=== PATIENT | male | born 1955 | race Caucasian/White ===

== ENCOUNTER 2017-06-18 17:19 | Inpatient (IN) | payer MEDICARE ==
[2017-06-18 17:57] LABS: #Basophils 0.1 thou/uL (0.0-0.2); #Eosinphils 0.2 thou/uL (0.0-0.7); #Lymphocytes 1.5 thou/uL (1.20-3.40); #Monocytes 0.5 thou/uL (0.11-0.59); #Neutrophils 3.9 thou/uL (1.40-6.50); %Basophils 0.8 % (0.0-1.0); %Eosinophils 3.3 % (0.0-10.0); %Lymphocytes 24.2 % (21.0-51.0); %Monocytes 8.1 % (0.0-10.0); Hematocrit 35.5 % (42.0-52.0); Mean Platelet Volume 7.9 fL (7.4-10.4); White Blood Cell (WBC) Count 6.2 thou/uL (4.8-10.8)
[2017-06-18 18:23] LABS: Troponin I 0.022 ng/mL (< 0.028)
[2017-06-18 18:44] LABS: ALT (SGPT) 9 U/L (8-55); AST (SGOT) 21 U/L (5-34); Alkaline Phosphatase 95 U/L (40-150); Anion Gap 15 mmol/L (10-20); BUN (Urea Nitrogen) 22 mg/dL (8.4-25.7); Bilirubin, Total 0.9 mg/dL (0.2-1.2); CK (CPK) 68 U/L (30-200); Calc. Creatinine Clearance 0 mL/min (70-130); Calcium 8.9 mg/dL (7.8-10.44); Carbon Dioxide 28 mmol/L (22-29); Chloride 102 mmol/L (98-107); Estimated GFR-MDRD Greater than 90; Lipase 63 U/L (8-78); Protein, Total 7.1 g/dL (6.0-8.3)
--- NOTE | 2017-06-18 18:58 | RAD ---
CHEST 1 VIEW: Date: 06/18/17 HISTORY: Chest pain. COMPARISON: Chest 1 view dated 12/07/16. FINDINGS: Mild hilar prominence bilaterally. Heart size is mildly enlarged. Mild interstitial prominence. No pn eumothorax or large effusion. Dual lead AICD/pacer is present. IMPRESSION: Cardiomegaly with mild pulmonary venous congestion and early edema. POS: [facility]
[2017-06-18] MEDS ORDERED: Furosemide 40 MG/4 ML VIAL ONE (21:59)
[2017-06-18] MEDS ORDERED: Acetaminophen 325 MG TAB PO PRN (23:38)
[2017-06-18] MEDS ORDERED: Ondansetron ODT 4 MG TAB SL PRN (23:38)
[2017-06-18] MEDS ORDERED: Ondansetron HCl/PF 4 MG/2 ML Vial IVP PRN (23:38)
[2017-06-19 00:26] LABS: Troponin I 0.022 ng/mL (< 0.028)
[2017-06-19 03:13] LABS: Troponin I 0.023 ng/mL (< 0.028)
[2017-06-19] MEDS ORDERED: Furosemide 40 MG/4 ML VIAL SLOW IVP SCH (04:00)
--- NOTE | 2017-06-19 08:50 | HP ---
REASON FOR ADMISSION: Shortness of breath. HISTORY OF PRESENT ILLNESS: This is a 61-year-old gentleman with a history of multiple medical probl ems to include coronary artery disease followed by Dr. Krishnan in the past with his last catheterizati on in 2011 at which time he was found to have 60% lesion in a large diagonal branch, circumflex first marginal had 50-60% lesion, right coronary had 90% lesion, 70% mid and 90% distal lesion proximally, the right coronary artery was not bypassable. There was clearly a very large aneurysmal dilatation following the lesion. There was a depressed ejection fraction 40% at that time. There was a success ful stent placement in the right proximal coronary artery and the patient did very well at that time. He presented back in the hospital in 2013 with chest pain. At that time, he was seen by Dr. Krishnan. At that time he was found to have a depressed EF of 25%. Also at that time underwent AICD placement . His prognosis was felt to be poor at that time and his coronary artery disease was treated medical ly. The patient has been noncompliant at that time. He is known to also have COPD and possible sleep direct support professional ea, but the patient refuses any sleep apnea test. The patient presents with a 2 week history of increasing shortness of breath. The patient states he has been waking up over the last several times in the last 2 weeks and will just be gasping for air. He also has been having bad dreams. He tells me "as if God is trying to tell him something". The p atient did try his 's CPAP machine recently, but states he could not tolerate it. Dr. Teresa has been wanting him to get tested for sleep apnea, but he has been refusing in the past. He has not bee n seen by a technician trainee since 2013. The patient did have an episode of chest pressure with no assoc iated nausea, vomiting, or diaphoresis and this only lasted a few seconds. The patient did present t o the hospital with the above symptoms and for this reason, he was admitted to the hospital for [facility] evaluation and treatment. PAST MEDICAL HISTORY: 1. As above. 2. Noncompliance. 3. Diabetes. 4. Hypertension. 5. Dyslipidemia. 6. Chronic obstructive pulmonary disease. 7. Gastroesophageal reflux disease. 8. Depression. 9. Anxiety. 10. Peripheral neuropathy. PAST SURGICAL HISTORY: 1. Stent placement in 2011. 2. Surgery on his right foot. 3. Inguinal hernia repair in the past. ALLERGIES: None. MEDICATIONS: 1. Albuterol q.i.d. 2. Allopurinol 300 mg a day. 3. Aspirin 81 mg. 4. Symbicort 160/4.5 b.i.d. 5. Coreg 12.5 mg b.i.d. 6. Plavix 75 mg a day. 7. Prozac 40 mg. 8. Lasix 40 mg, 9. Neurontin 800 mg t.i.d. 10 Lopid 600 mg b.i.d. 11. Mucinex 1200 mg b.i.d. 12. Metformin 1000 mg b.i.d. SOCIAL HISTORY: He is a former smoker, quit 10 years ago. He does drink alcohol. He is . FAMILY HISTORY: Noncontributory. REVIEW OF SYSTEMS: GENERAL: No weight gain or loss. Admits to weakness, fatigue, no fever or chills. HEENT: No diplopia, amaurosis fugax, tinnitus, sore throat or hoarseness. CARDIOVASCULAR: See history of present illness. PULMONARY: See history of present illness. GI: No GI bleed, does have GERD, no constipation or diarrhea. GENITOURINARY: No dysuria, nocturia, oliguria or polyuria. ENDOCRINE: No polyphagia, polydipsia or heat or cold intolerance. MUSCULOSKELETAL: Admits to arthralgias. No myopathy. He does have gout. NEUROLOGIC: No history of TIA or seizure. All other systems are negative. PHYSICAL EXAMINATION: GENERAL: Pleasant gentleman who appears to be in no acute distress. NEUROLOGICAL: He is awake, alert, and oriented to person, place and time. VITAL SIGNS: Blood pressure is 130/70, pulse 70, respirations 18, he is afebrile. NECK: Supple with no increased JVP or carotid bruit. Carotid had good upstroke with no thyromegaly. COR: Regular rate and rhythm. He had a defibrillator in the left anterior chest. Chest is symmetri glory with scattered wheezing. A few crackles in the bases. ABDOMEN: Soft, obese, nontender with normoactive bowel sounds. No bruit or organomegaly. EXTREMITIES: No edema or cyanosis. He had palpable pedal pulses. SKIN: There is no evidence of ulceration lesion, or rash. NEURO: He is awake, alert, and oriented to person, place, and time. LABORATORY DATA: His cardiac enzymes are normal. BNP is slightly elevated at 227.2, H&H 11.9 and 35 .5, white blood cells 6.2. EKG shows sinus rhythm, nonspecific T-wave changes. ASSESSMENT: 1. This is a pleasant 61-year-old gentleman with a history of multiple medical problems to include c oronary artery disease with stent placement in the past and cardiomyopathy with automatic implantable cardioverter/defibrillator placement. He has not seen a technician trainee in 3 years and presents now wi th nonspecific chest pain and breathing difficulties suggestive of congestive heart failure and also chronic obstructive pulmonary disease. 2. He is also known to have a history of hypertension, hyperlipidemia, and diabetes. PLAN: 1. We will ask Dr. Krishnan to see the patient in consultation where an echocardiogram will be obtaine d. 2. We will check blood sugars a.c. and at bedtime and use sliding scale insulin per protocol. 3. We will check a hemoglobin A1c. 4. We will diurese with IV diuretics. 5. We will check a fasting lipid profile. 6. We will resume his home medications. 7. We will check overnight pulse ox to get an idea for sleep apnea. 8. We will obtain accurate I's and O's. 9. We will follow up with lab also in the morning. The patient verbalized understanding and all questions answered to his satisfaction.
[2017-06-19 08:54] LABS: Hemoglobin A1c 6.9 % (4.0-6.0)
[2017-06-19] MEDS ORDERED: Dextrose 5% in Water 1,000 ML IV PRN (08:59)
[2017-06-19] MEDS ORDERED: Dextrose 50% Abboject 50 ML SYRINGE IVP PRN (08:59)
[2017-06-19] MEDS ORDERED: Insulin Regular 300 UNITS/3 ML VIAL SC PRN ×2 (08:59)
[2017-06-19] MEDS ORDERED: FLU VACC QS2017-18 36 mo. & older 0.5 ML SYRINGE IM ONE (09:00)
[2017-06-19] MEDS ORDERED: Albuterol Sulfate 2.5 mg/3 ml Neb NEB PRN (09:05)
[2017-06-19] MEDS: Furosemide 40 MG/4 ML VIAL SLOW IVP SCH (09:18)
[2017-06-19] MEDS ORDERED: Gabapentin 400 MG CAP PO SCH ×2 (09:30→09:45)
[2017-06-19] MEDS: Potassium Chloride 20 MEQ TAB PO SCH (09:38)
[2017-06-19] MEDS ORDERED: metFORMIN 500 MG TAB PO SCH (09:45)
[2017-06-19] MEDS ORDERED: guaiFENesin ER 600 MG TAB PO SCH (09:45)
[2017-06-19] MEDS ORDERED: FLUoxetine HCl 20 MG CAP PO SCH (09:45)
[2017-06-19] MEDS ORDERED: Gemfibrozil 600 MG TAB PO SCH ×2 (09:45→16:30)
[2017-06-19] MEDS ORDERED: Aspirin 81 mg Enteric Coated Tablet PO SCH (09:45)
[2017-06-19] MEDS ORDERED: Carvedilol 6.25 MG TAB PO SCH ×2 (09:45→21:00)
[2017-06-19] MEDS ORDERED: Allopurinol 300 MG TAB PO SCH (09:45)
[2017-06-19] MEDS ORDERED: Clopidogrel Bisulfate 75 MG TAB PO SCH (09:45)
[2017-06-19] MEDS: Carvedilol 6.25 MG TAB PO SCH ×2 (11:14→20:25)
--- NOTE | 2017-06-19 11:39 | CON ---
DATE OF CONSULTATION: 06/19/2017 HISTORY OF PRESENT ILLNESS: The patient is a pleasant 61-year-old gentleman with a long history of coronary artery disease who presents with increasing dyspnea and chest discomfort. The patient has a long history of coronary artery disease. In 2011, he underwent PTCA and stent placement into an obtuse marginal branch and right coronary artery. The patient represented in 01/2014. He was found to have severe coronary artery disease with a low ejection fraction. The patient had a 40% LAD lesion, a 60% diagonal lesion and a 60% ramus lesion in the right coronary artery. He had multiple lesions to 70%-80%. The patient has subsequently been treated medically. He has also had placement of automatic implantable cardiac defibrillator. The patient has unfortunately not been compliant with his followup. He states that he has noticed for the past several months developing progressive dyspnea on exertion. He reports also having substernal chest discomfort that has relieved by rest. The patient 2 weeks ago started having increasing shortness of breath. He reports whenever he lied down that he becomes markedly short of breath and has to sit up. The patient states he has been compliant recently with his medications PAST MEDICAL HISTORY: 1. Coronary artery disease. 2. Diabetes mellitus. 3. Hypertension. 4. Chronic obstructive pulmonary disease. 5. Depression. PAST SURGICAL HISTORY: Foot surgery, hernia surgery and appendectomy. SOCIAL HISTORY: He is a former smoker. ALLERGIES: ZYRTEC. FAMILY HISTORY: There is a positive family history of coronary artery disease. REVIEW OF SYSTEMS: Ten point system noticeable for weakness, otherwise unremarkable. PHYSICAL EXAMINATION: GENERAL: This is an obese gentleman in mild distress with a blood pressure of 129/74. NECK: Full. LUNGS: Diffuse wheezes throughout both lung morales. HEART: Regular rate and rhythm, normal S1, S2 with distant heart sounds. ABDOMEN: Distended. EXTREMITIES: Showed no edema. SKIN: Warm and dry. NEUROLOGIC: Nonfocal. VASCULAR: Radial pulses are 2+. LABORATORY DATA: Sodium is 141, potassium 4.2, chloride 102, bicarbonate 28, BUN 22, creatinine is 0.81, glucose is 90, troponin 0.22. BNP is 227. White blood cell count 6.2, hemoglobin 11.9, hematocrit 35.5, platelets 172. EKG reveals him to have normal sinus rhythm, nonspecific T-wave abnormality. Chest x-ray showed cardiomegaly with mild pulmonary vascular redistribution. IMPRESSION: 1. Dyspnea secondary to probably chronic obstructive pulmonary disease exacerbation. 2. Chest pain suggestive of exertional angina. 3. History of percutaneous transluminal coronary angioplasty and stent placement. 4. Diffuse 3-vessel coronary artery disease. 5. Severe ischemic cardiomyopathy. 6. History of automatic implantable cardioverter defibrillator placement. 7. Chronic obstructive pulmonary disease. This unfortunate gentleman with a severe ischemic cardiomyopathy who presents with increasing dyspnea. He appears to have mild congestive heart failure. He also has a severe COPD, we would recommend that the patient decrease the dose of his beta harry. We will start the patient on AMRIT inhibitor therapy as well as statin therapy. We will check the patient's echocardiogram. We will proceed with stress testing during this hospitalization. PLAN: 1. Decrease Coreg to 6.25 mg p.o. b.i.d. 2. Start lisinopril 5 mg p.o. b.i.d. 3. Start high dose statin therapy, Lipitor 40 mg daily. 4. Discontinue gemfibrozil. 5. Check echocardiogram. 6. Schedule Lexiscan stress testing during this hospitalization. 7. Obtain pulmonary consultation. GARRYD
[2017-06-19] MEDS: metFORMIN 500 MG TAB PO SCH (16:42)
[2017-06-19] MEDS: Gabapentin 400 MG CAP PO SCH ×2 (16:42→20:24)
[2017-06-19] MEDS ORDERED: Cepastat Lozenges 1 LOZ PO PRN (18:39)
[2017-06-19] MEDS: Mometasone/Formoterol 120 PUFF INHALER INH SCH (19:53)
[2017-06-19] MEDS: Atorvastatin Calcium 40 MG TAB PO SCH (20:24)
[2017-06-19] MEDS: guaiFENesin ER 600 MG TAB PO SCH (20:24)
[2017-06-19] MEDS: Lisinopril 5 MG TAB PO SCH (20:25)
[2017-06-20 04:38] LABS: ALT (SGPT) 7 U/L (8-55); AST (SGOT) 9 U/L (5-34); Alkaline Phosphatase 87 U/L (40-150); Anion Gap 12 mmol/L (10-20); BUN (Urea Nitrogen) 25 mg/dL (8.4-25.7); Bilirubin, Total 0.7 mg/dL (0.2-1.2); Calc. Creatinine Clearance 132 mL/min (70-130); Calcium 8.9 mg/dL (7.8-10.44); Carbon Dioxide 30 mmol/L (22-29); Chloride 102 mmol/L (98-107); Cholesterol 190 mg/dl (< 200 Desired); Estimated GFR-MDRD 90; Globulin 2.8 g/dL (2.4-3.5); LDL Cholesterol, Calculated 123 mg/dL; Protein, Total 6.6 g/dL (6.0-8.3)
[2017-06-20] MEDS: Mometasone/Formoterol 120 PUFF INHALER INH SCH ×2 (06:38→20:01)
[2017-06-20] MEDS: metFORMIN 500 MG TAB PO SCH ×2 (10:13→16:01)
[2017-06-20] MEDS: Gabapentin 400 MG CAP PO SCH ×3 (10:14→21:02)
[2017-06-20] MEDS: FLUoxetine HCl 20 MG CAP PO SCH (10:15)
[2017-06-20] MEDS: Aspirin 81 mg Enteric Coated Tablet PO SCH (10:15)
[2017-06-20] MEDS: Clopidogrel Bisulfate 75 MG TAB PO SCH (10:15)
[2017-06-20] MEDS: guaiFENesin ER 600 MG TAB PO SCH ×2 (10:15→21:01)
[2017-06-20] MEDS: Potassium Chloride 20 MEQ TAB PO SCH (10:15)
[2017-06-20] MEDS: Lisinopril 5 MG TAB PO SCH ×2 (10:15→21:03)
[2017-06-20] MEDS: Carvedilol 6.25 MG TAB PO SCH ×2 (10:15→21:01)
[2017-06-20] MEDS: Allopurinol 300 MG TAB PO SCH (10:15)
--- NOTE | 2017-06-20 14:19 | NM ---
MYOCARDIAL PERFUSION SCAN WITH SPECT IMAGING: HISTORY: Chest pain. TECHNIQUE/FINDINGS: Examination is performed using 30 mCi 99m-technetium sestamibi on the stress and 9 on the resting yulisa ges. This shows an apical inferior wall defect without definite signs for ischemia. WALL MOTION: There is a generalized hypokinesis noted. LEFT VENTRICULAR EJECTION FRACTION: The calculated left ventricular ejection fraction is 35%. IMPRESSION: 1. Global hypokinesis with a diminished left ventricular ejection fraction of 35%. 2. Fixed defect involving the apical and inferoapical wall suggesting an area of scar. POS: [facility]
[2017-06-20] MEDS ORDERED: Regadenoson 0.4 MG/5 ML SYRINGE ONE (15:53)
[2017-06-20] MEDS: Furosemide 40 MG/4 ML VIAL SLOW IVP SCH (16:01)
[2017-06-20] MEDS ORDERED: Spironolactone 25 MG TAB PO SCH (17:45)
[2017-06-20] MEDS ORDERED: Furosemide 40 MG/4 ML VIAL SLOW IVP SCH (17:45)
[2017-06-20] MEDS: Atorvastatin Calcium 40 MG TAB PO SCH (21:03)
--- NOTE | 2017-06-20 22:03 | CON ---
DATE OF SERVICE 06/20/2017 FOLLOW UP NOTE/PROGRESS NOTE Mr. Montiel is feeling better today. He is able to lay almost flat now. He had a good diuresis. He is feeling better. No chest pain. He says he has been diuresing very well. The I and O was only mildly negative, but it sounds like a lot of the urine output has not been collected. PHYSICAL EXAMINATION: VITAL SIGNS: His blood pressure is 115/60, pulse 75, regular. LUNGS: Clear. CARDIAC: Normal S1, normal S2. ABDOMEN: Soft, nontender. EXTREMITIES: No edema. Peripheral pulses are diminished. Stress test revealed a fixed inferior defect compatible with old infarct, but no ischemia, ejection fraction 35%. ASSESSMENT: 1. Diffusely diseased non bypassable right coronary artery. 2. Congestive heart failure with ejection fraction 35%. 3. No ischemia on stress testing. PLAN: 1. Continue therapy for congestive heart failure. 2. Reevaluate tomorrow. The patient is still unable to lay flat comfortably. PEDRITO
[2017-06-20] MEDS: diphenhydrAMINE 25 MG CAP PO SCH (23:04)
[2017-06-21 04:55] LABS: Anion Gap 9 mmol/L (10-20); BUN (Urea Nitrogen) 28 mg/dL (8.4-25.7); Calc. Creatinine Clearance 129 mL/min (70-130); Carbon Dioxide 31 mmol/L (22-29); Chloride 103 mmol/L (98-107); Estimated GFR-MDRD 87
[2017-06-21] MEDS: Mometasone/Formoterol 120 PUFF INHALER INH SCH ×2 (06:24→19:08)
--- NOTE | 2017-06-21 08:46 | PRG ---
DATE OF SERVICE: 06/21/2017 The patient did not have a good night. He is still short of breath when he lays down. His appetite is good. He is also still short of breath with minimal exertion. He denies any type of chest pain. PHYSICAL EXAMINATION: GENERAL: Upon evaluation, he is awake, alert, and oriented to person, place and time. He has no fam onur at bedside. VITAL SIGNS: Blood pressure is good at 125/70, pulse 77, respirations 18, he is afebrile. NECK: Supple with no increased JVP or carotid bruit. Carotid had good upstroke with no thyromegaly. COR: Regular rate and rhythm. CHEST: Scattered wheezing. ABDOMEN: Soft, nontender with normoactive bowel sounds. There is no bruit or organomegaly. EXTREMITIES: No edema or cyanosis. He had palpable pedal pulses. SKIN: There is no evidence of ulcers lesion, or rash. NEUROLOGIC: He is awake, alert, and oriented to person, place, and time. LABORATORY DATA: His stress test showed a global hypokinesis with diminished EF of 35% and also fixe d defect involving the apical and inferoapical wall in the area of the scar. I do not have the pulmo nary function test in the chart. ASSESSMENT: 1. Chronic obstructive pulmonary disease. 2. Cardiomyopathy. 3. History of coronary artery disease. 4. Probable obstructive sleep apnea. 5. Noncompliance. 6. Hypertension. 7. Hyperlipidemia. 8. Diabetes. PLAN: We will continue the same current medication regime as we are continuing to diurese the patien t. I also explained to the patient regarding limiting his fluids as well. The patient did verbalize understanding and all questions answered to his satisfaction. We will also follow up with lab [facility].
[2017-06-21] MEDS: metFORMIN 500 MG TAB PO SCH ×2 (09:34→16:55)
[2017-06-21] MEDS: Spironolactone 25 MG TAB PO SCH (09:35)
[2017-06-21] MEDS: Allopurinol 300 MG TAB PO SCH (09:35)
[2017-06-21] MEDS: Furosemide 40 MG/4 ML VIAL SLOW IVP SCH (09:36)
[2017-06-21] MEDS: Aspirin 81 mg Enteric Coated Tablet PO SCH (09:36)
[2017-06-21] MEDS: Gabapentin 400 MG CAP PO SCH ×4 (09:36→22:05)
[2017-06-21] MEDS: FLUoxetine HCl 20 MG CAP PO SCH (09:36)
[2017-06-21] MEDS: Clopidogrel Bisulfate 75 MG TAB PO SCH (09:36)
[2017-06-21] MEDS: Carvedilol 6.25 MG TAB PO SCH ×2 (09:36→22:05)
[2017-06-21] MEDS: guaiFENesin ER 600 MG TAB PO SCH ×2 (09:37→22:05)
[2017-06-21] MEDS: Potassium Chloride 20 MEQ TAB PO SCH (09:37)
[2017-06-21] MEDS: Lisinopril 5 MG TAB PO SCH (09:37)
[2017-06-21] MEDS ORDERED: Communication Order-Pharmacy FS SCH (16:00)
[2017-06-21] MEDS ORDERED: Furosemide 40 MG/4 ML VIAL SLOW IVP SCH (16:00)
[2017-06-21] MEDS ORDERED: Potassium Chloride 20 MEQ TAB PO SCH (16:00)
--- NOTE | 2017-06-21 16:21 | PRG ---
DATE OF SERVICE: 06/21/2017 HISTORY: Mr. Montiel had a good diuresis last night. He states he still does not feel great. He is n ot having chest pain or pressure. He states that recently he has been having increasing amounts of f atigue however. PHYSICAL EXAMINATION: VITAL SIGNS: His blood pressure 117/66, pulse 74 regular. LUNGS: Clear. CARDIAC: Normal S1, S2. ABDOMEN: Soft, nontender. EXTREMITIES: Decreased pulses in the right. I do not feel a good femoral pulse in right. He has g ot a good femoral pulse on the left. ASSESSMENT: 1. Coronary artery disease. 2. Hypercholesterolemia. 3. Congestive heart failure, slowly improving. PLAN: 1. Recommend he undergo repeat cardiac catheterization in view of increasing fatigue recently, his h eart failure is improved, in the right coronary artery there is nothing that further can be done to revascularize, but the left system could potentially be treated with stent since that is worsened. T he patient's cholesterol has been elevated. 2. He has a chronic cough. We will stop AMRIT inhibitors and change to angiotensin receptor blockers. 3. Proceed to cardiac catheterization tomorrow. Risks including stroke, heart attack, iodine allerg y, loss of blood supply to the leg or kidney, stent thrombosis, stent restenosis all discussed. The patient understands and wishes to proceed.
[2017-06-21] MEDS ORDERED: predniSONE 20 MG TAB PO SCH (20:00)
[2017-06-21] MEDS: diphenhydrAMINE 25 MG CAP PO SCH (22:04)
[2017-06-21] MEDS: Atorvastatin Calcium 40 MG TAB PO SCH (22:05)
[2017-06-22 04:52] LABS: ALT (SGPT) 8 U/L (8-55); AST (SGOT) 9 U/L (5-34); Alkaline Phosphatase 93 U/L (40-150); Anion Gap 11 mmol/L (10-20); BUN (Urea Nitrogen) 33 mg/dL (8.4-25.7); Bilirubin, Total 0.5 mg/dL (0.2-1.2); Calc. Creatinine Clearance 104 mL/min (70-130); Calcium 9.3 mg/dL (7.8-10.44); Carbon Dioxide 29 mmol/L (22-29); Chloride 101 mmol/L (98-107); Estimated GFR-MDRD 68; Globulin 3.2 g/dL (2.4-3.5); Protein, Total 7.3 g/dL (6.0-8.3)
[2017-06-22] MEDS: Carvedilol 6.25 MG TAB PO SCH ×2 (05:11→20:32)
[2017-06-22] MEDS: Allopurinol 300 MG TAB PO SCH (05:11)
[2017-06-22] MEDS: Gabapentin 400 MG CAP PO SCH ×3 (05:12→20:32)
[2017-06-22] MEDS: guaiFENesin ER 600 MG TAB PO SCH ×2 (05:12→20:33)
[2017-06-22] MEDS: FLUoxetine HCl 20 MG CAP PO SCH (05:13)
[2017-06-22] MEDS: Aspirin 81 mg Enteric Coated Tablet PO SCH (05:13)
[2017-06-22] MEDS: Clopidogrel Bisulfate 75 MG TAB PO SCH (05:13)
[2017-06-22] MEDS ORDERED: Diazepam 10 MG/2 ML SYRINGE IVP SCH (06:00)
[2017-06-22] MEDS ORDERED: predniSONE 20 MG TAB PO SCH (06:00)
[2017-06-22] MEDS ORDERED: Sodium Chloride 0.9% 1,000 ML IV SCH (06:00)
[2017-06-22] MEDS ORDERED: Heparin 1000 UNIT/NS 500ML(OR) 1,000 ML ONE (06:41)
[2017-06-22] MEDS: Insulin Regular 300 UNITS/3 ML VIAL SC PRN ×4 (06:51→23:55)
[2017-06-22] MEDS: Mometasone/Formoterol 120 PUFF INHALER INH SCH ×2 (07:10→19:27)
[2017-06-22] MEDS ORDERED: Midazolam HCl 2 mg/2 ml Vial ONE (07:23)
[2017-06-22] MEDS ORDERED: Fentanyl 100 MCG/2 ML VIAL ONE (07:23)
[2017-06-22] MEDS ORDERED: Verapamil 5 MG/2 ML VIAL ONE (08:29)
[2017-06-22] MEDS ORDERED: Nitroglycerin 100MG/250ML BOT 250 ML ONE (08:29)
[2017-06-22] MEDS ORDERED: Heparin 10,000 UNITS/1 ML VIAL ONE (08:29)
[2017-06-22] MEDS ORDERED: Nitroglycerin 0.4 MG TAB (25 Tab Bottle) SL PRN (08:52)
[2017-06-22] MEDS ORDERED: traMADol HCl 50 MG TAB PO PRN (08:52)
[2017-06-22] MEDS ORDERED: Acetaminophen/Codeine 30-300mg Tablet PO PRN (08:52)
[2017-06-22] MEDS ORDERED: Sodium Chloride 0.9% 200 ML IV SCH (09:00)
[2017-06-22] MEDS: Spironolactone 25 MG TAB PO SCH (10:29)
[2017-06-22] MEDS: Potassium Chloride 20 MEQ TAB PO SCH (10:29)
[2017-06-22] MEDS: Furosemide 40 MG/4 ML VIAL SLOW IVP SCH (10:36)
[2017-06-22] MEDS ORDERED: Iopamidol 370 76% 100 ML VIAL ONE (15:34)
[2017-06-22] MEDS: Atorvastatin Calcium 40 MG TAB PO SCH (20:32)
[2017-06-22] MEDS: diphenhydrAMINE 25 MG CAP PO SCH (20:33)
--- NOTE | 2017-06-22 21:14 | CON ---
DATE OF CONSULTATION: 06/22/2017 HISTORY OF PRESENT ILLNESS: Mr. Montiel is a 61-year-old gentleman with a history of coronary artery d isease, depressed left ventricular function, diabetes mellitus, hypertension, dyslipidemia, COPD. He presented with worsening congestive heart failure symptoms. At the time of admission, his echocardi ogram showed an ejection fraction of 20%-25%. He was diuresed. He has had a chronic cough at home o n AMRIT inhibitors and his AMRIT inhibitor was discontinued and changed to an ARB. With diuresis, he was feeling better from a pulmonary standpoint and went for cardiac catheterization today. Catheterizat ion revealed severe 3-vessel disease. He has been on chronic Plavix therapy. This has been held as of today. Coronary artery bypass grafting has been recommended. PAST MEDICAL HISTORY: 1. Coronary artery disease. 2. Congestive heart failure. 3. Diabetes mellitus. 4. Hypertension. 5. Dyslipidemia. 6. COPD. 7. GERD. 8. Depression. 9. Anxiety. 10. Noncompliance with medical therapy. 11. Peripheral neuropathy. PAST SURGICAL HISTORY: 1. Stent placement in 2011. 2. Right foot surgery x4 for fracture and chronic pain. 3. Right inguinal hernia repair. 4. Exploratory laparoscopy. ALLERGIES: None. MEDICATIONS AT HOME: Noted. SOCIAL HISTORY: He quit smoking 10 years ago. He does not use alcohol. He is and disabled due to his right foot. REVIEW OF SYSTEMS: A ten-point review of systems is performed and is negative except as above. PHYSICAL EXAMINATION: GENERAL: This is a well-developed, well-nourished man, resting comfortably in bed without complaint. VITAL SIGNS: Height is 5 feet 10 inches, weight is 228 pounds, BSA 2.26. Heart rate is 75 and regul ar, blood pressure is 144/68. HEENT: Sclerae anicteric. Pupils are equal and round bilaterally. NECK: Supple, without carotid bruit. CHEST: Clear bilaterally. HEART: Rhythm is regular, without murmur. ABDOMEN: Obese, soft, and nontender. No masses. EXTREMITIES: No edema. VASCULAR: He has palpable carotid, radial, and femoral pulses bilaterally. VENOUS: There are no venous varicosities or venous stasis changes. PSYCHIATRIC: The patient is awake, alert, and oriented to person, place, and time. LABORATORY DATA: Creatinine is 1.1, potassium is 4.6. Hemoglobin is 11.9, platelet count is 172,000 . ASSESSMENT AND PLAN: This is a 61-year-old gentleman with depressed left ventricular function, conge stive heart failure, and three-vessel coronary artery disease. He has been poorly controlled as an o utpatient. Since admission, he has been diuresed and feels better. I would recommend that we contin ue as an inpatient to treat his congestive failure symptoms and stop his Plavix. Coronary artery byp ass grafting has been recommended. Risks, benefits, and options have been outlined. I would like to leave him off his Plavix for 4-5 days and then plan for surgery. In the meantime, continue to treat his congestive failure and diurese him as he is able. He is in agreement with this treatment plan. I have tentatively planned him for surgery on Sunday.
[2017-06-23] MEDS ORDERED: Budesonide 0.5 MG/2 ML NEB NEB SCH (08:45)
[2017-06-23] MEDS: Mometasone/Formoterol 120 PUFF INHALER INH SCH ×2 (08:50→19:39)
--- NOTE | 2017-06-23 09:27 | CCL ---
PROCEDURE: CARDIAC CATHETERIZATION PROCEDURE: Mr. Montiel was brought to cardiac catheterization lab in fasting state. The right femoral artery was deep. He was prepped and draped in usual fashion. Under ultrasound guidance, placed a micropuncture wire, but the introducer would not go easily. It coiled in the leg. I decided to abandon this appr oac and went to the left side. On the left side again under ultrasound guidance, the wire was place d up into the aorta, but again the catheter would not go easily and tended to coil even with the stif khalif sheath and elected abandon this approach to proceed radial. The patient did not have any complic ations. Unsuccessful access from the right groin. Access was obtained from the radial artery. POS: [facility]
[2017-06-23] MEDS: FLUoxetine HCl 20 MG CAP PO SCH (10:02)
[2017-06-23] MEDS: Furosemide 40 MG/4 ML VIAL SLOW IVP SCH (10:02)
[2017-06-23] MEDS: Allopurinol 300 MG TAB PO SCH (10:03)
[2017-06-23] MEDS: Gabapentin 400 MG CAP PO SCH ×3 (10:03→21:12)
[2017-06-23] MEDS: Potassium Chloride 20 MEQ TAB PO SCH (10:04)
[2017-06-23] MEDS: predniSONE 20 MG TAB PO SCH (10:04)
[2017-06-23] MEDS: Aspirin 81 mg Enteric Coated Tablet PO SCH (10:04)
[2017-06-23] MEDS: Carvedilol 6.25 MG TAB PO SCH ×2 (10:05→21:12)
[2017-06-23] MEDS: Spironolactone 25 MG TAB PO SCH (11:50)
[2017-06-23] MEDS: guaiFENesin ER 600 MG TAB PO SCH ×2 (11:51→21:15)
[2017-06-23] MEDS: Insulin Regular 300 UNITS/3 ML VIAL SC PRN ×2 (18:09→21:18)
[2017-06-23] MEDS: Budesonide 0.5 MG/2 ML NEB NEB SCH (19:38)
[2017-06-23] MEDS: Atorvastatin Calcium 40 MG TAB PO SCH (21:12)
[2017-06-23] MEDS: diphenhydrAMINE 25 MG CAP PO SCH (21:12)
[2017-06-24] MEDS: Budesonide 0.5 MG/2 ML NEB NEB SCH ×2 (07:13→18:55)
[2017-06-24] MEDS: Mometasone/Formoterol 120 PUFF INHALER INH SCH ×2 (07:25→18:56)
[2017-06-24] MEDS ORDERED: Insulin Detemir 100 UNITS/ML 30 UNITS in Pre-Filled Syringe 1 EACH SC SCH (09:00)
[2017-06-24] MEDS: Furosemide 40 MG/4 ML VIAL SLOW IVP SCH (09:52)
[2017-06-24] MEDS: FLUoxetine HCl 20 MG CAP PO SCH (09:52)
[2017-06-24] MEDS: Allopurinol 300 MG TAB PO SCH (09:53)
[2017-06-24] MEDS: guaiFENesin ER 600 MG TAB PO SCH ×2 (09:53→20:58)
[2017-06-24] MEDS: predniSONE 20 MG TAB PO SCH (09:53)
[2017-06-24] MEDS: Gabapentin 400 MG CAP PO SCH ×3 (09:53→20:58)
[2017-06-24] MEDS: Spironolactone 25 MG TAB PO SCH (09:54)
[2017-06-24] MEDS: Carvedilol 6.25 MG TAB PO SCH ×2 (09:54→20:57)
[2017-06-24] MEDS: Aspirin 81 mg Enteric Coated Tablet PO SCH (09:54)
[2017-06-24] MEDS: Potassium Chloride 20 MEQ TAB PO SCH (09:54)
[2017-06-24] MEDS: Insulin Regular 300 UNITS/3 ML VIAL SC PRN ×3 (09:59→21:01)
--- NOTE | 2017-06-24 15:58 | CON ---
DATE OF CONSULTATION: 06/24/2017 SUBJECTIVE: Robert Montiel is a 61-year-old male who I have seen for COPD. He is fairly functional, a lthough he says he has become less active as he has gotten older. He is felt to have surgical coronary disease and tentatively scheduled for surgery Sunday. PAST MEDICAL HISTORY: Remarkable for, 1. Cardiomyopathy. 2. Diabetes. 3. Lipid disorder. 4. Obstructive lung disease. 5. Depression. 6. Peripheral neuropathy. 7. History of coronary stenting. 8. History of right foot surgery for fracture. 9. History of herniorrhaphy. 10. History of a laparoscopy in the past. SOCIAL HISTORY: He quit smoking 10 years ago. He is a nondrinker. ALLERGIES: He has no drug allergies. REVIEW OF SYSTEMS: Otherwise negative. He says today he feels great. PHYSICAL EXAMINATION: VITAL SIGNS: He is afebrile, heart rate 69, respiratory rate 18, oximetry 91, blood pressure 108/59. HEENT: Pupils are equal. Sclerae is anicteric. NECK: Supple. LUNGS: Clear. HEART: Regular rhythm. S1 and S2 are normal. I do not hear murmur. ABDOMEN: Soft and nontender. EXTREMITIES: Without asymmetry. LABORATORY DATA: Labs have been reviewed. Chest x-ray has been reviewed. There are no mass lesions on his chest radiograph. Pulmonary edema was seen on his admitting film. IMPRESSION: Coronary artery disease. Tentatively for coronary bypass grafting. I will be happy to follow with the other physicians caring for him.
[2017-06-24] MEDS: Atorvastatin Calcium 40 MG TAB PO SCH (20:57)
[2017-06-24] MEDS: diphenhydrAMINE 25 MG CAP PO SCH (20:58)
[2017-06-25 05:29] LABS: #Eosinphils 0.2 thou/uL (0.0-0.7); #Lymphocytes 1.7 thou/uL (1.20-3.40); #Monocytes 0.5 thou/uL (0.11-0.59); %Basophils 0.6 % (0.0-1.0); %Eosinophils 2.6 % (0.0-10.0); %Lymphocytes 22.9 % (21.0-51.0); %Monocytes 7.2 % (0.0-10.0); Hematocrit 33.5 % (42.0-52.0); Mean Platelet Volume 7.7 fL (7.4-10.4); Red Blood Cell (RBC) Count 3.57 mill/uL (4.70-6.10); White Blood Cell (WBC) Count 7.4 thou/uL (4.8-10.8)
[2017-06-25 05:44] LABS: Anion Gap 12 mmol/L (10-20); BUN (Urea Nitrogen) 27 mg/dL (8.4-25.7); Calc. Creatinine Clearance 109 mL/min (70-130); Calcium 9.5 mg/dL (7.8-10.44); Carbon Dioxide 30 mmol/L (22-29); Chloride 100 mmol/L (98-107); Estimated GFR-MDRD 74
[2017-06-25] MEDS: Budesonide 0.5 MG/2 ML NEB NEB SCH ×2 (07:48→19:01)
[2017-06-25] MEDS: Mometasone/Formoterol 120 PUFF INHALER INH SCH ×2 (07:49→19:01)
[2017-06-25] MEDS: Furosemide 40 MG/4 ML VIAL SLOW IVP SCH (08:07)
[2017-06-25] MEDS: Insulin Regular 300 UNITS/3 ML VIAL SC PRN ×3 (08:07→17:32)
[2017-06-25] MEDS: predniSONE 20 MG TAB PO SCH (08:08)
[2017-06-25] MEDS: Aspirin 81 mg Enteric Coated Tablet PO SCH (08:08)
[2017-06-25] MEDS: Carvedilol 6.25 MG TAB PO SCH ×2 (08:08→21:02)
[2017-06-25] MEDS: Gabapentin 400 MG CAP PO SCH ×3 (08:08→21:03)
[2017-06-25] MEDS: Spironolactone 25 MG TAB PO SCH (08:08)
[2017-06-25] MEDS: Potassium Chloride 20 MEQ TAB PO SCH (08:08)
[2017-06-25] MEDS: FLUoxetine HCl 20 MG CAP PO SCH (08:09)
[2017-06-25] MEDS: guaiFENesin ER 600 MG TAB PO SCH ×2 (08:10→21:03)
[2017-06-25] MEDS: Allopurinol 300 MG TAB PO SCH (08:10)
[2017-06-25] MEDS ORDERED: Milk Of Magnesia 30 ML UDCUP PO PRN (08:35)
[2017-06-25] MEDS ORDERED: Milk Of Magnesia 30 ML UDCUP PO SCH (08:45)
--- NOTE | 2017-06-25 08:50 | RAD ---
PORTABLE CHEST: DATE: 06/25/17. PROVIDED CLINICAL HISTORY: Congestive heart failure. FINDINGS: Comparison 06/18/17. The cardiac silhouette remains enlarged. Left subclavian cardiac pacing device is again seen with the tips in similar positions. There is no focal consolidation, pleural fluid, o r pneumothorax apparent. IMPRESSION: No evidence for an acute cardiopulmonary process. POS: [facility]
[2017-06-25] MEDS ORDERED: Insulin Detemir 100 UNITS/ML 40 UNITS in Pre-Filled Syringe SC SCH (09:00)
--- NOTE | 2017-06-25 09:35 | PRG ---
DATE OF SERVICE: 06/25/2017 Mr. Montiel feels well, no complaints of chest pain or pressure. PHYSICAL EXAMINATION: VITAL SIGNS: Blood pressure 114/77, pulse 74 regular. LUNGS: Clear. CARDIAC: Normal S1 and S2. ASSESSMENT: 1. Three vessel coronary disease. 2. Congestive heart failure, systolic, compensated. PLAN: Proceed with bypass surgery tomorrow per Dr. Wilson's notes.
[2017-06-25] MEDS: Insulin Detemir 100 UNITS/ML 60 UNITS in Pre-Filled Syringe 1 EACH SC SCH (10:00)
[2017-06-25] MEDS ORDERED: Communication Order-Pharmacy FS SCH (13:04)
[2017-06-25] MEDS: Atorvastatin Calcium 40 MG TAB PO SCH (21:02)
[2017-06-25] MEDS: diphenhydrAMINE 25 MG CAP PO SCH (21:03)
[2017-06-26] MEDS ORDERED: CEFAZOLIN/Water 2 GM/20 ML SYRINGE SLOW IVP SCH (04:30)
[2017-06-26] MEDS: Carvedilol 6.25 MG TAB PO SCH (05:45)
[2017-06-26] MEDS ORDERED: Fentanyl 250 MCG/5 ML VIAL ONE (06:52)
[2017-06-26] MEDS ORDERED: Midazolam HCl 5 mg/5 ml Vial ONE (06:53)
[2017-06-26] MEDS ORDERED: Vecuronium 10 MG VIAL ONE ×3 (06:53→16:36)
[2017-06-26] MEDS ORDERED: Midazolam HCl 2 mg/2 ml Vial IVP SCH (07:15)
[2017-06-26] MEDS: Budesonide 0.5 MG/2 ML NEB NEB SCH (07:29)
[2017-06-26] MEDS ORDERED: Heparin 10,000 UNITS/1 ML VIAL 30,000 UNITS in Sodium Chloride 0.9% 1,000 ML IVPB SCH (07:30)
[2017-06-26] MEDS: Mometasone/Formoterol 120 PUFF INHALER INH SCH (07:30)
[2017-06-26] MEDS ORDERED: CEFAZOLIN/Water 2 GM/20 ML SYRINGE ONE (07:33)
[2017-06-26] MEDS ORDERED: Milrinone 10 MG/10 ML VIAL ONE (07:42)
[2017-06-26] MEDS ORDERED: Insulin Regular 300 UNITS/3 ML VIAL ONE (07:42)
[2017-06-26] MEDS ORDERED: Norepinephrine 8 MG/0.9% NS 250 ML ONE (07:42)
[2017-06-26] MEDS ORDERED: Midazolam HCl 2 mg/2 ml Vial ONE (07:53)
[2017-06-26] MEDS ORDERED: Heparin 30,000 units/30 ml VIAL ONE ×2 (09:00→16:36)
[2017-06-26] MEDS ORDERED: Sodium Bicarb 50 MEQ/50 ML VIAL ONE ×2 (09:00→16:36)
[2017-06-26] MEDS ORDERED: Lidocaine 2% PF 100 mg/5 ml Syringe ONE (09:00)
[2017-06-26] MEDS ORDERED: Protamine Sulfate 250 MG/25 ML VIAL ONE ×2 (09:00→16:36)
[2017-06-26] MEDS ORDERED: DOPamine/D5W 400 mg/250 ml PREMIX ONE (09:00)
[2017-06-26] MEDS ORDERED: Cardioplegic Soln 1,000 ML BAG ONE ×2 (09:00→16:36)
[2017-06-26] MEDS ORDERED: Heparin 5,000 UNITS/ML VIAL ONE (09:00)
[2017-06-26] MEDS ORDERED: Mannitol 12.5 GM/50 ML ONE (09:00)
[2017-06-26] MEDS ORDERED: Potassium Chloride 60 MEQ/30 ML VIAL ONE (09:00)
[2017-06-26] MEDS ORDERED: MAGNESIUM SULFATE 4.06 MEQ/ML ONE (09:00)
[2017-06-26] MEDS ORDERED: Aminocaproic Acid 5 GM/20 ML VIAL ONE ×2 (09:00→16:36)
[2017-06-26] MEDS ORDERED: Albumin 5% 500 ML ONE (11:02)
[2017-06-26] MEDS ORDERED: Acetaminophen 325 MG TAB PO PRN (13:26)
[2017-06-26] MEDS ORDERED: HYDROcodone/Acetaminophen 5/325 mg Tablet PO PRN (13:26)
[2017-06-26] MEDS ORDERED: Hetastarch 6% 500 ML 500 ML IVPB PRN (13:26)
[2017-06-26] MEDS ORDERED: Norepinephrine 8 MG/0.9% NS 250 ML IVPB PRN (13:26)
[2017-06-26] MEDS ORDERED: Bisacodyl 10 MG SUPP PR PRN (13:26)
[2017-06-26] MEDS ORDERED: Fentanyl 100 MCG/2 ML VIAL SLOW IVP PRN (13:26)
[2017-06-26] MEDS ORDERED: Mag-Al 1200 mg/1200 mg/30 ML UDCUP PO PRN (13:26)
[2017-06-26] MEDS ORDERED: Bisacodyl 5 MG TAB PO PRN (13:26)
[2017-06-26] MEDS ORDERED: Magnesium 2 GM/NS 0.9% 100 ML 2 GM in Premix Bag 1 BAG IVPB SCH (13:26)
[2017-06-26] MEDS ORDERED: Post-Op Insulin Drip Protocol IVPB ONE (13:26)
[2017-06-26] MEDS ORDERED: Ondansetron HCl/PF 4 MG/2 ML Vial IVP PRN (13:26)
[2017-06-26] MEDS ORDERED: DOPamine 400 MG/D5W 250 ML 250 ML IVPB PRN (13:26)
[2017-06-26] MEDS ORDERED: hydrALAZINE 20 MG/ML VIAL SLOW IVP PRN (13:26)
[2017-06-26] MEDS ORDERED: Potassium Chloride 20 MEQ/100 ML PREMIX BAG IVPB PRN (13:26)
[2017-06-26] MEDS ORDERED: Promethazine HCl 25 MG/ML VIAL IM PRN (13:26)
[2017-06-26] MEDS ORDERED: Nitroglycerin 50 MG/250 ML BOT 250 ML IVPB PRN (13:26)
--- NOTE | 2017-06-26 13:27 | OP ---
DATE OF PROCEDURE: 06/26/2017 PREOPERATIVE DIAGNOSES: Coronary disease/congestive heart failure/depressed left ventricular ejectio n fraction/hypertension/hyperlipidemia/diabetes mellitus/noncompliance to medical therapy. POSTOPERATIVE DIAGNOSES: Coronary disease/congestive heart failure/depressed left ventricular ejecti on fracture/hypertension/hyperlipidemia/diabetes mellitus/noncompliance to medical therapy. PROCEDURE: 1. Coronary artery bypass grafting x4 - 1) Left internal mammary artery to 1.0 mm left anterior ca cending - good conduit with small posteriorly plaqued target. 2) Reversed saphenous vein to 1.5 mm diagonal - good conduit and target. 3) Reverse saphenous vein to 2.5 mm OM - good conduit with diff usely diseased target. 4) Reverse saphenous vein to 1.25 mm posterolateral branch test - good condu it and small target. SURGEONS: Dr. Morales Wilson and Dr. Moustapha Sheffield ANESTHESIA: General endotracheal, Dr. Richar Andrea. PUMP TIME: 70 minutes. CROSS-CLAMP TIME: 41 minutes. LOW CORE TEMP: 32-degree Celsius. GI PHYSICIAN: Raphael Rubi. DRAINS: 24-Jordanian chest tubes x2. DRIPS: Dopamine at 3 mcg/kg per minute and Levophed 5 mcg. TRANSFUSIONS: None. PROCEDURE IN DETAIL: After consent was obtained, the patient was brought to the operating room and p laced in the supine position on the operating room table. Appropriate anesthetic monitor was placed and general endotracheal anesthesia induced. Chest, abdomen, and legs were prepped and draped in usu al sterile fashion. Greater saphenous vein was harvested from the left lower extremity from the groi n to the mid calf utilizing endoscopic technique. Wounds were closed in layers. Median sternotomy w as performed. Left internal mammary artery was harvested as a pedicle graft. The patient was system ically heparinized. Distal pedicle was divided and infused with papaverine. Thymic fat and pericard ium were divided with electrocautery. Pericardial stay sutures were placed. Aortic and atrial cannu lation was performed. After adequate heparinization, retrograde prime was performed. The patient wa s placed on cardiopulmonary bypass. Distal targets were marked. Aortic cross-clamp was applied and antegrade sanguinous cardioplegic arrest obtained. One liter of antegrade cold cardioplegia was give n. Topical cold solution was used. Reverse saphenous vein was anastomosed to the intramyocardial OM in end-to-side fashion with running 7-0 Prolene suture. Anastomosis was tested and was hemostatic. Reversed saphenous vein was anastomosed to the diagonal in end-to-side fashion with running 7-0 Prol kathy suture. Anastomosis was tested and was hemostatic. Reversed saphenous vein was anastomosed to t he posterolateral branch just distal to the bifurcation. Anastomosis was tested and was hemostatic. Mammary artery was brought through a window in the pericardium and anastomosed to the LAD in end-to- side fashion with running 7-0 Prolene suture. There was a severe posterior plaquing within this jose a ry. On release of the mammary clamp, there was good hooding in the anastomosis and good distal flow. Pedicle was secured with interrupted 6-0 Prolene suture. Cross-clamp was removed and partial occlu ding clamp placed. Saphenous veins to the OM and the posterolateral branch were anastomosed to the a ortic punch sites with running 6-0 Prolene suture. Saphenous vein to the diagonal was anastomosed to the sidewall of the OM graft. Partial occluding clamp was removed and grafts deaired. Anastomoses were inspected for hemostasis, which was good. The patient was warmed and weaned from cardiopulmonar y bypass. After resumption of sinus rhythm, good hemodynamics, and temperature greater than 36.5, by pass was discontinued. Transfusions were given. Twenty-four Jordanian chest tubes were placed in the m ediastinum. Decannulation was performed and pursestring sutures secured. After adequate hemostasis had been obtained, the sternum was treated with vancomycin paste and closed with #7 wire. Sternum wa s treated with platelet-rich plasma and wires twisted. Wounds were irrigated, treated with platelet- poor plasma, and closed in multiple layers. The patient tolerated the procedure well, and was transf erred to the Intensive Care Unit in stable, but critical condition. Needle, sponge, and instrument c ounts were all reported as correct at the end of the procedure.
[2017-06-26] MEDS ORDERED: Dextrose 50% Abboject 50 ML SYRINGE SLOW IVP PRN (13:30)
[2017-06-26] MEDS ORDERED: Dextrose 5% in Water 1,000 ML IV PRN (13:30)
[2017-06-26 13:36] LABS: #Basophils 0.1 thou/uL (0.0-0.2); #Eosinphils 0.2 thou/uL (0.0-0.7); #Lymphocytes 1.9 thou/uL (1.20-3.40); #Monocytes 0.6 thou/uL (0.11-0.59); #Neutrophils 8.2 thou/uL (1.40-6.50); %Basophils 0.5 % (0.0-1.0); %Eosinophils 1.9 % (0.0-10.0); %Lymphocytes 17.1 % (21.0-51.0); Hematocrit 29.8 % (42.0-52.0); Mean Platelet Volume 6.9 fL (7.4-10.4); Red Blood Cell (RBC) Count 3.15 mill/uL (4.70-6.10); White Blood Cell (WBC) Count 10.8 thou/uL (4.8-10.8)
[2017-06-26 13:41] LABS: Oxyhemoglobin 95.2 % (94.0-97.0)
[2017-06-26 13:44] LABS: PTT 31.6 SEC (22.9-36.1); Prothrombin Time 17.2 SEC (12.0-14.7)
[2017-06-26 13:52] LABS: Mechanical Tidal Volume 600 ml; Vent YES
[2017-06-26 13:53] LABS: Pressure Support 10 cmH2O
[2017-06-26 13:57] LABS: Mode SIMV
[2017-06-26 14:13] LABS: Anion Gap 11 mmol/L (10-20); BUN (Urea Nitrogen) 26 mg/dL (8.4-25.7); Calc. Creatinine Clearance 141 mL/min (70-130); Calcium 7.9 mg/dL (7.8-10.44); Carbon Dioxide 26 mmol/L (22-29); Chloride 107 mmol/L (98-107); Estimated GFR-MDRD Greater than 90
[2017-06-26] MEDS ORDERED: Sodium Chloride 0.9% 1,000 ML IV SCH (14:30)
[2017-06-26] MEDS ORDERED: Magnesium 2 GM/NS 0.9% 50 ML 2 GM in Premix Bag 1 BAG IVPB SCH (14:30)
[2017-06-26] MEDS: CEFAZOLIN/Water 2 GM/20 ML SYRINGE SLOW IVP SCH ×2 (14:35→23:36)
[2017-06-26] MEDS: Fentanyl 100 MCG/2 ML VIAL SLOW IVP PRN ×2 (14:42→20:26)
--- NOTE | 2017-06-26 14:47 | RAD ---
FRONTAL RADIOGRAPH CHEST: Date: 06-26-17 Comparison: 06-25-17 History: Evaluate chest following CABG. FINDINGS: There is an endotracheal tube terminating at the level of the clavicular heads. There is a dual-lead AICD present. There is a right sided vascular catheter, distal tip overlying the right atrium. Surgical drainage ca theter overlie the right hemithorax and the mediastinum. Supine imaging limits assessment for pneumot horax and pleural fluid. There is increased density in the medial left base suggesting volume loss. IMPRESSION: Post-operative changes as above. POS: [facility]
[2017-06-26] MEDS: Metoclopramide HCl 10 MG/2 ML VIAL IVP SCH ×2 (16:22→23:36)
[2017-06-26] MEDS: Ketorolac Tromethamine 30 MG/ML VIAL IVP SCH ×2 (16:25→23:36)
[2017-06-26] MEDS ORDERED: Papaverine 60 MG/2 ML VIAL ONE (16:36)
[2017-06-26] MEDS ORDERED: Lidocaine 1% PF 5 ML VIAL ONE (16:36)
[2017-06-26] MEDS ORDERED: Calcium Chloride 1 GM/10 ML Abboject SYRINGE ONE (16:36)
[2017-06-26] MEDS ORDERED: Propofol 200 MG/20 ML VIAL ONE (16:36)
[2017-06-26] MEDS ORDERED: Thrombin 5000 UNITS/5 ML VIAL ONE (16:36)
[2017-06-26 19:31] LABS: Hematocrit 28.2 % (42.0-52.0)
[2017-06-26] MEDS: Aspirin 81 mg Enteric Coated Tablet PO SCH (19:42)
[2017-06-26] MEDS: predniSONE 20 MG TAB PO SCH (19:42)
[2017-06-26] MEDS: Spironolactone 25 MG TAB PO SCH (19:42)
[2017-06-26] MEDS: FLUoxetine HCl 20 MG CAP PO SCH (19:42)
[2017-06-26] MEDS: Furosemide 40 MG/4 ML VIAL SLOW IVP SCH (19:42)
[2017-06-26] MEDS: Allopurinol 300 MG TAB PO SCH (19:42)
[2017-06-26] MEDS: Gabapentin 400 MG CAP PO SCH (19:43)
[2017-06-26] MEDS: Insulin Detemir 100 UNITS/ML 60 UNITS in Pre-Filled Syringe 1 EACH SC SCH (19:43)
[2017-06-26] MEDS: Potassium Chloride 20 MEQ TAB PO SCH (19:43)
[2017-06-26] MEDS: guaiFENesin ER 600 MG TAB PO SCH (19:43)
--- NOTE | 2017-06-26 20:18 | PRG ---
DATE OF SERVICE: 06/26/2017 SUBJECTIVE: Mr. Montiel did well with his heart surgery today. He is weaned from a protocol quickly, is in no distress, but his family evaluated him. OBJECTIVE: VITAL SIGNS: His blood pressure 129/62, heart rate is in the 70s, respiratory rate is in the teens. Oximetry is 99. LUNGS: Clear. HEART: Regular rhythm. ABDOMEN: Soft and nontender. IMPRESSION: 1. Status post coronary bypass grafting. 2. Chronic obstructive pulmonary disease, at this point in time, he is clinically stable, will be kong ppy to follow with the other physicians.
[2017-06-26] MEDS: Famotidine/PF 20 mg/2ml Vial SLOW IVP SCH (20:27)
[2017-06-26] MEDS ORDERED: Clopidogrel Bisulfate 75 MG TAB ONE (23:12)
[2017-06-27] MEDS: Fentanyl 100 MCG/2 ML VIAL SLOW IVP PRN ×2 (01:23→21:54)
[2017-06-27 04:59] LABS: Anion Gap 12 mmol/L (10-20); BUN (Urea Nitrogen) 28 mg/dL (8.4-25.7); Calc. Creatinine Clearance 132 mL/min (70-130); Calcium 7.7 mg/dL (7.8-10.44); Carbon Dioxide 23 mmol/L (22-29); Chloride 109 mmol/L (98-107); Estimated GFR-MDRD Greater than 90
[2017-06-27 05:00] LABS: #Eosinphils 0.1 thou/uL (0.0-0.7); #Lymphocytes 1.1 thou/uL (1.20-3.40); #Monocytes 0.7 thou/uL (0.11-0.59); #Neutrophils 5.3 thou/uL (1.40-6.50); %Basophils 0.4 % (0.0-1.0); %Eosinophils 1.6 % (0.0-10.0); %Lymphocytes 15.5 % (21.0-51.0); %Monocytes 9.1 % (0.0-10.0); Hematocrit 25.1 % (42.0-52.0); Mean Platelet Volume 7.5 fL (7.4-10.4); Red Blood Cell (RBC) Count 2.66 mill/uL (4.70-6.10); White Blood Cell (WBC) Count 7.2 thou/uL (4.8-10.8)
[2017-06-27] MEDS: HYDROcodone/Acetaminophen 5/325 mg Tablet PO PRN ×4 (05:20→21:55)
[2017-06-27] MEDS: Metoclopramide HCl 10 MG/2 ML VIAL IVP SCH ×3 (05:20→18:12)
[2017-06-27] MEDS: Ketorolac Tromethamine 30 MG/ML VIAL IVP SCH ×3 (05:20→17:43)
[2017-06-27] MEDS: Guaifenesin DM 100-10/5 ML UDCUP PO PRN ×3 (06:39→21:54)
[2017-06-27] MEDS: Budesonide 0.5 MG/2 ML NEB INH SCH ×2 (06:58→18:33)
[2017-06-27] MEDS: CEFAZOLIN/Water 2 GM/20 ML SYRINGE SLOW IVP SCH (07:25)
[2017-06-27 07:41] LABS: Oxyhemoglobin 97.5 % (94.0-97.0); Sodium 140 mmol/L (135-148)
[2017-06-27 07:41] LABS: Oxyhemoglobin 97.7 % (94.0-97.0); Sodium 142 mmol/L (135-148)
[2017-06-27 07:41] LABS: Base Excess 0.6 mEq/L (0 (+/- 2.5)); O2 Content (venous) 10.1 VOL% (12.5-17.5); pH (venous) 7.32 (7.35-7.45)
[2017-06-27 07:42] LABS: Oxyhemoglobin 97.4 % (94.0-97.0); Sodium 141 mmol/L (135-148)
[2017-06-27 07:42] LABS: Oxyhemoglobin 97.4 % (94.0-97.0); Sodium 140 mmol/L (135-148)
[2017-06-27 07:42] LABS: Oxyhemoglobin 97.8 % (94.0-97.0); Sodium 141 mmol/L (135-148)
--- NOTE | 2017-06-27 07:50 | EKG ---
Test Reason : POST CABG Blood Pressure : / mmHG Vent. Rate : 077 BPM Atrial Rate : 077 BPM P-R Int : 156 ms QRS Dur : 104 ms QT Int : 434 ms P-R-T Axes : 040 028 079 degrees QTc Int : 491 ms Normal sinus rhythm Nonspecific T wave abnormality Intraventricular conduction delay Prolonged QT Abnormal ECG When compared with ECG of 18-JUN-2017 17:31, (Unconfirmed) No significant change was found Confirmed by DAVE SHI ([id number]) on 06/27/2017 7:50:27 AM Referred By: Qian HAMLIN Confirmed By:DAVE SHI
--- NOTE | 2017-06-27 07:55 | RAD ---
UPRIGHT PORTABLE CHEST 1 VIEW: HISTORY: A 61-year-old male postop open heart. Followup. COMPARISON: 06/26/17. FINDINGS: The endotracheal tube has been removed. Right central line and left ICD changes are noted. There is mild cardiomegaly with some bilateral vascular congestion and some minimal pleural and parenchymal c hanges in the left base, probably postoperative. Chest tubes are in place. No pneumothorax. IMPRESSION: Recent postop midline sternotomy with minimal cardiomegaly and some mild vascular congestion and smal l left pleural effusion without pneumothorax or acute process. Continued short-term followup. POS: [facility]
[2017-06-27] MEDS: FLUoxetine HCl 20 MG CAP PO SCH (08:33)
[2017-06-27] MEDS: Famotidine/PF 20 mg/2ml Vial SLOW IVP SCH ×2 (08:33→20:06)
[2017-06-27] MEDS: Allopurinol 300 MG TAB PO SCH (08:34)
[2017-06-27] MEDS: predniSONE 20 MG TAB PO SCH (08:34)
[2017-06-27] MEDS: Aspirin 325 MG TAB PO SCH (08:34)
[2017-06-27] MEDS: Gabapentin 400 MG CAP PO SCH ×3 (08:34→20:05)
[2017-06-27] MEDS ORDERED: Magnesium 2 GM/NS 0.9% 50 ML 2 GM in Premix Bag 1 BAG IVPB SCH (09:00)
[2017-06-27 09:09] LABS: Mode OR ABG; Vent YES
[2017-06-27 09:10] LABS: Mode OR ABG; Vent YES
[2017-06-27 09:10] LABS: Mode OR ABG; Vent YES
[2017-06-27 09:11] LABS: Mode OR ABG; Vent YES
[2017-06-27 09:11] LABS: Mode OR ABG; Vent YES
[2017-06-27] MEDS: Insulin Regular 300 UNITS/3 ML VIAL SC PRN ×3 (11:40→20:07)
--- NOTE | 2017-06-27 19:25 | PRG ---
DATE OF SERVICE: 06/27/2017 SUBJECTIVE: Mr. Montiel is a 61-year-old male who has bypass surgery. He is doing well post-extubatio n. PHYSICAL EXAMINATION: VITAL SIGNS: Blood pressure 102/55, heart rates 79, respiratory rates 16, oximetry is 99. He has no complaints. LUNGS: Clear. HEART: Regular rhythm. ABDOMEN: Soft. LABORATORY DATA: White count 7.2, hemoglobin 8.5, platelets 144. Sodium 139, potassium 5.2, chlorid e 109, bicarb 23, BUN 20, creatinine 0.8. Blood gas yesterday prior to extubation 7.35, 47, [address]. [address] radiograph shows small left pleural effusion as expected. Intake and output is negative, 740. Chest tube drainage, 890 mL. IMPRESSION: 1. Status post coronary bypass grafting. 2. Underlying obstructive lung disease, clinically stable. PLAN: Continue care for the post bypass protocol. He is doing well so far.
[2017-06-27] MEDS: Atorvastatin Calcium 40 MG TAB PO SCH (20:05)
[2017-06-28] MEDS: Ketorolac Tromethamine 30 MG/ML VIAL IVP SCH ×5 (00:44→22:52)
[2017-06-28] MEDS: Metoclopramide HCl 10 MG/2 ML VIAL IVP SCH (00:44)
[2017-06-28] MEDS: HYDROcodone/Acetaminophen 5/325 mg Tablet PO PRN (05:32)
[2017-06-28] MEDS: Insulin Regular 300 UNITS/3 ML VIAL SC PRN ×4 (05:33→21:22)
[2017-06-28 05:58] LABS: #Eosinphils 0.3 thou/uL (0.0-0.7); #Lymphocytes 1.2 thou/uL (1.20-3.40); #Monocytes 0.7 thou/uL (0.11-0.59); #Neutrophils 5.2 thou/uL (1.40-6.50); %Basophils 0.2 % (0.0-1.0); %Eosinophils 4.2 % (0.0-10.0); %Lymphocytes 16.3 % (21.0-51.0); %Monocytes 9.7 % (0.0-10.0); Hematocrit 22.1 % (42.0-52.0); Mean Platelet Volume 7.5 fL (7.4-10.4); White Blood Cell (WBC) Count 7.5 thou/uL (4.8-10.8)
[2017-06-28] MEDS: Budesonide 0.5 MG/2 ML NEB INH SCH ×3 (06:02→18:52)
[2017-06-28 06:19] LABS: Anion Gap 10 mmol/L (10-20); BUN (Urea Nitrogen) 46 mg/dL (8.4-25.7); Calc. Creatinine Clearance 69 mL/min (70-130); Calcium 7.8 mg/dL (7.8-10.44); Carbon Dioxide 27 mmol/L (22-29); Chloride 104 mmol/L (98-107); Estimated GFR-MDRD 41
[2017-06-28] MEDS ORDERED: Bisacodyl 10 MG SUPP PR PRN (07:03)
[2017-06-28] MEDS ORDERED: Fentanyl 100 MCG/2 ML VIAL SLOW IVP PRN ×2 (07:03)
[2017-06-28] MEDS ORDERED: Acetaminophen 325 MG TAB PO PRN (07:03)
[2017-06-28] MEDS ORDERED: Nitroglycerin 0.4 MG TAB 1 EACH SL PRN (07:03)
[2017-06-28] MEDS ORDERED: Mag-Al 1200 mg/1200 mg/30 ML UDCUP PO PRN (07:03)
[2017-06-28] MEDS ORDERED: Ondansetron HCl/PF 4 MG/2 ML Vial IVP PRN (07:03)
[2017-06-28] MEDS ORDERED: Bisacodyl 5 MG TAB PO PRN (07:03)
[2017-06-28] MEDS ORDERED: Mineral Oil ENEMA PR PRN ×2 (07:03→07:13)
[2017-06-28] MEDS ORDERED: Artificial Tears 18 DROP/0.9 ML EA EYE PRN (07:03)
[2017-06-28] MEDS ORDERED: HYDROcodone/Acetaminophen 5/325 mg Tablet PO PRN (07:03)
[2017-06-28] MEDS ORDERED: diphenhydrAMINE 25 MG CAP PO PRN (07:03)
[2017-06-28] MEDS ORDERED: Ketorolac Tromethamine 30 MG/ML VIAL IVP SCH (07:03)
[2017-06-28] MEDS: Carvedilol 3.125 MG TAB PO SCH ×2 (08:32→21:20)
[2017-06-28] MEDS: Famotidine 20 MG TAB PO SCH ×2 (08:32→21:20)
[2017-06-28] MEDS: Aspirin 325 mg Enteric Coated Tablet PO SCH (08:32)
[2017-06-28] MEDS: predniSONE 20 MG TAB PO SCH (08:32)
[2017-06-28] MEDS: Allopurinol 300 MG TAB PO SCH (08:32)
[2017-06-28] MEDS: Gabapentin 400 MG CAP PO SCH ×3 (08:32→21:20)
[2017-06-28] MEDS: FLUoxetine HCl 20 MG CAP PO SCH (08:32)
[2017-06-28] MEDS: Aspirin 325 MG TAB PO SCH (08:33)
--- NOTE | 2017-06-28 09:40 | RAD ---
AP VIEW CHEST: HISTORY: Status post open-heart surgery. FINDINGS: AP view chest is obtained on 06/28/17. Comparison is made to a previous exam from 06/27/17. AP view chest demonstrates sternotomy wires seen. A right subclavian central line is seen. A dual-l ead intracardiac pacing device is seen. Cardiomegaly is noted. Mild pulmonary vascular congestion i s seen. No evidence of effusions, pneumonia, or pneumothorax is seen. IMPRESSION: Cardiomegaly and pulmonary vascular congestion. Other intracardiac hardware and lines are in good po sition. POS: [facility]
--- NOTE | 2017-06-28 13:12 | PRG ---
DATE OF SERVICE: 06/28/2017 SUBJECTIVE: The patient had a good night. He just got finished with walking. His is at bedsid e. PHYSICAL EXAMINATION: VITAL SIGNS: His blood pressure is 104/50, pulse 80, respirations 20, afebrile. NECK: Supple with no increased JVP or carotid bruit. Carotid had good upstroke with no thyromegaly. COR: Regular rate and rhythm. CHEST: Symmetrical. Clear to auscultation and percussion. ABDOMEN: Soft, nontender with normoactive bowel sounds. No bruit or organomegaly. EXTREMITIES: No edema or cyanosis. Palpable pedal pulses. SKIN: There is no evidence of ulcers lesion, or rash. NEUROLOGIC: He is awake, alert, and oriented to person, place, and time. LABORATORY DATA: His H&H was 7.2 and 22.1. His platelet count is 138. ASSESSMENT: 1. Status post bypass. 2. Postoperative anemia. 3. Hypertension. 4. Chronic obstructive pulmonary disease. 5. Diabetes. PLAN: I would like to give the patient 1 unit of blood and follow up with CBC in the morning. The p atient verbalized understanding and all questions answered to satisfaction.
[2017-06-28] MEDS ORDERED: Insulin Regular 300 UNITS/3 ML VIAL SC PRN (13:21)
--- NOTE | 2017-06-28 18:00 | PRG ---
DATE OF SERVICE: 06/28/2017 SUBJECTIVE: Mr. Montiel is doing well. He denies shortness of breath. He says he is fine when he is sitting, but if he is moving around, he is little more short of breath than his baseline, which is ex pected after heart surgery with underlying COPD. PHYSICAL EXAMINATION: VITAL SIGNS: Blood pressure 131/56, heart rate 82, respiratory rate 16, oximetry is 98% on 2 liters. LUNGS: Clear. IMPRESSION: Stable chronic obstructive pulmonary disease after coronary artery bypass grafting. PLAN: Continue current medications with physical therapy.
[2017-06-28] MEDS: Atorvastatin Calcium 40 MG TAB PO SCH (21:19)
[2017-06-28] MEDS: Guaifenesin DM 100-10/5 ML UDCUP PO PRN (21:27)
[2017-06-28] MEDS: Zolpidem Tartrate 5 MG TAB PO PRN (22:52)
[2017-06-28] MEDS ORDERED: guaiFENesin ER 600 MG TAB PO SCH (23:30)
[2017-06-29] MEDS: Ketorolac Tromethamine 30 MG/ML VIAL IVP SCH ×2 (05:42→10:42)
[2017-06-29] MEDS: Budesonide 0.5 MG/2 ML NEB INH SCH ×2 (06:52→19:13)
[2017-06-29 06:59] LABS: #Eosinphils 0.3 thou/uL (0.0-0.7); #Lymphocytes 1.6 thou/uL (1.20-3.40); #Monocytes 0.7 thou/uL (0.11-0.59); #Neutrophils 5.1 thou/uL (1.40-6.50); %Basophils 0.3 % (0.0-1.0); %Eosinophils 4.1 % (0.0-10.0); %Lymphocytes 20.8 % (21.0-51.0); %Monocytes 9.1 % (0.0-10.0); Hematocrit 23.4 % (42.0-52.0); Mean Platelet Volume 7.6 fL (7.4-10.4); Red Blood Cell (RBC) Count 2.46 mill/uL (4.70-6.10); White Blood Cell (WBC) Count 7.7 thou/uL (4.8-10.8)
[2017-06-29 07:18] LABS: Anion Gap 10 mmol/L (10-20); BUN (Urea Nitrogen) 51 mg/dL (8.4-25.7); Calc. Creatinine Clearance 93 mL/min (70-130); Calcium 7.8 mg/dL (7.8-10.44); Carbon Dioxide 26 mmol/L (22-29); Chloride 106 mmol/L (98-107); Estimated GFR-MDRD 57
--- NOTE | 2017-06-29 08:26 | PRG ---
DATE OF SERVICE: 06/29/2017 The patient had a good night. He felt weak last night and weak this morning. He did feel better aft er he ambulated x2. He is now sitting up eating breakfast. PHYSICAL EXAMINATION: VITAL SIGNS: Blood pressure is 130/84, pulse 70, respirations 18, he is afebrile. NECK: Supple with no increased JVP or carotid bruit. Carotid had good upstroke with no thyromegaly. COR: Regular rate and rhythm. CHEST: Symmetrical. Clear to auscultation and percussion upper lobes. ABDOMEN: Soft, nontender with normoactive bowel sounds. No bruit or organomegaly. EXTREMITIES: No edema or cyanosis. He had palpable pedal pulses. SKIN: There is no evidence of ulcers lesion, or rash. NEUROLOGIC: He is awake, alert, and oriented to person, place, and time. LABORATORY: H&H is slightly better 7.7 and 23.4. His platelet count is 128. His BUN is 51. His cr eatinine is 1.28. Blood sugar is 112. ASSESSMENT: 1. Status post bypass with postoperative anemia. 2. Diabetes. 3. Hypertension. 4. Chronic obstructive pulmonary disease. PLAN: We will adjust the patient's diabetic medicine secondary to hyperglycemia. I have encouraged IS and continue to ambulate. I do not feel like the patient is ready to go home and will follow up w [facility] lab in the morning.
[2017-06-29] MEDS: Gabapentin 400 MG CAP PO SCH ×3 (08:28→21:47)
[2017-06-29] MEDS: Furosemide 40 MG TAB PO SCH (08:28)
[2017-06-29] MEDS: Carvedilol 3.125 MG TAB PO SCH (08:28)
[2017-06-29] MEDS: Allopurinol 300 MG TAB PO SCH (08:28)
[2017-06-29] MEDS: Aspirin 325 mg Enteric Coated Tablet PO SCH (08:28)
[2017-06-29] MEDS: Famotidine 20 MG TAB PO SCH ×2 (08:28→21:49)
[2017-06-29] MEDS: predniSONE 20 MG TAB PO SCH (08:29)
[2017-06-29] MEDS: FLUoxetine HCl 20 MG CAP PO SCH (08:29)
[2017-06-29] MEDS: guaiFENesin ER 600 MG TAB PO SCH ×2 (08:29→21:48)
[2017-06-29] MEDS ORDERED: metFORMIN 500 MG TAB PO SCH ×2 (09:45→17:00)
[2017-06-29] MEDS: Insulin Regular 300 UNITS/3 ML VIAL SC PRN ×3 (10:50→22:06)
[2017-06-29] MEDS ORDERED: Furosemide 100 MG/10 ML VIAL SLOW IVP SCH (13:45)
[2017-06-29] MEDS: HYDROcodone/Acetaminophen 5/325 mg Tablet PO PRN ×2 (15:28→21:50)
[2017-06-29] MEDS: Guaifenesin DM 100-10/5 ML UDCUP PO PRN ×2 (15:28→21:50)
--- NOTE | 2017-06-29 16:55 | PRG ---
DATE OF SERVICE: 06/29/2017 SERVICE: Pulmonary Medicine. INTERVAL HISTORY: The patient is doing fantastic from a respiratory standpoint. He remains on room air. He is walking the hallways almost continuously. He has complaints of a little bit of nausea an d constipation. As such, he is getting some Milk of Magnesia. Outside of that, he does not seem to have any complaints other than some cough. He got nebulized medication, which seemed to improve that . He is returning to his usual state of health and has no specific complaints at this time. PHYSICAL EXAMINATION: VITAL SIGNS: Afebrile, pulse 60, blood pressure 152/83, respirations 16, saturation 98% on room air. GENERAL: The patient is awake and alert, in no apparent distress. LUNGS: Excellent air entry. Dependent crackles are present. There are no rhonchi. Slightly prolon ged expiratory phase is present. HEART: Normal rate, regular. ABDOMEN: Soft, nontender, nondistended. Bowel sounds are positive. MUSCULOSKELETAL: No cyanosis or clubbing. There is 1+ to 2+ pitting in the bilateral lower extremit ies. NEUROLOGIC: Grossly nonfocal. LABORATORY DATA: WBC 7.7, hemoglobin 7.7, platelets 128,000. Platelets are gently down trending. I NR 1.4. Creatinine 1.28, which is improving. BUN 51. Basic metabolic profile is otherwise unremark able. ASSESSMENT: 1. Acute hypoxic respiratory failure, resolved. 2. Coronary artery disease, status post coronary artery bypass graft, postoperative day #3. 3. Chronic obstructive pulmonary disease with acute exacerbation, resolving. 4. Type 2 diabetes mellitus. PLAN: We will continue routine postoperative care. We will continue to diurese him as tolerated. Josiah raza will receive his nebulized medications. His mobility has been encouraged. Pulmonary will continue to follow up for the time being.
[2017-06-29] MEDS: Milk Of Magnesia 30 ML UDCUP PO PRN (17:41)
[2017-06-29] MEDS: metFORMIN 500 MG TAB PO SCH (17:42)
[2017-06-29] MEDS: Atorvastatin Calcium 40 MG TAB PO SCH (21:48)
[2017-06-29] MEDS: Zolpidem Tartrate 5 MG TAB PO PRN (21:49)
[2017-06-30 06:04] LABS: #Eosinphils 0.3 thou/uL (0.0-0.7); #Lymphocytes 1.6 thou/uL (1.20-3.40); #Monocytes 0.7 thou/uL (0.11-0.59); #Neutrophils 5.7 thou/uL (1.40-6.50); %Basophils 0.3 % (0.0-1.0); %Eosinophils 3.5 % (0.0-10.0); %Lymphocytes 19.1 % (21.0-51.0); %Monocytes 8.3 % (0.0-10.0); Hematocrit 23.7 % (42.0-52.0); Mean Platelet Volume 7.4 fL (7.4-10.4); White Blood Cell (WBC) Count 8.3 thou/uL (4.8-10.8)
[2017-06-30] MEDS: Budesonide 0.5 MG/2 ML NEB INH SCH ×2 (06:20→19:39)
[2017-06-30 07:00] LABS: ALT (SGPT) Less than 7 U/L (8-55); AST (SGOT) 11 U/L (5-34); Alkaline Phosphatase 68 U/L (40-150); Anion Gap 11 mmol/L (10-20); BUN (Urea Nitrogen) 52 mg/dL (8.4-25.7); Bilirubin, Total 0.4 mg/dL (0.2-1.2); Calc. Creatinine Clearance 105 mL/min (70-130); Carbon Dioxide 28 mmol/L (22-29); Chloride 104 mmol/L (98-107); Estimated GFR-MDRD 66; Globulin 2.7 g/dL (2.4-3.5)
--- NOTE | 2017-06-30 08:02 | DIS ---
DATE OF DISCHARGE: 06/30/2017 DIAGNOSES: 1. Coronary artery disease. 2. Congestive heart failure. 3. Diabetes mellitus. 4. Hypertension. 5. Dyslipidemia. 6. Chronic obstructive pulmonary disease. 7. Gastroesophageal reflux disease. 8. Depression. 9. Anxiety. 10. History of noncompliance. 11. Oral tobacco abuse. PROCEDURES: 1. Cardiac catheterization. 2. Coronary artery bypass grafting x4 - left internal mammary artery to LAD, reversed saphenous vein to diagonal, OM, and posterolateral and this was performed on 06/26/2017. HISTORY OF HOSPITAL STAY: Mr. Montiel is a pleasant gentleman, who was admitted in [facility], who was diuresed and had his heart failure treated. Once he was able to lie flat, he was take n to cardiac catheterization and found to have severe 3-vessel disease. He was taken for coronary ar elsa bypass grafting as above on 06/26/2017. Postoperatively, he has done well. He has had no rhyth m disturbances. He is currently ambulatory, tolerating a regular diet, having good bowel and bladder function. He is being referred to the outpatient congestive heart failure clinic. DISCHARGE MEDICATIONS: Include, 1. Aspirin 81 mg daily. 2. Plavix 75 mg daily. 3. Allopurinol 300 mg daily. 4. Home nebulizer treatments. 5. Coreg 12.5 mg b.i.d. 6. Prozac 40 mg daily. 7. Lasix 40 mg daily. 8. Neurontin 800 mg t.i.d. 9. Lopid 600 mg b.i.d. 10. Cozaar 25 mg daily. 11. Metformin 1000 mg b.i.d. 12. [place] 5/325 1-2 q.6 h. p.r.n. pain. FOLLOWUP: Follow up is with me in 2 weeks, Dr. Suazo in a month in the heart failure clinic, and Dr. Daniel Teresa.
[2017-06-30] MEDS: metFORMIN 500 MG TAB PO SCH ×2 (08:51→16:08)
[2017-06-30] MEDS: Losartan 25 MG TAB PO SCH (08:51)
[2017-06-30] MEDS: guaiFENesin ER 600 MG TAB PO SCH ×2 (08:51→21:21)
[2017-06-30] MEDS: FLUoxetine HCl 20 MG CAP PO SCH (08:51)
[2017-06-30] MEDS: predniSONE 20 MG TAB PO SCH (08:51)
[2017-06-30] MEDS: Allopurinol 300 MG TAB PO SCH (08:51)
[2017-06-30] MEDS: Gabapentin 400 MG CAP PO SCH ×3 (08:51→21:19)
[2017-06-30] MEDS: Famotidine 20 MG TAB PO SCH ×2 (08:51→21:37)
[2017-06-30] MEDS: Carvedilol 6.25 MG TAB PO SCH ×2 (08:52→21:19)
[2017-06-30] MEDS: Furosemide 40 MG TAB PO SCH (08:52)
[2017-06-30] MEDS: Aspirin 325 mg Enteric Coated Tablet PO SCH (08:52)
[2017-06-30] MEDS ORDERED: Furosemide 40 MG TAB PO SCH (09:15)
[2017-06-30] MEDS: Iron Polysaccharides Complex 150 MG CAP PO SCH (09:23)
[2017-06-30] MEDS: HYDROcodone/Acetaminophen 5/325 mg Tablet PO PRN ×3 (10:59→21:34)
[2017-06-30] MEDS: Insulin Regular 300 UNITS/3 ML VIAL SC PRN ×3 (11:00→21:26)
--- NOTE | 2017-06-30 11:33 | PRG ---
DATE OF SERVICE: 06/30/2017 SUBJECTIVE: The patient complains of feeling like "he is confused." He states he grasped for object s that are not there, he also put his head down and saw a "bird on his hand." He just does not feel well today, matter of fact he says he feels worse today than he did yesterday. PHYSICAL EXAMINATION: GENERAL: Upon evaluation, he is awake. He is alert this morning. VITAL SIGNS: His blood pressure is 120/60, pulse 70, respirations 20, temperature 98.1. NECK: Supple with no increased JVP or carotid bruit. Carotid had good upstroke with no thyromegaly. COR: Regular rate and rhythm. CHEST: A few bibasilar crackles. ABDOMEN: Soft, nontender with normoactive bowel sounds. No bruit or organomegaly. EXTREMITIES: Trace edema. He has weak bilateral pedal pulses. NEUROLOGIC: He is awake and alert this morning, but again received note of my progress note. LABORATORY DATA: CMP showed glucose of 165. His H&H is still low at 7.9 and 23.7, but this is stacy r from 7.2 and after receiving blood. ASSESSMENT: 1. Status post bypass. 2. Postoperative anemia. 3. Confusion could be related to Ambien, as he tells me he has been on Hydrocodone for many years an d never had a problem. 4. Depression. 5. Fluid overload. 6. Diabetes. 7. Sleep apnea. 8. Multiple medical problems. PLAN: 1. We will discontinue the Ambien. 2. We will start trazodone 50 mg at bedtime. 3. We will give extra dose of Lasix 40 mg today. 4. We will begin Niferex Forte for his anemia 150 mg daily. 5. We will follow up his lab tomorrow morning. The patient verbalized understanding and all questio ns answered to satisfaction. This is MIKHAIL Estrada dictating for Dr. Daniel Teresa.
--- NOTE | 2017-06-30 14:59 | PDOC.CTH ---
Cardiology Progress Note - Subjective He is doing better every day. He has been walking around with PT. - Objective Vital Signs Temp Pulse Resp BP BP BP BP 06/30/17 13:06 98.1 F 69 20 112/56 L 06/30/17 12:12 72 16 06/30/17 08:52 155/80 H 06/30/17 08:00 96.4 F L 72 16 155/80 H 06/30/17 06:21 72 16 06/30/17 06:20 72 16 06/30/17 04:22 98.1 F 69 20 121/61 06/30/17 04:21 Pulse Ox 06/30/17 13:06 98 06/30/17 12:12 96 06/30/17 08:52 06/30/17 08:00 97 06/30/17 06:21 100 06/30/17 06:20 100 06/30/17 04:22 98 06/30/17 04:21 98 Admit Weight 232 lb 2.348 oz Weight 238 lb 9.6 oz 06/29/17 06/30/17 07/01/17 06:59 06:59 06:59 Intake Total 350 1100 Output Total 100 1100 Balance 250 0 - Physical Examination General/Neuro: alert & oriented x3, NAD Neck: no JVD present Lungs: CTA, unlabored respirations Heart: RRR Abdomen: NT/ND Extremities: other: (no edema.) - Telemetry Telemetry Rhythm: NSR - Labs Result Diagrams: 06/30/17 05:44 06/30/17 05:44 Troponin/CKMB CK-MB (CK-2) 1.8 ng/mL (0-6.6) 06/18/17 17:45 Troponin I 0.023 ng/mL (< 0.028) 06/19/17 02:40 - Assessment/Plan 1. Multivesel CAD 2. S/P CABG PLAN: - Continue ASA/statin/BB/ARB - Increase PT as tolerated. - May discharge any time from cardiac perspective.
[2017-06-30] MEDS: Milk Of Magnesia 30 ML UDCUP PO PRN (17:43)
[2017-06-30] MEDS: Atorvastatin Calcium 40 MG TAB PO SCH (21:20)
[2017-06-30] MEDS: traZODone HCl 50 MG TAB PO SCH (21:21)
[2017-06-30] MEDS: Guaifenesin DM 100-10/5 ML UDCUP PO PRN (21:34)
[2017-06-30] MEDS ORDERED: Amoxicillin/Potassium Clav 875 MG TAB PO SCH (23:15)
[2017-06-30] MEDS ORDERED: Furosemide 40 MG/4 ML VIAL SLOW IVP SCH (23:15)
--- NOTE | 2017-06-30 23:43 | PRG ---
DATE OF SERVICE: 06/30/2017 SERVICE: Pulmonary Medicine. INTERVAL HISTORY: The patient is doing really well from a cardiovascular standpoint. That being alex d, his shortness of breath little worse today and he has some increasing wheezing. He is also having increasing swelling in the bilateral lower extremities. Otherwise, he is in his usual state of heal th and has no specific complaints. He had no fevers. He has got a cough, but it is nonproductive. PHYSICAL EXAMINATION: VITAL SIGNS: Afebrile, pulse 68, blood pressure 129/64, respirations 16, saturation 96% on 3 liters nasal cannula. GENERAL: Patient is awake, alert, in no apparent distress. LUNGS: Decreased air entry with prolonged expiratory phase and wheezing. Dependent crackles are pre sent. HEART: Normal rate, regular. ABDOMEN: Soft, nontender, nondistended. Bowel sounds positive. MUSCULOSKELETAL: No cyanosis or clubbing. There is 2+ pitting in the bilateral lower extremities. NEUROLOGIC: Grossly nonfocal. LABORATORY DATA: WBC 8.3, hemoglobin 7.9, platelets 149,000 and stable. Blood sugar ranges from 173 to 135. Creatinine 1.14, BUN 52. Basic metabolic profile and liver function studies are otherwise unremarkable. ASSESSMENT: 1. Acute hypoxic respiratory failure. 2. Chronic obstructive pulmonary disease with acute exacerbation. 3. Type 2 diabetes mellitus. 4. Coronary artery disease, status post coronary artery bypass graft, postoperative day #4. PLAN: The patient remains a little bit volume overloaded. I will provide him with another dose of L asix. We will continue nebulized medications and steroids. We will add a brief course of p.o. antib iotics to help with his exacerbation. Pulmonary will continue to follow while the patient remains in house.
[2017-07-01] MEDS: HYDROcodone/Acetaminophen 5/325 mg Tablet PO PRN ×4 (03:47→20:41)
[2017-07-01 06:10] LABS: #Eosinphils 0.4 thou/uL (0.0-0.7); #Lymphocytes 1.8 thou/uL (1.20-3.40); #Monocytes 0.6 thou/uL (0.11-0.59); #Neutrophils 4.8 thou/uL (1.40-6.50); %Basophils 0.5 % (0.0-1.0); %Lymphocytes 23.7 % (21.0-51.0); %Monocytes 7.9 % (0.0-10.0); Hematocrit 23.8 % (42.0-52.0); Mean Platelet Volume 7.3 fL (7.4-10.4); Red Blood Cell (RBC) Count 2.51 mill/uL (4.70-6.10); White Blood Cell (WBC) Count 7.7 thou/uL (4.8-10.8)
[2017-07-01 06:27] LABS: ALT (SGPT) 8 U/L (8-55); AST (SGOT) 11 U/L (5-34); Alkaline Phosphatase 67 U/L (40-150); Anion Gap 11 mmol/L (10-20); BUN (Urea Nitrogen) 49 mg/dL (8.4-25.7); Bilirubin, Total 0.5 mg/dL (0.2-1.2); Calc. Creatinine Clearance 107 mL/min (70-130); Calcium 8.6 mg/dL (7.8-10.44); Carbon Dioxide 31 mmol/L (22-29); Chloride 102 mmol/L (98-107); Estimated GFR-MDRD 67; Globulin 2.7 g/dL (2.4-3.5); Protein, Total 5.9 g/dL (6.0-8.3)
[2017-07-01] MEDS: Budesonide 0.5 MG/2 ML NEB INH SCH ×2 (06:54→19:25)
--- NOTE | 2017-07-01 08:50 | PRG ---
DATE OF SERVICE: 07/01/2017 SUBJECTIVE: The patient did not feel as confused since he did not get Ambien. He feels short of eveline ath and feels like he is wheezing. PHYSICAL EXAMINATION: GENERAL: He is awake, alert, and oriented. VITAL SIGNS: Blood pressure is 130/70, pulse 60, respiration rate 18, afebrile. NECK: Supple with no increased JVP or carotid bruit. Carotid had good upstroke with no thyromegaly. COR: Regular rhythm. CHEST: Scattered wheezing. ABDOMEN: Soft, nontender with normoactive bowel sounds. No bruit or organomegaly. EXTREMITIES: No edema or cyanosis. Palpable pedal pulses. SKIN: There is no evidence of ulcer lesion, or rash. NEUROLOGIC: He is awake, alert, and oriented to person, place, and time. LABORATORY DATA: His glucose is 190, it is ranging from 335-190. His H&H is 7.8 and 23.8 with caty l white blood cells. ASSESSMENT: 1. Status post bypass with postoperative anemia. 2. Hypertension. 3. Hyperlipidemia. 4. Diabetes. 5. Chronic obstructive pulmonary disease. PLAN: 1. We will restart his Symbicort 160/4.5 two puffs b.i.d. 2. We will change his Metformin to 1000 mg b.i.d. 3. We will check a chest x-ray and CMP and CBC in the morning. Hopefully, the patient will be able to go home within a day or so. This is LATASHA Estrada-Qian dictating for Daniel Teresa M.D.
[2017-07-01] MEDS: Amoxicillin/Potassium Clav 875 MG TAB PO SCH ×2 (09:06→20:38)
[2017-07-01] MEDS: Iron Polysaccharides Complex 150 MG CAP PO SCH (09:06)
[2017-07-01] MEDS: Gabapentin 400 MG CAP PO SCH ×3 (09:06→20:37)
[2017-07-01] MEDS: Losartan 25 MG TAB PO SCH (09:08)
[2017-07-01] MEDS: FLUoxetine HCl 20 MG CAP PO SCH (09:09)
[2017-07-01] MEDS: Famotidine 20 MG TAB PO SCH ×2 (09:12→20:39)
[2017-07-01] MEDS: Aspirin 325 mg Enteric Coated Tablet PO SCH (09:12)
[2017-07-01] MEDS: Carvedilol 6.25 MG TAB PO SCH ×2 (09:12→20:40)
[2017-07-01] MEDS: guaiFENesin ER 600 MG TAB PO SCH ×2 (09:13→20:39)
[2017-07-01] MEDS: Furosemide 40 MG TAB PO SCH (09:13)
[2017-07-01] MEDS: Allopurinol 300 MG TAB PO SCH (09:13)
[2017-07-01] MEDS: metFORMIN 500 MG TAB PO SCH ×2 (09:14→17:31)
[2017-07-01] MEDS: Insulin Regular 300 UNITS/3 ML VIAL SC PRN ×3 (09:15→20:47)
[2017-07-01] MEDS ORDERED: predniSONE 20 MG TAB PO SCH (11:00)
--- NOTE | 2017-07-01 15:09 | PDOC.CTH ---
Cardiology Progress Note - Subjective He is doing well. Today he feels a little more SOB than his baseline. - Objective Vital Signs Temp Pulse Pulse Pulse Resp BP BP 07/01/17 12:20 87 18 07/01/17 11:11 76 66 137/90 07/01/17 09:12 123/61 07/01/17 08:45 71 67 153/83 H 07/01/17 07:50 98.4 F 66 20 07/01/17 06:54 74 18 07/01/17 06:51 74 18 07/01/17 04:30 97.4 F L 62 18 BP BP BP Pulse Ox Pulse Ox Pulse Ox 07/01/17 12:20 97 07/01/17 11:11 142/74 H 98 98 07/01/17 09:12 07/01/17 08:45 127/59 L 95 95 07/01/17 07:50 123/61 98 07/01/17 06:54 98 07/01/17 06:51 98 07/01/17 04:30 134/67 100 Admit Weight 232 lb 2.348 oz Weight 237 lb 12.8 oz 06/30/17 07/01/17 07/02/17 06:59 06:59 06:59 Intake Total 1100 1454 Output Total 1100 3550 Balance 0 -2096 - Physical Examination General/Neuro: alert & oriented x3, NAD Neck: no JVD present Lungs: unlabored respirations, other: (Coarse breath sounds biliat.) Heart: RRR Abdomen: NT/ND Extremities: other: (no edema) - Telemetry Telemetry Rhythm: NSR - Labs Result Diagrams: 07/01/17 05:47 07/01/17 05:47 Troponin/CKMB CK-MB (CK-2) 1.8 ng/mL (0-6.6) 06/18/17 17:45 Troponin I 0.023 ng/mL (< 0.028) 06/19/17 02:40 - Assessment/Plan 1. Multivesel CAD 2. S/P CABG 3. COPD PLAN: - Continue ASA/statin/BB/ARB - Increase PT as tolerated. - Restarted on steroids per primary team for COPD.
[2017-07-01] MEDS: traZODone HCl 50 MG TAB PO SCH (20:38)
[2017-07-01] MEDS: Atorvastatin Calcium 40 MG TAB PO SCH (20:38)
--- NOTE | 2017-07-01 23:12 | PRG ---
DATE OF SERVICE: 07/01/2017 SERVICE: Pulmonary Medicine. INTERVAL HISTORY: The patient is doing well from a cardiovascular and respiratory standpoint. He is breathing comfortably. He is much improved compared to yesterday. That being said, he still feels a rattle in his chest and back of his throat. He was up walking today, a little bit. He continues t o get a little winded when he gets around, but this is also improving slightly. PHYSICAL EXAMINATION: VITAL SIGNS: Afebrile, pulse 88, blood pressure 163/79, respirations 18, saturation 95% on room air. GENERAL: Patient is awake, alert, in no apparent distress, 95% on 2 liters nasal cannula. HEENT: Normocephalic, atraumatic. Sclerae are white, conjunctivae pink. Oral and nasal mucosa is m oist without lesions. LUNGS: Decent air entry. Much improved compared to yesterday. There is slightly prolonged expirato ry phase. Dependent crackles are present. I do not hear the wheezing today. HEART: Normal rate, regular. ABDOMEN: Soft, nontender, nondistended. Bowel sounds positive. MUSCULOSKELETAL: No cyanosis or clubbing. There is 1+ pitting in the bilateral lower extremities, w hich is slightly improved. GENITOURINARY: No Valencia catheter in place. NEUROLOGIC: Grossly nonfocal. LABORATORY DATA: WBC 7.7, hemoglobin 7.8, platelets 179,000. Bicarbonate 31 and roughly stable, pot assium 4.7. Creatinine 1.12 and roughly stable. Basic metabolic profile is otherwise unremarkable. Liver function studies are normal. Blood sugars ranged 166-298. ASSESSMENT: 1. Acute on chronic hypoxic respiratory failure, resolved to baseline. 2. Chronic obstructive pulmonary disease with acute exacerbation. 3. Type 2 diabetes mellitus. 4. Coronary artery disease, status post coronary artery bypass graft, postoperative day #5. PLAN: The patient's volume status is improved a little bit. I will give him one additional dose of Lasix, but save it for tomorrow morning. He can continue 5 days of steroids and antibiotics. That michel diaz said, tomorrow morning if continues to make improvement, from a pulmonary perspective, he will b e stable for transition out of the hospital. Dr. Mena will resume care in the morning if the patien t is still here.
[2017-07-02 05:25] LABS: #Eosinphils 0.4 thou/uL (0.0-0.7); #Lymphocytes 1.8 thou/uL (1.20-3.40); #Monocytes 0.5 thou/uL (0.11-0.59); #Neutrophils 5.7 thou/uL (1.40-6.50); %Basophils 0.3 % (0.0-1.0); %Eosinophils 4.4 % (0.0-10.0); %Lymphocytes 21.6 % (21.0-51.0); %Monocytes 6.2 % (0.0-10.0); Hematocrit 27.8 % (42.0-52.0); Mean Platelet Volume 7.2 fL (7.4-10.4); Red Blood Cell (RBC) Count 2.95 mill/uL (4.70-6.10); White Blood Cell (WBC) Count 8.4 thou/uL (4.8-10.8)
[2017-07-02] MEDS: HYDROcodone/Acetaminophen 5/325 mg Tablet PO PRN (05:27)
[2017-07-02 05:31] VITALS: BMI 33.8
[2017-07-02 05:47] LABS: ALT (SGPT) 9 U/L (8-55); AST (SGOT) 11 U/L (5-34); Alkaline Phosphatase 80 U/L (40-150); Anion Gap 12 mmol/L (10-20); BUN (Urea Nitrogen) 42 mg/dL (8.4-25.7); Bilirubin, Total 0.6 mg/dL (0.2-1.2); Calc. Creatinine Clearance 97 mL/min (70-130); Calcium 9.8 mg/dL (7.8-10.44); Carbon Dioxide 33 mmol/L (22-29); Chloride 100 mmol/L (98-107); Estimated GFR-MDRD 61; Globulin 3.1 g/dL (2.4-3.5); Protein, Total 6.8 g/dL (6.0-8.3)
[2017-07-02 07:50] VITALS: TEMP 97.5
[2017-07-02] MEDS: Insulin Regular 300 UNITS/3 ML VIAL SC PRN (07:52)
[2017-07-02] MEDS ORDERED: predniSONE 20 MG TAB PO SCH (08:00)
[2017-07-02] MEDS: Budesonide 0.5 MG/2 ML NEB INH SCH (08:05)
[2017-07-02] MEDS: Amoxicillin/Potassium Clav 875 MG TAB PO SCH (08:51)
[2017-07-02] MEDS: Allopurinol 300 MG TAB PO SCH (08:51)
[2017-07-02] MEDS: Furosemide 40 MG TAB PO SCH (08:51)
[2017-07-02] MEDS: Carvedilol 6.25 MG TAB PO SCH (08:51)
[2017-07-02] MEDS: Famotidine 20 MG TAB PO SCH (08:51)
[2017-07-02] MEDS: metFORMIN 500 MG TAB PO SCH (08:51)
[2017-07-02] MEDS: Aspirin 325 mg Enteric Coated Tablet PO SCH (08:51)
[2017-07-02] MEDS: FLUoxetine HCl 20 MG CAP PO SCH (08:51)
[2017-07-02] MEDS: Gabapentin 400 MG CAP PO SCH (08:52)
[2017-07-02] MEDS: guaiFENesin ER 600 MG TAB PO SCH (08:52)
[2017-07-02] MEDS: Losartan 25 MG TAB PO SCH (08:52)
[2017-07-02] MEDS: Iron Polysaccharides Complex 150 MG CAP PO SCH (08:53)
--- NOTE | 2017-07-02 10:15 | RAD ---
TWO VIEW CHEST: HISTORY: CHF. COPD. COMPARISON: Comparison is made to a 1-view chest 06/28/17. FINDINGS: Lungs are well aerated. There is focal atelectasis and/or infiltrative change in the medial right janna ng base seen on the frontal projection. Posterior gutters are blunted and I cannot exclude small eff usions. Lung morales otherwise clear. No evidence of vascular congestion or edema. Heart size upper normal a nd stable. Postop sternotomy change is again noted. AICD leads are again noted. Central line appea rs in adequate position. IMPRESSION: 1. Focal density in the medial right lung base possibly representing atelectasis. 2. A small effusion is not excluded. POS: [facility]
[2017-07-02 11:08] VITALS: BP 120/65
--- NOTE | 2017-07-09 07:18 | PFT ---
PATIENT HISTORY: HEIGHT: 70 IN WEIGHT:225 LBS SMOKER: QUIT HOW LON PACK YEARS PACKS PER DAY: PRODUCTIVE COUGH: LUNG DISEASE: PHYSICIAN INTERPRETATION FINAL REPORT: FEV1 is 1.39, this is severely reduced, FVC is 2.37, Mid flows were 780 mL, TLC is normal or there is air trapping noted. Diffusion is reduced , but corrects for lung volumes was no evidence of extrathoracic airway obstruction on flow volume loop. IMPRESSION: Overall this is a severe obstructive defect with air trapping. Life Assurance Representative: KENIA Pump Technician: KENIA MAJOR
--- NOTE | 2017-07-24 11:46 | EKG ---
Test Reason : Blood Pressure : / mmHG Vent. Rate : 077 BPM Atrial Rate : 077 BPM P-R Int : 150 ms QRS Dur : 094 ms QT Int : 394 ms P-R-T Axes : 070 034 073 degrees QTc Int : 445 ms Normal sinus rhythm Nonspecific T wave abnormality Abnormal ECG Confirmed by MADISON JUAREZ, STANFORD ([id number]), online editor SUSSY BHARDWAJ ([id number]) on 07/24/2017 11:45:34 AM Referred By: Confirmed By:STANFORD WALLACE MD
== END 2017-07-02 12:03 | disposition home or self-care (01) | DRG 233 ==
LOC: ERS 17:19 → 2SW 20:11 → OBSVTOIN 06-22 18:34 → 2NO 06-22 19:51 → CCU 06-26 07:44 → 2NO 06-28 06:42
PROVIDERS: ADMIT Specialist; ATTEND Specialist
PROC: 4A023N7 Measurement of Cardiac Sampling and Pressure, Left Heart, Percutaneous Approach (ICD-10-PCS; 2017-06-22)
PROC: B2111ZZ Fluoroscopy of Multiple Coronary Arteries using Low Osmolar Contrast (ICD-10-PCS; 2017-06-22)
PROC: B2151ZZ Fluoroscopy of Left Heart using Low Osmolar Contrast (ICD-10-PCS; 2017-06-22)
PROC: B3101ZZ Fluoroscopy of Thoracic Aorta using Low Osmolar Contrast (ICD-10-PCS; 2017-06-22)
PROC: 02100Z9 Bypass Coronary Artery, One Artery from Left Internal Mammary, Open Approach (ICD-10-PCS; principal; 2017-06-26)
PROC: 021209W Bypass Coronary Artery, Three Arteries from Aorta with Autologous Venous Tissue, Open Approach (ICD-10-PCS; 2017-06-26)
PROC: 06BQ4ZZ Excision of Left Saphenous Vein, Percutaneous Endoscopic Approach (ICD-10-PCS; 2017-06-26)
PROC: 5A1221Z Performance of Cardiac Output, Continuous (ICD-10-PCS; 2017-06-26)
PROC: B24BZZ4 Ultrasonography of Heart with Aorta, Transesophageal (ICD-10-PCS; 2017-06-26)
PROC: 30233N1 Transfusion of Nonautologous Red Blood Cells into Peripheral Vein, Percutaneous Approach (ICD-10-PCS; 2017-06-28)
DX: I25.10 Atherosclerotic heart disease of native coronary artery without angina pectoris (principal); J96.21 Acute and chronic respiratory failure with hypoxia; I11.0 Hypertensive heart disease with heart failure; I50.22 Chronic systolic (congestive) heart failure; J44.1 Chronic obstructive pulmonary disease with (acute) exacerbation; E11.42 Type 2 diabetes mellitus with diabetic polyneuropathy; E78.5 Hyperlipidemia, unspecified; Z91.19 Patient's noncompliance with other medical treatment and regimen; K21.9 Gastro-esophageal reflux disease without esophagitis; Z79.84 Long term (current) use of oral hypoglycemic drugs; Z87.891 Personal history of nicotine dependence; F32.9 Major depressive disorder, single episode, unspecified; R41.0 Disorientation, unspecified; T42.6X5A Adverse effect of other antiepileptic and sedative-hypnotic drugs, initial encounter; Y92.230 Patient room in hospital as the place of occurrence of the external cause; E11.65 Type 2 diabetes mellitus with hyperglycemia; E78.00 Pure hypercholesterolemia, unspecified; G47.33 Obstructive sleep apnea (adult) (pediatric); F41.9 Anxiety disorder, unspecified; F17.290 Nicotine dependence, other tobacco product, uncomplicated; Z95.5 Presence of coronary angioplasty implant and graft; Z95.810 Presence of automatic (implantable) cardiac defibrillator; Z82.49 Family history of ischemic heart disease and other diseases of the circulatory system; I25.5 Ischemic cardiomyopathy; D64.9 Anemia, unspecified
CPT/HCPCS: 36415; 36416; 36430; 71010; 71020; 76942; 78452; 80048; 80053; 80061; 82550; 82553; 82805; 83036; 83690; 83880; 84484; 85025; 85610; 85730; 86850; 86900; 86901; 90471; 90682; 90732; 93005; 93010; 93017; 93306; 93458; 93567; 93798; 94002; 94060; 94640; 94664; 94727; 94729; 96374; 99152; 99153; A4216; A9500; C1769; G0008; G0009; J1265; J1642; J1644; J1815; J1885; J1940; J2001; J2150; J2250; J2260; J2405; J2440; J2704; J2720; J2765; J2785; J3010; J3370; J3475; J3480; J7050; J7506; J7620; J7626; P9016; P9045; Q2036; S0017; S0028

== ENCOUNTER 2017-07-05 16:43 | Inpatient (IN) | payer MEDICARE ==
[2017-07-05 17:49] VITALS: BMI 31.8
[2017-07-05 19:42] LABS: #Eosinphils 0.4 thou/uL (0.0-0.7); #Lymphocytes 1.8 thou/uL (1.20-3.40); #Monocytes 0.6 thou/uL (0.11-0.59); %Basophils 0.4 % (0.0-1.0); %Eosinophils 4.2 % (0.0-10.0); %Lymphocytes 18.2 % (21.0-51.0); %Neutrophils 71.2 % (42.0-75.0); Hemoglobin 9.6 g/dL (14.0-18.0); Mean Corpuscular HGB CONC 32.7 g/dL (32.0-36.0); Mean Corpuscular Hemoglobin 31.2 pg (27.0-31.0); Mean Corpuscular Volume 95.4 fl (80.0-94.0); Mean Platelet Volume 6.9 fL (7.4-10.4); Platelet Count 197 thou/uL (130-400); RBC Distribution Width 13.8 % (11.5-14.5); Red Blood Cell (RBC) Count 3.07 mill/uL (4.70-6.10); White Blood Cell (WBC) Count 9.8 thou/uL (4.8-10.8)
[2017-07-05 20:33] LABS: ALT (SGPT) 9 U/L (8-55); AST (SGOT) 11 U/L (5-34); Albumin 3.6 g/dL (3.5-5.0); Alkaline Phosphatase 80 U/L (40-150); Anion Gap 12 mmol/L (10-20); BUN (Urea Nitrogen) 27 mg/dL (8.4-25.7); Bilirubin, Total 0.8 mg/dL (0.2-1.2); Calc. Creatinine Clearance 97 mL/min (70-130); Calcium 9.4 mg/dL (7.8-10.44); Carbon Dioxide 35 mmol/L (22-29); Chloride 98 mmol/L (98-107); Estimated GFR-MDRD 65; Globulin 3.2 g/dL (2.4-3.5); Glucose 211 mg/dL (70-105); Potassium 4.4 mmol/L (3.5-5.1); Protein, Total 6.8 g/dL (6.0-8.3); Sodium 141 mmol/L (136-145)
--- NOTE | 2017-07-05 22:02 | ULT ---
CAROTID ULTRASOUND 07/05/17 COMPARISON: None. HISTORY: Dizziness and visual disturbance. TECHNIQUE: Multiplanar pritchard scale and color doppler images are obtained in a carotid ultrasound. Spectral analys is of the doppler waveforms were performed. FINDINGS: A small amount of plaque is seen in the proximal aspect of both internal carotid arteries. The dopple r waveforms are normal bilaterally. Peak systolic velocity in the right ICA is 91 cm/s. The peak systolic velocity in the right CCA is 94 cm/s. The right ICA/CCA ratio is 1.0. Peak systolic velocity in the left ICA is 103 cm/s. The peak systolic velocity in the left CCA is 93 cm/s. The left ICA/CCA ratio is 1.1. Both vertebral arteries demonstrate antegrade flow without focal stenosis. IMPRESSION: No evidence of hemodynamically significant stenosis. POS: [facility]
--- NOTE | 2017-07-05 22:20 | RAD ---
TWO VIEWS CHEST 07/05/17 HISTORY: 61-year-old male with history of shortness of breath. PA and lateral views of the chest is obtained on 07/05/17. Comparison made to a previous exam from 07/02/17. Two views chest demonstrate sternotomy wires seen. An intracardiac defibrillator is seen. Mild cardio megaly is seen. No evidence of effusions, pneumonia or pneumothorax seen. Previously noted area of pa tchy density in the medial aspect of the right lung base appears to have resolved. IMPRESSION: Unremarkable two views chest. POS: [facility]
[2017-07-05] MEDS: Sodium Chloride 0.9% 1,000 ML IV SCH (22:34)
--- NOTE | 2017-07-06 01:05 | HP ---
This is LATASHA Estrada-Qian, dictating for Dr. Daniel Teresa. REASON FOR ADMISSION: Shortness of breath, weakness and visual disturbance. HISTORY OF PRESENT ILLNESS: This is a pleasant 61-year-old gentleman with a history of multiple medi glory problems to include coronary artery disease with recent bypass surgery, just dismissed from the h ospital a few days ago. He presents now with a 2-day history of increasing shortness of breath witho ut any PND or orthopnea. He also denies any chest, arm or back pain. He states he is very, very wea k and feels like he is going to pass out. Also, he has been having visual disturbances, i.e., seeing double objects and seeing objects that are not really there. For this reason, the patient is being admitted to the hospital for further evaluation and treatment. PAST MEDICAL HISTORY: 1. Diabetes. 2. Hyperlipidemia. 3. COPD. 4. Depression. 5. Peripheral neuropathy. PAST SURGICAL HISTORY: 1. History of coronary stenting in the past. 2. History right foot surgery for fracture. 3. History of herniorrhaphy. 4. History of laparoscopy in the past. ALLERGIES: None. MEDICATIONS: Currently, inaccurate at this time. FAMILY HISTORY: Noncontributory. SOCIAL HISTORY: He quit smoking 10 years ago. He is a nondrinker. He is . REVIEW OF SYSTEMS: General: Admits to weakness and fatigue. No fever or chills. HEENT: No diplop ia, amaurosis fugax, tinnitus, sore throat or hoarseness. Cardiovascular: No chest, arm or back bill n. Pulmonary: See history of present illness. Gastrointestinal: No GI bleed, constipation or diar bairon. Genitourinary: No dysuria, nocturia, oliguria or polyuria. Endocrine: No polyphagia, polydi psia or heat or cold intolerance. Musculoskeletal: Admits to arthralgias. No lupus or myopathy. N eurologic: No history of TIA or seizure. All systems are negative. PHYSICAL EXAMINATION: GENERAL: A pleasant gentleman who appears to be tachypneic upon evaluation. His blood pressure is 9 0/50, pulse 70 and respirations 20. He is afebrile. NECK: Supple with no increased JVP or carotid bruit. Carotid had good upstroke with no thyromegaly. COR: Regular rate and rhythm. CHEST: Symmetrical, decreased breath sounds bilaterally. ABDOMEN: Soft and nontender. Normoactive bowel sounds. No bruit or organomegaly. EXTREMITIES: No edema or cyanosis. Palpable pedal pulses. SKIN: There is no evidence of ulcerations, lesion, or rash. NEUROLOGIC: He is awake, alert and oriented to person, place and time. ASSESSMENT: 1. Shortness of breath, rule out fluid overload. 2. Chronic obstructive pulmonary disease. 3. History of coronary artery disease with a bypass recently. 4. Diabetes. 5. History of postoperative anemia. 6. Noncompliance. 7. Hypotension. 8. Visual disturbance. PLAN: 1. The patient will be admitted to the hospital where he will follow up with lab and EKG and chest x -ray. 2. We will begin a normal saline at 75 mL an hour secondary to hypotension. 3. We will place on oxygen. 4. We will check blood sugars a.c. and at bedtime and use sliding scale insulin per protocol. Check a carotid ultrasound. We will ask Dr. Suazo to see the patient in consultation. The patient jay balized understanding and all questions answered to satisfaction.
[2017-07-06] MEDS: HYDROcodone/Acetaminophen 7.5/325 mg Tablet PO PRN ×3 (06:38→19:57)
[2017-07-06] MEDS ORDERED: Ondansetron ODT 4 MG TAB PO PRN (08:23)
[2017-07-06] MEDS ORDERED: Insulin Regular 300 UNITS/3 ML VIAL SC PRN (08:23)
[2017-07-06] MEDS ORDERED: Dextrose 50% Abboject 50 ML SYRINGE IVP PRN (08:23)
[2017-07-06] MEDS ORDERED: Dextrose 5% in Water 1,000 ML IV PRN (08:23)
[2017-07-06] MEDS ORDERED: Ondansetron ODT 8 MG TAB PO PRN (08:30)
[2017-07-06] MEDS: metFORMIN 500 MG TAB PO SCH ×2 (09:45→16:52)
[2017-07-06] MEDS: Sodium Chloride 0.9% 1,000 ML IV SCH (09:46)
[2017-07-06] MEDS: Allopurinol 300 MG TAB PO SCH (09:46)
[2017-07-06] MEDS: Carvedilol 6.25 MG TAB PO SCH ×2 (09:46→19:56)
[2017-07-06] MEDS: Losartan Potassium 25 MG TAB PO SCH (09:48)
[2017-07-06] MEDS: Clopidogrel Bisulfate 75 MG TAB PO SCH (09:48)
[2017-07-06] MEDS: Gabapentin 400 MG CAP PO SCH ×3 (09:48→19:56)
[2017-07-06] MEDS: Milk Of Magnesia 30 ML UDCUP PO SCH (09:49)
[2017-07-06] MEDS: Gemfibrozil 600 MG TAB PO SCH (16:52)
[2017-07-07] MEDS: HYDROcodone/Acetaminophen 7.5/325 mg Tablet PO PRN ×2 (01:58→09:05)
[2017-07-07] MEDS: Sodium Chloride 0.9% 1,000 ML IV SCH ×2 (02:00→15:30)
[2017-07-07 06:39] LABS: Anion Gap 11 mmol/L (10-20); BUN (Urea Nitrogen) 23 mg/dL (8.4-25.7); Calc. Creatinine Clearance 119 mL/min (70-130); Calcium 8.9 mg/dL (7.8-10.44); Carbon Dioxide 31 mmol/L (22-29); Cardiac Risk 6.1 (Less than 4.5); Chloride 101 mmol/L (98-107); Cholesterol 110 mg/dl (< 200 Desired); Estimated GFR-MDRD 82; Glucose 142 mg/dL (70-105); HDL Cholesterol 18 mg/dL (>60 Neg Risk); LDL Cholesterol, Calculated 64 mg/dL; Potassium 4.3 mmol/L (3.5-5.1); Sodium 139 mmol/L (136-145); Triglycerides 140 mg/dL (Less than 150)
[2017-07-07] MEDS: Gemfibrozil 600 MG TAB PO SCH ×2 (08:59→15:43)
[2017-07-07] MEDS: metFORMIN 500 MG TAB PO SCH ×2 (09:00→15:43)
[2017-07-07] MEDS: Allopurinol 300 MG TAB PO SCH (09:05)
[2017-07-07] MEDS: Losartan Potassium 25 MG TAB PO SCH (09:05)
[2017-07-07] MEDS: Carvedilol 6.25 MG TAB PO SCH ×2 (09:05→21:39)
[2017-07-07] MEDS: Gabapentin 400 MG CAP PO SCH ×3 (09:05→21:39)
[2017-07-07] MEDS: Clopidogrel Bisulfate 75 MG TAB PO SCH (09:05)
[2017-07-07] MEDS: Milk Of Magnesia 30 ML UDCUP PO SCH (10:28)
[2017-07-07] MEDS ORDERED: traMADol HCl 50 MG TAB PO PRN (11:28)
[2017-07-07] MEDS: traMADol HCl 50 MG TAB PO SCH ×3 (13:03→21:39)
[2017-07-08 05:19] LABS: #Eosinphils 0.3 thou/uL (0.0-0.7); #Lymphocytes 1.2 thou/uL (1.20-3.40); #Monocytes 0.5 thou/uL (0.11-0.59); #Neutrophils 3.7 thou/uL (1.40-6.50); %Basophils 0.7 % (0.0-1.0); %Eosinophils 5.5 % (0.0-10.0); %Lymphocytes 21.2 % (21.0-51.0); %Monocytes 8.1 % (0.0-10.0); %Neutrophils 64.6 % (42.0-75.0); Hemoglobin 8.4 g/dL (14.0-18.0); Mean Corpuscular HGB CONC 31.1 g/dL (32.0-36.0); Mean Corpuscular Hemoglobin 29.4 pg (27.0-31.0); Mean Corpuscular Volume 94.5 fl (80.0-94.0); Mean Platelet Volume 7.1 fL (7.4-10.4); Platelet Count 161 thou/uL (130-400); RBC Distribution Width 13.6 % (11.5-14.5); Red Blood Cell (RBC) Count 2.85 mill/uL (4.70-6.10); White Blood Cell (WBC) Count 5.7 thou/uL (4.8-10.8)
[2017-07-08 05:35] LABS: ALT (SGPT) 7 U/L (8-55); AST (SGOT) 10 U/L (5-34); Albumin 3.3 g/dL (3.5-5.0); Alkaline Phosphatase 82 U/L (40-150); Anion Gap 9 mmol/L (10-20); BUN (Urea Nitrogen) 22 mg/dL (8.4-25.7); Bilirubin, Total 0.6 mg/dL (0.2-1.2); Calc. Creatinine Clearance 129 mL/min (70-130); Calcium 9.1 mg/dL (7.8-10.44); Carbon Dioxide 32 mmol/L (22-29); Chloride 102 mmol/L (98-107); Estimated GFR-MDRD 88; Globulin 2.7 g/dL (2.4-3.5); Glucose 122 mg/dL (70-105); Potassium 4.6 mmol/L (3.5-5.1); Sodium 138 mmol/L (136-145)
[2017-07-08] MEDS: metFORMIN 500 MG TAB PO SCH (08:22)
[2017-07-08] MEDS: Carvedilol 6.25 MG TAB PO SCH (08:22)
[2017-07-08] MEDS: Gemfibrozil 600 MG TAB PO SCH (08:22)
[2017-07-08] MEDS: Allopurinol 300 MG TAB PO SCH (08:22)
[2017-07-08] MEDS: Losartan Potassium 25 MG TAB PO SCH (08:23)
[2017-07-08] MEDS: Clopidogrel Bisulfate 75 MG TAB PO SCH (08:23)
[2017-07-08] MEDS: Milk Of Magnesia 30 ML UDCUP PO SCH (08:23)
[2017-07-08] MEDS: Gabapentin 400 MG CAP PO SCH ×2 (08:23→14:56)
[2017-07-08] MEDS: traMADol HCl 50 MG TAB PO SCH ×2 (08:23→13:37)
[2017-07-08 14:52] VITALS: TEMP 97.5
[2017-07-11 09:23] VITALS: BP 103/59
--- NOTE | 2017-07-21 13:27 | EKG ---
Test Reason : STAT Blood Pressure : / mmHG Vent. Rate : 070 BPM Atrial Rate : 070 BPM P-R Int : 142 ms QRS Dur : 098 ms QT Int : 402 ms P-R-T Axes : 057 041 074 degrees QTc Int : 434 ms Normal sinus rhythm Nonspecific T wave abnormality Abnormal ECG When compared with ECG of 26-JUN-2017 13:16, QT has shortened Confirmed by TERESSA GANT MD ([id number]) on 07/21/2017 1:27:11 PM Referred By: VANDANA Confirmed By:TERESSA GANT MD
== END 2017-07-08 15:02 | disposition home or self-care (01) | DRG 125 ==
LOC: 2NO 16:43
PROVIDERS: ADMIT Specialist; ATTEND Specialist
DX: R44.1 Visual hallucinations (principal); E11.42 Type 2 diabetes mellitus with diabetic polyneuropathy; E11.649 Type 2 diabetes mellitus with hypoglycemia without coma; I95.9 Hypotension, unspecified; F05 Delirium due to known physiological condition; J44.1 Chronic obstructive pulmonary disease with (acute) exacerbation; F68.10 Factitious disorder imposed on self, unspecified; I25.10 Atherosclerotic heart disease of native coronary artery without angina pectoris; Z95.1 Presence of aortocoronary bypass graft; E78.5 Hyperlipidemia, unspecified; J44.9 Chronic obstructive pulmonary disease, unspecified; F32.9 Major depressive disorder, single episode, unspecified; Z87.891 Personal history of nicotine dependence; H53.009 Unspecified amblyopia, unspecified eye; Z91.14 Patient's other noncompliance with medication regimen; T40.2X5A Adverse effect of other opioids, initial encounter; G89.18 Other acute postprocedural pain; F45.0 Somatization disorder; R06.02 Shortness of breath
CPT/HCPCS: 36415; 36416; 71020; 80048; 80053; 80061; 83880; 85025; 93005; 93010; 93880; 94640; A4216; G8978-GP-CK; G8979-GP-CJ; J7620

== ENCOUNTER → 2017-07-12 | Outpatient (CLI) | payer MEDICARE | LOC: BICRAD 16:04 | PROVIDERS: ATTEND Specialist | DX: I50.9 Heart failure, unspecified (principal); J98.11 Atelectasis | CPT/HCPCS: 71020 ==

== ENCOUNTER 2017-08-18 06:03 | Emergency (ER) | payer MEDICARE ==
[2017-08-18] MEDS ORDERED: Morphine 2 MG/ML SYRINGE ONE ×2 (06:48→08:43)
[2017-08-18] MEDS ORDERED: Ondansetron HCl/PF 4 MG/2 ML Vial ONE (06:48)
[2017-08-18 06:55] LABS: #Eosinphils 0.3 thou/uL (0.0-0.7); #Monocytes 0.7 thou/uL (0.11-0.59); #Neutrophils 6.2 thou/uL (1.40-6.50); %Basophils 0.5 % (0.0-1.0); %Eosinophils 3.4 % (0.0-10.0); %Lymphocytes 11.7 % (21.0-51.0); %Monocytes 8.9 % (0.0-10.0); %Neutrophils 75.6 % (42.0-75.0); Hemoglobin 11.5 g/dL (14.0-18.0); Mean Corpuscular HGB CONC 33.2 g/dL (32.0-36.0); Mean Corpuscular Hemoglobin 30.1 pg (27.0-31.0); Mean Corpuscular Volume 90.8 fl (80.0-94.0); Mean Platelet Volume 8.7 fL (7.4-10.4); Platelet Count 145 thou/uL (130-400); RBC Distribution Width 14.4 % (11.5-14.5); Red Blood Cell (RBC) Count 3.82 mill/uL (4.70-6.10); White Blood Cell (WBC) Count 8.2 thou/uL (4.8-10.8)
[2017-08-18 07:03] LABS: INR-International Normal Ratio 1.1; Prothrombin Time 13.9 SEC (12.0-14.7)
[2017-08-18 07:04] LABS: D-Dimer Test 0.94 *mcg/mL (0.27-0.43)
[2017-08-18 07:16] LABS: ALT (SGPT) 11 U/L (8-55); AST (SGOT) 17 U/L (5-34); Albumin 4.1 g/dL (3.5-5.0); Alkaline Phosphatase 107 U/L (40-150); Anion Gap 15 mmol/L (10-20); BUN (Urea Nitrogen) 29 mg/dL (8.4-25.7); Bilirubin, Total 0.7 mg/dL (0.2-1.2); Calc. Creatinine Clearance 0 mL/min (70-130); Calcium 9.4 mg/dL (7.8-10.44); Carbon Dioxide 27 mmol/L (22-29); Chloride 101 mmol/L (98-107); Estimated GFR-MDRD 42; Globulin 3.3 g/dL (2.4-3.5); Glucose 157 mg/dL (70-105); Lipase 46 U/L (8-78); Magnesium 1.5 mg/dL (1.6-2.6); Potassium 4.9 mmol/L (3.5-5.1); Protein, Total 7.4 g/dL (6.0-8.3); Sodium 138 mmol/L (136-145)
[2017-08-18 07:19] LABS: CKMB 1.2 ng/mL (0-6.6); Troponin I 0.014 ng/mL (< 0.028)
[2017-08-18] MEDS ORDERED: diphenhydrAMINE 50 MG/ML VIAL ONE (07:58)
--- NOTE | 2017-08-18 08:39 | RAD ---
CHEST 2 VIEWS: Date: 08/18/17 HISTORY: Chest pain. COMPARISON: Chest 2 views dated 07/05/17. FINDINGS: Lungs are clear. No pneumothorax or effusion. Cardiac silhouette and mediastinal contours are within normal limits. No acute osseous abnormality. IMPRESSION: No acute intrathoracic abnormality. POS: [facility]
[2017-08-18] MEDS ORDERED: Magnesium Sulfate 2 GM/100 ML BAG ONE (08:43)
--- NOTE | 2017-08-18 08:47 | CT ---
CT ANGIO CHEST WITH CONTRAST: Date: 08/18/17 HISTORY: Chest pain. COMPARISON: None. FINDINGS: No proximal segmental pulmonary arterial filling defect. Contour of the aorta and of the pulmonary tr unk are normal. No aneurysmal dilatation. There are phlegmonous changes, as well as gas deep to the sternum at the midline median sternotomy. T here is also a focal soft tissue defect with gas at the level of the mid sternum. Mediastinal gas and collection at the level of the manubrium near the first costosternal joint. Small reactive lymph nod es in mediastinum. Mild emphysematous changes. Upper abdomen is unremarkable. Old left anterior 5th rib fracture. IMPRESSION: 1. Superficial fat skin infection at the midline incision containing gas and debris at the level of the third costosternal joint. 2. Deep anterior mediastinal infection containing gas and phlegmonous changes at the level of the fi rst costomanubrial joint. 3. Osseous remodeling of the recent median sternotomy. Erosions are seen, although can be sequelae o f remodeling change. Evaluation for osteomyelitis at this point is limited. 4. No proximal segmental pulmonary arterial filling defect. POS: [facility]
--- NOTE | 2017-08-18 08:52 | CT ---
CT ABDOMEN AND PELVIS WITH CONTRAST: Date: 08/18/17 HISTORY: Abdominal pain. COMPARISON: CT abdomen and pelvis from 2012. FINDINGS: There is a right-sided indirect inguinal hernia containing appendix with some inflammatory fluid. The re is some narrowing of the inguinal canal with fluid and vascular congestive changes. Mild fecaliza tion of the distal ileum. Liver and spleen are unremarkable. Pancreas unremarkable. Gallbladder unremarkable. No hydronephrosis. Aortoiliac contour. Liver is enlarged. Mild degenerative changes of lumbar spine. IMPRESSION: Right-sided indirect inguinal hernia containing appendix with some inflammatory change and vascular c ongestion. Surgical consultation is advised. POS: [facility]
[2017-08-18] MEDS ORDERED: Piperacillin/Tazobactam 4.5 GM in Sodium Chloride 0.9% 100 ML IVPB SCH (09:00)
[2017-08-18] MEDS ORDERED: HYDROcodone/Acetaminophen 5/325 mg Tablet ONE (09:44)
[2017-08-18 10:12] LABS: Bilirubin Negative (Negative); Blood, Urine Negative (Negative); Clarity CLEAR (Clear); Glucose, Urine (Dipstick) Negative (Negative); Leukocyte Negative (Negative); Nitrite Negative (Negative); Protein, Urine (Dipstick) Negative (Neg-Trace); Specific Gravity, Urine 1.045 (1.002-1.036); pH, Urine 6.5 (5.0-9.0)
[2017-08-18] MEDS ORDERED: ISOVUE-370 76%-LOCM 1 ML ONE (14:28)
--- NOTE | 2017-08-20 10:07 | CON ---
DATE OF CONSULTATION: 08/18/2017 REQUESTING PHYSICIAN: Dr. Carrol Fallon. CHIEF COMPLAINT: Upper abdominal pain. HISTORY OF PRESENT ILLNESS: The patient is a 61-year-old diabetic man who was admitted to the hospit al about 2 months ago with congestive failure symptoms. Echocardiography demonstrated an ejection fr action of around 20%-25%, and cardiac catheterization demonstrated severe 3-vessel coronary artery di sease. On 06/26/2017, he underwent a 4-vessel coronary artery bypass procedure using a left internal mammary artery to the LAD and reverse saphenous vein grafts to a diagonal and obtuse marginal and to a posterolateral branch of the right coronary. His postoperative course at that time was unremarkab le and he was discharged on . He apparently began developing some swelling associated with an are a of his sternotomy incision progressing to thinning and blistering of the skin and him expressing ma terial from it himself. He was seen in the office at roughly 2 weeks postoperatively and at that nirmala e, nothing of note was identified and then over the next few weeks, this problem developed. He was s een in the office by Dr. Wilson yesterday. The wound was probed and packed and he was to come in [facility] for reassessment with plan being that he leave the packing in place over the weekend. The patient began developing some upper abdominal pain, but upon questioning more specifically about the locatio n, it is in the epigastrium and along the costal margins and is primarily with movement when coughing . He denies any sensation of clicking or popping or grinding of his sternum. He has not been runnin g any fever. He has not had any inordinate cough. He denies any heavy lifting or straining with upp er body strength maneuvers. PAST MEDICAL HISTORY: Significant for his coronary artery disease, congestive failure, diabetes, hyp ertension, GE reflux disease, COPD, and a peripheral neuropathy. MEDICATIONS: At the time of his discharge following his bypass surgery, he was on a baby aspirin a d ay, Plavix 75 mg a day, allopurinol 300 mg a day, Coreg 12.5 mg b.i.d., Cozaar 25 mg a day, metformin 1000 mg b.i.d., Lasix 40 mg a day, Neurontin 800 mg t.i.d., Lopid 600 mg b.i.d., Prozac 40 mg a day. ALLERGIES: He denies any medical allergies, although there is some suspicion that he had a cough rel ated to [employer]. SOCIAL HISTORY: The patient used to smoke, but quit about 10 years ago. REVIEW OF SYSTEMS: Negative for any fever or chills. Negative for any productive cough. Negative f or any clicking, popping, grinding of his sternum. PHYSICAL EXAMINATION: GENERAL: He is barrel chested man, in no distress. He has a dressing in place on his upper mid ster num with a saturated new gauze in it. NECK: He has no JVD. CHEST: Clear to auscultation. There is a little bit of red discoloration of the jude-incisional ski n on his anterior chest. Most of the incision is intact, but there is about a 3/4 of the cm open wou nd over the upper body of the sternum. The gauze in it was saturated. The fluid that is draining is fairly bright yellow, but not grossly purulent. When breathing, I think I can feel some subtle move ment of the sternum at one place, I do not feel any popping of it with provocative maneuvers such as coughing however. When probing it with acute hip, it feels like it goes down to the bone. When I us ed a wooden end of the Q-tip, I can go down to about 2-3 cm further than with the cotton applicator t ip. CARDIOVASCULAR: He has a regular rate and rhythm. ABDOMEN: Soft and nontender. EXTREMITIES: His leg incisions are well healed VITAL SIGNS: His temperature here has ranged from 98.2-98.8, heart rates have been in the 70s and 80 s, blood pressure in the 100-125/60-70 range. Room air saturations have been in 92%-97% range. LABORATORY DATA: His white count is 8.2, hemoglobin 11.5, hematocrit 34.7, platelets 145,000. The c omputerized differential shows about 76% neutrophils and 12% lymphocytes. Chemistries show normal el ectrolytes. His BUN is 29, down from 42. On the 02 of July, his creatinine is 1.69, up from 1 .22. Glucose is 157, albumin 4.1. LFTs were normal. INR is 1.1. D-dimer 0.94. IMAGING: Chest x-ray shows dual chamber pacemaker in place, sternal wires, fairly prominent pulmonar y markings but sharp diaphragms and costophrenic angles with no obviously broken wires or change in a lignment of wires. His CT scan shows no pleural effusions. There are some postoperative changes deven t include what probably represents a fluid collection about the level of the xiphoid. There is a sli ght gap between the two halves of the sternum. The fluid collection inferiorly with a few tiny blips of air seen in the retrosternal fat, I do not seem to communicate with anything there or any other o rgan system or with the area of the sternum associated with the soft tissue defect. IMPRESSION AND RECOMMENDATIONS: Local wound problem associated with recent sternotomy. It probably represents an early dehiscence or perhaps an early sternal wound infection. The patient has already been started on oral antibiotics. There is no gross instability of most of the sternum. I think neptali se followup is mandatory, but I do not think that there is any particular advantage to admitting the patient to the hospital at this point. I am concerned, however, that this will wind up declaring its elf as a wound healing problems that will require surgical exploration, irrigation and debridement. I have cultured the wound and instructed the on how to do more frequent wound packings and reinf orced to them the importance of keeping their appointment the day after tomorrow. I have given them one of my business cards and instructed them to call should this problem get worsen instead of stayin g stable are getting better.
--- NOTE | 2017-08-25 12:20 | EKG ---
Test Reason : Blood Pressure : / mmHG Vent. Rate : 080 BPM Atrial Rate : 080 BPM P-R Int : 154 ms QRS Dur : 088 ms QT Int : 354 ms P-R-T Axes : 048 020 228 degrees QTc Int : 408 ms Normal sinus rhythm T wave abnormality, consider inferior ischemia Abnormal ECG T wave inversion, V5, V6, I, II, aVL Confirmed by ANNIKA ALTAMIRANO M.D. ([id number]), science editor SUSSY BHARDWAJ ([id number]) on 08/25/2017 12:20:00 PM Referred By: Confirmed By:ANNIKA ALTAMIRANO M.D.
== END 2017-08-18 11:11 | disposition home or self-care (01) ==
LOC: ERS 06:03
DX: T81.4XXA Infection following a procedure, initial encounter (principal); R10.10 Upper abdominal pain, unspecified; E11.9 Type 2 diabetes mellitus without complications; E78.5 Hyperlipidemia, unspecified; I10 Essential (primary) hypertension; J44.9 Chronic obstructive pulmonary disease, unspecified; I48.91 Unspecified atrial fibrillation; F32.9 Major depressive disorder, single episode, unspecified; Z87.891 Personal history of nicotine dependence; Z79.4 Long term (current) use of insulin; Z79.899 Other long term (current) drug therapy
CPT/HCPCS: 71046; 71275; 74177; 80053; 81003; 82553; 83605; 83690; 83735; 84484; 85025; 85379; 85610; 87040; 87070; 87205; 93005; 96361; 96365; 96367; 96375; 96376; J1200; J2270; J2405; J2543; J3370; J3475; J7050

== ENCOUNTER 2017-08-24 13:20 | Inpatient (IN) | payer MEDICARE ==
[2017-08-24] MEDS ORDERED: Glycopyrrolate 0.2 MG/ML 5 ML SYRINGE ONE (13:58)
[2017-08-24] MEDS ORDERED: Lidocaine 1% PF 5 ML VIAL ONE (13:58)
[2017-08-24] MEDS ORDERED: Ondansetron HCl/PF 4 MG/2 ML Vial ONE (13:58)
[2017-08-24] MEDS ORDERED: PROPOFOL 200 MG/20 ML VIAL ONE (13:58)
[2017-08-24] MEDS ORDERED: PHENYLEPHRINE-NS 100 MCG/ML 10 ML SYRINGE ONE (13:58)
[2017-08-24] MEDS ORDERED: ePHEDrine/0.9% NaCl/PF SYRINGE 50 mg/10 ml ONE (13:58)
[2017-08-24] MEDS ORDERED: Vancomycin HCl 1.5 GM in Sodium Chloride 0.9% 250 ML 300 ML IVPB SCH (15:00)
[2017-08-24] MEDS ORDERED: Piperacillin/Tazobactam 3.375 GM in Sodium Chloride 0.9% 100 ML IVPB SCH ×2 (15:00→18:45)
--- NOTE | 2017-08-24 15:17 | CON ---
DATE OF CONSULTATION: 08/24/2017 HISTORY OF PRESENT ILLNESS: Mr. Montiel is a 61-year-old gentleman, who underwent coronary artery bypa ss grafting x4 on 06/26/2017. Since that time, he has had multiple revisits to the hospital and also to the emergency department. He has chronic COPD and he has coughed his sternum apart. He was appa rently milking his incision at home and expressing purulent material. He was seen by both Dr. Teresa and Dr. Krishnan and asked to come and see me, which he did not have the wherewithal to follow up on. Once he came to see me, the skin was opened for approximately 0.5 cm over his sternum. There was no purulence when I saw him. He had been on antibiotics for about a week at that point in time. The wo und was cultured through the emergency department and found to grow no bacteria. The patient has glory led twice and then seen twice more in the office with a sternal pain. The small opening when probed with a peroxide-coated Q-tip probes underneath all the way to the sternum he can feel wires. I am re luctant, although feel obligated to open his sternal incision. This will require removal of the wire s that are exposed and wound VAC placement. My hope is that we can wound VAC him to closure. We lacy l get him admitted through the day stay area and plan for operative debridement as soon as operating time is available today. PAST MEDICAL HISTORY: 1. Coronary artery disease, status post coronary artery bypass grafting x4. 2. Cardiomyopathy. 3. Diabetes mellitus. 4. Hyperlipidemia. 5. Chronic obstructive pulmonary disease. 6. Depression. 7. Peripheral neuropathy. PAST SURGICAL HISTORY: 1. Coronary artery bypass grafting x4. 2. Right foot surgery for a fracture. 3. Herniorrhaphy. 4. Laparoscopy. SOCIAL HISTORY: He quit smoking 10 years ago. He does not use alcohol. ALLERGIES: None. CURRENT MEDICATIONS: 1. Aspirin 81 mg daily. 2. Plavix 75 mg daily. 3. Allopurinol 300 mg daily. 4. Coreg 12.5 mg b.i.d. 5. Cozaar 25 mg daily. 6. Metformin 1000 mg b.i.d. 7. Lasix 40 mg daily. 8. Neurontin 500 mg t.i.d. 9. Lopid 600 mg b.i.d. 10. Prozac 40 mg daily. REVIEW OF SYSTEMS: Ten point review of systems is performed and is negative except as above. PHYSICAL EXAMINATION: GENERAL: This is an obese gentleman, who has some pain overlying his anterior sternal wall. VITAL SIGNS: His heart rate is 80 and regular, blood pressure is 130/72. LUNGS: Clear bilaterally. HEART: Rhythm is regular. ABDOMEN: Soft and nontender. EXTREMITIES: No edema. The sternal incision has a small opening, it is probed and Q-tip probes appr oximately 2 cm both proximally and distal, and wires are palpable with the Q-tip. IMAGING: Chest x-ray and chest CT scan from his last ER visit have been reviewed. There is no pleur al or pericardial effusion. The wires have and the sternum is fractured in multiple locati ons. ASSESSMENT AND PLAN: For sternal debridement today, cultures are negative, but we will place him on vancomycin and Zosyn and wound VAC his sternal incision postoperatively. We will see how the wound V AC goes over the next couple of days, but he may end up with a wound VAC to closure.
[2017-08-24 15:31] LABS: #Eosinphils 0.2 thou/uL (0.0-0.7); #Lymphocytes 1.6 thou/uL (1.20-3.40); #Monocytes 0.7 thou/uL (0.11-0.59); %Basophils 0.6 % (0.0-1.0); %Eosinophils 2.7 % (0.0-10.0); %Lymphocytes 18.3 % (21.0-51.0); %Monocytes 8.2 % (0.0-10.0); %Neutrophils 70.3 % (42.0-75.0); Hemoglobin 11.4 g/dL (14.0-18.0); Mean Corpuscular Volume 90.8 fl (80.0-94.0); Mean Platelet Volume 7.7 fL (7.4-10.4); Platelet Count 175 thou/uL (130-400); RBC Distribution Width 14.4 % (11.5-14.5); Red Blood Cell (RBC) Count 3.79 mill/uL (4.70-6.10); White Blood Cell (WBC) Count 8.6 thou/uL (4.8-10.8)
[2017-08-24] MEDS ORDERED: Midazolam HCl 2 mg/2 ml Vial ONE (15:32)
[2017-08-24] MEDS ORDERED: Fentanyl 100 MCG/2 ML VIAL ONE ×3 (15:32→17:42)
[2017-08-24 15:53] LABS: Anion Gap 15 mmol/L (10-20); BUN (Urea Nitrogen) 23 mg/dL (8.4-25.7); Calc. Creatinine Clearance 0 mL/min (70-130); Calcium 9.5 mg/dL (7.8-10.44); Carbon Dioxide 27 mmol/L (22-29); Chloride 99 mmol/L (98-107); Estimated GFR-MDRD 43; Glucose 121 mg/dL (70-105); Potassium 5.1 mmol/L (3.5-5.1); Sodium 136 mmol/L (136-145)
[2017-08-24] MEDS ORDERED: HYDROmorphone 2 MG/ML VIAL SLOW IVP PRN (16:37)
[2017-08-24] MEDS ORDERED: Morphine Sulfate 2 MG/ML SYRINGE SLOW IVP PRN (16:37)
[2017-08-24] MEDS ORDERED: Promethazine HCl 25 MG/ML VIAL SLOW IVP PRN (16:37)
--- NOTE | 2017-08-24 17:21 | OP ---
DATE OF PROCEDURE: 08/24/2017 PREOPERATIVE DIAGNOSIS: Sternal wound infection. POSTOPERATIVE DIAGNOSIS: Sternal wound infection. PROCEDURE PERFORMED: Sternal wound debridement and VAC placement. SURGEON: Dr. Morales Wilson. ANESTHESIA: General endotracheal. ESTIMATED BLOOD LOSS: Less than 50 mL. DESCRIPTION OF THE PROCEDURE: After consent was obtained, the patient was brought to operating room and placed in the supine position on the operating room table. Appropriate anesthetic monitor was pl aced and general endotracheal anesthesia was induced. Chest was prepped and draped in the usual ster ile fashion. The skin overlying the open area of the sternum was resected and sent for culture. Inc ision was opened and three sternal wires were removed. The wound was debrided down to the sternum. The soft tissues were curetted back to bleeding tissue. There was no purulent drainage or exudate. The Wound Care Team came and placed a wound VAC and the patient was awakened, extubated, and transfer red to the recovery room in stable condition. Needle, sponge, and instrument counts were all reporte d as correct at the end of the procedure.
[2017-08-24] MEDS ORDERED: Dextrose 5% in Water 1,000 ML IV PRN (18:22)
[2017-08-24] MEDS ORDERED: HYDROcodone/Acetaminophen 5/325 mg Tablet PO PRN (18:22)
[2017-08-24] MEDS ORDERED: Albuterol Sulfate 2.5 mg/3 ml Neb NEB PRN (18:22)
[2017-08-24] MEDS ORDERED: Bisacodyl 5 MG TAB PO PRN (18:22)
[2017-08-24] MEDS ORDERED: Acetaminophen 325 MG TAB PO PRN (18:22)
[2017-08-24] MEDS ORDERED: Milk Of Magnesia 30 ML UDCUP PO PRN (18:22)
[2017-08-24] MEDS ORDERED: Dextrose 50% Abboject 50 ML SYRINGE SLOW IVP PRN (18:22)
[2017-08-24] MEDS ORDERED: Ondansetron ODT 4 MG TAB PO PRN (18:22)
[2017-08-24] MEDS ORDERED: Gemfibrozil 600 MG TAB PO SCH (18:30)
[2017-08-24] MEDS ORDERED: Mometasone/Formoterol 120 PUFF INHALER INH SCH (19:00)
[2017-08-24] MEDS: HYDROcodone/Acetaminophen 5/325 mg Tablet PO PRN (19:22)
[2017-08-24] MEDS: Carvedilol 6.25 MG TAB PO SCH (20:34)
[2017-08-24] MEDS: Atorvastatin Calcium 40 MG TAB PO SCH (20:34)
[2017-08-24] MEDS: traZODone HCl 50 MG TAB PO SCH (20:35)
[2017-08-24] MEDS: Gabapentin 400 MG CAP PO SCH (20:36)
[2017-08-24] MEDS: Docusate 100 MG CAP PO SCH (20:37)
[2017-08-24] MEDS: Piperacillin/Tazobactam 3.375 GM in Sodium Chloride 0.9% 100 ML IVPB SCH (23:27)
[2017-08-25 02:20] VITALS: BMI 30.7
[2017-08-25] MEDS: HYDROcodone/Acetaminophen 5/325 mg Tablet PO PRN ×3 (02:23→21:17)
[2017-08-25] MEDS: Vancomycin HCl 1.5 GM in Sodium Chloride 0.9% 250 ML 300 ML IVPB SCH ×2 (03:57→14:01)
[2017-08-25] MEDS: Famotidine 20 MG TAB PO SCH ×3 (05:50→21:16)
[2017-08-25] MEDS: Piperacillin/Tazobactam 3.375 GM in Sodium Chloride 0.9% 100 ML IVPB SCH ×4 (05:53→23:58)
[2017-08-25] MEDS: Gemfibrozil 600 MG TAB PO SCH ×2 (08:19→18:06)
[2017-08-25] MEDS: metFORMIN 500 MG TAB PO SCH ×2 (08:19→18:06)
[2017-08-25] MEDS: Carvedilol 6.25 MG TAB PO SCH ×2 (08:19→21:15)
[2017-08-25] MEDS: Allopurinol 300 MG TAB PO SCH (08:19)
[2017-08-25] MEDS: Aspirin 81 mg Enteric Coated Tablet PO SCH (08:19)
[2017-08-25] MEDS: FLUoxetine HCl 20 MG CAP PO SCH (08:20)
[2017-08-25] MEDS: Docusate 100 MG CAP PO SCH ×2 (08:20→21:17)
[2017-08-25] MEDS: Gabapentin 400 MG CAP PO SCH ×3 (08:21→21:29)
[2017-08-25] MEDS: guaiFENesin ER 600 MG TAB PO SCH ×2 (08:21→21:17)
[2017-08-25] MEDS: Mometasone/Formoterol 120 PUFF INHALER INH SCH ×2 (08:47→19:08)
--- NOTE | 2017-08-25 11:04 | RAD ---
CHEST 2 VIEWS: HISTORY: Chest surgery. Followup. COMPARISON: 08/18/17. FINDINGS: Cardiac silhouette is magnified and upper limits of normal in size. Pulmonary vasculature is upper l imits of normal. Mediastinum is midline with postoperative changes and a dual-lead left subclavian c ardiac electronic device. No lobar consolidation or evidence of pneumothorax. IMPRESSION: Stable postoperative appearance of the chest. POS: [facility]
[2017-08-25] MEDS: HumaLOG 300 UNITS/3 ML VIAL SC PRN ×2 (11:54→18:06)
[2017-08-25] MEDS ORDERED: Clopidogrel Bisulfate 75 MG TAB ONE (17:40)
[2017-08-25] MEDS: Atorvastatin Calcium 40 MG TAB PO SCH (21:15)
[2017-08-25] MEDS: traZODone HCl 50 MG TAB PO SCH (21:29)
[2017-08-26] MEDS: Vancomycin HCl 1.5 GM in Sodium Chloride 0.9% 250 ML 300 ML IVPB SCH (03:28)
[2017-08-26] MEDS: Piperacillin/Tazobactam 3.375 GM in Sodium Chloride 0.9% 100 ML IVPB SCH ×4 (05:38→23:54)
[2017-08-26] MEDS: Gemfibrozil 600 MG TAB PO SCH ×2 (08:25→18:00)
[2017-08-26] MEDS: Aspirin 81 mg Enteric Coated Tablet PO SCH (08:26)
[2017-08-26] MEDS: Allopurinol 300 MG TAB PO SCH (08:26)
[2017-08-26] MEDS: Carvedilol 6.25 MG TAB PO SCH ×2 (08:26→20:55)
[2017-08-26] MEDS: metFORMIN 500 MG TAB PO SCH ×2 (08:26→18:00)
[2017-08-26] MEDS: Furosemide 40 MG TAB PO SCH ×2 (08:27→15:21)
[2017-08-26] MEDS: Docusate 100 MG CAP PO SCH ×2 (08:27→20:55)
[2017-08-26] MEDS: Gabapentin 400 MG CAP PO SCH ×3 (08:27→20:55)
[2017-08-26] MEDS: Famotidine 20 MG TAB PO SCH ×2 (08:27→20:55)
[2017-08-26] MEDS: FLUoxetine HCl 20 MG CAP PO SCH (08:27)
[2017-08-26] MEDS: HYDROcodone/Acetaminophen 5/325 mg Tablet PO PRN ×2 (08:28→20:50)
[2017-08-26] MEDS: guaiFENesin ER 600 MG TAB PO SCH ×2 (08:29→20:57)
[2017-08-26] MEDS: Mometasone/Formoterol 120 PUFF INHALER INH SCH ×2 (09:04→19:24)
[2017-08-26] MEDS ORDERED: Sodium Chloride 0.9% 10 ML ONE (13:19)
[2017-08-26] MEDS: traZODone HCl 50 MG TAB PO SCH (20:56)
[2017-08-26] MEDS: Atorvastatin Calcium 40 MG TAB PO SCH (20:56)
[2017-08-27] MEDS: Piperacillin/Tazobactam 3.375 GM in Sodium Chloride 0.9% 100 ML IVPB SCH ×3 (05:28→17:07)
[2017-08-27] MEDS: Mometasone/Formoterol 120 PUFF INHALER INH SCH ×2 (08:08→20:02)
[2017-08-27] MEDS: HYDROcodone/Acetaminophen 5/325 mg Tablet PO PRN ×3 (08:38→21:38)
[2017-08-27] MEDS: Gemfibrozil 600 MG TAB PO SCH ×2 (08:40→17:06)
[2017-08-27] MEDS: metFORMIN 500 MG TAB PO SCH ×2 (08:40→17:07)
[2017-08-27] MEDS: Carvedilol 6.25 MG TAB PO SCH ×2 (08:41→21:40)
[2017-08-27] MEDS: Docusate 100 MG CAP PO SCH ×2 (08:41→21:41)
[2017-08-27] MEDS: Aspirin 81 mg Enteric Coated Tablet PO SCH (08:41)
[2017-08-27] MEDS: Allopurinol 300 MG TAB PO SCH (08:41)
[2017-08-27] MEDS: Furosemide 40 MG TAB PO SCH ×2 (08:42→14:50)
[2017-08-27] MEDS: Famotidine 20 MG TAB PO SCH ×2 (08:42→21:41)
[2017-08-27] MEDS: FLUoxetine HCl 20 MG CAP PO SCH (08:42)
[2017-08-27] MEDS: guaiFENesin ER 600 MG TAB PO SCH ×2 (08:43→21:41)
[2017-08-27] MEDS: Gabapentin 400 MG CAP PO SCH ×3 (08:43→21:42)
[2017-08-27] MEDS: HumaLOG 300 UNITS/3 ML VIAL SC PRN ×2 (18:46→21:42)
[2017-08-27] MEDS: traZODone HCl 50 MG TAB PO SCH (21:38)
[2017-08-27] MEDS: Atorvastatin Calcium 40 MG TAB PO SCH (21:41)
[2017-08-28] MEDS: Piperacillin/Tazobactam 3.375 GM in Sodium Chloride 0.9% 100 ML IVPB SCH ×2 (00:53→05:40)
[2017-08-28] MEDS: HYDROcodone/Acetaminophen 5/325 mg Tablet PO PRN (05:40)
[2017-08-28] MEDS: Mometasone/Formoterol 120 PUFF INHALER INH SCH (07:19)
[2017-08-28] MEDS: Gabapentin 400 MG CAP PO SCH (07:55)
[2017-08-28] MEDS: Furosemide 40 MG TAB PO SCH (07:56)
[2017-08-28] MEDS: Famotidine 20 MG TAB PO SCH (07:56)
[2017-08-28] MEDS: Aspirin 81 mg Enteric Coated Tablet PO SCH (07:56)
[2017-08-28] MEDS: guaiFENesin ER 600 MG TAB PO SCH (07:56)
[2017-08-28] MEDS: FLUoxetine HCl 20 MG CAP PO SCH (07:56)
[2017-08-28] MEDS: metFORMIN 500 MG TAB PO SCH (07:56)
[2017-08-28] MEDS: Allopurinol 300 MG TAB PO SCH (07:57)
[2017-08-28] MEDS: Docusate 100 MG CAP PO SCH (07:57)
[2017-08-28] MEDS: Carvedilol 6.25 MG TAB PO SCH (07:57)
[2017-08-28] MEDS: Gemfibrozil 600 MG TAB PO SCH (07:57)
[2017-08-28 12:44] VITALS: BP 106/69; TEMP 96.6
--- NOTE | 2017-08-29 00:38 | DIS ---
DATE OF DISCHARGE: 08/28/2017 DIAGNOSIS: Sternal wound infection. PROCEDURES: I and D of sternal wound with VAC placement. DESCRIPTION OF HOSPITAL STAY: Mr. Montiel was brought in from the office with a sternal wound infectio n. He had debridement and VAC placement. Cultures have not grown any bacteria, currently, but he is being sent home on Levaquin. VAC has been placed and home wound care to be followed up as an outpat ient.
== END 2017-08-28 13:22 | disposition home or self-care (01) | DRG 857 ==
LOC: SURG A 14:48 → 2NO 17:54 → SURG A 08-27 18:07
PROVIDERS: ADMIT Thoracic Surgery (Cardiothoracic Vascular Surgery); ATTEND Thoracic Surgery (Cardiothoracic Vascular Surgery)
PROC: 0PB00ZZ Excision of Sternum, Open Approach (ICD-10-PCS; principal; 2017-08-24)
DX: T81.4XXA Infection following a procedure, initial encounter (principal); I42.9 Cardiomyopathy, unspecified; B99.9 Unspecified infectious disease; E11.9 Type 2 diabetes mellitus without complications; E78.5 Hyperlipidemia, unspecified; F32.9 Major depressive disorder, single episode, unspecified; Z95.1 Presence of aortocoronary bypass graft; I25.10 Atherosclerotic heart disease of native coronary artery without angina pectoris; Y83.2 Surgical operation with anastomosis, bypass or graft as the cause of abnormal reaction of the patient, or of later complication, without mention of misadventure at the time of the procedure; J44.9 Chronic obstructive pulmonary disease, unspecified; Z87.891 Personal history of nicotine dependence; Z79.84 Long term (current) use of oral hypoglycemic drugs; Z79.82 Long term (current) use of aspirin
CPT/HCPCS: 36416; 71046; 80048; 85025; 87070; 87205; 94640; A4216; J2001; J2250; J2405; J2543; J2704; J3010; J3370; J7050; J7611; J7620

== ENCOUNTER 2017-08-30 15:30 | Outpatient (CLI) | payer MEDICARE ==
[2017-08-31] MEDS ORDERED: Lidocaine 4% Topical Sol 50 ML BOT ONE (18:15)
[2017-08-31] MEDS ORDERED: Sodium Chloride 0.9% 15 ML NEB ONE (18:15)
== END 2017-08-30 15:31 | disposition home or self-care (01) ==
LOC: WCC 15:30
PROVIDERS: ATTEND Family Medicine
DX: T81.89XD Other complications of procedures, not elsewhere classified, subsequent encounter (principal)
CPT/HCPCS: 36416; 97605

== ENCOUNTER 2017-09-03 10:19 | Outpatient (CLI) | payer MEDICARE ==
--- NOTE | 2017-09-04 11:29 | HP ---
DATE OF SERVICE: 09/03/2017 HISTORY OF PRESENT ILLNESS: Mr. Robert Montiel is a very pleasant 62-year-old gentleman who presents to the Wound Center for evaluation of a wound of the sternum subsequent to sternal wound debridement for a sternal wound infection on 08/24/[address] Morales Wilson. Negative pressure therapy was initiated intraoperatively, and upon discharge from [facility], the patient was referred to the Wound Center for assistance with dressing changes of the wound VAC. The patient was discharged to home on Levaquin. Previously, the patient had undergone on 06/26/2017 coronary artery bypass grafting x4 also by Dr. Morales Wilson. PAST MEDICAL HISTORY: 1. Diabetes mellitus. 2. Hypertension. 3. Chronic obstructive pulmonary disease. 4. Gastroesophageal reflux disease. 5. Coronary artery disease. 6. Congestive heart failure. 7. Chronic bronchitis. 8. History of pancreatitis. PAST SURGICAL HISTORY: 1. Right foot surgery x4. 2. Right inguinal hernia repair. 3. Defibrillator placement. 4. Exploratory laparoscopy. 5. Coronary artery bypass grafting x4. 6. Sternal wound debridement and VAC placement for sternal wound infection on 08/24/[address] Morales Wilson. MEDICATIONS: 1. Levaquin. 2. Iron. 3. Coreg. 4. Prozac. 5. Bactrim DS. 6. Lipitor. 7. Gabapentin. 8. Lasix. 9. Centrum Silver. 10. Allopurinol. 11. Metformin. 12. Tramadol. 13. Hydrocodone. 14. Aspirin. 15. Mucinex 16. Losartan. ALLERGIES: No known diagnosed allergies. SOCIAL HISTORY: Social history is significant for tobacco use of 3 packs of cigarettes per day for 20 years. The patient states that he stopped smoking in 2002. The patient admits to the consumption of one and a half six packs per day for 20 years. FAMILY HISTORY: Family history is negative for diabetes mellitus or coronary artery disease. PHYSICAL EXAMINATION: VITAL SIGNS: Temperature 97.9, pulse 85, respirations 18, blood pressure 128/ 63. Accu-Chek 125. GENERAL: A 62-year-old gentleman lying on table in examination room, in no acute distress. HEENT: Normocephalic, atraumatic. NECK: No nuchal rigidity. CHEST: A sternal wound is present, which measures approximately 6.4 x 3.4 cm. The sternum is visible within the wound margins. No purulent drainage is associated with the wound. No erythema of the skin surrounding the wound is present. No maceration of the skin of the periwound is noted. CARDIAC: Regular rate and rhythm. ABDOMEN: Soft. EXTREMITIES: No clubbing or cyanosis. NEUROLOGIC: Grossly nonfocal. ASSESSMENT AND PLAN: 1. Sternal wound subsequent to debridement on 08/24/2017 for a sternal wound infection. The patient underwent the preceding procedure by Dr. Morales Wilson. Negative pressure therapy was initiated intraoperatively and will be continued with dressing changes of the wound VAC here in the Wound Center. The patient will be seen by Dr. Wilson in 1 week. I will see Mr. Montiel in 2 weeks. The patient has been reminded to continue Levaquin as previously prescribed. 2. Diabetes mellitus. The patient's Accu-Chek in clinic today is 125. The patient has been told that for optimal wound healing, his blood glucoses should remain below 150. 3. Hypertension. 4. Chronic obstructive pulmonary disease. 5. Gastroesophageal reflux disease. 6. Coronary artery disease. 7. Congestive heart failure. 8. Chronic bronchitis. 9. History of pancreatitis. [facility]
== END 2017-09-03 10:20 | disposition home or self-care (01) ==
LOC: WCC 10:19
PROVIDERS: ATTEND Family Medicine
DX: T81.89XD Other complications of procedures, not elsewhere classified, subsequent encounter (principal); E11.69 Type 2 diabetes mellitus with other specified complication; I11.0 Hypertensive heart disease with heart failure; J44.9 Chronic obstructive pulmonary disease, unspecified; K21.9 Gastro-esophageal reflux disease without esophagitis; I25.10 Atherosclerotic heart disease of native coronary artery without angina pectoris; I50.9 Heart failure, unspecified
CPT/HCPCS: 97606; 99204; G0463

== ENCOUNTER 2017-09-06 15:28 | Outpatient (CLI) | payer MEDICARE ==
[~2017-09-06 15:28] MED LIST: Lidocaine 2% Jelly 5 ML TUBE ONE; Sodium Chloride 0.9% 15 ML NEB ONE
== END 2017-09-06 15:29 | disposition home or self-care (01) ==
LOC: WCC 15:28
PROVIDERS: ATTEND Family Medicine
DX: T81.89XD Other complications of procedures, not elsewhere classified, subsequent encounter (principal)
CPT/HCPCS: 97605; A4218

== ENCOUNTER 2017-09-10 15:17 | Outpatient (CLI) | payer MEDICARE ==
[~2017-09-10 15:17] MED LIST changes: -Lidocaine 2% Jelly 5 ML TUBE ONE
== END 2017-09-10 15:18 | disposition home or self-care (01) ==
LOC: WCC 15:17
PROVIDERS: ATTEND Family Medicine
DX: T81.89XD Other complications of procedures, not elsewhere classified, subsequent encounter (principal)
CPT/HCPCS: 36416; 97605; A4218

== ENCOUNTER 2017-09-13 15:23 | Outpatient (CLI) | payer MEDICARE | END 2017-09-13 15:24 | disposition home or self-care (01) | LOC: WCC 15:23 | PROVIDERS: ATTEND Family Medicine | DX: T81.89XD Other complications of procedures, not elsewhere classified, subsequent encounter (principal) | CPT/HCPCS: 97605; A4218 ==

== ENCOUNTER 2017-09-17 10:20 | Outpatient (CLI) | payer MEDICARE ==
[2017-09-17] MEDS ORDERED: Sodium Chloride 0.9% 15 ML NEB ONE (14:24)
--- NOTE | 2017-09-17 16:22 | PRG ---
DATE OF SERVICE: 09/17/2017 HISTORY: Mr. Robert Montiel is a very pleasant 62-year-old gentleman who presents to the Wound Center for evaluation of a wound of the sternum subsequent to sternal wound debridement for sternal wound infection on [address] Morales Wilson. Negative pressure therapy was initiated intraoperatively, and upon discharge from [facility], the patient was referred to the Wound Center for assistance with dressing changes of the wound VAC. The patient was discharged to home on Levaquin. Previously, the patient had undergone on 06/26/2017 coronary artery bypass grafting x4 also by Dr. Morales Wilson. PHYSICAL EXAMINATION: VITAL SIGNS: Temperature 98.1, pulse 80, respirations 18, blood pressure 119/ 71. Accu-Chek 160. CHEST: A sternal wound is present, which measures approximately 6.3 x 4.0 cm. No purulent drainage is associated with the wound. No erythema of the skin surrounding the wound is present. No maceration of the skin of the periwound is noted. A tunnel at the 12 o'clock position is present and is approximately 2 cm in length. ASSESSMENT AND PLAN: 1. Sternal wound subsequent to debridement on 08/24/2017 for a sternal wound infection. The patient underwent the preceding procedure by Dr. Morales Wilson. Negative pressure therapy was initiated intraoperatively and will be continued with dressing changes of the wound VAC here in the Wound Center. I will see Mr. Montiel in 1-2 weeks. 2. Diabetes mellitus. The patient's Accu-Chek in clinic today is 160. The patient has been reminded that for optimal wound healing, his blood glucoses should remain below 150. 3. Hypertension. 4. Chronic obstructive pulmonary disease. 5. Gastroesophageal reflux disease. 6. Coronary artery disease. 7. Congestive heart failure. 8. Chronic bronchitis. 9. History of pancreatitis. [facility]
== END 2017-09-17 10:21 | disposition home or self-care (01) ==
LOC: WCC 10:20
PROVIDERS: ATTEND Family Medicine
DX: T81.89XD Other complications of procedures, not elsewhere classified, subsequent encounter (principal); E11.9 Type 2 diabetes mellitus without complications; I11.0 Hypertensive heart disease with heart failure; I50.9 Heart failure, unspecified; J44.9 Chronic obstructive pulmonary disease, unspecified; J42 Unspecified chronic bronchitis; K21.9 Gastro-esophageal reflux disease without esophagitis; I25.10 Atherosclerotic heart disease of native coronary artery without angina pectoris; Z87.19 Personal history of other diseases of the digestive system
CPT/HCPCS: 97602; A4218

== ENCOUNTER 2017-09-20 15:47 | Outpatient (CLI) | payer MEDICARE | END 2017-09-20 15:48 | disposition home or self-care (01) | LOC: WCC 15:47 | PROVIDERS: ATTEND Family Medicine | DX: T81.89XD Other complications of procedures, not elsewhere classified, subsequent encounter (principal) | CPT/HCPCS: 97605 ==

== ENCOUNTER 2017-09-24 15:00 | Outpatient (CLI) | payer MEDICARE | END 2017-09-24 15:01 | disposition home or self-care (01) | LOC: WCC 15:00 | PROVIDERS: ATTEND Family Medicine | DX: T81.89XD Other complications of procedures, not elsewhere classified, subsequent encounter (principal) | CPT/HCPCS: 36416; 97605; A4218 ==

== ENCOUNTER 2017-09-26 14:32 | Outpatient (CLI) | payer MEDICARE | END 2017-09-26 14:33 | disposition home or self-care (01) | LOC: WCC 14:32 | PROVIDERS: ATTEND Family Medicine | DX: T81.89XD Other complications of procedures, not elsewhere classified, subsequent encounter (principal) | CPT/HCPCS: 97605; A4218 ==

== ENCOUNTER 2017-09-28 11:08 | Outpatient (CLI) | payer MEDICARE | END 2017-09-28 11:09 | disposition home or self-care (01) | LOC: WCC 11:08 | PROVIDERS: ATTEND Family Medicine | DX: T81.89XD Other complications of procedures, not elsewhere classified, subsequent encounter (principal) | CPT/HCPCS: 97605; A4218 ==

== ENCOUNTER 2017-10-01 10:15 | Outpatient (CLI) | payer MEDICARE | END 2017-10-01 10:16 | disposition home or self-care (01) | LOC: WCC 10:15 | PROVIDERS: ATTEND Family Medicine | DX: T81.89XD Other complications of procedures, not elsewhere classified, subsequent encounter (principal) | CPT/HCPCS: 97605; A4218 ==

== ENCOUNTER 2017-10-04 09:37 | Outpatient (CLI) | payer MEDICARE ==
[2017-10-04] MEDS ORDERED: Sodium Chloride 0.9% 15 ML NEB ONE (16:19)
== END 2017-10-04 09:38 | disposition home or self-care (01) ==
LOC: WCC 09:37
PROVIDERS: ATTEND Family Medicine
DX: T81.89XD Other complications of procedures, not elsewhere classified, subsequent encounter (principal)
CPT/HCPCS: 97605; A4218

== ENCOUNTER 2017-10-04 10:39 | Emergency (ER) | payer MEDICARE ==
[2017-10-04 11:57] LABS: #Eosinphils 0.1 thou/uL (0.0-0.7); #Lymphocytes 1.1 thou/uL (1.20-3.40); #Monocytes 0.5 thou/uL (0.11-0.59); #Neutrophils 5.5 thou/uL (1.40-6.50); %Basophils 0.1 % (0.0-1.0); %Eosinophils 2.1 % (0.0-10.0); %Lymphocytes 14.6 % (21.0-51.0); %Monocytes 7.4 % (0.0-10.0); %Neutrophils 75.8 % (42.0-75.0); Hemoglobin 10.8 g/dL (14.0-18.0); Mean Corpuscular HGB CONC 31.6 g/dL (32.0-36.0); Mean Corpuscular Hemoglobin 27.9 pg (27.0-31.0); Mean Corpuscular Volume 88.1 fl (80.0-94.0); Mean Platelet Volume 8.2 fL (7.4-10.4); Platelet Count 207 thou/uL (130-400); RBC Distribution Width 14.8 % (11.5-14.5); Red Blood Cell (RBC) Count 3.88 mill/uL (4.70-6.10); White Blood Cell (WBC) Count 7.3 thou/uL (4.8-10.8)
--- NOTE | 2017-10-04 12:03 | RAD ---
RIGHT SHOULDER 3 VIEWS: Date: 10/04/17 HISTORY: 62-year-old male with history of right shoulder pain. Status post coronary artery bypass graft with a n infected wound. FINDINGS: There are some degenerative changes of the AC joint and glenohumeral joint. Small ossific foci are no jonathan adjacent to the greater tuberosity of the humerus, probably representing minimal calcific periten dinosis. No acute fracture or dislocation. IMPRESSION: Degenerative changes without acute fracture or dislocation. POS: SALLY
[2017-10-04 12:21] LABS: ALT (SGPT) 7 U/L (8-55); AST (SGOT) 11 U/L (5-34); Albumin 3.7 g/dL (3.4-4.8); Alkaline Phosphatase 137 U/L (40-150); Anion Gap 14 mmol/L (10-20); BUN (Urea Nitrogen) 20 mg/dL (8.4-25.7); Bilirubin, Total 0.6 mg/dL (0.2-1.2); Calc. Creatinine Clearance 0 mL/min (70-130); Calcium 9.6 mg/dL (7.8-10.44); Carbon Dioxide 27 mmol/L (23-31); Chloride 100 mmol/L (98-107); Estimated GFR-MDRD 71; Globulin 4.1 g/dL (2.4-3.5); Glucose 171 mg/dL (80-115); Potassium 4.4 mmol/L (3.5-5.1); Protein, Total 7.8 g/dL (5.8-8.1); Sodium 137 mmol/L (136-145)
[2017-10-04 12:23] LABS: CKMB 0.5 ng/mL (0-6.6); Troponin I Less than 0.010 ng/mL (< 0.028)
[2017-10-04] MEDS ORDERED: Morphine 4 MG/ML VIAL ONE ×2 (12:47→15:32)
[2017-10-04] MEDS ORDERED: ISOVUE-370 76%-LOCM 1 ML ONE (13:36)
--- NOTE | 2017-10-04 14:54 | CT ---
CONTRAST ENHANCED CTA CHEST: DATE: 10/04/17. COMPARISON: Comparison is made to previous exam from 08/18/17. FINDINGS: Contrast-enhanced CTA of the chest was performed. Two-D and 3D reconstructed images performed on an independent 3D work station. Images demonstrate sternotomy changes with some diastasis of the sternum when compared to the previou s exam compatible with the patient's previous history of wound infection. Coronary artery calcification is seen. Some mild bilateral axillary lymphadenopathy is seen. Some mildly enlarged mediastinal lymph nodes s een. The thoracic aorta demonstrates some calcifications but no definite evidence of aneurysms or dissecti ons. Three-D evaluation of the pulmonary arteries demonstrates no evidence of filling defects in the pulmo nary arteries to suggest pulmonary emboli. IMPRESSION: 1. No evidence of pulmonary emboli. 2. Surgical changes. 3. No evidence of lung parenchymal lesions or evidence of pleural or pericardial effusions. POS: OFF
--- NOTE | 2017-10-27 21:19 | EKG ---
Test Reason : SHOULDER PAIN Blood Pressure : / mmHG Vent. Rate : 079 BPM Atrial Rate : 079 BPM P-R Int : 154 ms QRS Dur : 088 ms QT Int : 372 ms P-R-T Axes : 033 012 138 degrees QTc Int : 426 ms Normal sinus rhythm Nonspecific T wave abnormality Abnormal ECG Confirmed by MAURO CHARLES MD ([id number]), editorial specialist HANNAH MARX ([id number]) on 10/27/2017 9:18:50 PM Referred By: Confirmed By:MAURO CHARLES MD
== END 2017-10-04 15:40 | disposition home or self-care (01) ==
LOC: ERS 10:39
DX: M25.511 Pain in right shoulder (principal); E11.40 Type 2 diabetes mellitus with diabetic neuropathy, unspecified; E78.5 Hyperlipidemia, unspecified; I10 Essential (primary) hypertension; J44.9 Chronic obstructive pulmonary disease, unspecified; I48.91 Unspecified atrial fibrillation; F32.9 Major depressive disorder, single episode, unspecified; Z87.891 Personal history of nicotine dependence; Z79.899 Other long term (current) drug therapy; Z79.4 Long term (current) use of insulin
CPT/HCPCS: 36415; 71275; 80053; 82553; 84484; 85025; 93005; 96374; 96376; A4218; J2270

== ENCOUNTER 2017-10-08 09:56 | Outpatient (CLI) | payer MEDICARE ==
--- NOTE | 2017-10-08 11:13 | PRG ---
DATE OF SERVICE: 10/08/2017 HISTORY: Mr. Robert Montiel Jr. is a very pleasant 62-year-old gentleman who presents to the [facility] for evaluation of a wound of the sternum subsequent to sternal wound debridement for sterna l wound infection on 08/24/[address] Morales Wilson. Negative pressure therapy was initiated intrao peratively and upon discharge from [facility], the patient was referred to the Wound Center for assistance with dressing changes of the wound VAC. The patient was discharged to [facility] on Levaquin. Previously, the patient had undergone on 06/26/2017 coronary artery bypass grafting x4, also by Dr. Morales Wilson. PHYSICAL EXAMINATION: VITAL SIGNS: Temperature 97.5, pulse 79, respirations 19, blood pressure 166/76. Accu-Chek 148. CHEST: A sternal wound is present which measures approximately 6.5 x 3.5 cm. The dimensions of the wound at the time of the patient's visit on 09/17/2017 were approximately 6.3 x 4.0 cm. The wound is granulating. No purulent drainage is associated with the wound. No erythema of the skin surroundin g the wound is present. No maceration of the skin of the periwound is noted. ASSESSMENT AND PLAN: 1. Sternal wound subsequent to debridement on 08/24/2017 for a sternal wound infection. The patient underwent the preceding procedure by Dr. Morales Wilson. Negative pressure therapy was initiated int raoperatively and will be continued with dressing changes of the wound VAC here in the Wound Center. I will see Mr. Montiel again in 2 weeks. 2. Diabetes mellitus. The patient's Accu-Chek in clinic today is 148. The patient has been reminde d that for optimal wound healing, his blood glucoses should remain below 150. 3. Hypertension. 4. Chronic obstructive pulmonary disease. 5. Gastroesophageal reflux disease. 6. Coronary artery disease. 7. Congestive heart failure. 8. Chronic bronchitis. 9. History of pancreatitis.
== END 2017-10-08 09:57 | disposition home or self-care (01) ==
LOC: WCC 09:56
PROVIDERS: ATTEND Family Medicine
DX: T81.89XD Other complications of procedures, not elsewhere classified, subsequent encounter (principal); E11.9 Type 2 diabetes mellitus without complications; I11.0 Hypertensive heart disease with heart failure; I25.10 Atherosclerotic heart disease of native coronary artery without angina pectoris; J44.9 Chronic obstructive pulmonary disease, unspecified; K21.9 Gastro-esophageal reflux disease without esophagitis; Z87.19 Personal history of other diseases of the digestive system

== ENCOUNTER 2017-10-11 15:15 | Outpatient (CLI) | payer MEDICARE ==
[2017-10-12] MEDS ORDERED: Sodium Chloride 0.9% 15 ML NEB ONE (12:35)
== END 2017-10-11 15:16 | disposition home or self-care (01) ==
LOC: WCC 15:15
PROVIDERS: ATTEND Family Medicine
DX: T81.89XD Other complications of procedures, not elsewhere classified, subsequent encounter (principal)
CPT/HCPCS: 97605

== ENCOUNTER 2017-10-15 15:39 | Outpatient (CLI) | payer MEDICARE | END 2017-10-15 15:40 | disposition home or self-care (01) | LOC: WCC 15:39 | PROVIDERS: ATTEND Family Medicine | DX: T81.89XD Other complications of procedures, not elsewhere classified, subsequent encounter (principal) | CPT/HCPCS: 97605; A4218 ==

== ENCOUNTER 2017-10-18 10:21 | Outpatient (CLI) | payer MEDICARE | END 2017-10-18 10:22 | disposition home or self-care (01) | LOC: WCC 10:21 | PROVIDERS: ATTEND Family Medicine | DX: T81.89XD Other complications of procedures, not elsewhere classified, subsequent encounter (principal) | CPT/HCPCS: 97605; A4218 ==

== ENCOUNTER 2017-10-24 08:37 | Outpatient (CLI) | payer MEDICARE ==
--- NOTE | 2017-10-22 09:24 | PRG ---
DATE OF SERVICE: 10/22/2017 HISTORY: Mr. Robert Montiel Jr. is a very pleasant 62-year-old gentleman who presents to the Wound Center for evaluation of a wound of the sternum subsequent to sternal wound debridement for sternal wound infection on [address] Morales Wilson. Negative pressure therapy was initiated intraoperatively, and upon discharge from [facility], the patient was referred to the Wound Center for assistance with dressing changes of the wound VAC. The patient was discharged to home on Levaquin. Previously the patient had undergone coronary artery bypass grafting x4 on 06/26, also by Dr. Morales Wilson. PHYSICAL EXAMINATION: VITAL SIGNS: Temperature 97.7, pulse 69, respirations 18, blood pressure 141/ 74. Accu-Chek 128. CHEST: A sternal wound is present which measures approximately 5.8 x 2.7 cm. The dimensions of the wound at the time of the patient's visit on 10/08/2017 were approximately 6.5 x 3.5 cm. The wound is granulating. No purulent drainage is associated with the wound. No maceration of the skin of the periwound is noted. ASSESSMENT AND PLAN: 1. Sternal wound subsequent to debridement on 08/24/2017 for a sternal wound infection. The patient underwent the preceding procedure by Dr. Morales Wilson. Negative pressure therapy was initiated intraoperatively and will be continued with dressing changes of the wound VAC here in the Wound Center. I will see Mr. Montiel again in two weeks. 2. Diabetes mellitus. The patient's Accu-Chek in clinic today is 128. The patient has been reminded that for optimal wound healing, his blood glucoses should remain below 150. 3. Hypertension. 4. Chronic obstructive pulmonary disease. 5. Gastroesophageal reflux disease. 6. Coronary artery disease. 7. Congestive heart failure. 8. Chronic bronchitis. 9. History of pancreatitis. [facility]
== END 2017-10-24 08:38 | disposition home or self-care (01) ==
LOC: WCC 08:37
PROVIDERS: ATTEND Family Medicine
DX: T81.89XD Other complications of procedures, not elsewhere classified, subsequent encounter (principal); E11.69 Type 2 diabetes mellitus with other specified complication; I11.0 Hypertensive heart disease with heart failure; K21.9 Gastro-esophageal reflux disease without esophagitis; I25.10 Atherosclerotic heart disease of native coronary artery without angina pectoris; I50.9 Heart failure, unspecified; J42 Unspecified chronic bronchitis
CPT/HCPCS: 97602; A4218

== ENCOUNTER 2017-10-25 14:41 | Inpatient (IN) | payer MEDICARE ==
--- NOTE | 2017-10-25 15:16 | CON ---
HISTORY OF PRESENT ILLNESS: Mr. Montiel is a 62-year-old gentleman who underwent coronary artery bypas s grafting x4 on 06/26/2017. At that time, he had a chronic cough, managed to cough his sternum apar t, spent time at home milking his incision to rid it off any fluid and eventually came in when he glory led with a sternal wound infection. He underwent sternal wound debridement on 08/24/2017. Since deven t time, he has been managed as an outpatient with wound VAC. He has been doing fairly well up until today when he came to the Wound Care Center with an erythematous sternal wound. Edges had some necro sis. The wound had some drainage also. He is being admitted for further debridement and treatment a s appropriate from there as we have not been able to manage him as an outpatient. At the time of adm ission, he will have blood cultures taken. We will culture his wound in the morning. He will be sta rted on Zosyn and vancomycin at the time of admission. Routine laboratory values will be obtained. PAST MEDICAL HISTORY: 1. COPD. 2. Coronary artery disease. 3. Hyperlipidemia. 4. Diabetes mellitus. 5. Obesity. 6. Depression. 7. Peripheral neuropathy. 8. Previous history of chronic cough. PAST SURGICAL HISTORY: 1. Coronary artery bypass grafting x4 in 06/2017. 2. Sternal debridement in 08/2017. 3. Right foot surgery. 4. Herniorrhaphy. 5. Laparoscopy. SOCIAL HISTORY: Quit smoking 10 years ago. He does not use any alcohol. ALLERGIES: None. CURRENT MEDICATIONS: Noted in his MAR. REVIEW OF SYSTEMS: Ten point review of systems performed and is negative except as above. PHYSICAL EXAMINATION: GENERAL: This is a moderately obese gentleman with really very little insight into the problems that he has currently. VITAL SIGNS: His temperature is 98.8, pulse is 70 and regular, blood pressure is 130/70. HEENT: Sclerae nonicteric. Pupils equal, round bilaterally. NECK: Supple, without bruit. CHEST: Clear bilaterally. Sternal wound is open. Has necrotic edges obviously infected with exudat e and erythema throughout. ABDOMEN: Soft and nontender. EXTREMITIES: Mild edema. ASSESSMENT AND PLAN: Sternal wound infection for admission, re-debridement and we will have to make some assessment as to how to best manage him. This has not gone well as an outpatient. Wound care f olks tell me that they saw him up in the Intensive Care Unit with his earlier last week with the wound VAC off and no dressing on his incision. I will let Dr. Teresa know his admission. If the bon e is involved and we have to debride a significant amount of bone, he will need to be kept sedated on the ventilator postoperatively until we can obtain adequate control of the infection and hopefully c losure at some point.
[2017-10-25 18:16] LABS: #Eosinphils 0.1 thou/uL (0.0-0.7); #Lymphocytes 1.3 thou/uL (1.20-3.40); #Monocytes 0.6 thou/uL (0.11-0.59); #Neutrophils 4.4 thou/uL (1.40-6.50); %Basophils 0.3 % (0.0-1.0); %Lymphocytes 20.5 % (21.0-51.0); %Monocytes 8.6 % (0.0-10.0); %Neutrophils 68.6 % (42.0-75.0); Hemoglobin 10.8 g/dL (14.0-18.0); Mean Corpuscular HGB CONC 31.8 g/dL (32.0-36.0); Mean Corpuscular Volume 84.8 fl (80.0-94.0); Mean Platelet Volume 8.7 fL (7.4-10.4); Platelet Count 175 thou/uL (130-400); RBC Distribution Width 16.3 % (11.5-14.5); Red Blood Cell (RBC) Count 4.01 mill/uL (4.70-6.10); White Blood Cell (WBC) Count 6.5 thou/uL (4.8-10.8)
[2017-10-25] MEDS ORDERED: Dextrose 50% Abboject 50 ML SYRINGE IVP PRN (18:24)
[2017-10-25] MEDS ORDERED: Dextrose 5% in Water 1,000 ML IV PRN (18:24)
[2017-10-25] MEDS ORDERED: Albuterol Sulfate 2.5 mg/3 ml Neb NEB PRN (18:25)
[2017-10-25] MEDS ORDERED: Acetaminophen 325 MG TAB PO PRN (18:25)
[2017-10-25] MEDS ORDERED: Bisacodyl 5 MG TAB PO PRN (18:30)
[2017-10-25] MEDS ORDERED: Milk Of Magnesia 30 ML UDCUP PO PRN (18:36)
[2017-10-25 18:38] LABS: Anion Gap 14 mmol/L (10-20); BUN (Urea Nitrogen) 32 mg/dL (8.4-25.7); Calc. Creatinine Clearance 116 mL/min (70-130); Calcium 9.3 mg/dL (7.8-10.44); Carbon Dioxide 28 mmol/L (23-31); Chloride 100 mmol/L (98-107); Estimated GFR-MDRD 86; Glucose 146 mg/dL (80-115); Potassium 4.3 mmol/L (3.5-5.1); Sodium 138 mmol/L (136-145)
[2017-10-25] MEDS: Mometasone/Formoterol 120 PUFF INHALER INH SCH (19:15)
[2017-10-25] MEDS: Atorvastatin Calcium 40 MG TAB PO SCH (21:40)
[2017-10-25] MEDS: Carvedilol 25 MG TAB PO SCH (21:41)
[2017-10-25] MEDS: diphenhydrAMINE 25 MG CAP PO PRN (21:41)
[2017-10-25] MEDS: Gabapentin 400 MG CAP PO SCH (21:41)
[2017-10-25] MEDS: guaiFENesin/DM ER PO SCH (21:41)
[2017-10-25] MEDS: HYDROcodone/Acetaminophen 5/325 mg Tablet PO PRN (21:45)
[2017-10-26] MEDS: Mometasone/Formoterol 120 PUFF INHALER INH SCH ×2 (08:10→19:11)
[2017-10-26] MEDS ORDERED: Neomycin-Polymyxin 1 ML AMP ONE (08:49)
[2017-10-26] MEDS ORDERED: Aspirin 81 mg Enteric Coated Tablet PO SCH (09:00)
[2017-10-26] MEDS ORDERED: Fentanyl 100 MCG/2 ML VIAL ONE ×3 (09:32→11:07)
[2017-10-26] MEDS ORDERED: Piperacillin/Tazobactam 3.375 GM VIAL ONE (10:08)
[2017-10-26] MEDS ORDERED: Vancomycin HCl 1.5 GM in Sodium Chloride 0.9% 250 ML 300 ML IVPB SCH (10:15)
[2017-10-26] MEDS: Albuterol Sulfate 2.5 mg/3 ml Neb NEB SCH ×4 (10:53→21:56)
[2017-10-26] MEDS ORDERED: Promethazine HCl 25 MG/ML VIAL IM/IV PRN (11:35)
[2017-10-26] MEDS ORDERED: Non-Formulary Medication 1 EACH PO PRN (11:35)
[2017-10-26] MEDS ORDERED: Ondansetron HCl/PF 4 MG/2 ML Vial IVP PRN (11:35)
--- NOTE | 2017-10-26 11:56 | OP ---
DATE OF PROCEDURE: 10/26/2017 PREOPERATIVE DIAGNOSIS: Sternal wound infection. POSTOPERATIVE DIAGNOSIS: Sternal wound infection. PROCEDURE: Sternal wound debridement. ESTIMATED BLOOD LOSS: 200 mL. SURGEON: Morales Wilson M.D. ANESTHESIA: General endotracheal. PROCEDURE IN DETAIL: After consent was obtained, the patient was brought to the operating room and p laced supine on the operating room table. Appropriate anesthetic monitor was placed and general endo tracheal anesthesia induced. Sternum was prepped and draped in usual sterile fashion. The previous VAC had been removed. The wound edges were freshened. Granulation tissue was debrided both with cau elsa and sharply with a knife and curet. The bone was in multiple pieces. There was some separation superiorly. The bone edges were healthy and bled nicely. Hemostasis was ensured with electrocauter y. The wound was then irrigated copiously with solution utilizing the pulse VAC. Wound Care Team then replaced his wound VAC. The patient was awakened, extubated, and transferred to recovery room in stable condition.
[2017-10-26] MEDS: FLUoxetine HCl 20 MG CAP PO SCH (11:59)
[2017-10-26] MEDS: Furosemide 40 MG TAB PO SCH (12:00)
[2017-10-26] MEDS: Ferrous Sulfate 325 MG TAB PO SCH (12:00)
[2017-10-26] MEDS: Gabapentin 400 MG CAP PO SCH ×3 (12:00→20:45)
[2017-10-26] MEDS: Multivitamin W/ Minerals 1 TAB PO SCH (12:00)
[2017-10-26] MEDS: guaiFENesin/DM ER PO SCH ×2 (12:00→20:45)
[2017-10-26] MEDS: Carvedilol 25 MG TAB PO SCH ×2 (12:00→20:49)
[2017-10-26] MEDS: Allopurinol 300 MG TAB PO SCH (12:01)
[2017-10-26] MEDS: Piperacillin/Tazobactam 3.375 GM in Sodium Chloride 0.9% 100 ML IVPB SCH ×3 (13:00→23:37)
--- NOTE | 2017-10-26 13:05 | CON ---
DATE OF CONSULTATION: 10/26/2017 REASON FOR CONSULTATION: Medical management. HISTORY OF PRESENT ILLNESS: This is a pleasant 62-year-old gentleman who has a history of recent co ronary artery disease with bypass surgery that led to a postop infection. He did have to have long-t erm IV antibiotics and also a wound VAC. The patient was seen in our clinic yesterday by Dr. Teresa w here Dr. Teresa noticed that he had two areas of concern on his incision that were draining. Dr. Juan Alberto suárez pushed on his chest and a lot of pus did come out. Dr. Teresa did do a culture, sent him to Wound C are and I believe had a conversation with Dr. Wilson about the concern for sternal infection. Later t he patient was admitted by Dr. Wilson where he would need to undergo a sternal wound debridement. The patient is quite irritable this morning. He denies any chest, arm or back pain. Denies any PND, orthopnea or palpitations. PAST MEDICAL HISTORY: 1. History of coronary artery disease with recent bypass. 2. Diabetes. 3. Hypertension. 4. Chronic obstructive pulmonary disease. 5. Noncompliance. 6. Gastroesophageal reflux disease. 7. Congestive heart failure. 8. Chronic pancreatitis. 9. Chronic bronchitis. PAST SURGICAL HISTORY: 1. Right foot surgery x4. 2. Right inguinal hernia repair. 3. Defibrillator placement in the past. 4. Exploratory laparoscopy. 5. Sternal wound debridement and a VAC placement for sternal wound infection on 08/24/[address] Dick charles. ALLERGIES: None. MEDICATIONS: Unknown. SOCIAL HISTORY: Tobacco use of 3 packs a day for 20 years. He apparently stopped in 2002. He does drink a six pack for the last 20 years of beer. FAMILY HISTORY: Negative for diabetes or coronary artery disease. REVIEW OF SYSTEMS: GENERAL: Admits to weakness and fatigue, no fever or chills. HEENT: No amaurosis fugax, tinnitus or sore throat, no hoarseness. CARDIOVASCULAR: No chest, arm, back pain. PULMONARY: No cough or hemoptysis. GI: No GI bleed, constipation or diarrhea. : No dysuria, nocturia, oliguria, pyuria. ENDOCRINE: No polyphagia, polydipsia or heat or cold intolerance. MUSCULOSKELETAL: Admits to arthralgias. No lupus or myopathy. NEUROLOGIC: No history of TIAs or seizure. All systems are negative. PHYSICAL EXAMINATION: VITAL SIGNS: This is a pleasant gentleman who appears to be in no acute distress. VITAL SIGNS: His blood pressure is 130/60, pulse 70, respirations 18, afebrile. NECK: Supple, no increased JVP or carotid bruit. Carotids had good upstroke, no thyromegaly. COR: Regular rate and rhythm. He had a midline chest incision with pus coming out. He had a dressi ng on it. ABDOMEN: Soft, nontender, normoactive bowel sounds. No bruit or organomegaly. EXTREMITIES: No edema or cyanosis. He had palpable pedal pulses. SKIN: There is no evidence of ulcer, lesion or rash. NEURO: He is awake, alert, and oriented to person, place, and time. LABORATORY DATA: White blood cell is normal. His H&H is 10.8 and 34.0, platelet count is 175. His BUN and creatinine are normal. His glucose is 150. IMPRESSION: 1. Sternal wound infection. 2. History of coronary artery disease status post bypass. 3. Diabetes. 4. Noncompliance. 5. Hypertension. 6. Chronic bronchitis. PLAN: Agree with your fine care. We will go ahead and find out his home medications and once he und ergoes sternal debridement will start those medications accordingly. I had a long talk with the tha ent regarding outpatient care. I stated Dr. Teresa would prefer him [facility] for [facility] so he can be closely monitored.
[2017-10-26] MEDS: HYDROcodone/Acetaminophen 5/325 mg Tablet PO PRN ×2 (14:47→20:46)
[2017-10-26] MEDS ORDERED: PROPOFOL 200 MG/20 ML VIAL ONE (15:34)
[2017-10-26] MEDS ORDERED: Glycopyrrolate 0.2 MG/ML 5 ML SYRINGE ONE (15:34)
[2017-10-26] MEDS ORDERED: PHENYLEPHRINE-NS 100 MCG/ML 10 ML SYRINGE ONE (15:34)
[2017-10-26] MEDS ORDERED: Ondansetron HCl/PF 4 MG/2 ML Vial ONE (15:34)
[2017-10-26] MEDS ORDERED: Lidocaine 1% PF 5 ML VIAL ONE (15:34)
[2017-10-26] MEDS: Insulin Regular 300 UNITS/3 ML VIAL SC PRN (16:57)
[2017-10-26] MEDS: traMADol HCl 50 MG TAB PO PRN (17:50)
[2017-10-26] MEDS: metFORMIN 500 MG TAB PO SCH (17:50)
[2017-10-26] MEDS: Atorvastatin Calcium 40 MG TAB PO SCH (20:43)
[2017-10-26] MEDS: diphenhydrAMINE 25 MG CAP PO PRN (20:48)
[2017-10-26] MEDS: Vancomycin HCl 1.5 GM in Sodium Chloride 0.9% 250 ML 300 ML IVPB SCH (20:51)
[2017-10-27] MEDS: Albuterol Sulfate 2.5 mg/3 ml Neb NEB SCH ×6 (01:53→22:14)
[2017-10-27] MEDS: traMADol HCl 50 MG TAB PO PRN ×2 (05:06→13:02)
[2017-10-27] MEDS: Piperacillin/Tazobactam 3.375 GM in Sodium Chloride 0.9% 100 ML IVPB SCH ×4 (05:07→23:54)
[2017-10-27] MEDS: Mometasone/Formoterol 120 PUFF INHALER INH SCH ×2 (07:44→18:34)
--- NOTE | 2017-10-27 08:36 | PRG ---
DATE OF SERVICE: 10/27/2017 SUBJECTIVE: The patient had a good night. He underwent sternal debridement. He is sitting up in th e bed. His pain is under control. He denies any complaints. PHYSICAL EXAMINATION: GENERAL: Upon evaluation, he is awake, alert, and oriented to person, place, and time. VITAL SIGNS: His blood pressure is 140/60, pulse 63, respirations 22. He is afebrile. NECK: Supple with no increased JVP or carotid bruit. Carotid had good upstroke with no thyromegaly. COR: Regular rate and rhythm. CHEST: Symmetrical. Clear to auscultation and percussion. He has got a midline chest incision with a wound VAC. ABDOMEN: Soft, nontender with normoactive bowel sounds. No bruit or organomegaly. EXTREMITIES: No edema or cyanosis. Palpable pedal pulses. SKIN: There is no evidence of ulceration, lesion, or rash. NEUROLOGIC: He is awake, alert, and oriented to person, place and time. ASSESSMENT: 1. Coronary artery disease status post bypass recently with postop sternal infection x2 with recent debridement yesterday with now postop wound VAC. 2. Noncompliance. 3. Hypertension. 4. Diabetes. 5. Chronic obstructive pulmonary disease. PLAN: We will continue the patient here for now. We will leave it that to Dr. Wilson for long-term p jahaira. Otherwise, we will continue the current medication regime and current treatment. The patient v erbalized understanding. All questions answered to his satisfaction. This is LATASHA Estrada-Qian dictating for Dr. Daniel Teresa.
[2017-10-27] MEDS: Ferrous Sulfate 325 MG TAB PO SCH (08:40)
[2017-10-27] MEDS: Allopurinol 300 MG TAB PO SCH (08:40)
[2017-10-27] MEDS: Carvedilol 25 MG TAB PO SCH ×2 (08:40→20:29)
[2017-10-27] MEDS: metFORMIN 500 MG TAB PO SCH ×2 (08:40→16:00)
[2017-10-27] MEDS: FLUoxetine HCl 20 MG CAP PO SCH (08:41)
[2017-10-27] MEDS: Gabapentin 400 MG CAP PO SCH ×3 (08:41→20:29)
[2017-10-27] MEDS: guaiFENesin/DM ER PO SCH ×2 (08:41→20:29)
[2017-10-27] MEDS: Furosemide 40 MG TAB PO SCH (08:41)
[2017-10-27] MEDS: Multivitamin W/ Minerals 1 TAB PO SCH (08:41)
[2017-10-27] MEDS: HYDROcodone/Acetaminophen 5/325 mg Tablet PO PRN ×3 (08:47→20:30)
[2017-10-27] MEDS: Vancomycin HCl 1.5 GM in Sodium Chloride 0.9% 250 ML 300 ML IVPB SCH ×2 (08:51→20:31)
[2017-10-27] MEDS: Insulin Regular 300 UNITS/3 ML VIAL SC PRN (11:59)
[2017-10-27 20:18] LABS: Vancomycin, Trough 20.1 ug/mL
[2017-10-27] MEDS: Atorvastatin Calcium 40 MG TAB PO SCH (20:29)
[2017-10-28] MEDS: HYDROcodone/Acetaminophen 5/325 mg Tablet PO PRN ×4 (00:58→18:28)
[2017-10-28] MEDS: Albuterol Sulfate 2.5 mg/3 ml Neb NEB SCH ×6 (02:27→22:59)
[2017-10-28] MEDS: Piperacillin/Tazobactam 3.375 GM in Sodium Chloride 0.9% 100 ML IVPB SCH (05:12)
[2017-10-28 05:33] LABS: #Eosinphils 0.1 thou/uL (0.0-0.7); #Lymphocytes 1.2 thou/uL (1.20-3.40); #Monocytes 0.5 thou/uL (0.11-0.59); #Neutrophils 2.7 thou/uL (1.40-6.50); %Basophils 0.8 % (0.0-1.0); %Eosinophils 2.8 % (0.0-10.0); %Lymphocytes 27.2 % (21.0-51.0); %Monocytes 10.7 % (0.0-10.0); %Neutrophils 58.7 % (42.0-75.0); Hemoglobin 8.2 g/dL (14.0-18.0); Mean Corpuscular HGB CONC 32.4 g/dL (32.0-36.0); Mean Corpuscular Hemoglobin 27.5 pg (27.0-31.0); Mean Corpuscular Volume 84.9 fl (80.0-94.0); Mean Platelet Volume 8.5 fL (7.4-10.4); Platelet Count 129 thou/uL (130-400); RBC Distribution Width 16.2 % (11.5-14.5); Red Blood Cell (RBC) Count 2.99 mill/uL (4.70-6.10); White Blood Cell (WBC) Count 4.6 thou/uL (4.8-10.8)
[2017-10-28 05:42] LABS: Anion Gap 11 mmol/L (10-20); BUN (Urea Nitrogen) 17 mg/dL (8.4-25.7); Calc. Creatinine Clearance 117 mL/min (70-130); Calcium 8.4 mg/dL (7.8-10.44); Carbon Dioxide 31 mmol/L (23-31); Chloride 99 mmol/L (98-107); Estimated GFR-MDRD 87; Glucose 217 mg/dL (80-115); Potassium 3.9 mmol/L (3.5-5.1); Sodium 137 mmol/L (136-145)
[2017-10-28 05:43] LABS: Vancomycin, Random 25.6 ug/mL (See Comment)
[2017-10-28] MEDS: Mometasone/Formoterol 120 PUFF INHALER INH SCH ×2 (07:30→19:07)
[2017-10-28] MEDS: metFORMIN 500 MG TAB PO SCH ×2 (08:45→17:08)
[2017-10-28] MEDS: Carvedilol 25 MG TAB PO SCH ×2 (08:45→20:11)
[2017-10-28] MEDS: Gabapentin 400 MG CAP PO SCH ×3 (08:45→20:11)
[2017-10-28] MEDS: Allopurinol 300 MG TAB PO SCH (08:47)
[2017-10-28] MEDS: Multivitamin W/ Minerals 1 TAB PO SCH (08:47)
[2017-10-28] MEDS: Ferrous Sulfate 325 MG TAB PO SCH (08:47)
[2017-10-28] MEDS: Furosemide 40 MG TAB PO SCH (08:47)
[2017-10-28] MEDS: guaiFENesin/DM ER PO SCH ×2 (08:47→20:11)
[2017-10-28] MEDS: FLUoxetine HCl 20 MG CAP PO SCH (08:47)
--- NOTE | 2017-10-28 13:08 | PRG ---
DATE OF SERVICE: 10/28/2017 This is LATASHA Estrada-Qian dictating for Daniel Teresa M.D. The patient had a good night. His cultures came back to methicillin-resistant Staphylococcus aureus. His antibiotics were adjusted by Dr. Wilson. The patient's pain is under control. He is breathing okay. PHYSICAL EXAMINATION: GENERAL: Upon evaluation, he is awake, alert, and oriented to person, place, and time. VITAL SIGNS: Blood pressure 130/70, pulse 60, respiration 16, he is afebrile. NECK: Supple with no increased JVP or carotid bruit. Carotids had good upstroke, no thyromegaly. COR: Regular rate and rhythm. He has got a midsternal incision with a wound VAC on it. CHEST: Symmetrical. Clear to auscultation and percussion. ABDOMEN: Soft, nontender with normoactive bowel sounds. No bruit or organomegaly. EXTREMITIES: No edema or cyanosis. Palpable pedal pulses. SKIN: There is no evidence of ulcer, lesion, or rash. NEUROLOGIC: He is awake, alert, and oriented to person, place, and time. LABORATORY DATA: White blood cells 4.68, H and H is 8.2 and 25.4. Blood sugar 240. ASSESSMENT: 1. History of coronary artery disease with bypass, status post wound infection x2 with recent debrid ement. 2. Chronic obstructive pulmonary disease. 3. Noncompliance. 4. Diabetes. 5. Hypertension. 6. Postoperative anemia. PLAN: 1. We will follow up with a CBC in the morning. 2. We will continue antibiotics for now. 3. We will reach out to Dr. Wilson to figure out what the supervisor intermediates plan is with this patient.
[2017-10-28] MEDS: diphenhydrAMINE 25 MG CAP PO PRN (20:11)
[2017-10-28] MEDS: Atorvastatin Calcium 40 MG TAB PO SCH (20:11)
[2017-10-29] MEDS: HYDROcodone/Acetaminophen 5/325 mg Tablet PO PRN ×5 (02:50→23:55)
[2017-10-29] MEDS: Albuterol Sulfate 2.5 mg/3 ml Neb NEB SCH ×6 (04:19→22:30)
[2017-10-29 05:16] LABS: #Eosinphils 0.1 thou/uL (0.0-0.7); #Lymphocytes 1.4 thou/uL (1.20-3.40); #Monocytes 0.3 thou/uL (0.11-0.59); #Neutrophils 2.7 thou/uL (1.40-6.50); %Basophils 0.4 % (0.0-1.0); %Eosinophils 3.2 % (0.0-10.0); %Lymphocytes 29.5 % (21.0-51.0); %Monocytes 7.4 % (0.0-10.0); %Neutrophils 59.6 % (42.0-75.0); Hemoglobin 8.7 g/dL (14.0-18.0); Mean Corpuscular HGB CONC 32.3 g/dL (32.0-36.0); Mean Corpuscular Hemoglobin 27.4 pg (27.0-31.0); Mean Corpuscular Volume 84.7 fl (80.0-94.0); Mean Platelet Volume 8.1 fL (7.4-10.4); Platelet Count 127 thou/uL (130-400); RBC Distribution Width 15.7 % (11.5-14.5); Red Blood Cell (RBC) Count 3.17 mill/uL (4.70-6.10); White Blood Cell (WBC) Count 4.6 thou/uL (4.8-10.8)
[2017-10-29] MEDS: Mometasone/Formoterol 120 PUFF INHALER INH SCH ×2 (06:48→19:00)
[2017-10-29] MEDS: Gabapentin 400 MG CAP PO SCH ×3 (09:32→20:10)
[2017-10-29] MEDS: FLUoxetine HCl 20 MG CAP PO SCH (09:33)
[2017-10-29] MEDS: guaiFENesin/DM ER PO SCH ×2 (09:34→20:11)
[2017-10-29] MEDS: Allopurinol 300 MG TAB PO SCH (09:34)
[2017-10-29] MEDS: Ferrous Sulfate 325 MG TAB PO SCH (09:34)
[2017-10-29] MEDS: Multivitamin W/ Minerals 1 TAB PO SCH (09:34)
[2017-10-29] MEDS: metFORMIN 500 MG TAB PO SCH ×2 (09:34→17:47)
[2017-10-29] MEDS: Furosemide 40 MG TAB PO SCH (09:34)
[2017-10-29] MEDS: Carvedilol 25 MG TAB PO SCH ×2 (09:35→20:10)
[2017-10-29] MEDS: Insulin Regular 300 UNITS/3 ML VIAL SC PRN (11:29)
[2017-10-29] MEDS: Atorvastatin Calcium 40 MG TAB PO SCH (20:09)
[2017-10-29] MEDS: diphenhydrAMINE 25 MG CAP PO PRN (20:11)
[2017-10-30] MEDS: Albuterol Sulfate 2.5 mg/3 ml Neb NEB SCH ×6 (01:40→22:10)
[2017-10-30] MEDS: HYDROcodone/Acetaminophen 5/325 mg Tablet PO PRN ×5 (04:51→21:43)
[2017-10-30] MEDS: Mometasone/Formoterol 120 PUFF INHALER INH SCH ×2 (05:57→22:04)
--- NOTE | 2017-10-30 08:34 | PRG ---
DATE OF SERVICE: 10/30/2017 SUBJECTIVE: The patient had a good night. He denies any complaints. He realizes that he cannot go home. He is okay with that. PHYSICAL EXAMINATION: GENERAL: He is awake, alert, and oriented to person, place, and time. VITAL SIGNS: His blood pressure is 140/70, pulse 70, respirations 18. He is afebrile. NECK: Supple with no increased JVP or carotid bruit. Carotid had good upstroke with no thyromegaly. COR: Regular rate and rhythm. CHEST: He has a midline incision that has a wound VAC. ABDOMEN: Soft, nontender with normoactive bowel sounds. No bruit or organomegaly. EXTREMITIES: No edema or cyanosis. Palpable pedal pulses. SKIN: There is no evidence of ulcer, lesion or rash. NEUROLOGIC: He is awake, alert, and oriented to person, place, and time. LABORATORY DATA: His blood sugar was 124. ASSESSMENT: 1. Coronary artery disease, status post bypass with postop wound infection x2. 2. Chronic obstructive pulmonary disease. 3. Diabetes. 4. Hypertension. 5. Noncompliance. PLAN: We will consult telephonic nurse case manager to see if the patient can go to half-way facility if okay w araceli Wilson. The patient verbalized understanding. All questions answered to his satisfaction.
[2017-10-30] MEDS: Carvedilol 25 MG TAB PO SCH ×2 (08:57→21:40)
[2017-10-30] MEDS: Multivitamin W/ Minerals 1 TAB PO SCH (08:57)
[2017-10-30] MEDS: Furosemide 40 MG TAB PO SCH (08:57)
[2017-10-30] MEDS: guaiFENesin/DM ER PO SCH ×2 (08:57→21:41)
[2017-10-30] MEDS: FLUoxetine HCl 20 MG CAP PO SCH (08:58)
[2017-10-30] MEDS: metFORMIN 500 MG TAB PO SCH ×2 (08:58→18:05)
[2017-10-30] MEDS: Allopurinol 300 MG TAB PO SCH (08:58)
[2017-10-30] MEDS: Gabapentin 400 MG CAP PO SCH ×3 (08:59→21:41)
[2017-10-30] MEDS: Ferrous Sulfate 325 MG TAB PO SCH (08:59)
--- NOTE | 2017-10-30 20:07 | RAD ---
TWO VIEWS CHEST: 10/30/17 COMPARISON: 08/25/17 HISTORY: Recent bypass. Evaluate for infection. Debridement tomorrow. FINDINGS: There are sternotomy wires in a left sided transvenous defibrillator, unchanged in position. Normal c ardiac silhouette. Pulmonary vessels and hilum are normal. Costophrenic angles are clear. No masses o r consolidation. No pneumothorax or osseous abnormalities. IMPRESSION: No acute cardiopulmonary process. POS: PPP
[2017-10-30] MEDS: Atorvastatin Calcium 40 MG TAB PO SCH (21:40)
[2017-10-30] MEDS: diphenhydrAMINE 25 MG CAP PO PRN (21:48)
[2017-10-31] MEDS: Albuterol Sulfate 2.5 mg/3 ml Neb NEB SCH ×6 (02:16→23:42)
[2017-10-31] MEDS: HYDROcodone/Acetaminophen 5/325 mg Tablet PO PRN ×5 (02:45→21:11)
[2017-10-31] MEDS: Mometasone/Formoterol 120 PUFF INHALER INH SCH ×2 (07:11→19:54)
[2017-10-31] MEDS: Allopurinol 300 MG TAB PO SCH (08:41)
[2017-10-31] MEDS: guaiFENesin/DM ER PO SCH ×2 (08:41→21:12)
[2017-10-31] MEDS: Multivitamin W/ Minerals 1 TAB PO SCH (08:41)
[2017-10-31] MEDS: metFORMIN 500 MG TAB PO SCH ×2 (08:41→16:57)
[2017-10-31] MEDS: Furosemide 40 MG TAB PO SCH (08:41)
[2017-10-31] MEDS: Ferrous Sulfate 325 MG TAB PO SCH (08:42)
[2017-10-31] MEDS: Carvedilol 25 MG TAB PO SCH ×2 (08:42→21:12)
[2017-10-31] MEDS: FLUoxetine HCl 20 MG CAP PO SCH (08:42)
[2017-10-31] MEDS: Gabapentin 400 MG CAP PO SCH ×3 (08:42→21:12)
[2017-10-31] MEDS: Atorvastatin Calcium 40 MG TAB PO SCH (21:11)
[2017-10-31] MEDS: diphenhydrAMINE 25 MG CAP PO PRN (21:12)
[2017-11-01] MEDS: Albuterol Sulfate 2.5 mg/3 ml Neb NEB SCH ×6 (02:30→22:33)
[2017-11-01] MEDS: HYDROcodone/Acetaminophen 5/325 mg Tablet PO PRN ×3 (05:17→20:56)
[2017-11-01] MEDS: Mometasone/Formoterol 120 PUFF INHALER INH SCH ×2 (06:06→18:55)
--- NOTE | 2017-11-01 08:25 | PRG ---
DATE OF SERVICE: 11/01/2017 SUBJECTIVE: The patient had a good night. He was able to walk around with his wound VAC. He is eat ing okay. He feels better after he had a bowel movement. PHYSICAL EXAMINATION: GENERAL: He is awake, alert, and oriented to person, place, and time. VITAL SIGNS: Blood pressure is 118/50, pulse 78, respirations 18, he is afebrile. NECK: Supple. No JVP or carotid bruit. Carotids had good upstroke. No thyromegaly. COR: Regular rate and rhythm. CHEST: Incision with a wound VAC. ABDOMEN: Soft, nontender, normal bowel sounds. No bruit or organomegaly. EXTREMITIES: No edema or cyanosis. He had palpable pedal pulses. SKIN: There is no evidence of ulcer, lesion or rash. NEUROLOGIC: He is awake, alert, and oriented to person, place, and time. There is no lab in the chart. ASSESSMENT: 1. Coronary artery disease with history of bypass with postoperative wound infection x2. Now with w ound VAC. 2. Noncompliance. 3. Chronic obstructive pulmonary disease. 4. Hypertension. 5. Diabetes. PLAN: The patient will have CBC and CMP in the morning. He is also working with therapy. My unders tanding is the patient will be here until he is cleared until his wound is better.
[2017-11-01] MEDS: Furosemide 40 MG TAB PO SCH (08:38)
[2017-11-01] MEDS: guaiFENesin/DM ER PO SCH ×2 (08:38→20:56)
[2017-11-01] MEDS: metFORMIN 500 MG TAB PO SCH ×2 (08:38→17:10)
[2017-11-01] MEDS: Carvedilol 25 MG TAB PO SCH ×2 (08:38→20:55)
[2017-11-01] MEDS: Gabapentin 400 MG CAP PO SCH ×3 (08:38→20:55)
[2017-11-01] MEDS: Multivitamin W/ Minerals 1 TAB PO SCH (08:39)
[2017-11-01] MEDS: FLUoxetine HCl 20 MG CAP PO SCH (08:39)
[2017-11-01] MEDS: Allopurinol 300 MG TAB PO SCH (08:39)
[2017-11-01] MEDS: Ferrous Sulfate 325 MG TAB PO SCH (08:39)
[2017-11-01] MEDS: Mag-Al 1200 mg/1200 mg/30 ML UDCUP PO PRN ×2 (17:10→22:37)
[2017-11-01] MEDS: Atorvastatin Calcium 40 MG TAB PO SCH (20:55)
[2017-11-01] MEDS: diphenhydrAMINE 25 MG CAP PO PRN (20:57)
[2017-11-02] MEDS: Albuterol Sulfate 2.5 mg/3 ml Neb NEB SCH ×4 (01:41→18:43)
[2017-11-02 05:31] LABS: #Eosinphils 0.1 thou/uL (0.0-0.7); #Lymphocytes 1.4 thou/uL (1.20-3.40); #Monocytes 0.4 thou/uL (0.11-0.59); %Basophils 0.4 % (0.0-1.0); %Eosinophils 2.5 % (0.0-10.0); %Lymphocytes 28.1 % (21.0-51.0); %Neutrophils 60.9 % (42.0-75.0); Hemoglobin 8.7 g/dL (14.0-18.0); Mean Corpuscular HGB CONC 33.1 g/dL (32.0-36.0); Mean Corpuscular Hemoglobin 27.7 pg (27.0-31.0); Mean Corpuscular Volume 83.7 fl (80.0-94.0); Platelet Count 176 thou/uL (130-400); RBC Distribution Width 16.2 % (11.5-14.5); Red Blood Cell (RBC) Count 3.13 mill/uL (4.70-6.10); White Blood Cell (WBC) Count 4.8 thou/uL (4.8-10.8)
[2017-11-02] MEDS: Mometasone/Formoterol 120 PUFF INHALER INH SCH ×2 (05:53→18:44)
[2017-11-02 06:04] LABS: ALT (SGPT) 9 U/L (8-55); AST (SGOT) 15 U/L (5-34); Alkaline Phosphatase 100 U/L (40-150); Anion Gap 12 mmol/L (10-20); BUN (Urea Nitrogen) 23 mg/dL (8.4-25.7); Bilirubin, Total 0.3 mg/dL (0.2-1.2); Calc. Creatinine Clearance 98 mL/min (70-130); Calcium 8.8 mg/dL (7.8-10.44); Carbon Dioxide 31 mmol/L (23-31); Chloride 99 mmol/L (98-107); Estimated GFR-MDRD 67; Globulin 3.7 g/dL (2.4-3.5); Glucose 97 mg/dL (80-115); Potassium 4.1 mmol/L (3.5-5.1); Protein, Total 6.7 g/dL (5.8-8.1); Sodium 138 mmol/L (136-145)
[2017-11-02] MEDS: HYDROcodone/Acetaminophen 5/325 mg Tablet PO PRN ×4 (06:21→20:55)
[2017-11-02] MEDS: FLUoxetine HCl 20 MG CAP PO SCH (08:09)
[2017-11-02] MEDS: Multivitamin W/ Minerals 1 TAB PO SCH (08:09)
[2017-11-02] MEDS: guaiFENesin/DM ER PO SCH ×2 (08:09→20:53)
[2017-11-02] MEDS: Gabapentin 400 MG CAP PO SCH ×3 (08:09→20:53)
[2017-11-02] MEDS: Carvedilol 25 MG TAB PO SCH ×2 (08:09→20:53)
[2017-11-02] MEDS: Furosemide 40 MG TAB PO SCH (08:09)
[2017-11-02] MEDS: Ferrous Sulfate 325 MG TAB PO SCH (08:09)
[2017-11-02] MEDS: metFORMIN 500 MG TAB PO SCH ×2 (08:10→16:41)
[2017-11-02] MEDS: Allopurinol 300 MG TAB PO SCH (08:10)
[2017-11-02] MEDS: Atorvastatin Calcium 40 MG TAB PO SCH (20:53)
[2017-11-02] MEDS: diphenhydrAMINE 25 MG CAP PO PRN (21:04)
[2017-11-03] MEDS: HYDROcodone/Acetaminophen 5/325 mg Tablet PO PRN ×4 (03:21→20:38)
[2017-11-03] MEDS: Ferrous Sulfate 325 MG TAB PO SCH (08:03)
[2017-11-03] MEDS: metFORMIN 500 MG TAB PO SCH ×2 (08:03→16:44)
[2017-11-03] MEDS: Furosemide 40 MG TAB PO SCH (08:03)
[2017-11-03] MEDS: Allopurinol 300 MG TAB PO SCH (08:03)
[2017-11-03] MEDS: Carvedilol 25 MG TAB PO SCH ×2 (08:03→20:36)
[2017-11-03] MEDS: guaiFENesin/DM ER PO SCH (08:03)
[2017-11-03] MEDS: FLUoxetine HCl 20 MG CAP PO SCH (08:04)
[2017-11-03] MEDS: Gabapentin 400 MG CAP PO SCH ×3 (08:04→20:37)
[2017-11-03] MEDS: Multivitamin W/ Minerals 1 TAB PO SCH (08:05)
[2017-11-03] MEDS: Albuterol Sulfate 2.5 mg/3 ml Neb NEB SCH ×2 (08:09→19:10)
[2017-11-03] MEDS: Mometasone/Formoterol 120 PUFF INHALER INH SCH ×2 (08:19→19:11)
[2017-11-03] MEDS: Albuterol Sulfate 2.5 mg/3 ml Neb NEB PRN (12:32)
[2017-11-03] MEDS: Budesonide 0.5 MG/2 ML NEB NEB SCH (19:11)
[2017-11-03] MEDS: Atorvastatin Calcium 40 MG TAB PO SCH (20:37)
[2017-11-03] MEDS: guaiFENesin ER 600 MG TAB PO SCH (20:38)
[2017-11-03] MEDS: diphenhydrAMINE 25 MG CAP PO PRN (20:39)
[2017-11-03] MEDS: Mag-Al 1200 mg/1200 mg/30 ML UDCUP PO PRN (20:41)
[2017-11-04] MEDS: HYDROcodone/Acetaminophen 5/325 mg Tablet PO PRN ×4 (04:50→21:55)
[2017-11-04] MEDS: Budesonide 0.5 MG/2 ML NEB NEB SCH ×2 (07:13→19:41)
[2017-11-04] MEDS: Albuterol Sulfate 2.5 mg/3 ml Neb NEB SCH ×2 (07:13→19:41)
[2017-11-04] MEDS: Mometasone/Formoterol 120 PUFF INHALER INH SCH ×2 (07:40→19:41)
[2017-11-04] MEDS: FLUoxetine HCl 20 MG CAP PO SCH (08:37)
[2017-11-04] MEDS: Ferrous Sulfate 325 MG TAB PO SCH (08:37)
[2017-11-04] MEDS: Multivitamin W/ Minerals 1 TAB PO SCH (08:37)
[2017-11-04] MEDS: Furosemide 40 MG TAB PO SCH (08:37)
[2017-11-04] MEDS: Allopurinol 300 MG TAB PO SCH (08:37)
[2017-11-04] MEDS: Gabapentin 400 MG CAP PO SCH ×3 (08:38→20:00)
[2017-11-04] MEDS: Carvedilol 25 MG TAB PO SCH ×2 (08:38→20:01)
[2017-11-04] MEDS: metFORMIN 500 MG TAB PO SCH ×2 (08:38→16:22)
[2017-11-04] MEDS: guaiFENesin ER 600 MG TAB PO SCH ×2 (08:38→20:01)
[2017-11-04] MEDS: Mag-Al 1200 mg/1200 mg/30 ML UDCUP PO PRN (11:36)
[2017-11-04] MEDS: Albuterol Sulfate 2.5 mg/3 ml Neb NEB PRN (11:42)
[2017-11-04] MEDS: Atorvastatin Calcium 40 MG TAB PO SCH (20:00)
[2017-11-04] MEDS: diphenhydrAMINE 25 MG CAP PO PRN (20:00)
[2017-11-04] MEDS: Insulin Regular 300 UNITS/3 ML VIAL SC PRN (21:24)
[2017-11-04] MEDS ORDERED: traMADol HCl 50 MG TAB PO PRN (21:47)
[2017-11-05] MEDS: HYDROcodone/Acetaminophen 5/325 mg Tablet PO PRN ×4 (04:42→21:24)
[2017-11-05] MEDS: Albuterol Sulfate 2.5 mg/3 ml Neb NEB SCH ×2 (07:22→19:02)
[2017-11-05] MEDS: Mometasone/Formoterol 120 PUFF INHALER INH SCH ×2 (07:23→19:04)
[2017-11-05] MEDS: Budesonide 0.5 MG/2 ML NEB NEB SCH ×2 (07:26→19:04)
[2017-11-05] MEDS: metFORMIN 500 MG TAB PO SCH ×2 (09:53→17:20)
[2017-11-05] MEDS: Furosemide 40 MG TAB PO SCH (09:53)
[2017-11-05] MEDS: Allopurinol 300 MG TAB PO SCH (09:53)
[2017-11-05] MEDS: FLUoxetine HCl 20 MG CAP PO SCH (09:53)
[2017-11-05] MEDS: Ferrous Sulfate 325 MG TAB PO SCH (09:54)
[2017-11-05] MEDS: guaiFENesin ER 600 MG TAB PO SCH ×2 (09:54→19:45)
[2017-11-05] MEDS: Multivitamin W/ Minerals 1 TAB PO SCH (09:54)
[2017-11-05] MEDS: Carvedilol 25 MG TAB PO SCH ×2 (09:54→19:45)
[2017-11-05] MEDS: Gabapentin 400 MG CAP PO SCH ×3 (09:55→19:45)
[2017-11-05] MEDS: Atorvastatin Calcium 40 MG TAB PO SCH (19:44)
[2017-11-06] MEDS: HYDROcodone/Acetaminophen 5/325 mg Tablet PO PRN ×4 (02:29→18:22)
[2017-11-06] MEDS: Albuterol Sulfate 2.5 mg/3 ml Neb NEB PRN (04:59)
[2017-11-06] MEDS: Albuterol Sulfate 2.5 mg/3 ml Neb NEB SCH ×2 (06:58→19:35)
[2017-11-06] MEDS: Budesonide 0.5 MG/2 ML NEB NEB SCH ×2 (06:58→19:35)
[2017-11-06] MEDS: Mometasone/Formoterol 120 PUFF INHALER INH SCH ×2 (07:01→19:50)
--- NOTE | 2017-11-06 08:40 | PRG ---
DATE OF SERVICE: 11/06/2017 SUBJECTIVE: The patient had a good night. He started having a pain that he described in his chest t hat was constant. He took a pain pill and the pain pill did not work. PHYSICAL EXAMINATION: GENERAL: On evaluation, he is awake, alert, and oriented to person, place and time. VITAL SIGNS: Stable. NECK: Supple. No JVD or carotid bruit. Carotid had good upstroke with no thyromegaly. COR: Regular rate and rhythm. CHEST: Symmetrical with a wound that is packed. He has got a wound VAC. Chest is symmetrical. C lear to auscultation and percussion. ABDOMEN: Soft, nontender, normal bowel sounds. No bruit or organomegaly. EXTREMITIES: No edema or cyanosis. He had palpable pedal pulses. SKIN: There is no evidence of ulceration, lesion or rash. NEUROLOGIC: He is awake, alert, and oriented to person, place, and time. LABORATORY: No labs have been checked since the . ASSESSMENT: 1. Coronary artery disease with recent bypass with 2 postop wound infections. 2. Chronic obstructive pulmonary disease. 3. Noncompliance. 4. Diabetes. 5. Multiple medical problems. PLAN: We will go ahead and follow up with a CBC and CMP. According to notes from cardiovascular micaela geon they hopefully will plan to close later this week. The patient verbalized understanding. All q uestions answered to his satisfaction.
[2017-11-06] MEDS: guaiFENesin ER 600 MG TAB PO SCH ×2 (09:04→20:53)
[2017-11-06] MEDS: Multivitamin W/ Minerals 1 TAB PO SCH (09:04)
[2017-11-06] MEDS: Gabapentin 400 MG CAP PO SCH ×3 (09:04→20:52)
[2017-11-06] MEDS: Furosemide 40 MG TAB PO SCH (09:04)
[2017-11-06] MEDS: FLUoxetine HCl 20 MG CAP PO SCH (09:04)
[2017-11-06] MEDS: metFORMIN 500 MG TAB PO SCH ×2 (09:05→16:57)
[2017-11-06] MEDS: Carvedilol 25 MG TAB PO SCH ×2 (09:05→20:52)
[2017-11-06] MEDS: Allopurinol 300 MG TAB PO SCH (09:05)
[2017-11-06] MEDS: Ferrous Sulfate 325 MG TAB PO SCH (09:05)
[2017-11-06] MEDS: Atorvastatin Calcium 40 MG TAB PO SCH (20:52)
[2017-11-06] MEDS: diphenhydrAMINE 25 MG CAP PO PRN (20:53)
[2017-11-06] MEDS: Mag-Al 1200 mg/1200 mg/30 ML UDCUP PO PRN (20:57)
[2017-11-07] MEDS: HYDROcodone/Acetaminophen 5/325 mg Tablet PO PRN ×5 (00:36→22:40)
[2017-11-07] MEDS: Mag-Al 1200 mg/1200 mg/30 ML UDCUP PO PRN ×3 (01:21→22:40)
[2017-11-07 05:17] LABS: #Eosinphils 0.1 thou/uL (0.0-0.7); #Lymphocytes 1.2 thou/uL (1.20-3.40); #Monocytes 0.7 thou/uL (0.11-0.59); #Neutrophils 6.5 thou/uL (1.40-6.50); %Basophils 0.2 % (0.0-1.0); %Eosinophils 1.7 % (0.0-10.0); %Lymphocytes 13.4 % (21.0-51.0); %Neutrophils 76.7 % (42.0-75.0); Hemoglobin 8.2 g/dL (14.0-18.0); Mean Corpuscular HGB CONC 32.6 g/dL (32.0-36.0); Mean Corpuscular Hemoglobin 27.4 pg (27.0-31.0); Mean Corpuscular Volume 84.3 fl (80.0-94.0); Mean Platelet Volume 7.3 fL (7.4-10.4); Platelet Count 189 thou/uL (130-400); RBC Distribution Width 16.5 % (11.5-14.5); White Blood Cell (WBC) Count 8.5 thou/uL (4.8-10.8)
[2017-11-07 05:29] LABS: ALT (SGPT) 8 U/L (8-55); AST (SGOT) 11 U/L (5-34); Albumin 3.1 g/dL (3.4-4.8); Alkaline Phosphatase 95 U/L (40-150); Anion Gap 12 mmol/L (10-20); BUN (Urea Nitrogen) 39 mg/dL (8.4-25.7); Bilirubin, Total 0.5 mg/dL (0.2-1.2); Calc. Creatinine Clearance 73 mL/min (70-130); Calcium 9.5 mg/dL (7.8-10.44); Carbon Dioxide 31 mmol/L (23-31); Chloride 100 mmol/L (98-107); Estimated GFR-MDRD 48; Globulin 3.8 g/dL (2.4-3.5); Glucose 96 mg/dL (80-115); Potassium 4.2 mmol/L (3.5-5.1); Protein, Total 6.9 g/dL (5.8-8.1); Sodium 139 mmol/L (136-145)
[2017-11-07] MEDS: Albuterol Sulfate 2.5 mg/3 ml Neb NEB SCH ×2 (06:22→18:54)
[2017-11-07] MEDS: Budesonide 0.5 MG/2 ML NEB NEB SCH ×2 (06:22→18:54)
[2017-11-07] MEDS: Mometasone/Formoterol 120 PUFF INHALER INH SCH ×2 (06:34→18:54)
[2017-11-07] MEDS: FLUoxetine HCl 20 MG CAP PO SCH (10:55)
[2017-11-07] MEDS: guaiFENesin ER 600 MG TAB PO SCH ×2 (10:55→20:31)
[2017-11-07] MEDS: Allopurinol 300 MG TAB PO SCH (10:55)
[2017-11-07] MEDS: Gabapentin 400 MG CAP PO SCH ×3 (10:56→20:30)
[2017-11-07] MEDS: Furosemide 40 MG TAB PO SCH (10:57)
[2017-11-07] MEDS: metFORMIN 500 MG TAB PO SCH ×2 (10:57→18:28)
[2017-11-07] MEDS: Carvedilol 25 MG TAB PO SCH ×2 (10:58→20:31)
[2017-11-07] MEDS: Doxycycline 100 MG CAP PO SCH ×2 (10:58→20:30)
[2017-11-07] MEDS: Ferrous Sulfate 325 MG TAB PO SCH (10:58)
[2017-11-07] MEDS: Multivitamin W/ Minerals 1 TAB PO SCH (10:58)
[2017-11-07] MEDS: Atorvastatin Calcium 40 MG TAB PO SCH (20:31)
[2017-11-07] MEDS: diphenhydrAMINE 25 MG CAP PO PRN (20:34)
[2017-11-08] MEDS: HYDROcodone/Acetaminophen 5/325 mg Tablet PO PRN ×2 (03:54→20:56)
[2017-11-08] MEDS: Mometasone/Formoterol 120 PUFF INHALER INH SCH ×2 (07:03→18:40)
[2017-11-08] MEDS: Albuterol Sulfate 2.5 mg/3 ml Neb NEB SCH ×2 (07:07→18:38)
[2017-11-08] MEDS: Budesonide 0.5 MG/2 ML NEB NEB SCH ×2 (07:07→18:39)
--- NOTE | 2017-11-08 08:40 | PRG ---
DATE OF SERVICE: 11/08/2017 The patient is ready for his surgery today. His is at bedside. He has no complaints. He slept well. PHYSICAL EXAMINATION: VITAL SIGNS: Blood pressure 122/58, pulse 70, respiration rate 18, he is afebrile. NECK: Supple. No JVD or carotid bruit. Carotid had good upstroke, no thyromegaly. COR: Regular rate and rhythm. CHEST: Symmetrical with midline incision open wound, wound VAC. NEUROLOGIC: He is awake, alert, and oriented to person, place, and time. LABORATORY DATA: His H&H is 8.2 and 25.3, platelet count is 189. His glucose 118. ASSESSMENT: 1. Coronary artery disease with recent bypass with postop sternal infection x2. 2. Chronic obstructive pulmonary disease. 3. Diabetes. 4. Hypertension. 5. Anxiety. PLAN: The patient will undergo surgery today. All questions answered to the patient's satisfaction.
[2017-11-08] MEDS: Allopurinol 300 MG TAB PO SCH (11:07)
[2017-11-08] MEDS: Ferrous Sulfate 325 MG TAB PO SCH (11:07)
[2017-11-08] MEDS: Carvedilol 25 MG TAB PO SCH ×2 (11:07→20:58)
[2017-11-08] MEDS: FLUoxetine HCl 20 MG CAP PO SCH (11:07)
[2017-11-08] MEDS: Doxycycline 100 MG CAP PO SCH ×2 (11:07→20:59)
[2017-11-08] MEDS: metFORMIN 500 MG TAB PO SCH ×2 (11:07→18:00)
[2017-11-08] MEDS: guaiFENesin ER 600 MG TAB PO SCH ×2 (11:08→21:00)
[2017-11-08] MEDS: Gabapentin 400 MG CAP PO SCH ×3 (11:08→20:59)
[2017-11-08] MEDS: Multivitamin W/ Minerals 1 TAB PO SCH (11:08)
[2017-11-08] MEDS: Furosemide 40 MG TAB PO SCH (11:08)
[2017-11-08] MEDS ORDERED: Fentanyl 250 MCG/5 ML VIAL ONE (12:06)
[2017-11-08] MEDS ORDERED: Midazolam HCl 2 mg/2 ml Vial ONE (12:06)
[2017-11-08] MEDS ORDERED: Neomycin-Polymyxin 1 ML AMP ONE ×2 (12:20→12:59)
[2017-11-08] MEDS ORDERED: EPINEPHrine 1 MG/ML AMP ONE (12:20)
[2017-11-08] MEDS ORDERED: Bacitracin Zinc Ointment 30 gm TUBE ONE (15:15)
[2017-11-08] MEDS ORDERED: Promethazine HCl 25 MG/ML VIAL IM PRN (15:31)
[2017-11-08] MEDS ORDERED: Promethazine HCl 25 MG/ML VIAL SLOW IVP PRN (15:31)
[2017-11-08] MEDS ORDERED: Ondansetron HCl/PF 4 MG/2 ML Vial IVP PRN (15:31)
[2017-11-08] MEDS ORDERED: Fentanyl 100 MCG/2 ML VIAL ONE ×2 (15:37→16:08)
[2017-11-08] MEDS ORDERED: ePHEDrine/0.9% NaCl/PF SYRINGE 50 mg/10 ml ONE (16:25)
[2017-11-08] MEDS ORDERED: Lidocaine 1% PF 5 ML VIAL ONE (16:25)
[2017-11-08] MEDS ORDERED: PHENYLEPHRINE-NS 100 MCG/ML 10 ML SYRINGE ONE (16:25)
[2017-11-08] MEDS ORDERED: PROPOFOL 200 MG/20 ML VIAL ONE (16:25)
[2017-11-08] MEDS ORDERED: Glycopyrrolate 0.2 MG/ML 5 ML SYRINGE ONE (16:25)
[2017-11-08] MEDS ORDERED: Morphine 4 MG/ML VIAL SLOW IVP PRN (17:42)
[2017-11-08] MEDS: Morphine 4 MG/ML VIAL SLOW IVP PRN ×2 (17:54→21:51)
[2017-11-08] MEDS: Atorvastatin Calcium 40 MG TAB PO SCH (20:58)
[2017-11-08] MEDS: diphenhydrAMINE 25 MG CAP PO PRN (21:50)
--- NOTE | 2017-11-08 22:04 | OP ---
DATE OF OPERATION: 10/25/2017 PREOPERATIVE DIAGNOSIS: Sternal wound infection. POSTOPERATIVE DIAGNOSIS: Sternal wound infection. PROCEDURE: Excisional debridement of sternal wound. SURGEON: Morales Wilson MD ANESTHESIA: General endotracheal. ESTIMATED BLOOD LOSS: Less than 100. PROCEDURE IN DETAIL: After consent was obtained, the patient was brought to the operating room and p laced in the supine position on the operating room table. Appropriate anesthetic monitor was placed and general endotracheal anesthesia induced. Chest was prepped and draped in usual sterile fashion. Devitalized skin, soft tissue, and periosteum were all excisionally debrided. Hemostasis was ensure d with electrocautery. Cultures were taken and sent for routine exam. Wound was then copiously irrigated with Pulsavac utilizing solution. After Pulsavac, the wound wa s again inspected. Hemostasis was ensured. Wound care was brought in and a wound VAC replaced. The patient tolerated the procedure well, and was transferred back to his room in stable condition.
[2017-11-09] MEDS: Morphine 4 MG/ML VIAL SLOW IVP PRN (00:09)
[2017-11-09] MEDS: Mag-Al 1200 mg/1200 mg/30 ML UDCUP PO PRN (00:27)
[2017-11-09] MEDS: HYDROcodone/Acetaminophen 5/325 mg Tablet PO PRN ×5 (01:22→20:40)
[2017-11-09] MEDS: Albuterol Sulfate 2.5 mg/3 ml Neb NEB SCH ×2 (06:46→18:25)
[2017-11-09] MEDS: Budesonide 0.5 MG/2 ML NEB NEB SCH ×2 (06:50→18:26)
[2017-11-09] MEDS: Mometasone/Formoterol 120 PUFF INHALER INH SCH ×2 (07:24→18:27)
[2017-11-09] MEDS: Doxycycline 100 MG CAP PO SCH ×2 (09:03→20:37)
[2017-11-09] MEDS: FLUoxetine HCl 20 MG CAP PO SCH (09:03)
[2017-11-09] MEDS: guaiFENesin ER 600 MG TAB PO SCH ×2 (09:03→20:38)
[2017-11-09] MEDS: Multivitamin W/ Minerals 1 TAB PO SCH (09:03)
[2017-11-09] MEDS: Furosemide 40 MG TAB PO SCH (09:03)
[2017-11-09] MEDS: Allopurinol 300 MG TAB PO SCH (09:03)
[2017-11-09] MEDS: metFORMIN 500 MG TAB PO SCH ×2 (09:03→17:40)
[2017-11-09] MEDS: Gabapentin 400 MG CAP PO SCH ×3 (09:03→20:38)
[2017-11-09] MEDS: Ferrous Sulfate 325 MG TAB PO SCH (09:04)
[2017-11-09] MEDS: Albuterol Sulfate 2.5 mg/3 ml Neb NEB PRN ×2 (11:20→15:15)
[2017-11-09] MEDS: Carvedilol 25 MG TAB PO SCH ×2 (11:34→20:39)
[2017-11-09] MEDS: Insulin Regular 300 UNITS/3 ML VIAL SC PRN (11:37)
[2017-11-09] MEDS: Atorvastatin Calcium 40 MG TAB PO SCH (20:39)
[2017-11-10] MEDS: HYDROcodone/Acetaminophen 5/325 mg Tablet PO PRN ×4 (00:21→22:21)
[2017-11-10] MEDS: Insulin Regular 300 UNITS/3 ML VIAL SC PRN ×2 (06:11→10:27)
[2017-11-10] MEDS: FLUoxetine HCl 20 MG CAP PO SCH (07:46)
[2017-11-10] MEDS: Multivitamin W/ Minerals 1 TAB PO SCH (07:47)
[2017-11-10] MEDS: Ferrous Sulfate 325 MG TAB PO SCH (07:47)
[2017-11-10] MEDS: Gabapentin 400 MG CAP PO SCH ×3 (07:47→22:22)
[2017-11-10] MEDS: guaiFENesin ER 600 MG TAB PO SCH ×2 (07:47→22:23)
[2017-11-10] MEDS: Doxycycline 100 MG CAP PO SCH ×2 (07:47→22:22)
[2017-11-10] MEDS: metFORMIN 500 MG TAB PO SCH ×2 (07:47→16:16)
[2017-11-10] MEDS: Furosemide 40 MG TAB PO SCH (07:48)
[2017-11-10] MEDS: Carvedilol 25 MG TAB PO SCH (07:48)
[2017-11-10] MEDS: Albuterol Sulfate 2.5 mg/3 ml Neb NEB SCH ×3 (07:56→18:33)
[2017-11-10] MEDS: Budesonide 0.5 MG/2 ML NEB NEB SCH ×2 (07:57→18:52)
[2017-11-10] MEDS: Allopurinol 300 MG TAB PO SCH (07:58)
[2017-11-10] MEDS: Mometasone/Formoterol 120 PUFF INHALER INH SCH ×2 (08:12→18:31)
--- NOTE | 2017-11-10 09:04 | PRG ---
DATE OF SERVICE: 11/10/2017 SUBJECTIVE: The patient is sitting up in the chair. He had a good night. He had some pain medicine . He just ate breakfast. He ate a good breakfast. OBJECTIVE: GENERAL: He is awake, alert, and oriented to person, place and time. VITAL SIGNS: Blood pressure 106/46, pulse 70, respiration rate 18, temperature 99.6. NECK: Supple with no JVP or carotid bruit. Carotid had good upstroke. No thyromegaly. COR: Regular rate and rhythm. CHEST: Midline chest incision with dressing clean, dry, and intact. ABDOMEN: Soft, nontender, normal bowel sounds. No bruit or organomegaly. EXTREMITIES: He has SCDs on. He had palpable pedal pulses. SKIN: There is no evidence of ulcers lesion, or rash. NEUROLOGIC: He is awake, alert, and oriented to person, place, and time. There is no lab in the chart. ASSESSMENT: 1. Coronary artery disease, status post bypass. 2. Sternal wound infections, now with a recent debridement of sternal wound. 3. Diabetes. 4. Chronic obstructive pulmonary disease. 5. Noncompliance. 6. Hypertension. 7. Anemia. PLAN: This patient is okay to go to the telemetry if okay with all. We will follow up with a CBC, C MP in the morning. We will also do bladder drain for 24 hours and discontinue Valencia. We will ask a Physical Therapy to see the patient in consultation as well.
[2017-11-10] MEDS ORDERED: Tamsulosin HCl 0.4 MG CAP PO SCH (10:00)
[2017-11-10] MEDS: Albuterol Sulfate 2.5 mg/3 ml Neb NEB PRN (11:26)
[2017-11-10] MEDS: Tamsulosin HCl 0.4 MG CAP PO SCH (22:22)
[2017-11-10] MEDS: Atorvastatin Calcium 40 MG TAB PO SCH (22:23)
[2017-11-10] MEDS: diphenhydrAMINE 25 MG CAP PO PRN (22:25)
[2017-11-11] MEDS: Carvedilol 25 MG TAB PO SCH ×3 (00:51→22:07)
[2017-11-11] MEDS: Albuterol Sulfate 2.5 mg/3 ml Neb NEB SCH ×3 (03:45→19:16)
[2017-11-11 05:15] LABS: #Eosinphils 0.2 thou/uL (0.0-0.7); #Lymphocytes 1.3 thou/uL (1.20-3.40); #Monocytes 0.8 thou/uL (0.11-0.59); #Neutrophils 5.6 thou/uL (1.40-6.50); %Basophils 0.2 % (0.0-1.0); %Eosinophils 2.1 % (0.0-10.0); %Lymphocytes 16.7 % (21.0-51.0); %Monocytes 10.6 % (0.0-10.0); %Neutrophils 70.5 % (42.0-75.0); Hemoglobin 7.6 g/dL (14.0-18.0); Mean Corpuscular Hemoglobin 26.9 pg (27.0-31.0); Mean Platelet Volume 7.4 fL (7.4-10.4); Platelet Count 171 thou/uL (130-400); RBC Distribution Width 16.4 % (11.5-14.5); Red Blood Cell (RBC) Count 2.83 mill/uL (4.70-6.10); White Blood Cell (WBC) Count 7.9 thou/uL (4.8-10.8)
[2017-11-11 05:17] LABS: Anion Gap 12 mmol/L (10-20); BUN (Urea Nitrogen) 46 mg/dL (8.4-25.7); Calc. Creatinine Clearance 100 mL/min (70-130); Calcium 8.4 mg/dL (7.8-10.44); Carbon Dioxide 29 mmol/L (23-31); Chloride 101 mmol/L (98-107); Estimated GFR-MDRD 70; Glucose 102 mg/dL (80-115); Potassium 4.1 mmol/L (3.5-5.1); Sodium 138 mmol/L (136-145)
[2017-11-11] MEDS: Budesonide 0.5 MG/2 ML NEB NEB SCH ×2 (06:31→18:56)
[2017-11-11] MEDS: Mometasone/Formoterol 120 PUFF INHALER INH SCH ×2 (06:45→18:58)
[2017-11-11] MEDS: metFORMIN 500 MG TAB PO SCH ×2 (09:00→16:51)
[2017-11-11] MEDS: FLUoxetine HCl 20 MG CAP PO SCH (09:00)
[2017-11-11] MEDS: Furosemide 40 MG TAB PO SCH (09:01)
[2017-11-11] MEDS: Multivitamin W/ Minerals 1 TAB PO SCH (09:01)
[2017-11-11] MEDS: Gabapentin 400 MG CAP PO SCH ×3 (09:01→22:08)
[2017-11-11] MEDS: guaiFENesin ER 600 MG TAB PO SCH ×2 (09:01→22:08)
[2017-11-11] MEDS: Ferrous Sulfate 325 MG TAB PO SCH (09:01)
[2017-11-11] MEDS: Allopurinol 300 MG TAB PO SCH (09:01)
[2017-11-11] MEDS: HYDROcodone/Acetaminophen 5/325 mg Tablet PO PRN ×3 (09:02→18:58)
[2017-11-11] MEDS: Doxycycline 100 MG CAP PO SCH ×2 (09:09→22:08)
--- NOTE | 2017-11-11 14:20 | PRG ---
DATE OF SERVICE: 11/11/2017 SUBJECTIVE: The patient is awake. He is tired. His is at bedside. We have been doing bladder training for the last 24 hours and he felt like the Valencia can come out. PHYSICAL EXAMINATION: GENERAL: He is awake, alert, and oriented. VITAL SIGNS: Blood pressure 118/60, pulse 80, respirations 18, afebrile. NECK: Supple with no increased JVP or carotid bruit. Carotid did show thyromegaly. COR: Regular rate and rhythm. CHEST: He has a midline chest incision with dressing clean, dry, and intact. ABDOMEN: Soft, nontender with normoactive bowel sounds. There is no bruit or organomegaly. EXTREMITIES: No edema or cyanosis. Palpable pedal pulses. SKIN: There is no evidence of ulceration, lesion, or rash. NEUROLOGIC: He is awake, alert, and oriented to person, place, and time. LABORATORY DATA: His white blood cells dropped from 8.2, 7.6, and 23.8. His platelet count is 171. His BUN and creatinine are normal. ASSESSMENT: 1. History of coronary artery with bypass with postop 2 sternal wound infections. 2. Status post wound debridement. 3. Chronic obstructive pulmonary disease. 4. Hypertension. 5. Diabetes. 6. Noncompliance. 5. Postop anemia. PLAN: 1. We will go ahead and discontinue Valencia. 2. We will go ahead and give 1 unit packed red blood cells and follow up with lab in the morning. T he patient verbalized understanding. All questions answered to satisfaction. This is Ling PAGAN-C dictating for Daniel Teresa M.D.
[2017-11-11] MEDS: diphenhydrAMINE 25 MG CAP PO PRN (22:06)
[2017-11-11] MEDS: Atorvastatin Calcium 40 MG TAB PO SCH (22:07)
[2017-11-11] MEDS: Tamsulosin HCl 0.4 MG CAP PO SCH (22:08)
[2017-11-12] MEDS: HYDROcodone/Acetaminophen 5/325 mg Tablet PO PRN ×3 (05:08→21:42)
[2017-11-12] MEDS: Albuterol Sulfate 2.5 mg/3 ml Neb NEB SCH ×2 (07:19→18:18)
[2017-11-12] MEDS: Mometasone/Formoterol 120 PUFF INHALER INH SCH ×2 (07:22→18:21)
[2017-11-12] MEDS: Budesonide 0.5 MG/2 ML NEB NEB SCH ×2 (07:23→18:20)
[2017-11-12] MEDS ORDERED: Vancomycin HCl 1.5 GM in Sodium Chloride 0.9% 250 ML 300 ML IVPB SCH (08:00)
[2017-11-12] MEDS: Multivitamin W/ Minerals 1 TAB PO SCH (09:30)
[2017-11-12] MEDS: FLUoxetine HCl 20 MG CAP PO SCH (09:30)
[2017-11-12] MEDS: Gabapentin 400 MG CAP PO SCH ×3 (09:31→21:54)
[2017-11-12] MEDS: Carvedilol 25 MG TAB PO SCH ×2 (09:31→21:43)
[2017-11-12] MEDS: Ferrous Sulfate 325 MG TAB PO SCH (09:31)
[2017-11-12] MEDS: Allopurinol 300 MG TAB PO SCH (09:31)
[2017-11-12] MEDS: metFORMIN 500 MG TAB PO SCH ×2 (09:31→16:35)
[2017-11-12] MEDS: guaiFENesin ER 600 MG TAB PO SCH ×2 (09:32→21:54)
[2017-11-12] MEDS: Furosemide 40 MG TAB PO SCH (09:32)
[2017-11-12] MEDS: Vancomycin HCl 1 GM in Premix Bag 1 BAG IVPB SCH ×2 (09:33→09:39)
[2017-11-12] MEDS: cefTRIAXone\\ROCEPHIN 1 GM, Syringe 0.4 ML in Sterile Water 9.6 ML SLOW IVP SCH (10:11)
--- NOTE | 2017-11-12 10:19 | PQF ---
CLINICAL DOCUMENTATION IMPROVEMENT CLARIFICATION FORM: ICD-10 Updated PLEASE DO AN ADDENDUM TO THE PROGRESS NOTE WITH ANY DOCUMENTATION UPDATES OR ADDITIONS AND CARRY THROUGH TO DC SUMMARY. THANK YOU. DATE: 11/12 ATTN: DR. NOEMI ROSS Please exercise your independent, professional judgment in responding to the clarification form. Clinical indicators are provided on the bottom of this form for your review Please check appropriate box(s): [ ] Acute blood loss anemia [ x ] Post-op anemia related to acute blood loss [ ] Other diagnosis [ ] Unable to determine For continuity of documentation, please document condition throughout progress notes and discharge summary. Thank You. CLINICAL INDICATORS - SIGNS / SYMPTOMS / LABS MERCHANDISE PLANNER-C PROGRESS NOTE 10/28: ASSESSMENT: 6) POSTOPERATIVE ANEMIA MERCHANDISE PLANNER-C PN 11/10: ASSESSMENT: 7) ANEMIA MERCHANDISE PLANNER-C PN 11/11: ASSESSMENT: 5) POSTOP ANEMIA; PLAN: 2) WE WILL GO AHEAD & GIVE 1U PRBC H/H: 10.8/34.0 (10/25), 8.2/25.4 (10/28), 8.7/26.8 (10/29), 8.2/25.3 (11/07), 7.6/ 28.7 (11/11) RISK FACTORS: 10/26 - EXCISIONAL DEBRIDEMENT OF STERNAL WOUND W/EBL 200 ML; 11/08 - STERNAL DEBRIDEMENT W/R PECTORALES FLAP RECONSTRUCTION, EBL 200 ML TREATMENTS: TRANSFUSION 1U PRBC (11/11) SERIAL CBC THANK YOU! Christina (This form is maintained as a part of the permanent medical record) 2014 [employer]. All Rights Reserved Christina Guadalupe RN, BSN [email or web address] Office: [phone] [facility] HOSPITALLeoncio
[2017-11-12 14:16] LABS: #Eosinphils 0.1 thou/uL (0.0-0.7); #Lymphocytes 1.1 thou/uL (1.20-3.40); #Monocytes 0.6 thou/uL (0.11-0.59); #Neutrophils 5.7 thou/uL (1.40-6.50); %Basophils 0.4 % (0.0-1.0); %Eosinophils 1.3 % (0.0-10.0); %Lymphocytes 14.9 % (21.0-51.0); %Monocytes 7.3 % (0.0-10.0); Hemoglobin 8.9 g/dL (14.0-18.0); Mean Corpuscular HGB CONC 33.2 g/dL (32.0-36.0); Mean Corpuscular Hemoglobin 27.7 pg (27.0-31.0); Mean Corpuscular Volume 83.5 fl (80.0-94.0); Mean Platelet Volume 7.4 fL (7.4-10.4); Platelet Count 177 thou/uL (130-400); RBC Distribution Width 15.9 % (11.5-14.5); Red Blood Cell (RBC) Count 3.23 mill/uL (4.70-6.10); White Blood Cell (WBC) Count 7.5 thou/uL (4.8-10.8)
[2017-11-12 14:38] LABS: ALT (SGPT) 15 U/L (8-55); AST (SGOT) 32 U/L (5-34); Albumin 2.8 g/dL (3.4-4.8); Alkaline Phosphatase 107 U/L (40-150); Anion Gap 12 mmol/L (10-20); BUN (Urea Nitrogen) 33 mg/dL (8.4-25.7); Bilirubin, Total 0.3 mg/dL (0.2-1.2); Calc. Creatinine Clearance 131 mL/min (70-130); Calcium 8.7 mg/dL (7.8-10.44); Carbon Dioxide 28 mmol/L (23-31); Chloride 103 mmol/L (98-107); Estimated GFR-MDRD Greater than 90; Globulin 3.7 g/dL (2.4-3.5); Glucose 108 mg/dL (80-115); Potassium 4.2 mmol/L (3.5-5.1); Protein, Total 6.5 g/dL (5.8-8.1); Sodium 139 mmol/L (136-145)
[2017-11-12] MEDS ORDERED: Vancomycin HCl 1 GM in Premix Bag 1 BAG IVPB SCH (20:45)
[2017-11-12] MEDS: Atorvastatin Calcium 40 MG TAB PO SCH (21:43)
[2017-11-12] MEDS: Tamsulosin HCl 0.4 MG CAP PO SCH (21:44)
[2017-11-13] MEDS: Albuterol Sulfate 2.5 mg/3 ml Neb NEB PRN ×2 (00:04→15:44)
[2017-11-13 05:20] LABS: #Eosinphils 0.2 thou/uL (0.0-0.7); #Lymphocytes 1.6 thou/uL (1.20-3.40); #Monocytes 0.6 thou/uL (0.11-0.59); #Neutrophils 4.6 thou/uL (1.40-6.50); %Basophils 0.2 % (0.0-1.0); %Eosinophils 2.4 % (0.0-10.0); %Lymphocytes 22.5 % (21.0-51.0); %Monocytes 8.2 % (0.0-10.0); %Neutrophils 66.7 % (42.0-75.0); Hemoglobin 8.9 g/dL (14.0-18.0); Mean Corpuscular HGB CONC 31.9 g/dL (32.0-36.0); Mean Corpuscular Hemoglobin 27.1 pg (27.0-31.0); Mean Corpuscular Volume 85.2 fl (80.0-94.0); Mean Platelet Volume 7.6 fL (7.4-10.4); Platelet Count 175 thou/uL (130-400); Red Blood Cell (RBC) Count 3.27 mill/uL (4.70-6.10)
[2017-11-13] MEDS: HYDROcodone/Acetaminophen 5/325 mg Tablet PO PRN ×3 (05:53→21:01)
[2017-11-13] MEDS: Mometasone/Formoterol 120 PUFF INHALER INH SCH ×2 (07:11→19:19)
[2017-11-13] MEDS: Albuterol Sulfate 2.5 mg/3 ml Neb NEB SCH ×2 (07:17→19:19)
[2017-11-13] MEDS: Budesonide 0.5 MG/2 ML NEB NEB SCH ×2 (07:18→19:20)
[2017-11-13 08:40] VITALS: BMI 29.5
--- NOTE | 2017-11-13 08:51 | PRG ---
DATE OF SERVICE: 11/13/2017 SUBJECTIVE: The patient had a good night. He was upset because of his breathing treatment schedule. His daughter is at bedside and has numerous concerns to address with the surgeon. The patient had a good night rest. PHYSICAL EXAMINATION: GENERAL: Upon evaluation, he is awake, alert, and oriented to person, place and time. VITAL SIGNS: Blood pressure is 130/60, pulse 80, respirations 18, he is afebrile. NECK: Supple. No increased JVP or carotid bruit. Carotids had good upstroke, no thyromegaly. COR: Regular rhythm. He had a mid chest line incision with dressing. The outside incision is sligh tly red, it is warm to touch. It is tender. ABDOMEN: Soft, nontender. Normal bowel sounds. No bruit or organomegaly. EXTREMITIES: No edema or cyanosis. He had palpable pedal pulses. SKIN: There is no evidence of ulcer, lesion or rash. NEUROLOGIC: He is awake, alert, and oriented to person, place, and time. LABORATORY DATA: H&H 8.9 and 27.9. His platelet count is 160. His BUN and creatinine are normal fr om yesterday. ASSESSMENT: 1. Coronary artery disease status post bypass with postoperative infection, now with a sternal debri mitchell. 2. Cellulitis. 3. Diabetes. 4. Chronic obstructive pulmonary disease. 5. Noncompliance. 6. Postoperative anemia. PLAN: The patient will be continued on antibiotics for now. We will await blood cultures. The tha ent verbalized understanding. All questions answered to his satisfaction.
[2017-11-13] MEDS: cefTRIAXone\\ROCEPHIN 1 GM, Syringe 0.4 ML in Sterile Water 9.6 ML SLOW IVP SCH (09:41)
[2017-11-13] MEDS: FLUoxetine HCl 20 MG CAP PO SCH (09:49)
[2017-11-13] MEDS: Gabapentin 400 MG CAP PO SCH ×3 (09:49→21:00)
[2017-11-13] MEDS: guaiFENesin ER 600 MG TAB PO SCH ×2 (09:49→21:00)
[2017-11-13] MEDS: Allopurinol 300 MG TAB PO SCH (09:50)
[2017-11-13] MEDS: Furosemide 40 MG TAB PO SCH (09:51)
[2017-11-13] MEDS: Carvedilol 25 MG TAB PO SCH ×2 (09:51→21:00)
[2017-11-13] MEDS: Multivitamin W/ Minerals 1 TAB PO SCH (09:52)
[2017-11-13] MEDS: Ferrous Sulfate 325 MG TAB PO SCH (09:52)
[2017-11-13] MEDS: metFORMIN 500 MG TAB PO SCH ×2 (09:52→17:47)
[2017-11-13] MEDS: Vancomycin HCl 1 GM in Premix Bag 1 BAG IVPB SCH ×2 (10:09→21:02)
[2017-11-13] MEDS: Insulin Regular 300 UNITS/3 ML VIAL SC PRN ×2 (12:24→17:49)
--- NOTE | 2017-11-13 13:41 | OP ---
DATE OF PROCEDURE: 11/13/2017 PREOPERATIVE DIAGNOSES: History of sternal wound infection post-CABG. POSTOPERATIVE DIAGNOSES: History of sternal wound infection post-CABG. PROCEDURE: Debridement of sternum with pulsatile irrigation, right pectoralis flap reconstruction on the thoracoacromial pedicle. SURGEON: Conrado Negro M.D. ANESTHESIA: General. COMPLICATIONS: None. DRAINS: ARMANDO drains x2. ESTIMATED BLOOD LOSS: 200 mL. INTRAOPERATIVE FINDINGS: Granulation, no abscess formation. Healthy sternal bone edge following linda ridement. SUMMARY OF OPERATION: The patient in the preoperative area, the operative site was verified, the ope rative plan is reviewed with the patient. The patient has open sternal wound with a VAC in place. T he plan is for surgical debridement and flap reconstruction. He has a history of previous AICD on th e left and the plan is to use the right pectoralis muscle and reconstruction in addition to the debri mitchell. The risks of the surgery including ____ to wound, scarring, contour deformity, need for seco ndary surgeries, hematoma, bleeding may be significant or life threatening. The patient had the oppo rtunity to have all of his questions about the procedure answered. He was then taken to the operatin g room. A formal timeout with verification, sterile prep, drape, and removal of the VAC. The sharp dissection was used to turn the skin edges. Curet was used on the bony edges. Pulsatile irrigation was performed. Bone edges appeared to be healthy and showed good bleeding. The right pectoralis mus john was then elevated with electrocautery including a secondary incision to release the insertion of the pectoralis. The pectoralis was elevated on the thoracoacromial pedicle and inset without tension into the bony defect. Intraoperative Doppler confirmed a good Doppler signal on the flap. The flap was secured with 2-0 and 3-0 Vicryl suture. The ARMANDO drains x2 were employed with the medial drain be ing down to the muscle. The skin was closed in multiple layers including buried Vicryl on the subcut aneous layer and vertical mattress Prolene sutures on the skin with ronda. The patient tolerated t he procedure without complications.
[2017-11-13 19:22] LABS: Vancomycin, Trough 17.8 ug/mL
[2017-11-13] MEDS: Tamsulosin HCl 0.4 MG CAP PO SCH (21:00)
[2017-11-13] MEDS: Atorvastatin Calcium 40 MG TAB PO SCH (21:00)
[2017-11-13] MEDS: diphenhydrAMINE 25 MG CAP PO PRN (21:00)
[2017-11-14] MEDS: HYDROcodone/Acetaminophen 5/325 mg Tablet PO PRN ×3 (01:42→16:01)
[2017-11-14 06:00] LABS: #Basophils 0.1 thou/uL (0.0-0.2); #Eosinphils 0.2 thou/uL (0.0-0.7); #Lymphocytes 1.5 thou/uL (1.20-3.40); #Monocytes 0.5 thou/uL (0.11-0.59); %Basophils 0.7 % (0.0-1.0); %Eosinophils 2.8 % (0.0-10.0); %Lymphocytes 20.4 % (21.0-51.0); %Monocytes 7.1 % (0.0-10.0); Hemoglobin 8.9 g/dL (14.0-18.0); Mean Corpuscular HGB CONC 32.3 g/dL (32.0-36.0); Mean Corpuscular Volume 83.5 fl (80.0-94.0); Mean Platelet Volume 7.6 fL (7.4-10.4); Platelet Count 179 thou/uL (130-400); Red Blood Cell (RBC) Count 3.29 mill/uL (4.70-6.10); White Blood Cell (WBC) Count 7.3 thou/uL (4.8-10.8)
[2017-11-14] MEDS: Albuterol Sulfate 2.5 mg/3 ml Neb NEB SCH (08:04)
[2017-11-14] MEDS: Budesonide 0.5 MG/2 ML NEB NEB SCH (08:06)
[2017-11-14] MEDS: Mometasone/Formoterol 120 PUFF INHALER INH SCH (08:07)
[2017-11-14] MEDS: Vancomycin HCl 1 GM in Premix Bag 1 BAG IVPB SCH (09:18)
[2017-11-14] MEDS: metFORMIN 500 MG TAB PO SCH ×2 (09:19→17:24)
[2017-11-14] MEDS: Multivitamin W/ Minerals 1 TAB PO SCH (09:19)
[2017-11-14] MEDS: Carvedilol 25 MG TAB PO SCH (09:20)
[2017-11-14] MEDS: Ferrous Sulfate 325 MG TAB PO SCH (09:20)
[2017-11-14] MEDS: Furosemide 40 MG TAB PO SCH (09:21)
[2017-11-14] MEDS: Allopurinol 300 MG TAB PO SCH (09:21)
[2017-11-14] MEDS: FLUoxetine HCl 20 MG CAP PO SCH (09:24)
[2017-11-14] MEDS: Gabapentin 400 MG CAP PO SCH ×2 (09:24→16:05)
[2017-11-14] MEDS: cefTRIAXone\\ROCEPHIN 1 GM, Syringe 0.4 ML in Sterile Water 9.6 ML SLOW IVP SCH (09:26)
[2017-11-14] MEDS: guaiFENesin ER 600 MG TAB PO SCH (09:28)
[2017-11-14] MEDS: Insulin Regular 300 UNITS/3 ML VIAL SC PRN (12:15)
[2017-11-14 16:01] VITALS: BP 113/58; TEMP 97.6
[2017-11-14] MEDS: Albuterol Sulfate 2.5 mg/3 ml Neb NEB PRN (16:06)
--- NOTE | 2017-11-15 15:52 | DIS ---
DATE OF ADMISSION: 10/25/2017 DATE OF DISCHARGE: 11/14/2017 PROCEDURES: 1. Sternal debridement with VAC placement. 2. Sternal flap closure by Dr. Conrado Negro. DESCRIPTION OF HOSPITAL STAY: Mr. Montiel was admitted with recurrent sternal wound infection after no t being able to manage his sternal incision at home with a home VAC. He underwent redebridement, rem oval of all sternal wires and VAC placement. After an appropriate time and time with antibiotic cove rage for methicillin sensitive Staph aureus, he was taken to the operating room on 11/13/2017 and und erwent a sternal flap closure. He was discharged to home in good condition and to follow up with mt, Dr. Negro and Dr. Teresa.
--- NOTE | 2017-11-19 11:35 | EKG ---
Test Reason : Blood Pressure : / mmHG Vent. Rate : 078 BPM Atrial Rate : 078 BPM P-R Int : 138 ms QRS Dur : 090 ms QT Int : 364 ms P-R-T Axes : 060 028 176 degrees QTc Int : 414 ms Normal sinus rhythm T wave abnormality, consider lateral ischemia Abnormal ECG When compared with ECG of 04-OCT-2017 12:00, (Unconfirmed) No significant change was found Confirmed by NADEEM SEARS M.D. ([id number]) on 11/19/2017 11:34:16 AM Referred By: Qian HAMLIN Confirmed By:NADEEM SEARS M.D.
== END 2017-11-14 18:38 | disposition home or self-care (01) | DRG 857 ==
LOC: 2NO 14:41 → CCU 11-08 16:51 → 2NO 11-10 11:50
PROVIDERS: ADMIT Thoracic Surgery (Cardiothoracic Vascular Surgery); ATTEND Thoracic Surgery (Cardiothoracic Vascular Surgery)
PROC: 0PB00ZZ Excision of Sternum, Open Approach (ICD-10-PCS; 2017-10-26)
PROC: 0JB60ZZ Excision of Chest Subcutaneous Tissue and Fascia, Open Approach (ICD-10-PCS; 2017-10-26)
PROC: 0KXH0ZZ Transfer Right Thorax Muscle, Open Approach (ICD-10-PCS; principal; 2017-11-08)
PROC: 0PD00ZZ Extraction of Sternum, Open Approach (ICD-10-PCS; 2017-11-08)
DX: T81.4XXA Infection following a procedure, initial encounter (principal); D62 Acute posthemorrhagic anemia; E11.42 Type 2 diabetes mellitus with diabetic polyneuropathy; E11.69 Type 2 diabetes mellitus with other specified complication; I11.0 Hypertensive heart disease with heart failure; I50.9 Heart failure, unspecified; B95.61 Methicillin susceptible Staphylococcus aureus infection as the cause of diseases classified elsewhere; E78.5 Hyperlipidemia, unspecified; F41.9 Anxiety disorder, unspecified; I25.10 Atherosclerotic heart disease of native coronary artery without angina pectoris; J44.9 Chronic obstructive pulmonary disease, unspecified; F32.9 Major depressive disorder, single episode, unspecified; K21.9 Gastro-esophageal reflux disease without esophagitis; Z95.1 Presence of aortocoronary bypass graft; Z91.19 Patient's noncompliance with other medical treatment and regimen; Z87.891 Personal history of nicotine dependence; Z79.84 Long term (current) use of oral hypoglycemic drugs; Z79.82 Long term (current) use of aspirin; Z79.899 Other long term (current) drug therapy; Y83.2 Surgical operation with anastomosis, bypass or graft as the cause of abnormal reaction of the patient, or of later complication, without mention of misadventure at the time of the procedure
CPT/HCPCS: 36415; 36416; 36430; 71046; 80048; 80053; 80202; 85025; 86850; 86900; 86901; 87040; 87070; 87077; 87186; 87205; 93005; 93010; 93798; 94640; 94664; 94760; 97602; A4216; A4218; G8978-GP-CJ; G8979-GP-CI; J0171; J0696; J1815; J2001; J2250; J2270; J2405; J2543; J2704; J3010; J3370; J7050; J7611; J7626; P9016

== ENCOUNTER 2018-02-06 12:48 | Outpatient (CLI) | payer MEDICARE ==
--- NOTE | 2018-02-06 13:11 | RAD ---
TWO VIEWS CHEST: History: Dyspnea. Comparison: 10-25-17 FINDINGS: PA and lateral views of the chest were obtained and demonstrate anterior cardiac pacing device seen. Much of the sternotomy wires have been removed over the mid and lower sternal region. A single upper sternal wire remains. No evidence of effusions seen. No evidence of pneumothorax seen. IMPRESSION: Surgical removal of much of the sternum and sternal wires. POS: [facility]
== END 2018-02-06 12:49 | disposition home or self-care (01) ==
LOC: RAD 12:48
PROVIDERS: ATTEND Internal Medicine Critical Care Medicine
DX: R06.00 Dyspnea, unspecified (principal); Z98.890 Other specified postprocedural states
CPT/HCPCS: 71046

== ENCOUNTER 2018-05-21 04:37 | Inpatient (IN) | payer MEDICARE ==
[2018-05-21 06:01] LABS: Bilirubin Negative (Negative); Blood, Urine Negative (Negative); Clarity CLEAR (Clear); Glucose, Urine (Dipstick) Negative (Negative); Leukocyte Negative (Negative); Nitrite Negative (Negative); Protein, Urine (Dipstick) Negative (Neg-Trace); Specific Gravity, Urine 1.015 (1.002-1.036)
[2018-05-21 06:08] LABS: Hemoglobin 10.8 g/dL (14.0-18.0); Mean Corpuscular HGB CONC 29.6 g/dL (32.0-36.0); Mean Corpuscular Hemoglobin 24.7 pg (27.0-31.0); Mean Corpuscular Volume 83.4 fL (78.0-98.0); RBC Distribution Width 22.4 % (11.5-14.5); Red Blood Cell (RBC) Count 4.37 mill/uL (4.70-6.10)
[2018-05-21] MEDS ORDERED: Morphine 4 MG/ML VIAL ONE (06:19)
[2018-05-21 06:21] LABS: ALT (SGPT) 9 U/L (8-55); AST (SGOT) 26 U/L (5-34); Albumin 3.7 g/dL (3.4-4.8); Alkaline Phosphatase 137 U/L (40-150); Anion Gap 16 mmol/L (10-20); BUN (Urea Nitrogen) 45 mg/dL (8.4-25.7); Calc. Creatinine Clearance 0 mL/min (70-130); Carbon Dioxide 28 mmol/L (23-31); Chloride 102 mmol/L (98-107); Estimated GFR-MDRD 36; Globulin 3.7 g/dL (2.4-3.5); Glucose 113 mg/dL (80-115); Lipase 79 U/L (8-78); Magnesium 2.2 mg/dL (1.6-2.6); Potassium 5.1 mmol/L (3.5-5.1); Protein, Total 7.4 g/dL (5.8-8.1); Sodium 141 mmol/L (136-145)
[2018-05-21 06:25] LABS: CKMB 1.8 ng/mL (0-6.6); Troponin I Less than 0.010 ng/mL (< 0.028)
[2018-05-21 06:29] LABS: #Basophils 0.1 thou/uL (0.0-0.2); #Eosinphils 0.2 thou/uL (0.0-0.7); #Lymphocytes 1.5 thou/uL (1.20-3.40); #Monocytes 0.5 thou/uL (0.11-0.59); #Neutrophils 3.7 thou/uL (1.40-6.50); %Basophils 1.1 % (0.0-1.0); %Eosinophils 3.5 % (0.0-10.0); %Monocytes 8.8 % (0.0-10.0); %Neutrophils 61.7 % (42.0-75.0); Anisocytosis SLIGHT = 6-15 cells (100X) (0-5/hpf); Elliptocytes SLIGHT = 2-5 cells (100X) (0-1/hpf); MDiff Complete? YES; Mean Platelet Volume 6.8 fL (7.4-10.4); PLT Morphology Comment Appears Decreased; Platelet Count 97 thou/uL (130-400); Tear Drops SLIGHT = 2-5 cells (100X) (0-1/hpf)
[2018-05-21] MEDS ORDERED: Colchicine 0.6 MG TAB PO SCH ×2 (06:30→11:30)
[2018-05-21] MEDS ORDERED: Furosemide 40 MG/4 ML VIAL ONE (06:43)
[2018-05-21] MEDS ORDERED: Enoxaparin Sodium 100 MG/ML SYRINGE ONE (07:14)
--- NOTE | 2018-05-21 08:47 | RAD ---
PORTABLE CHEST 1 VIEW: DATE: 05/04/2018. TIME: 4:22 a.m. HISTORY: Chest pain. FINDINGS/IMPRESSION: Comparison is made with the exam of 02/06/2018. Changes of median sternotomy are again seen. A left-sided pacing device remains in place. The heart size is borderline. The lungs are expanded without lobar consolidation, pneumothoraces, carlos pulmo nary edema, or large effusions. POS: [facility]
[2018-05-21 10:15] LABS: Troponin I Less than 0.010 ng/mL (< 0.028)
[2018-05-21] MEDS ORDERED: CONFIRM ALL DAY 1 DOSES ARE TIMED FOR DAY 1 FS SCH (11:30)
[2018-05-21 12:07] LABS: Hemoglobin A1c 6.4 % (4.0-6.0)
[2018-05-21] MEDS: Furosemide 40 MG/4 ML VIAL SLOW IVP SCH ×2 (12:29→14:56)
[2018-05-21] MEDS: methylPREDNISolone 4 mg Tablet PO SCH ×3 (12:30→20:51)
[2018-05-21] MEDS: Acetaminophen 325 MG TAB PO PRN ×2 (12:30→16:57)
[2018-05-21 12:34] LABS: Troponin I 0.014 ng/mL (< 0.028)
--- NOTE | 2018-05-21 13:01 | NM ---
VQ SCAN: HISTORY: Chest pain. TECHNIQUE: A ventilation perfusion scan was performed using 11.4 mCi Xenon 133 by inhalation for the ventilation study followed by the intravenous administration of 6.1 mCi Technetium 99m-MAA for the perfusion exa m. FINDINGS: Correlation is made with the chest radiograph of the same date. There is inhomogeneity and tracer distribution in the lungs on the perfusion scan. The ventilation s tudy demonstrates good tracer distribution bilaterally with tracer retention on the washout phase see n indicating COD. No mismatched pleural-based wedge-shaped subsegmental or segmental perfusion defec ts are seen. IMPRESSION: Low probability for pulmonary embolism. POS: [facility]
[2018-05-21 13:20] VITALS: BMI 30.2
[2018-05-21] MEDS: Potassium Chloride 20 MEQ TAB PO SCH (18:32)
[2018-05-21] MEDS: metFORMIN 500 MG TAB PO SCH (18:32)
[2018-05-21] MEDS: Carvedilol 6.25 MG TAB PO SCH (20:51)
--- NOTE | 2018-05-22 05:14 | HP ---
DATE OF ADMISSION: 05/21/2018 CHIEF COMPLAINT ON ADMISSION: Dyspnea and exacerbation of CHF. HISTORY OF PRESENT ILLNESS: The patient is a 62-year-old male who on this last year's had coronary artery bypass graft surgery with insertion of pacemaker/ICD and is known to have been extremely noncompliant. His sternal wound dehisced due to the licking of the wound by his dog. This is finally healed by secondary intention. What led the patient in today was the tenderness in his right foot. He has been having what he calls a gout attack despite taking allopurinol for several days (whether he actually has been taking his allopurinol is questionable) but his foot hurts so he came to the emergency room. While in the ER, he complained about his chest pain, it is epigastric pain, has shoulder pain for 2 years and finally it was noted that he has been short-winded even while, especially while lying down or walking. In the midst of his workup, a BNP was found to have a 1400 level that in the past have been nearly 200. Review of echocardiogram done in 06/[address] Krishnan showed an ejection fraction of 20%-25% which may have significantly worsened and probably due to the patient's noncompliance with his medication. He has not followed up with Dr. Teresa since his last discharge despite Dr. Teresa urging him to keep his followup appointments. He rates his pain at 4/10. The symptoms are constant over time and not relieved by anything.. PAST MEDICAL HISTORY: Includes gastrointestinal disease, i.e., GERD, and pancreatitis, hyperlipidemia, hypertension, COPD, atrial fibrillation, implantation of defibrillator, coronary artery bypass graft surgery in 2016 followed by surgical clean out of wound dehiscence, wound VAC in place until 09/2017. He has had a cardiac stent placed. He has had right foot surgery and hernia repair. Non-insulin dependent diabetes and depression. Some mild diabetic neuropathy for which he takes the gabapentin. PSYCHIATRIC HISTORY: Includes depression. SOCIAL HISTORY: He is . Former smoker. He quit less than 10 years ago. FAMILY HISTORY: Noncontributory. ALLERGIES: He has no known drug allergies. CURRENT MEDICATIONS: His current medications on admission include Neurontin 800 mg t.i.d., albuterol 2.5 mg use p.r.n., metformin 1000 mg b.i.d. His other medicines include carvedilol 12.5 mg b.i.d., Prozac 60 mg q. day, Lasix 40 mg q. day, Symbicort 160 mcg 2 puffs b.i.d. and he uses 1 puff occasionally, simvastatin 10 mg at bedtime, colchicine 0.6 mg p.r.n. for acute gout attack and aspirin 81 mg a day. REVIEW OF SYSTEMS: Constitutional: He denies fever, chills or skin rashes. He admits to general malaise. HEENT: Denies pain in his eyes, ears, nose. No sores, lesions or discharge. Cardiovascular: He has reports of chest pain centrally where his incision has, but denies palpitations. Respiratory: He reports shortness of breath with minimal exertion. Denies cough. Gastrointestinal: Reports generalized abdominal pain, but denies diarrhea, nausea, vomiting. Musculoskeletal: He has diffuse arthralgias in all of his major joints, but no new acute swelling or edema or inflammation. Genitourinary : Denies pain with urination, no urinary frequency or urgency. No blood in urine or stool. Skin: No rashes or lesions. Neurologic: Denies headaches, paresthesias, hypesthesias. Endocrine: Denies any areas of swelling or edema. PHYSICAL EXAMINATION: VITAL SIGNS: At the time of admission, blood pressure 129/89, pulse 78, respirations 20, temperature 97.7 with foot pain at a 4/10, O2 sat 97% on room air. GENERAL: This is a well-developed, mildly obese elderly male, alert, oriented, and cooperative and he is in no acute distress. HEENT: Normocephalic and atraumatic. Pupils equal, round, and reactive to light. Extraocular muscles are intact. Arcus senilis noted. TMs, nares, pharynx are clear. NECK: Supple, trachea midline, no bruit, no mass. CHEST: With generally diminished breath sounds, but no rales or rhonchi. Chest with well-healed midline scar from secondary intention. HEART: Regular rate and rhythm, no murmur. ABDOMEN: Soft, without organomegaly, nontender to exam. GENITOURINARY: Deferred. EXTREMITIES: Without clubbing, cyanosis, or edema. Normal range of motion demonstrated he has symmetrical muscular wasting is noted. SKIN: With normal turgor. No new rashes or lesions. EXTREMITIES: Without clubbing, cyanosis, or edema. No acute redness, erythema. There is some mild tenderness at the right ankle. NEUROLOGIC: Cranial nerves are intact. Gait and cerebellar function untested. Sensory exam is intact. Mental status is at baseline, nonfocal. LABORATORY WORK: EKG shows normal sinus rhythm at a rate of 81 beats per minute. [place] is normal. Prolonged QT, low voltage QRS. The chest x-ray shows no acute findings. The VQ scan shows low probability for PE. WBC 6.0, hemoglobin 10.8, hematocrit 36.4, platelets at 97. D-dimer 1.1. Chemistry: Sodium is 141, potassium 5.1, chloride 102, CO2 of 28, BUN 45, creatinine 1.89, GFR of 36, glucose of 113. Hemoglobin A1c 6.4, magnesium 2.2. Liver functions normal. CK-MB with cardiac enzymes are all normal. His BNP is noted to be elevated at 1418. ASSESSMENT: 1. Congestive heart failure, acute on chronic. 2. Coronary artery disease. 3. Chronic obstructive pulmonary disease. 4. General medical noncompliance. 5. Non-insulin dependent diabetes. PLAN: The plan will be to diurese him. Repeat echocardiogram to see if there is any worsening of his ejection fraction and serially reevaluate him. GARRYD
[2018-05-22 05:29] LABS: Anion Gap 17 mmol/L (10-20); BUN (Urea Nitrogen) 42 mg/dL (8.4-25.7); Calc. Creatinine Clearance 76 mL/min (70-130); Calcium 8.8 mg/dL (7.8-10.44); Carbon Dioxide 28 mmol/L (23-31); Chloride 99 mmol/L (98-107); Estimated GFR-MDRD 51; Glucose 209 mg/dL (80-115); Potassium 4.8 mmol/L (3.5-5.1); Sodium 139 mmol/L (136-145)
[2018-05-22] MEDS: Furosemide 40 MG/4 ML VIAL SLOW IVP SCH ×2 (07:39→13:50)
[2018-05-22] MEDS: FLUoxetine HCl 20 MG CAP PO SCH (09:29)
[2018-05-22] MEDS: Insulin Regular 300 UNITS/3 ML VIAL SC PRN ×3 (09:29→21:25)
[2018-05-22] MEDS: Aspirin 81 mg Enteric Coated Tablet PO SCH (09:30)
[2018-05-22] MEDS: Gabapentin 400 MG CAP PO SCH (09:30)
[2018-05-22] MEDS: Multivit, Therapeutic 1 TAB PO SCH (09:30)
[2018-05-22] MEDS: Carvedilol 6.25 MG TAB PO SCH ×2 (09:30→21:24)
[2018-05-22] MEDS: Allopurinol 300 MG TAB PO SCH (09:30)
[2018-05-22] MEDS: methylPREDNISolone 4 mg Tablet PO SCH ×3 (09:31→17:31)
[2018-05-22] MEDS: Potassium Chloride 20 MEQ TAB PO SCH ×2 (09:31→17:32)
[2018-05-22] MEDS: metFORMIN 500 MG TAB PO SCH ×2 (09:31→17:32)
--- NOTE | 2018-05-22 14:06 | CON ---
DATE OF CONSULTATION: 05/22/2018 REASON FOR CONSULTATION: Congestive heart failure, systolic, acute on chronic. HISTORY OF PRESENT ILLNESS: Mr. Robert Montiel is a 62-year-old gentleman. He has a history of severe coronary artery disease. He had congestive heart failure prior to bypass surgery, but ultimately, w as able to undergo cardiac catheterization and found to have 3-vessel coronary disease and underwent bypass surgery, June 2017, bypass x4; internal mammary to the LAD, good conduit with small hvac estimator iorly plaqued target; saphenous vein graft to diagonal; saphenous vein graft to obtuse marginal, good conduit, diffusely diseased target; saphenous vein graft to the posterolateral branch of the right c oronary, good conduit, small target. The patient did have a postoperative wound infection, but that was treated and he recovered. The patient states he has felt short of breath for several months. Finally, worsened, came to the em ergency room and was admitted for congestive heart failure. No chest pain or pressure. PAST MEDICAL HISTORY: Includes, 1. Hypertension. 2. Hyperlipidemia. 3. Esophageal reflux. 4. Pancreatitis. 5. Chronic obstructive pulmonary disease. 6. Previous defibrillator. 7. Diabetes. PSYCHIATRIC HISTORY: Depression. SOCIAL HISTORY: Former smoker, quit less than 10 years ago. FAMILY HISTORY: Noncontributory. ALLERGIES: No known allergies. He said AMRIT inhibitors did make him cough. MEDICATIONS: 1. Neurontin. 2. Albuterol. 3. Metformin. 4. Carvedilol. 5. Prozac. 6. Lasix. 7. Symbicort. 8. Colchicine. REVIEW OF SYSTEMS: Constitutional: No significant weight gain or loss. Vision: No changes. Heari ng: No changes. Pulmonary: No cough or wheezing. Gastrointestinal: No nausea, vomiting, or diarr hea. Skin: No rashes. Neurologic: No unilateral weakness or numbness. PHYSICAL EXAMINATION: GENERAL: On examination, this is a pleasant 62-year-old man resting comfortably in no distress. VITAL SIGNS: Blood pressure 124/74, pulse 72 and regular. LUNGS: Clear. CARDIAC: Normal S1 and normal S2. ABDOMEN: Soft and nontender. He is obese. EXTREMITIES: No clubbing or cyanosis. Only mild edema. SKIN: Warm and dry. PERTINENT LABORATORY AND X-RAY FINDINGS: Hemoglobin is 10.8, hematocrit 36.4, creatinine is 1.41. E KG shows sinus rhythm. ASSESSMENT: 1. Congestive heart failure, systolic, acute on chronic. Ejection fraction presently is 20%-25% wit h inferior-posterior akinesis with thinning compatible with old inferior myocardial infarction. 2. Renal insufficiency, stage 2. 3. Diabetes. 4. Hypercholesterolemia, on very low dose statin. 5. Anemia. PLAN: 1. Check iron levels. 2. Start Entresto. Hopefully, can afford the medicine. They may be very beneficial for him with re fractory heart failure. This medicine has been shown to reduce risk of rehospitalization. Continue intravenous diuretics for now. 3. Base met tomorrow. We will follow with you.
[2018-05-22] MEDS: Acetaminophen 325 MG TAB PO PRN ×2 (17:32→21:24)
[2018-05-22] MEDS ORDERED: methylPREDNISolone 4 mg Tablet PO SCH (21:00)
[2018-05-22] MEDS: Sacubitril 24.5 MG/Valsartan 25.5 MG TABLET PO SCH (21:50)
[2018-05-23 05:15] LABS: Iron 34 ug/dL (65-175); Iron Binding Capacity, Total 346 mcg/dL (261-462)
[2018-05-23 05:19] LABS: Anion Gap 15 mmol/L (10-20); BUN (Urea Nitrogen) 43 mg/dL (8.4-25.7); Calc. Creatinine Clearance 82 mL/min (70-130); Calcium 9.1 mg/dL (7.8-10.44); Carbon Dioxide 29 mmol/L (23-31); Chloride 98 mmol/L (98-107); Estimated GFR-MDRD 57; Glucose 150 mg/dL (80-115); Iron 33 ug/dL (65-175); Potassium 4.9 mmol/L (3.5-5.1); Sodium 137 mmol/L (136-145)
[2018-05-23] MEDS: Furosemide 40 MG/4 ML VIAL SLOW IVP SCH ×2 (05:21→13:55)
[2018-05-23] MEDS ORDERED: Furosemide 40 MG/4 ML VIAL SLOW IVP SCH ×2 (08:00→13:20)
[2018-05-23] MEDS: methylPREDNISolone 4 mg Tablet PO SCH ×4 (09:57→21:03)
[2018-05-23] MEDS: Carvedilol 6.25 MG TAB PO SCH ×2 (09:58→21:02)
[2018-05-23] MEDS: metFORMIN 500 MG TAB PO SCH ×2 (09:58→16:55)
[2018-05-23] MEDS: Multivit, Therapeutic 1 TAB PO SCH (09:58)
[2018-05-23] MEDS: Allopurinol 300 MG TAB PO SCH (09:58)
[2018-05-23] MEDS: Gabapentin 400 MG CAP PO SCH (09:58)
[2018-05-23] MEDS: Aspirin 81 mg Enteric Coated Tablet PO SCH (09:59)
[2018-05-23] MEDS: Potassium Chloride 20 MEQ TAB PO SCH ×2 (09:59→16:57)
[2018-05-23] MEDS: Sacubitril 24.5 MG/Valsartan 25.5 MG TABLET PO SCH ×2 (09:59→22:15)
[2018-05-23] MEDS: FLUoxetine HCl 20 MG CAP PO SCH (09:59)
[2018-05-23] MEDS: Insulin Regular 300 UNITS/3 ML VIAL SC PRN ×2 (12:08→16:59)
--- NOTE | 2018-05-23 14:06 | PRG ---
DATE OF SERVICE: 05/23/2018 Mr. Montiel feels much better today. He is breathing much better. He had a very good diuresis yesterday. PHYSICAL EXAMINATION: VITAL SIGNS: Blood pressure 129/58, pulse 84 regular. LUNGS: Clear. CARDIAC: Normal S1, normal S2. ASSESSMENT: 1. Congestive heart failure, systolic, acute on chronic, markedly improved. 2. He had an episode of gout yesterday, probably related to diuresis. PLAN: 1. Reduce furosemide to 20 mg intravenously twice a day. 2. He is also iron deficient, we will give him iron. 3. Discussed having colonoscopy. He said he cannot afford that, it cost $400 as an outpatient, says he cannot afford it. 4. [facility]. The patient is clinically improved.
[2018-05-23] MEDS: Iron, Sodium Ferric Gluconate 250 MG in Sodium Chloride 0.9% 100 ML IVPB SCH ×2 (16:44→22:16)
[2018-05-24] MEDS ORDERED: Iron, Sodium Ferric Gluconate 250 MG in Sodium Chloride 0.9% 100 ML IVPB SCH (04:00)
[2018-05-24] MEDS: Furosemide 40 MG/4 ML VIAL SLOW IVP SCH ×2 (05:11→13:01)
[2018-05-24 05:30] LABS: Anion Gap 14 mmol/L (10-20); BUN (Urea Nitrogen) 43 mg/dL (8.4-25.7); Calc. Creatinine Clearance 93 mL/min (70-130); Calcium 9.2 mg/dL (7.8-10.44); Carbon Dioxide 29 mmol/L (23-31); Chloride 98 mmol/L (98-107); Estimated GFR-MDRD 67; Glucose 180 mg/dL (80-115); Potassium 4.6 mmol/L (3.5-5.1); Sodium 136 mmol/L (136-145)
[2018-05-24] MEDS: Sacubitril 24.5 MG/Valsartan 25.5 MG TABLET PO SCH (08:21)
[2018-05-24] MEDS: Potassium Chloride 20 MEQ TAB PO SCH (08:21)
[2018-05-24] MEDS: FLUoxetine HCl 20 MG CAP PO SCH (08:22)
[2018-05-24] MEDS: metFORMIN 500 MG TAB PO SCH (08:22)
[2018-05-24] MEDS: Carvedilol 6.25 MG TAB PO SCH (08:22)
[2018-05-24] MEDS: Multivit, Therapeutic 1 TAB PO SCH (08:22)
[2018-05-24] MEDS: Gabapentin 400 MG CAP PO SCH (08:22)
[2018-05-24] MEDS: Allopurinol 300 MG TAB PO SCH (08:22)
[2018-05-24] MEDS: Aspirin 81 mg Enteric Coated Tablet PO SCH (08:23)
[2018-05-24] MEDS: methylPREDNISolone 4 mg Tablet PO SCH ×2 (08:23→11:12)
[2018-05-24 11:34] VITALS: BP 119/75; TEMP 97.5
--- NOTE | 2018-05-24 14:20 | PRG ---
DATE OF SERVICE: 05/24/2018 Mr. Montiel is feeling much better. His breathing has dramatically improved. No chest pain or pressure. PHYSICAL EXAMINATION: VITAL SIGNS: Blood pressure 119/75, pulse 77, sinus on the monitor. LUNGS: Clear. CARDIAC: Normal S1, normal S2. ABDOMEN: Soft, nontender. EXTREMITIES: There is no edema. ASSESSMENT: 1. Congestive heart failure, systolic, acute on chronic, dramatically improved. 2. Previous bypass surgery. 3. Iron deficiency anemia, only mildly anemic, but he is relatively severely iron deficient with a f erritin level 46.99, iron level 33. PLAN: 1. Home on Entresto twice a day. Dose to be increased as an outpatient as tolerated. 2. Furosemide 40 mg twice a day. 3. Potassium 20 mEq twice a day. 4. No AMRIT inhibitors. 5. Coreg 12.5 mg twice a day. 6. I reviewed the records, there is some note about atrial fibrillation in the chart, I do not see a ny evidence of atrial fibrillation. It is possibly he had some early postoperatively after his previ ous surgery, but I do not see documentation of that. In addition, anticoagulation would be contraind icated in a patient with iron deficiency anemia of uncertain etiology, likely gastrointestinal blood loss. He has been advised to undergo an endoscopy, anticoagulation contraindicated at the present ti me. There has been no evidence of atrial fibrillation during this admission or from what I can tell any recent admissions.
--- NOTE | 2018-05-24 18:28 | PRG ---
DATE OF SERVICE: 05/24/2018 SUBJECTIVE: Mr. Montiel feels dramatically better today. No chest pain or pressure. No tightness. H e has a good diuresis. OBJECTIVE: VITAL SIGNS: Blood pressure 119/75, pulse 77 and regular. LUNGS: Clear. CARDIAC: Normal S1, normal S2. ABDOMEN: Soft, nontender. EXTREMITIES: There is no edema. PERTINENT LABORATORIES: Hemoglobin is 10.8. His creatinine is 1.11. ASSESSMENT: 1. Congestive heart failure, systolic, acute on chronic, dramatically improved. 2. Iron deficiency anemia with very low iron levels of 33 and 34 and very low ferritin levels of 46. 99. He received intravenous iron during this admission. PLAN: 1. To go home on Entresto twice a day, hopefully dose can be increased to intermediate in the high doses as an outpatient. 2. Furosemide 40 mg twice a day. 3. He is also on potassium. 4. He is also on aspirin. 5. I do not see that he is on a statin that will need to be resumed as an outpatient. The patient r esponded very well to the Entresto and hopefully can afford this. He is concerned he may not be able to. He is also on Carvedilol 12.5 mg twice a day.
[2018-05-25] MEDS ORDERED: methylPREDNISolone 4 mg Tablet PO SCH (08:00)
[2018-05-25] MEDS ORDERED: Furosemide 40 MG TAB PO SCH (09:00)
--- NOTE | 2018-05-25 23:28 | EKG ---
Test Reason : CP Blood Pressure : / mmHG Vent. Rate : 081 BPM Atrial Rate : 081 BPM P-R Int : 178 ms QRS Dur : 098 ms QT Int : 416 ms P-R-T Axes : 066 054 171 degrees QTc Int : 483 ms Normal sinus rhythm Low voltage QRS Nonspecific T wave abnormality Prolonged QT Abnormal ECG Confirmed by THAO HOPKINS ([id number]), make up editor HANNAH MARX ([id number]) on 05/25/2018 11:28:31 PM Referred By: Confirmed By:THAO HOPKINS
[2018-05-26] MEDS ORDERED: methylPREDNISolone 4 mg Tablet PO SCH (08:00)
== END 2018-05-24 14:40 | disposition home or self-care (01) | DRG 293 ==
LOC: ERS 04:37 → 2NO 07:27
PROVIDERS: ADMIT Specialist; ATTEND Specialist
DX: I11.0 Hypertensive heart disease with heart failure (principal); Z95.1 Presence of aortocoronary bypass graft; I50.23 Acute on chronic systolic (congestive) heart failure; Z95.810 Presence of automatic (implantable) cardiac defibrillator; Z91.14 Patient's other noncompliance with medication regimen; K21.9 Gastro-esophageal reflux disease without esophagitis; E78.5 Hyperlipidemia, unspecified; J44.9 Chronic obstructive pulmonary disease, unspecified; Z95.5 Presence of coronary angioplasty implant and graft; F32.9 Major depressive disorder, single episode, unspecified; E11.40 Type 2 diabetes mellitus with diabetic neuropathy, unspecified; Z87.891 Personal history of nicotine dependence; Z79.84 Long term (current) use of oral hypoglycemic drugs; Z79.82 Long term (current) use of aspirin; M10.9 Gout, unspecified; I25.10 Atherosclerotic heart disease of native coronary artery without angina pectoris; D50.9 Iron deficiency anemia, unspecified; E78.00 Pure hypercholesterolemia, unspecified
CPT/HCPCS: 36415; 36416; 71045; 78582; 80048; 80053; 81003; 82553; 82728; 83036; 83540; 83550; 83690; 83735; 83880; 84484; 84550; 85025; 85379; 93005; 93306; 93798; 94060; 94640; 94727; 94760; 96372; 96374; 96375; A9540; A9558; J1650; J1815; J1940; J2270; J2916; J7050; J7620

== ENCOUNTER 2018-08-09 17:59 | Emergency (ER) | payer MEDICARE ==
[2018-08-09 18:34] LABS: #Eosinphils 0.2 thou/uL (0.0-0.7); #Lymphocytes 1.1 thou/uL (1.20-3.40); #Monocytes 0.5 thou/uL (0.11-0.59); #Neutrophils 5.5 thou/uL (1.40-6.50); %Basophils 0.6 % (0.0-1.0); %Eosinophils 2.8 % (0.0-10.0); %Lymphocytes 14.8 % (21.0-51.0); %Monocytes 7.3 % (0.0-10.0); %Neutrophils 74.6 % (42.0-75.0); Hemoglobin 11.7 g/dL (14.0-18.0); Mean Corpuscular HGB CONC 32.4 g/dL (32.0-36.0); Mean Corpuscular Hemoglobin 30.9 pg (27.0-31.0); Mean Corpuscular Volume 95.3 fL (78.0-98.0); Mean Platelet Volume 10.2 fL (7.4-10.4); Platelet Count 120 thou/uL (130-400); RBC Distribution Width 20.7 % (11.5-14.5); Red Blood Cell (RBC) Count 3.79 mill/uL (4.70-6.10); White Blood Cell (WBC) Count 7.3 thou/uL (4.8-10.8)
[2018-08-09 18:50] LABS: ALT (SGPT) 9 U/L (8-55); AST (SGOT) 16 U/L (5-34); Albumin 4.5 g/dL (3.4-4.8); Alkaline Phosphatase 104 U/L (40-150); Anion Gap 17 mmol/L (10-20); BUN (Urea Nitrogen) 33 mg/dL (8.4-25.7); Bilirubin, Total 1.3 mg/dL (0.2-1.2); Calc. Creatinine Clearance 0 mL/min (70-130); Calcium 9.5 mg/dL (7.8-10.44); Carbon Dioxide 24 mmol/L (23-31); Chloride 104 mmol/L (98-107); Estimated GFR-MDRD 62; Globulin 3.1 g/dL (2.4-3.5); Glucose 92 mg/dL (80-115); Potassium 4.5 mmol/L (3.5-5.1); Protein, Total 7.6 g/dL (5.8-8.1); Sodium 140 mmol/L (136-145)
--- NOTE | 2018-08-09 19:28 | RAD ---
TWO VIEWS CHEST 08/09/18 PROVIDED CLINICAL HISTORY: Cough. FINDINGS: Comparison 02/06/18. The cardiac silhouette is stable in appearance. Median sternotomy changes and left subclavian cardiac pacing device are redemonstrated. No focal consolidation, pleural fluid or pneumothorax apparent. IMPRESSION: No evidence for an acute cardiopulmonary process. POS: JENNA
[2018-08-09] MEDS ORDERED: Ketorolac Tromethamine 30 MG/ML VIAL ONE (19:41)
== END 2018-08-09 19:52 | disposition home or self-care (01) ==
LOC: ERS 17:59
DX: J20.9 Acute bronchitis, unspecified (principal); R07.89 Other chest pain; E11.9 Type 2 diabetes mellitus without complications; E78.5 Hyperlipidemia, unspecified; I10 Essential (primary) hypertension; J44.9 Chronic obstructive pulmonary disease, unspecified; I48.91 Unspecified atrial fibrillation; F32.9 Major depressive disorder, single episode, unspecified; Z87.891 Personal history of nicotine dependence
CPT/HCPCS: 36415; 71046; 80053; 85025; 93005; 96372; J1885

== ENCOUNTER 2018-12-19 02:03 | Inpatient (IN) | payer MEDICARE ==
[2018-12-19 02:44] LABS: Mean Corpuscular Hemoglobin 33.1 pg (27.0-31.0); Mean Corpuscular Volume 97.5 fL (78.0-98.0); RBC Distribution Width 18.2 % (11.5-14.5); Red Blood Cell (RBC) Count 4.54 mill/uL (4.70-6.10); White Blood Cell (WBC) Count 8.8 thou/uL (4.8-10.8)
[2018-12-19] MEDS ORDERED: Ondansetron PF 4 MG/2 ML Vial ONE ×2 (02:47→04:27)
[2018-12-19 02:52] LABS: ALT (SGPT) 22 U/L (8-55); AST (SGOT) 39 U/L (5-34); Alkaline Phosphatase 217 U/L (40-150); Anion Gap 28 mmol/L (10-20); BUN (Urea Nitrogen) 62 mg/dL (8.4-25.7); Bilirubin, Total 2.7 mg/dL (0.2-1.2); Calc. Creatinine Clearance 0 mL/min (70-130); Calcium 9.3 mg/dL (7.8-10.44); Carbon Dioxide 15 mmol/L (23-31); Chloride 97 mmol/L (98-107); Estimated GFR-MDRD 18; Globulin 3.4 g/dL (2.4-3.5); Glucose 82 mg/dL (80-115); Lipase 64 U/L (8-78); Protein, Total 7.4 g/dL (5.8-8.1); Sodium 132 mmol/L (136-145)
[2018-12-19 02:58] LABS: Band 5 % (5-11); Lymphocytes 15 % (21-51); MDiff Complete? YES; Mean Platelet Volume 10.6 fL (7.4-10.4); Monocytes 7 % (0-10); Neutrophil 73 % (42-75); Platelet Count 67 thou/uL (130-400); Platelet Morphology Comment Appears Decreased; Tear Drops SLIGHT = 2-5 cells (100X) (0-1/hpf)
[2018-12-19] MEDS ORDERED: Dicyclomine 20 MG TAB ONE (02:58)
[2018-12-19] MEDS ORDERED: Calcium Gluc 4.6 MEQ/10 ML (100 MG/ML) ONE (03:07)
[2018-12-19 03:11] LABS: Potassium 8.1 mmol/L (3.5-5.1)
[2018-12-19 03:24] LABS: CKMB 4.2 ng/mL (0-6.6)
[2018-12-19 03:52] LABS: Potassium 7.4 mmol/L (3.5-5.1)
[2018-12-19] MEDS ORDERED: Insulin Regular 300 UNITS/3 ML VIAL ONE ×2 (04:12→04:15)
[2018-12-19] MEDS ORDERED: Dextrose 50% Abboject 50 ML SYRINGE ONE (04:15)
[2018-12-19] MEDS ORDERED: Acetaminophen 325 MG TAB PO PRN ×2 (04:26→09:16)
[2018-12-19] MEDS ORDERED: Bisacodyl 5 MG TAB PO PRN (04:26)
[2018-12-19] MEDS ORDERED: Senokot S 8.6-50 MG TAB PO PRN (04:26)
[2018-12-19] MEDS ORDERED: Morphine 4 MG/ML VIAL ONE (04:26)
[2018-12-19] MEDS ORDERED: Albuterol Sulfate 2.5 mg/3 ml Neb ONE (04:29)
[2018-12-19] MEDS ORDERED: Sodium Chloride 0.9% 500 ML IV SCH ×2 (04:30→06:30)
[2018-12-19] MEDS ORDERED: Lidocaine 1% (PF) 30 ML VIAL ONE (04:38)
[2018-12-19] MEDS ORDERED: Calcium Gluc 4.6 MEQ/10 ML (100 MG/ML) SLOW IVP SCH (04:45)
[2018-12-19 05:05] LABS: Alcohol Less than 10 mg/dL (Less than 10); Salicylate Less than 8.0 mg/dL (15.0-30.0)
[2018-12-19] MEDS ORDERED: Sodium Chloride 0.9% 1,000 ML IV SCH (06:30)
[2018-12-19 06:38] VITALS: BMI 31.4
[2018-12-19 06:54] LABS: HBSAB Concentration 0.64 mIU/mL; HBSAg Index 0.28 S/CO (0-0.99); Hep B Core Total Ab Non-Reactive (NonReactive); Hep B Core Total Index 0.17 S/CO (0-0.79); Hep B Surf AB Non-Reactive (NonReactive); Hep B Surf Ag Non-Reactive S/CO (NonReactive); Hep C IgG Ab Non-Reactive (NonReactive)
[2018-12-19 06:56] LABS: Clarity Slightly Cloudy (Clear)
[2018-12-19 06:57] LABS: Glucose, Urine (Dipstick) Negative (Negative); Leukocyte Negative (Negative); Nitrite Negative (Negative); Protein, Urine (Dipstick) 30 mg/dL (Neg-Trace)
[2018-12-19 06:58] LABS: Bilirubin Small (Negative); Blood, Urine Negative (Negative)
[2018-12-19 07:00] LABS: Bacteria/HPF Rare-Few HPF (None Seen); RBC/HPF 0-3 HPF (0-3); Squamous Epithelial 0-3 HPF (0-3); WBC/HPF 0-3 HPF (0-3)
[2018-12-19 07:01] LABS: Crystals/HPF 2+ AMORPH URATES HPF (Negative); Hyaline Casts/LPF 0-3 HYALINE CAST LPF (0-3 Hyaline)
--- NOTE | 2018-12-19 07:33 | ULT ---
PRELIMINARY REPORT/[facility]/EMERGENCY AFTER HOURS PROCEDURE: EXAM: US Abdomen Limited, Right Upper Quadrant EXAM DATE/TIME: 12/19/2018 2:39 AM CLINICAL HISTORY: 63 years old, male; Abdominal pain; Generalized; Patient HX: Patient reports nausea, vomiting, diarrh ea today with general weakness TECHNIQUE: Imaging protocol: Real-time ultrasound of the abdomen with image documentation. Examination was focus ed on the right upper quadrant. COMPARISON: No relevant prior studies available. FINDINGS: Liver: Perihepatic ascites. Mild hepatomegaly. Gallbladder: Gallbladder wall thickening/edema. Trace pericholecystic fluid. No gallstones. Common bile duct: Unremarkable. Pancreas: Limited visualization due to bowel gas. Right kidney: No acute findings. No mass. No hydronephrosis. IMPRESSION: Perihepatic ascites. Mild hepatomegaly. No gallstones. Gallbladder wall thickening/edema and trace pericholecystic fluid; recommend clinical correlation for acalculous cholecystitis, although findings can also be seen with liver disease, thir d fluid spacing. Thank you for allowing us to participate in the care of your patient. Dictated and Authenticated by: Ryan Guillne MD 12/19/2018 3:42 AM Central Time ([place] & [place]) FINAL REPORT EMERGENCY AFTER HOURS RIGHT UPPER QUADRANT ULTRASOUND: I agree with the preliminary report provided by [facility]. Please see impression as above. POS:
--- NOTE | 2018-12-19 07:51 | HP ---
CHIEF COMPLAINT: Generalized weakness. HISTORY OF PRESENT ILLNESS: The patient is a 63-year-old male with a history of systolic heart failure, hypertension, obesity who presents to the hospital with complaints of worsening generalized weakness. The patient states that the early Sunday morning, he had a taco that he purchased, maybe an hour and half to 2 hours later he started having significant abdominal pain, some nausea; however, no significant vomiting and diarrhea. The patient stated that he has been having profuse amount of diarrhea all day Sunday. He also complained of abdominal cramping and abdominal pain. Denies any fevers or chills. The patient states that he was so weak to the point that he could not even push his back and clean. The patient's also states that he has been taking oral potassium supplements for the past couple of weeks. The patient did take his Lasix this morning. He has not been drinking enough water. The patient continues to drink alcoholic beverages and not enough water. The patient denies any fevers or chills or recent use of any antibiotics. PAST MEDICAL HISTORY: As of the following; 1. Possible history of GERD. History of pancreatitis. 1. History of hyperlipidemia. 2. History of hypertension. 3. History of atrial fibrillation. 4. History of non-insulin diabetes. PAST SURGICAL HISTORY: 1. He has a history of a coronary artery bypass. 2. he has a history of cardiac stent placement. 3. He also had a history of post bypass complication with wound dehiscence. SOCIAL HISTORY: He also has a history of alcohol use. He is . He is a former smoker. He still continues to drink about 6 packs a day versus three or four 32 ounces of beer a day. FAMILY HISTORY: No history of heart disease or cancer. ALLERGIES: HE HAS NO KNOWN DRUG ALLERGIES. MEDICATIONS: He is currently on: 1. Lasix 40 mg b.i.d. 2. Prozac 60 mg daily. 3. Carvedilol 12.5 b.i.d. 4. Aspirin 81 mg daily. 5. Allopurinol 300 mg daily. 6. Metformin 1000 mg b.i.d. 7. Entresto 1 p.o. b.i.d. PAST SURGICAL HISTORY: He has had a history of bypass and REVIEW OF SYSTEMS: All negative for the ones mentioned above in the HPI. PHYSICAL EXAMINATION: VITAL SIGNS: As of the following; temperature of 98.8, heart rate of 80, blood pressure of 117/60, 98% on room air. GENERAL: He is awake, alert, and oriented x3. Does not appear in any distress. CV: S1, S2 present. No murmurs, rubs, or gallops. LUNGS: Clear to auscultation. No rhonchi or wheezes noted. ABDOMEN: Soft. Mild distention. Bowel sounds are present x2. He does have some pain upon palpation to his right upper quadrant. EXTREMITIES: Lower extremity +1 edema. Pedal pulses are present x2. NEUROVASCULAR: No focal deficits noted. SKIN: No cuts, lesions or bruises noted. HEENT: He does have significant dryness in his mouth. Pupils are equal and reactive to light. LABORATORY RESULTS: As of the following; WBCs of 8.8, hemoglobin of 15.0, hematocrit of 44.2. His platelets are 67. Chemistry: Sodium of 132, potassium of 8.1, bicarb of 15, BUN of 62, creatinine of 3.43. Total bilirubin is 2.7. He has mild elevated LFTs. His proBNP is 899. The patient's right upper quadrant ultrasound is pending. I also have ordered a CT of abdomen and pelvis, which is pending. ASSESSMENT AND PLAN: The patient is a 63-year-old male who presents to the hospital with complaints of abdominal pain and diarrhea. 1. Acute kidney injury, most likely secondary to dehydration. We will also get a CT of abdomen and pelvis to rule out any obstruction. We will insert a Valencia catheter. Nephrology has been consulted. We will continue to monitor. 2. Hyperkalemia. Patient's potassium initially was 8.1, after treatment it has been 7.4. The patient will undergo insertion of dialysis catheter for emergent dialysis. We will continue to monitor. This patient has been taking potassium pills, supplements since he has been told that his potassium has always been low. 3. High anion gap metabolic acidosis. This is most likely secondary to dehydration. The patient stated he has had multiple bouts of diarrhea today. He has not been able to keep anything down. He has received a total of a lite of IV bolus. I will start him on some gentle hydration. We will have to be careful especially since the patient's ejection is only 20-25 percent. However, currently he appears to be very dehydrated. In worse case scenario, the patient might require further dialysis. 4. Mildly elevated liver function tests, this could be secondary to congestion. I will wait for the ultrasound read. The patient denies any fevers or chills. 5. Acute systolic heart failure, currently compensated. The patient did have an echocardiogram, which was in 2018 with an EF of 20% to 25%. Currently, he is denying any worsening shortness of breath. However, the patient states that he does use oxygen at home at nighttime. 6. Coronary artery disease. We will continue to monitor. We will continue his home medication. 7. Deep venous thrombosis prophylaxis. We will put the patient on some sequential compression devices. 8. Thrombocytopenia. I have noticed a trend in this patient. His platelet count have been low since April of 2018. His current thrombocytopenia could be secondary to the current underlying disease. 9. Significant diarrhea. I will check stool for stool studies, including stool for leukocytes, Clostridium difficile, also Escherichia coli. The patient states that his last diarrhea was around midnight. 10. Significant dehydration. The patient's hemoglobin currently is 15. His baseline is around 8 to 11. Job ID: [id number]
--- NOTE | 2018-12-19 07:52 | CT ---
CT OF THE ABDOMEN AND PELVIS WITHOUT IV CONTRAST: INDICATION: History of acute renal injury and diarrhea. COMPARISON: Prior CT of the abdomen and pelvis dated 08/18/2017 and 09/30/2011. FINDINGS: There is cardiomegaly with AICD. There is hepatosplenomegaly with the liver measuring 25 cm in greatest longitudinal dimension and the spleen measured 13.3 cm. There is mild ascites. There is a stable 2.1 cm hypodensity within the transverse mesocolon possibly reflective of a small p seudocyst or other chronic benign nodular density. This also could be related to a mild area of scar ring. No additional peritoneal nodularity is evident. There is a Valencia catheter in the decompressed bladder. The unopacified large and small bowel are of normal caliber. The unopacified pancreas, adrenal glands, and kidneys are unremarkable-appearing. There is a right femoral central venous catheter projecting up to the infrarenal IVC. There is scattered degenerative and osteoarthritic change. No definite acute osseous abnormality is evident. There is a large right indirect hernia containing fluid. There is mild anasarca. IMPRESSION: 1. Hepatosplenomegaly with mild ascites. 2. Mild cardiomegaly. 3. Large right inguinal indirect hernia. 4. Right common femoral central venous catheter. 5. Small hypodensity within the transverse mesocolon is stable to the most recent comparison of 08/18 and may reflect a small pseudocyst or a focal region of scarring in the mesocolon. POS:
[2018-12-19 08:07] LABS: Troponin I 0.017 ng/mL (< 0.028)
[2018-12-19] MEDS ORDERED: hydrALAZINE 20 MG/ML VIAL SLOW IVP PRN (09:08)
--- NOTE | 2018-12-19 09:12 | PDOC.PN ---
- Subjective Encounter Start Date: 12/19/18 Encounter Start Time: 09:10 Mr. Montiel was seen today in follow-up of acute renal failure. He had diarrhea and vomiting. He also has some chronic abdominal pain, in the epigastric region. - Objective Resuscitation Status - Order Detail: 12/19/18 04:26 Resuscitation Status Routine Resuscitation Status: FULL: Full Resuscitation MAR Reviewed: Yes Vital Signs & Weight: Vital Signs (12 hours) Temp Pulse Resp BP Pulse Ox 12/19/18 07:19 96.2 F L 12/19/18 02:19 97.2 F L 72 21 H 125/70 99 Weight Weight 218 lb 9.6 oz Most Recent Monitor Data Heart Rate from ECG 73 NIBP 125/70 NIBP BP-Mean 88 Respiration from ECG 19 SpO2 93 Result Diagrams: 12/19/18 02:22 12/19/18 03:26 Phys Exam - Physical Examination HEENT: PERRLA Respiratory: no wheezing, no rales, no rhonchi, clear to auscultation bilateral Cardiovascular: RRR, no significant murmur, no rub Gastrointestinal: soft, no distention, positive bowel sounds + epigastric tenderness no rebound or guarding Musculoskeletal: no edema, pulses present Dx/Plan (1) Acute renal failure Status: Acute (2) Hyperkalemia Code(s): E87.5 - HYPERKALEMIA Status: Acute (3) Chronic systolic heart failure Code(s): I50.22 - CHRONIC SYSTOLIC (CONGESTIVE) HEART FAILURE Status: Acute (4) Diabetes Code(s): E11.9 - TYPE 2 DIABETES MELLITUS WITHOUT COMPLICATIONS Status: Chronic (5) Hypertension Code(s): I10 - ESSENTIAL (PRIMARY) HYPERTENSION Status: Chronic (6) Diabetes mellitus type 2 in obese Code(s): E11.69 - TYPE 2 DIABETES MELLITUS WITH OTHER SPECIFIED COMPLICATION; E66.9 - OBESITY, UNSPECIFIED Status: Chronic (7) Alcohol abuse Code(s): F10.10 - ALCOHOL ABUSE, UNCOMPLICATED Status: Chronic - Plan * Acute kidney failure- likely from volume depletion from diarrhea poor oral intake, as well as diuretic use * Hyperkalemia- patient is currently undergoing urgent dialysis * Abdominal Pain ( epigastric) with chronic nausea- this could be related to alcoholic gastritis, however his symptoms are relatively severe- will consult GI due to concerns for Peptic Ulcer disease- will add IV Protonix * HTN- blood pressure is stable * DM- Metformin is on hold due to renal failure * Chronic systolic heart failure- compensated * History of chronic alcohol abuse- will place on ASE protocol, thiamin and folic acid.
--- NOTE | 2018-12-19 09:13 | HP ---
HISTORY OF PRESENT ILLNESS: Robert Montiel junior is a 63-year-old male patient, presented to the emergency room last night for generalized abdominal pain. He began having nausea and diarrhea yesterday. He presented to the emergency room, had a sodium of 132, potassium 8.1, BUN 62, creatinine 3.43, and GFR 18. He has had mild elevations of his BUN and creatinine in the past documented by computer records. Last creatinine on August 09, 2018, was normal, but it has been elevated up to 1.4 to 1.7 in the past. It has never been as high as this. The patient does have diabetes; hypertension, undiagnosed; and no sleep study for suspected sleep apnea. He drinks 8 to 10 beers a day. He states he drinks as much as he can. The patient was admitted through the emergency room and a hemodialysis catheter Trialysis placed right groin and dialysis initiated for his hyperkalemia. Because of his elevated bilirubin, he had a gallbladder ultrasound performed revealing perihepatic ascites. Hepatomegaly. No gallstones. Pericholecystic fluid. Gallbladder wall thickening. He had a CAT scan performed abdomen and pelvis noting hepatosplenomegaly, ascites, cardiomegaly, large right indirect inguinal hernia. Looking back at his records October 2007, he had a temporary dialysis for acute renal failure initiated. Of note is that on his ultrasound of gallbladder, bile ducts were not dilated. This is all consistent with acute alcohol liver disease. There is no indication. He has acute gallbladder disease. He does not need a cholecystectomy. He does not need a HIDA scan. At this point, I would treat him medically, resolve his medical problems, encourage alcohol cessation. ALLERGIES: NONE. TOBACCO: None. ALCOHOL ABUSE: 7 to 10 beers a day. PAST SURGICAL HISTORY: Coronary artery bypass grafting [place] [address] Morales Wilson, suffering a sternal wound dehiscence and infection, requiring subsequent debridements. He had a right inguinal hernia repair performed by someone in the past. He thinks this was laparoscopic or robotic. ORIF of foot. He never has had a colonoscopy. PAST MEDICAL HISTORY: Coronary artery disease, he was followed by Dr. Krishnan, but has not seen Dr. Krishnan in his office postoperatively; diabetes mellitus, type 2, on metformin; hypertension; elevated cholesterol; depression; and gout. He states that they have thought he has sleep apnea, but never has had a sleep study. He is obviously noncompliant, needs with cardiology followup. REVIEW OF SYSTEMS: Ten-point noncontributory except as noted above. PHYSICAL EXAMINATION: VITAL SIGNS: 5 feet 10 inches, 218 pounds, BMI 31, temperature 96.2, pulse 73, and blood pressure 125/70. The patient is undergoing dialysis at this time. He has right femoral catheter. LUNGS: Clear to auscultation. CARDIAC: Regular rate and rhythm without murmur or gallop. ABDOMEN: Soft. Mild tenderness in his upper abdomen consistent with alcohol liver disease. No focal tenderness. EXTREMITIES: Unremarkable. ABDOMEN: Obese. ASSESSMENT AND PLAN: 1. 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 Encourage alcohol cessation. Medical support. Treat his hyperkalemia. For his acute renal failure, undergoing dialysis. There is no indication for cholecystectomy or further gallbladder workup at this time. He is not a surgical candidate. His platelet count is 67,000. He has hepatosplenomegaly. He has ascites, all consistent with acute alcohol liver disease and possibly some degree of cirrhosis. At this point, I will see him as needed. Please call if necessary. We would expect his acute renal failure to improve with time, but would protect his veins in case he needs dialysis access in the future. 2. Metabolic syndrome. 3. Morbid obesity. 4. Hypertension. 5. Diabetes mellitus, type 2. 6. Probable sleep apnea. 7. Recurrent right inguinal hernia can be addressed at another time if this bothers him once he stops drinking and is medically stable and could see him in the office as an outpatient to address this. Job ID: [id number]
[2018-12-19] MEDS ORDERED: HumaLOG 300 UNITS/3 ML VIAL SC PRN ×2 (09:15)
[2018-12-19] MEDS ORDERED: Dextrose 50% Abboject 50 ML SYRINGE SLOW IVP PRN (09:15)
[2018-12-19] MEDS ORDERED: Dextrose 5% in Water 1,000 ML IV PRN (09:15)
[2018-12-19] MEDS ORDERED: Lorazepam 2 MG/ML VIAL SLOW IVP PRN (09:17)
[2018-12-19] MEDS ORDERED: Lorazepam 1 MG TAB PO PRN (09:17)
[2018-12-19] MEDS: Promethazine 25 MG TAB PO PRN (09:55)
[2018-12-19 11:07] LABS: Anion Gap 23 mmol/L (10-20); BUN (Urea Nitrogen) 34 mg/dL (8.4-25.7); Calc. Creatinine Clearance 52 mL/min (70-130); Carbon Dioxide 19 mmol/L (23-31); Chloride 98 mmol/L (98-107); Estimated GFR-MDRD 33; Glucose 106 mg/dL (80-115); Sodium 135 mmol/L (136-145)
[2018-12-19] MEDS ORDERED: Heparin 10,000 UNITS/1 ML VIAL ONE (11:11)
[2018-12-19 11:13] LABS: Troponin I Less than 0.010 ng/mL (< 0.028)
--- NOTE | 2018-12-19 13:23 | CON ---
DATE OF CONSULTATION: 12/19/2018 REASON FOR CONSULTATION: Hyperkalemia, acute kidney injury. REASON FOR ADMISSION: Generalized weakness, stable. HISTORY OF PRESENT ILLNESS: This is a 63-year-old male with history of CHF, hypertension, obesity, came to the hospital with weakness and was found to have elevated creatinine. He was also taking potassium supplements and potassium was found to be 8.1, down to 7.4, creatinine was 3.4. The patient was moving and was working hard last few days. PAST MEDICAL HISTORY: Positive for GERD, CHF, hypertension, hyperlipidemia, atrial fibrillation. PAST SURGICAL HISTORY: Coronary artery bypass graft, cardiac stent. HOME MEDICATIONS: 1. Lasix. 2. Prozac. 3. Carvedilol. 4. Aspirin. 5. Allopurinol. 6. Metformin. 7. Entresto. ALLERGIES: NO KNOWN DRUG ALLERGY. SOCIAL HISTORY: History of alcohol use. Former smoker. FAMILY HISTORY: No history of kidney disease. REVIEW OF SYSTEMS: CONSTITUTIONAL: Negative for weight loss or gain, ability to conduct usual activities. SKIN: Negative for rash, itching. EYES: Negative for double vision, pain. ENT/MOUTH: Negative for nose bleeding, neck stiffness, pain, tenderness. CARDIOVASCULAR: Negative for palpitations, dyspnea on exertion, orthopnea. RESPIRATORY: Negative for shortness of breath, wheezing, cough, hemoptysis, fever or night sweats. GASTROINTESTINAL: Negative for poor appetite, abdominal pain, heartburn, nausea, vomiting, constipation, or diarrhea. GENITOURINARY: Negative for urgency, frequency, dysuria, nocturia. MUSCULOSKELETAL: Negative for pain, swelling. NEUROLOGIC/PSYCHIATRIC: Negative for anxiety, depression. ALLERGY/IMMUNOLOGIC: Negative for skin rash, bleeding tendency. PHYSICAL EXAMINATION: GENERAL: Reveals a well built male, in no apparent distress. VITAL SIGNS: Temperature 96.2, pulse 79, respiratory rate 18, blood pressure . HEENT: Atraumatic, normocephalic. Oral mucosa dry. NECK: Supple. CVS: S1 and S2 heard. Rate and rhythm regular. RESPIRATORY: Clear. GASTROINTESTINAL: Abdomen is soft. MUSCULOSKELETAL: 1+ edema. DERMATOLOGIC: No skin rash. NEUROLOGIC: Alert and awake. PSYCHIATRIC: Normal mood and affect. LABORATORY DATA: Hemoglobin is 15.0, potassium is 5.0, BUN is 34, creatinine is 2.08, after dialysis it was 62 and 3.4, and potassium was 8.1 on admission. ASSESSMENT: 1. Acute kidney injury, most likely from volume depletion. Agree with hydration. 2. Severe life-threatening hyperkalemia. PLAN: 1. Emergent dialysis. during dialysis and tolerated it well. 2. Metabolic acidosis. Agree with hydration. 3. Cardiorenal syndrome. Cautious about fluid resuscitation. 4. We will monitor renal function. Avoid nephrotoxin. Hydration as tolerated. Monitor cardiorespiratory status. Limit potassium intake, and we will follow. Thank you for the consult. Job ID: [id number]
--- NOTE | 2018-12-19 15:11 | PRG ---
DATE OF SERVICE: 12/19/2018 Robert Montiel is seen today in followup from Dr. Choi's consult. CANCELED DICTATION Job ID: [id number]
--- NOTE | 2018-12-19 17:29 | CON ---
DATE OF CONSULTATION: 12/19/2018 SERVICE: Pulmonary Medicine. REASON FOR CONSULT: [facility] patient. HISTORY OF PRESENT ILLNESS: The patient is a 63-year-old white male with past medical history significant for alcohol abuse and chronic systolic heart failure , who presents to the hospital with a 2-week history of diarrhea, decreased p.o. intake, and a 1-day history of nausea with vomiting. He does take potassium supplements out of the hospital. He drinks about a 6-pack of beer on a daily basis. He got to the point of having extreme fatigue, and presented to the emergency department, where he was discovered to have an acute kidney injury and hyperkalemia. He was tucked in the [facility] and urgent dialysis catheter was placed. He is undergoing emergent hemodialysis at this point. He denies any current fevers, chills, chest pain, palpitations, dysuria, frequency, rashes, hot sweat, or swollen joints. He typically has very impressive lower extremity edema, but over the last 2 weeks, it is significantly improved. PAST MEDICAL HISTORY: 1. COPD, severe. 2. Chronic systolic heart failure. 3. Valvular heart failure with severe MR and AR. 4. Hypertension. 5. Dyslipidemia. 6. Coronary artery disease. 7. Atrial fibrillation. 8. Diabetes mellitus. 9. Gastroesophageal reflux disease. 10. Alcohol abuse. 11. History of pancreatitis. PAST SURGICAL HISTORY: 1. Coronary bypass graft. 2. Cardiac stent placement. SOCIAL HISTORY: He drinks 6-pack a day, and has a [id number] history of smoking. He denies any illicit drugs. He is , and has no exposure to chemicals, dust, asbestos, or tuberculosis. FAMILY HISTORY: Noncontributory. ALLERGIES: NO KNOWN DRUG ALLERGIES. MEDICATIONS: List of his inpatient medications were reviewed. No specific updates were made at this time. REVIEW OF SYSTEMS: General; head, ears, eyes, nose, and throat; cardiovascular, respiratory, GI, , musculoskeletal, neurologic, and skin are negative except as mentioned in the HPI. PHYSICAL EXAMINATION: VITAL SIGNS: Afebrile. Pulse 79, blood pressure 137/96, respirations 14, saturation 92% on room air. GENERAL: The patient is awake and alert, in no apparent distress. LUNGS: Decent air entry. There is a prolonged expiratory phase, but no wheezing, crackles or rhonchi appreciated. HEART: Normal rate, regular. ABDOMEN: Soft. Minimal tenderness to palpation throughout. There is not much in the way of rebound or guarding. Bowel sounds are positive. MUSCULOSKELETAL: No cyanosis or clubbing. There is 1 to 2+ pitting in the bilateral lower extremities. NEUROLOGIC: Grossly nonfocal. : Valencia catheter in place. LABORATORY DATA: WBC 8.8, hemoglobin 15.0, and platelets 67,000. Neutrophil count is 73% on top of 5% bands. Creatinine is downtrending to 2.08, potassium is improved to 5.0. Basic metabolic profile is otherwise essentially unremarkable. Troponin is negative x2, BNP 899, which is a recent low. Liver function studies are essentially unremarkable except for a total bilirubin of 2.7 and a marginally elevated AST and alkaline phosphatase. Urinalysis is positive for minimal proteinuria and otherwise unremarkable. Alcohol, acetaminophen, and salicylates are negative. Hepatitis B serologies are negative. IMAGIN. Ultrasound of the abdomen and pelvis demonstrates ascites and hepatosplenomegaly. 2. CT of the abdomen demonstrates a large hernia, minimal pericholecystic fluid. Femoral vein catheter is in place. ASSESSMENT: 1. Chronic obstructive pulmonary disease, severe, without current exacerbation. 2. Chronic systolic and valvular heart failure (severe MR and AR). 3. Acute kidney injury. 4. Hyperkalemia, status post emergent dialysis. 5. Gastroenteritis. 6. Alcohol abuse. DISCUSSION AND PLAN: The patient is currently stable for transition out of the ICU to the telemetry unit. Pulmonary/Critical Care will continue to follow along. I will initiate nebulized medications. I will repeat LFTs and INR and perform an INR tomorrow morning, looking to see whether or not the synthetic liver function is getting better or worse. GI consultation will be placed for abnormal laboratories as well as abnormal imaging studies, possibly suggestive of chronic liver disease. Dr. Mena will assume care in the morning given that he has an established relationship with Mr. Montiel. 70 minutes have been devoted to this patient in various activities. I personally reviewed all imaging studies and laboratory data noted within this document. For fifty percent of this time, I was interacting with the patient at the bedside or coordinating care with the care team. For the remainder of the time I was immediately available to the patient in the hospital unit. Job ID: [id number] [facility]
--- NOTE | 2018-12-19 17:35 | CON ---
DATE OF CONSULTATION: 12/19/2018 REASON FOR CONSULTATION: Epigastric abdominal pain and diarrhea. CONSULTING PHYSICIAN: Dr. Quintin Heller. HISTORY OF PRESENT ILLNESS: The patient is a 63-year-old male with past medical history of pancreatitis, hyperlipidemia, hypertension, atrial fibrillation, obesity, and congestive heart failure with an ejection fraction of 20% to 25%, presenting with complaints of epigastric pain, nausea, and diarrhea. He states that he has been having intermittent midepigastric abdominal pain, this has been occurring over the last year. This pain is characterized as a dull type pain, will occur 2 to 3 times monthly and reach a severity of 10/10. The pain is worse with lifting heavy objects and bending over, better with decreased physical activity, lying down and the administration of brur-yzn-[id number] Tylenol. With the presence of this pain and has successively got worse over the last 2 weeks, assuming more of a constant type nature during this time and has been associated with increased nausea, vomiting, and diarrhea characterized as having 1 to 2 semi-solid bowel movements per day during this time. However, he also notes that he has been having increased black colored stools over the last 2 weeks with the stool consistency of these black stools being more solid in nature. He has been taking Pepto-Bismol as an outpatient prior to admission and is also restarted on iron supplementation around 1 month ago. Concerning his diarrhea, it seem that his diarrhea was confined only to 1 to 2 days this last week, but otherwise has been having more normal consistency with his bowel movements. Otherwise, he denies any fevers, chills, weight loss, odynophagia, hematemesis, or hematochezia. Of note, he does endorse dysphagia, but primarily with ingestion of pills/medications rather than food or liquids. REVIEW OF SYSTEMS: A 10-category review of systems was obtained with all responses negative, except for the pertinent positives as listed in HPI. PAST MEDICAL HISTORY: As per HPI. PAST SURGICAL HISTORY: Coronary artery bypass, cardiac stent placement, wound dehiscence as a complication from his CABG. FAMILY HISTORY: Denies any GI malignancies. SOCIAL HISTORY: Denies any tobacco or illicit drug use, but will drink approximately 6 to 8 beers almost daily. OUTPATIENT MEDICATIONS: Reviewed. ALLERGIES: NO KNOWN DRUG ALLERGIES. PHYSICAL EXAMINATION: VITAL SIGNS: Temperature 96.6, pulse 79, blood pressure 128/82, respiratory rate 20, and saturating 94% on room air. GENERAL: The patient was lying in bed, in no acute distress. Alert and oriented x4, although somewhat somnolent during the course of this interview. HEENT: Normocephalic and atraumatic. NECK: Supple. No JVD or scleral icterus noted. CARDIOVASCULAR: Regular rate and rhythm with no discernible murmurs, gallops, or rubs. RESPIRATORY: Clear to auscultation bilaterally with no discernible wheezes or rales. ABDOMEN: Normoactive bowel sounds. Soft and nondistended. Tenderness to palpation in the right upper quadrant, mid epigastric and periumbilical regions. EXTREMITIES: No cyanosis, clubbing, or edema. LABORATORY DATA: CBC with a white blood cell count of 8.8, hemoglobin 15, hematocrit 44.2, platelets 67. Chemistry with a sodium of 135, potassium 5, chloride 98, CO2 of 19, BUN 34, creatinine 2.08, glucose 106. AST 39, ALT 22, alkaline phosphatase 217, total bilirubin 2.7. BNP 899, albumin 4.0, and lipase 64. IMAGING DATA: CT of abdomen and pelvis obtained on December 19, 2018, showed cardiomegaly with an AICD present. However, there was also hepatosplenomegaly in addition to the presence of mild perihepatic ascites, a 2.1 cm hypodensity was also seen in the transverse mesocolon without any other additional abnormalities. Mild anasarca was also seen during this examination. A right upper quadrant ultrasound was also obtained on December 19, 2018, that showed perihepatic ascites along with mild hepatomegaly. There was some gallbladder wall thickening with trace pericholecystic fluid concerning for possible cholecystitis, but can also be seen with liver disease. The common bile duct measured within normal limits. ASSESSMENT AND PLAN: The patient is a 63-year-old male with past medical history of pancreatitis, hyperlipidemia, hypertension, atrial fibrillation, obesity, congestive heart failure with an ejection fraction of 20% to 25% and a right inguinal hernia, presenting with increased epigastric abdominal pain and abnormal GI imaging concerning for chronic liver disease/cirrhosis. Epigastric abdominal pain. The patient is presenting with a history of increased midepigastric abdominal pain that has been present for the last year, characterized as an intermittent dull type pain, but will reach a severity of 10/10. The pain is worse primarily with increased physical activity and better with inactivity and use of the [id number] Tylenol. However, with worsening of this abdominal pain over the last 2 weeks, he has been having increased nausea and vomiting x2, and one day of diarrhea this last week with some intermittent black colored stools, it is concerning for a possible upper GI process. At this point, differential could include GERD, peptic ulcer disease, gastritis, esophagitis, abdominal wall pain (more likely) and/or GI neoplasm (much less likely). Recommendations: 1. We would place the patient on PPI b.i.d. in light of possible peptic ulcer disease. 2. We would continue to trend hemoglobin and hematocrit and transfuse as necessary to maintain a hemoglobin and hematocrit of 7/21. 3. Continue to monitor clinically for signs of active GI bleeding/melena. 4. We will plan for EGD tomorrow morning for intraluminal evaluation. Abnormal GI imaging. The patient is presenting with a history of chronic alcohol abuse, drinking approximately 60 beers almost daily. On review of his labs and imaging during this admission, he does have significant hepatosplenomegaly as well as the presence of mild perihepatic ascites, which is concerning for cirrhosis type process. When coupled with significant thrombocytopenia, it is again concerning for the presence of cirrhosis and/or liver dysfunction mediated by chronic alcohol abuse. However, he does also have a history of congestive heart failure with a significantly reduced ejection fraction, which could further contribute to hepatic dysfunction and/or ascites. Recommendations: 1. I will try to confer with the Radiology Service to see whether or not the ascitic fluid is enough to undergo paracentesis and further evaluation. 2. Strongly encouraged alcohol cessation. 3. I agree with placing the patient on a withdrawal protocol during this admission. 4. We would proceed with full liver serological workup for possible other sources of liver dysfunction and/or cirrhosis. We will continue to follow. Please call with any questions. Job ID: [id number]
[2018-12-19] MEDS: Pantoprazole 40 MG VIAL IVP SCH (20:51)
[2018-12-20 04:36] LABS: #Basophils 0.1 thou/uL (0.0-0.2); #Lymphocytes 1.5 thou/uL (1.20-3.40); #Neutrophils 6.9 thou/uL (1.40-6.50); %Basophils 0.7 % (0.0-1.0); %Eosinophils 0.4 % (0.0-10.0); %Lymphocytes 15.9 % (21.0-51.0); %Monocytes 10.6 % (0.0-10.0); %Neutrophils 72.4 % (42.0-75.0); Hemoglobin 13.1 g/dL (14.0-18.0); Mean Corpuscular HGB CONC 31.6 g/dL (32.0-36.0); Mean Corpuscular Hemoglobin 30.8 pg (27.0-31.0); Mean Corpuscular Volume 97.4 fL (78.0-98.0); Mean Platelet Volume 12.6 fL (7.4-10.4); Platelet Count 73 thou/uL (130-400); RBC Distribution Width 18.1 % (11.5-14.5); Red Blood Cell (RBC) Count 4.26 mill/uL (4.70-6.10); White Blood Cell (WBC) Count 9.5 thou/uL (4.8-10.8)
[2018-12-20 04:41] LABS: INR-International Normal Ratio 1.6; Prothrombin Time 19.3 SEC (12.0-14.7)
[2018-12-20 04:59] LABS: Anion Gap 16 mmol/L (10-20); BUN (Urea Nitrogen) 42 mg/dL (8.4-25.7); Calc. Creatinine Clearance 45 mL/min (70-130); Calcium 8.8 mg/dL (7.8-10.44); Carbon Dioxide 26 mmol/L (23-31); Chloride 98 mmol/L (98-107); Estimated GFR-MDRD 28; Glucose 132 mg/dL (80-115); Potassium 5.5 mmol/L (3.5-5.1); Sodium 134 mmol/L (136-145)
[2018-12-20 05:00] LABS: ALT (SGPT) 44 U/L (8-55); AST (SGOT) 60 U/L (5-34); Albumin 3.6 g/dL (3.4-4.8); Alkaline Phosphatase 187 U/L (40-150); Bilirubin, Direct 1.3 mg/dL (0.1-0.3); Bilirubin, Total 2.4 mg/dL (0.2-1.2); Iron 49 ug/dL (65-175); Iron Binding Capacity, Total 313 mcg/dL (261-462); Protein, Total 6.4 g/dL (5.8-8.1)
[2018-12-20 05:17] LABS: HBSAB Concentration 0.65 mIU/mL; HBSAg Index 0.28 S/CO (0-0.99); Hep B Core Total Ab Non-Reactive (NonReactive); Hep B Core Total Index 0.14 S/CO (0-0.79); Hep B Surf AB Non-Reactive (NonReactive); Hep B Surf Ag Non-Reactive S/CO (NonReactive)
[2018-12-20 05:18] LABS: Hep C IgG Ab Non-Reactive (NonReactive); Hep C Index 0.17 S/CO (0-0.79)
[2018-12-20 06:51] LABS: Ferritin 174.12 ng/mL (22-322)
[2018-12-20] MEDS ORDERED: Promethazine HCl 25 MG/ML VIAL SLOW IVP PRN (09:19)
[2018-12-20] MEDS ORDERED: Ondansetron HCl/PF 4 MG/2 ML Vial IVP PRN (09:19)
[2018-12-20] MEDS ORDERED: Promethazine HCl 25 MG/ML VIAL IM PRN (09:19)
[2018-12-20] MEDS: Pantoprazole 40 MG VIAL IVP SCH ×2 (10:21→20:40)
[2018-12-20] MEDS ORDERED: PROPOFOL 200 MG/20 ML VIAL ONE (12:42)
[2018-12-20] MEDS ORDERED: PHENYLEPHRINE-NS 100 MCG/ML 10 ML SYRINGE ONE (12:42)
[2018-12-20] MEDS ORDERED: Lidocaine 1% PF 5 ML VIAL ONE (12:42)
--- NOTE | 2018-12-20 13:10 | PRG ---
DATE OF SERVICE: 12/20/2018 SERVICE: Pulmonary Medicine. INTERVAL HISTORY: The patient continues to breathe comfortably. He has no complaints of chest pain, fevers, or chills. There are no electrolyte abnormalities on the EKG last night. There were no overnight events, nursing reports no issues. PHYSICAL EXAMINATION: VITAL SIGNS: Afebrile, pulse 76, blood pressure 108/79, respirations 15, and saturation 93% on room air. GENERAL: The patient is awake and alert, in no apparent distress. LUNGS: Decent air entry. There is no prolonged expiratory phase. No wheezing or crackles are appreciated. HEART: Normal rate and regular. ABDOMEN: Soft, nontender, and nondistended. Bowel sounds are positive. MUSCULOSKELETAL: No cyanosis or clubbing. There is trace pitting in the bilateral lower extremities. NEUROLOGIC: Grossly nonfocal. LABORATORY DATA: WBC 9.5, hemoglobin 13.1, platelets 73,000 and roughly stable. INR 1.6. Total bilirubin 2.4 and roughly stable. Creatinine is gently up trending to 2.38, potassium 5.5 and gently trending upward. Sodium 134. Urinalysis is unremarkable. Salicylates, acetaminophen, and alcohol are negative. IgG, IgA,and IgM fall within the normal limits. Hepatitis serologies are negative. ASSESSMENT: 1. Chronic obstructive pulmonary disease, severe, without current exacerbation. 2. Chronic systolic and valvular heart failure (severe MR and AR). 3. Acute kidney injury. 4. Hyperkalemia, status post emergent dialysis. 5. Peptic ulcer disease. 6. Alcohol abuse. 7. Possible chronic liver disease. DISCUSSION AND PLAN: The patient remains stable for transition out of the ICU to the telemetry unit. We will watch his potassium through time. Intermittent dialysis will be performed. I will continue our nebulized medications. Otherwise, no interval changes will be made to his care. Job ID: [id number]
--- NOTE | 2018-12-20 15:29 | PRG ---
DATE OF SERVICE: 12/20/2018 SUBJECTIVE: Patient was seen and examined at bedside and overnight events noted. Patient denies any shortness of breath or chest pain or palpitation. No history of nausea or vomiting or diarrhea or fever or chills or cramps. OBJECTIVE: GENERAL: This is a well-built male in no apparent distress. VITAL SIGNS: Temperature 96.9. Heart rate 77. Respiratory rate 18. Blood pressure 94/64. HEENT: Atraumatic, normocephalic. Oral mucosa is moist NECK: Supple. CARDIOVASCULAR: S1, S2 heard. Rate and rhythm regular. RESPIRATORY: Clear to auscultation. GASTROINTESTINAL: Abdomen is soft. MUSCULOSKELETAL: No tenderness. No edema. DERMATOLOGIC: No skin rash. NEUROLOGIC: Alert and awake and oriented X3. No focal neurologic deficits. Moving all the extremities. PSYCHIATRIC: Mood and affect normal. LABORATORY DATA: Potassium is 5.5, BUN is 42, creatinine is 2.2. ASSESSMENT AND PLAN: 1. Acute kidney injury, getting better. 2. Hyperkalemia. 3. Edema, controlled. 4. Metabolic acidosis, stable. 5. Cardiorenal syndrome. 6. We will monitor renal function. No acute indication for dialysis. We will follow. Job ID: [id number]
--- NOTE | 2018-12-20 15:44 | OP ---
DATE OF PROCEDURE: 12/20/2018 PROCEDURE: Esophagogastroduodenoscopy with biopsy. INDICATION FOR PROCEDURE: Epigastric abdominal pain. DESCRIPTION OF PROCEDURE: After the risks and benefits of the procedure were explained to the patient including risks of bleeding, infection, perforation, reactions to anesthesia, aspiration, and/or pain, informed consent was obtained. The patient was then taken to the endoscopy suite, where deep sedation was administered via propofol and Anesthesia support. Once adequate sedation was achieved, the standard gastroscope was introduced into the mouth with intubation of the esophagus, stomach, and the proximal small intestine with the findings listed below. The patient tolerated the procedure well with no immediate perioperative complications. He was then taken to PACU in satisfactory condition. FINDINGS: Esophagus: Normal-appearing mucosa was seen in the proximal, mid, and distal esophagus. There was no evidence of erosions, ulcerations, mass, lesions, varices, or active/recent bleeding. Both the GE junction and diaphragmatic pinch were both well seen at approximately 40 cm past the incisors. Stomach: Increased mucosal erythema was seen throughout the entire stomach including the gastric cardia, fundus, body, greater curvature, antrum, and incisura. However, there was a large patch of submucosal hemorrhage seen in the gastric cardia and fundus without any other associated pathology with it. A biopsy was taken from this region with increased bleeding upon the biopsy, but slowed upon direct visualization after about 1 to 2 minutes. No additional biopsies were taken. Also, seen were multiple small clean-based ulcers measuring approximately 1 to 2 mm in size within the gastric antrum and incisura. None of these ulcers displayed any high-risk stigmata of bleeding or any evidence of recent bleeding. Multiple biopsies were taken from these ulcerations as well and placed in a specimen jar for evaluation. Otherwise, there was no evidence of mass, lesions, or active/recent bleeding seen in the stomach that was not iatrogenically caused. Also, within the gastric antrum was increased mucosal edema in the prepyloric region with very prominent fold in this region as well. Duodenum: Normal-appearing mucosa was seen in the duodenal bulb and second portion of the duodenum. There was no evidence of erosions, ulcerations, mass, lesions, or active/recent bleeding. IMPRESSION: 1. Increased diffuse mucosal erythema seen throughout the entire stomach, but also evidence of submucosal hemorrhage within the gastric cardia and fundus, status post biopsies. 2. Multiple small (1 to 2 mm) clean-based ulcerations in the gastric antrum and incisura, status post biopsies. 3. Increased mucosal edema within the prepyloric region and extending into the pylorus. RECOMMENDATIONS: 1. Would continue to trend H and H and transfuse as necessary to maintain an H and H of 7/21. 2. Monitor clinically for signs of active GI bleeding. 3. We will follow up on the biopsy results with further management indicated on the biopsy pathology report. 4. Would continue the patient on PPI b.i.d. given the presence of these ulcerations and probable portal hypertensive gastropathy. 5. We will follow up on the full liver workup thus far. 6. Would avoid any NSAIDs during this admission. 7. We will continue to follow. Please call with any questions. Job ID: [id number]
--- NOTE | 2018-12-20 16:17 | PDOC.PN ---
- Subjective Encounter Start Date: 12/20/18 Encounter Start Time: 09:35 Mr. Montiel was seen today in follow-up of acute kidney injury and abdominal pain. He says he is feeling a bit better. He has less abdominal discomfort today than yesterday. - Objective Resuscitation Status - Order Detail: 12/19/18 04:26 Resuscitation Status Routine Resuscitation Status: FULL: Full Resuscitation MAR Reviewed: Yes Vital Signs & Weight: Vital Signs (12 hours) Temp Pulse Resp Pulse Ox 12/20/18 15:10 97.0 F L 12/20/18 13:23 76 17 97 12/20/18 11:27 96.9 F L 12/20/18 08:25 97.0 F L 12/20/18 08:00 96 12/20/18 06:33 99 12/20/18 06:21 76 23 H 99 Weight Weight 218 lb 9.6 oz Most Recent Monitor Data Heart Rate from ECG 77 NIBP 94/64 NIBP BP-Mean 74 Respiration from ECG 19 SpO2 96 I&O: 12/19/18 12/20/18 12/21/18 06:59 06:59 06:59 Intake Total 135 Output Total 475 Balance -340 Result Diagrams: 12/20/18 04:10 12/20/18 04:10 Additional Labs: Accuchecks 12/20/18 12/20/18 12/19/18 10:31 05:59 20:16 POC Glucose 117 H 118 H 163 H 12/19/18 16:39 POC Glucose 131 H Phys Exam - Physical Examination HEENT: PERRLA, sclera anicteric Respiratory: no wheezing, no rales, no rhonchi, clear to auscultation bilateral Cardiovascular: RRR, no significant murmur, no rub Gastrointestinal: soft, positive bowel sounds + distended, + mild RUQ and epigastric tenderness, no rebound or guarding Musculoskeletal: pulses present, edema present trace pedal edema Dx/Plan (1) Acute renal failure Status: Acute (2) Hyperkalemia Code(s): E87.5 - HYPERKALEMIA Status: Acute (3) Chronic systolic heart failure Code(s): I50.22 - CHRONIC SYSTOLIC (CONGESTIVE) HEART FAILURE Status: Acute (4) Diabetes Code(s): E11.9 - TYPE 2 DIABETES MELLITUS WITHOUT COMPLICATIONS Status: Chronic (5) Hypertension Code(s): I10 - ESSENTIAL (PRIMARY) HYPERTENSION Status: Chronic (6) Diabetes mellitus type 2 in obese Code(s): E11.69 - TYPE 2 DIABETES MELLITUS WITH OTHER SPECIFIED COMPLICATION; E66.9 - OBESITY, UNSPECIFIED Status: Chronic (7) Alcohol abuse Code(s): F10.10 - ALCOHOL ABUSE, UNCOMPLICATED Status: Chronic (8) Gastric ulcer Code(s): K25.9 - GASTRIC ULCER, UNSP ACUTE OR CHRONIC, W/O HEMOR OR PERF Status: Acute - Plan * Acute Kidney injury- due to volume depletion- this is improving with hydration * Abdominal pain- he was found to have multiple gastric ulcers- will continue PPI- he was advised against alcohol consumption * Alcoholic liver disease- as above patient was counseled briefly on abstinence from alcohol consumption * Autoimmune serologies are pending * Hyperkalemia- improving * DM- blood glucose is stable * HTN- Blood pressure continues to be on the lower side- will continue to hold his home medications - restart when clinically appropriate * Chronic systolic heart failure- compensated .
[2018-12-20] MEDS: Calcium Carbonate 500 MG ChewTAB PO PRN (20:41)
[2018-12-21] MEDS: Pantoprazole 40 MG VIAL IVP SCH (09:16)
[2018-12-21 09:18] LABS: Anion Gap 13 mmol/L (10-20); BUN (Urea Nitrogen) 33 mg/dL (8.4-25.7); Calc. Creatinine Clearance 63 mL/min (70-130); Calcium 8.9 mg/dL (7.8-10.44); Carbon Dioxide 24 mmol/L (23-31); Chloride 100 mmol/L (98-107); Estimated GFR-MDRD 38; Glucose 221 mg/dL (80-115); Potassium 4.1 mmol/L (3.5-5.1); Sodium 133 mmol/L (136-145)
[2018-12-21 09:28] LABS: #Eosinphils 0.1 thou/uL (0.0-0.7); #Lymphocytes 1.3 thou/uL (1.20-3.40); #Monocytes 0.6 thou/uL (0.11-0.59); #Neutrophils 5.3 thou/uL (1.40-6.50); %Basophils 0.3 % (0.0-1.0); %Eosinophils 1.3 % (0.0-10.0); %Lymphocytes 18.1 % (21.0-51.0); %Monocytes 8.3 % (0.0-10.0); %Neutrophils 71.9 % (42.0-75.0); Elliptocytes SLIGHT = 2-5 cells (100X) (0-1/hpf); Hypochromia SLIGHT = 6-15 cells (100X) (0-5/hpf); MDiff Complete? YES; Mean Corpuscular Hemoglobin 30.9 pg (27.0-31.0); Mean Corpuscular Volume 96.6 fL (78.0-98.0); Mean Platelet Volume 7.3 fL (7.4-10.4); Ovalocytes SLIGHT = 2-5 cells (100X) (0-1/hpf); Platelet Count 80 thou/uL (130-400); Platelet Morphology Comment Appears Decreased; Polychromasia SLIGHT = 2-3 cells (100X) (0-2/hpf); RBC Distribution Width 18.3 % (11.5-14.5); Red Blood Cell (RBC) Count 4.19 mill/uL (4.70-6.10); Target Cells SLIGHT = 2-5 cells (100X) (0-1/hpf); White Blood Cell (WBC) Count 7.3 thou/uL (4.8-10.8)
--- NOTE | 2018-12-21 10:56 | PDOC.PN ---
- Subjective Encounter Start Date: 12/21/18 Encounter Start Time: 10:55 Mr. Montiel was seen today in follow-up of acute renal failure. He says he feels fine. He says the abdominal discomfort has improved. He did have a loose stool today. - Objective Resuscitation Status - Order Detail: 12/19/18 04:26 Resuscitation Status Routine Resuscitation Status: FULL: Full Resuscitation MAR Reviewed: Yes Vital Signs & Weight: Vital Signs (12 hours) Temp Pulse Resp BP Pulse Ox 12/21/18 09:14 97.9 F 73 18 114/72 97 12/21/18 07:15 95 12/21/18 06:38 78 16 12/21/18 04:00 98.1 F 73 20 137/70 98 Weight Weight 231 lb 12.8 oz Most Recent Monitor Data Heart Rate from ECG 81 NIBP 119/81 NIBP BP-Mean 93 Respiration from ECG 16 SpO2 99 I&O: 12/20/18 12/21/18 12/22/18 06:59 06:59 06:59 Intake Total 1435 Output Total 2325 Balance -890 Result Diagrams: 12/21/18 08:50 12/21/18 08:50 Additional Labs: Accuchecks 12/21/18 12/20/18 12/20/18 05:34 20:11 16:38 POC Glucose 90 156 H 130 H Phys Exam - Physical Examination HEENT: PERRLA Respiratory: no wheezing, no rales, no rhonchi, clear to auscultation bilateral Cardiovascular: RRR, no significant murmur, no rub Gastrointestinal: soft, positive bowel sounds + mild RUQ tenderness no rebound or guarding Musculoskeletal: pulses present, edema present trace pedal edema bilaterally Neurological: non-focal, normal sensation, moves all 4 limbs Dx/Plan (1) Acute renal failure Status: Acute (2) Hyperkalemia Code(s): E87.5 - HYPERKALEMIA Status: Acute (3) Chronic systolic heart failure Code(s): I50.22 - CHRONIC SYSTOLIC (CONGESTIVE) HEART FAILURE Status: Acute (4) Diabetes Code(s): E11.9 - TYPE 2 DIABETES MELLITUS WITHOUT COMPLICATIONS Status: Chronic (5) Hypertension Code(s): I10 - ESSENTIAL (PRIMARY) HYPERTENSION Status: Chronic (6) Diabetes mellitus type 2 in obese Code(s): E11.69 - TYPE 2 DIABETES MELLITUS WITH OTHER SPECIFIED COMPLICATION; E66.9 - OBESITY, UNSPECIFIED Status: Chronic (7) Alcohol abuse Code(s): F10.10 - ALCOHOL ABUSE, UNCOMPLICATED Status: Chronic (8) Gastric ulcer Code(s): K25.9 - GASTRIC ULCER, UNSP ACUTE OR CHRONIC, W/O HEMOR OR PERF Status: Acute - Plan * Acute kidney injury- his renal function is almost back to baseline * Abdominal pain- due to alcoholic gastritis and Peptic ulcer disease- continue to abstain from alcohol, and continue Protonix, but will change to p.o. * DM- blood glucose is stable- Metformin is on hold due to kidney injury * HTN- blood pressure is stable- continue to hold Losartan due to Acute renal failure * Re-start Carvediolol, but at a lower dose, and titrate back to his home dose * Chronic Systolic heart failure- stable * Likely home soon .
--- NOTE | 2018-12-21 13:04 | PRG ---
DATE OF SERVICE: 12/21/2018 SUBJECTIVE: Patient was seen and examined at bedside and overnight events noted. Patient denies any shortness of breath or chest pain or palpitation. No history of nausea or vomiting or diarrhea or fever or chills or cramps. OBJECTIVE: GENERAL: This is a well-built male, in no apparent distress. VITAL SIGNS: Temperature 97.9. Heart rate 73. Respiratory rate 18. Blood pressure 116/71. HEENT: Atraumatic, normocephalic. Oral mucosa is moist. NECK: Supple. CARDIOVASCULAR: S1, S2 heard. Rate and rhythm regular. RESPIRATORY: Clear to auscultation. GASTROINTESTINAL: Abdomen is soft. MUSCULOSKELETAL: No tenderness. No edema. DERMATOLOGIC: No skin rash. NEUROLOGIC: Alert and awake and oriented x3. No focal neurologic deficits. Moving all the extremities. PSYCHIATRIC: Mood and affect normal. LABORATORY DATA: Potassium is 4.1, BUN is 33, and creatinine is 1.8. ASSESSMENT AND PLAN: 1. Acute kidney injury, getting better. 2. Hyperkalemia, better. 3. Edema, controlled. 4. Cardiorenal syndrome. 5. Metabolic acidosis, better. Labs are better. We will remove dialysis catheter. The patient does not seem to need anymore hemodialysis treatment sessions as far now and okay to remove Valencia catheter also, bedside nurse informed. Job ID: [id number]
--- NOTE | 2018-12-21 17:35 | PRG ---
DATE OF SERVICE: 12/21/2018 SUBJECTIVE: I am meeting Mr. Montiel for the first time today, covering for Dr. Villanueva over the weekend. Mr. Montiel says he is feeling pretty good. He has been tolerating his diet. He does not have any significant nausea. Some mild epigastric and right upper quadrant discomfort persists. He has remained hemodynamically stable. OBJECTIVE: VITAL SIGNS: Temperature 97.9, pulse 76, blood pressure 116/71, and 95% oxygen saturation on room air. GENERAL: No acute distress, sitting up on the edge of the bed comfortably. He has just returned from ambulating around the hospital. HEART: Regular rate and rhythm. LUNGS: Clear to auscultation bilaterally. ABDOMEN: Soft. Bowel sounds present all 4 quadrants. Mild tenderness to palpation in the epigastrium, but no guarding or rebound tenderness. EXTREMITIES: No peripheral edema. LABORATORY DATA: WBC 7.3, hemoglobin 13.0, and platelets 80. INR 1.6. Sodium 133, potassium 4.1, BUN 33, and creatinine 1.82. Viral hepatitis serologies all negative. Total IgG is normal at 878. Labs pending include ceruloplasmin, DELIO, ASMA, AMA, and alpha-1 antitrypsin. Stool studies showed elevated fecal lactoferrin, but otherwise negative Campylobacter, negative C difficile, and negative E coli. ASSESSMENT/PLAN: 1. Erosive gastritis. This was the primary finding on EGD from yesterday with Dr. Villanueva. The patient needs to avoid nonsteroidal anti-inflammatory medications. Gastric biopsy results are still pending, but can be followed up on an outpatient basis. The patient should continue with pantoprazole 40 mg p.o. b.i.d. for at least the next month, until outpatient followup with Dr. Villanueva. 2. Elevated LFTs. Suspicion is for alcoholic liver disease with cirrhosis, with thrombocytopenia. He appears otherwise well compensated. Further lab workup remains pending, but can also be followed up on an outpatient basis. GI will sign off at this time. The patient should follow up in the GI Clinic with Dr. Villanueva or his physician visitor services information assistant in the next 3 to 4 weeks. Please call back with any questions or concerns, but at this time, GI will sign off. Job ID: [id number]
[2018-12-21] MEDS: Carvedilol 3.125 MG TAB PO SCH (21:53)
[2018-12-22] MEDS: Calcium Carbonate 500 MG ChewTAB PO PRN (00:46)
[2018-12-22] MEDS: Promethazine 25 MG TAB PO PRN (00:48)
[2018-12-22] MEDS: Carvedilol 3.125 MG TAB PO SCH (09:52)
--- NOTE | 2018-12-22 11:22 | PDOC.PN ---
- Subjective Encounter Start Date: 12/22/18 Encounter Start Time: 09:15 Subjective: is ambulating in hallway, feels good -: at bedside -: wants to go home - Objective Resuscitation Status - Order Detail: 12/19/18 04:26 Resuscitation Status Routine Resuscitation Status: FULL: Full Resuscitation MAR Reviewed: Yes Vital Signs & Weight: Vital Signs (12 hours) Temp Pulse Resp BP Pulse Ox 12/22/18 07:45 97.5 F L 72 18 129/76 94 L 12/22/18 03:25 85 20 98 12/22/18 03:20 97.3 F L 73 20 128/90 95 Weight Weight 209 lb 6.4 oz Most Recent Monitor Data Heart Rate from ECG 81 NIBP 119/81 NIBP BP-Mean 93 Respiration from ECG 16 SpO2 99 I&O: 12/21/18 12/22/18 12/23/18 06:59 06:59 06:59 Intake Total 1435 1520 Output Total 2325 2290 Balance -890 -770 Result Diagrams: 12/21/18 08:50 12/21/18 08:50 Additional Labs: Accuchecks 12/22/18 12/21/18 12/21/18 05:48 20:34 17:16 POC Glucose 124 H 168 H 148 H Phys Exam - Physical Examination HEENT: PERRLA, moist MMs Neck: no JVD, supple Respiratory: no wheezing, no rales Cardiovascular: RRR, no significant murmur Gastrointestinal: soft, non-tender, positive bowel sounds Musculoskeletal: no edema, pulses present Neurological: non-focal, moves all 4 limbs Psychiatric: normal affect, A&O x 3 Dx/Plan (1) Acute renal failure Status: Acute Comment: resolving, is off HD (2) Erosive gastritis Code(s): K29.60 - OTHER GASTRITIS WITHOUT BLEEDING Status: Acute (3) COPD (chronic obstructive pulmonary disease) Status: Chronic Qualifiers: COPD type: chronic bronchitis Chronic bronchitis type: unspecified Qualified Code(s): J42 - Unspecified chronic bronchitis (4) Chronic systolic heart failure Code(s): I50.22 - CHRONIC SYSTOLIC (CONGESTIVE) HEART FAILURE Status: Chronic (5) Alcohol abuse Code(s): F10.10 - ALCOHOL ABUSE, UNCOMPLICATED Status: Chronic (6) Diabetes mellitus type 2 in obese Code(s): E11.69 - TYPE 2 DIABETES MELLITUS WITH OTHER SPECIFIED COMPLICATION; E66.9 - OBESITY, UNSPECIFIED Status: Chronic (7) Diabetes Code(s): E11.9 - TYPE 2 DIABETES MELLITUS WITHOUT COMPLICATIONS Status: Chronic Qualifiers: Diabetes mellitus type: type 2 Diabetes mellitus terminal make up operator insulin use: without terminal make up operator use Diabetes mellitus complication status: with unspecified complications Qualified Code(s): E11.8 - Type 2 diabetes mellitus with unspecified complications (8) Hypertension Code(s): I10 - ESSENTIAL (PRIMARY) HYPERTENSION Status: Chronic Qualifiers: Hypertension type: essential hypertension Qualified Code(s): I10 - Essential (primary) hypertension - Plan hemostable -: renal function is stabilizing, d/w , ok to dc, labs on sunday -: protonix bid x 6 weeks, to f/u with , elevated ceruloplasmin -: continue home dose coreg, no brian/arb due to arf -: dc pt home, to f/u with Dr.Mark Tamayo pcp in 1 week * .
[2018-12-22 11:35] VITALS: BP 123/80; TEMP 97.9
--- NOTE | 2018-12-22 11:48 | PRG ---
DATE OF SERVICE: 12/22/2018 SUBJECTIVE: This morning, the patient is doing better. He is apparently ready to be discharged home. OBJECTIVE: VITAL SIGNS: Sats are 94% on room air, blood pressure respiratory rate 18, and temperature 97. CHEST: No wheezing or crackles. CARDIAC: Normal S1 and S2. No gallops. ABDOMEN: No masses. IMPRESSION: 1. Chronic obstructive pulmonary disease, stable. 2. Congestive heart failure, improved. 3. Diabetes and hypertension, stable. Disposition home. Follow up with primary physician. Follow up with Pulmonary in the office as needed. Job ID: [id number]
[2018-12-22 12:00] LABS: ALT (SGPT) 40 U/L (8-55); AST (SGOT) 39 U/L (5-34); Albumin 3.7 g/dL (3.4-4.8); Alkaline Phosphatase 250 U/L (40-150); Anion Gap 13 mmol/L (10-20); BUN (Urea Nitrogen) 28 mg/dL (8.4-25.7); Bilirubin, Total 2.1 mg/dL (0.2-1.2); Calc. Creatinine Clearance 73 mL/min (70-130); Carbon Dioxide 27 mmol/L (23-31); Chloride 101 mmol/L (98-107); Estimated GFR-MDRD 51; Globulin 2.9 g/dL (2.4-3.5); Glucose 142 mg/dL (80-115); Potassium 4.2 mmol/L (3.5-5.1); Protein, Total 6.6 g/dL (5.8-8.1); Sodium 137 mmol/L (136-145)
[2018-12-22 12:01] LABS: Mean Corpuscular HGB CONC 31.7 g/dL (32.0-36.0); Mean Corpuscular Hemoglobin 30.7 pg (27.0-31.0); Mean Corpuscular Volume 96.8 fL (78.0-98.0); RBC Distribution Width 18.4 % (11.5-14.5); Red Blood Cell (RBC) Count 4.23 mill/uL (4.70-6.10)
[2018-12-22 12:09] LABS: Anisocytosis SLIGHT = 6-15 cells (100X) (0-5/hpf); Elliptocytes SLIGHT = 2-5 cells (100X) (0-1/hpf); Eosinophils 1 % (0-10); Lymphocytes 14 % (21-51); MDiff Complete? YES; Macrocytosis SLIGHT = 6-15 cells (100X) (0-5/hpf); Mean Platelet Volume 7.3 fL (7.4-10.4); Microcytosis SLIGHT = 6-15 cells (100X) (0-5/hpf); Monocytes 6 % (0-10); Neutrophil 63 % (42-75); Ovalocytes SLIGHT = 2-5 cells (100X) (0-1/hpf); Platelet Count 71 thou/uL (130-400); Platelet Morphology Comment Appears Decreased; Polychromasia SLIGHT = 2-3 cells (100X) (0-2/hpf); Reactive Lymphocytes 14 % (0-10); White Blood Cell (WBC) Count 5.9 thou/uL (4.8-10.8)
--- NOTE | 2018-12-22 13:23 | PRG ---
DATE OF SERVICE: 12/22/2018 SUBJECTIVE: Patient was seen and examined at bedside and overnight events noted. Patient denies any shortness of breath or chest pain or palpitation. No history of nausea or vomiting or diarrhea or fever or chills or cramps. OBJECTIVE: GENERAL: This is a well-built male, in no apparent distress. VITAL SIGNS: Temperature 97.9. Pulse 52. Respiratory rate 18. Blood pressure 123/80. HEENT: Atraumatic, normocephalic. Oral mucosa is moist NECK: Supple. CARDIOVASCULAR: S1, S2 heard. Rate and rhythm regular. RESPIRATORY: Clear to auscultation. GASTROINTESTINAL: Abdomen is soft. MUSCULOSKELETAL: No tenderness. No edema. DERMATOLOGIC: No skin rash. NEUROLOGIC: Alert and awake and oriented X3. No focal neurologic deficits. Moving all the extremities. PSYCHIATRIC: Mood and affect normal. LABORATORY DATA: Potassium 4.2, BUN is 28, and creatinine 1.4. ASSESSMENT AND PLAN: 1. Acute kidney injury, much better. 2. Chronic kidney disease, stage 3. Follow up with the clinic. 3. Hyperkalemia, better. 4. Edema. 5. Cardiorenal syndrome. 6. Metabolic acidosis. Renal function back to normal. Avoid nephrotoxins. Advised to follow up with the clinic in 1 to 2 weeks. Job ID: [id number]
--- NOTE | 2018-12-22 16:21 | DIS ---
DATE OF ADMISSION: 12/19/2018 DATE OF DISCHARGE: 12/22/2018 DISCHARGE DISPOSITION: To home. PRIMARY DISCHARGE DIAGNOSES: Acute renal failure, resolving; erosive gastritis, resolving; chronic obstructive pulmonary disease; chronic systolic heart failure; alcohol abuse; diabetes mellitus type 2; obesity; hypertension. PROCEDURES DONE DURING HOSPITALIZATION: CT of the abdomen and pelvis with IV contrast done shows hepatosplenomegaly with mild ascites, mild cardiomegaly, large right inguinal indirect hernia, right common femoral central venous catheter. Right upper quadrant ultrasound done, shows perihepatic ascites, mild hepatomegaly, no gallstones, gallbladder wall thickening/edema and trace pericholecystic fluid, likely due to third spacing. Upper endoscopy done by Dr. Rich Neri on 12/20/2018, showed increased diffuse mucosal erythema seen throughout the entire stomach, but also evidence of submucosal hemorrhage within the gastric cardia and fundus status post biopsies. Multiple small clean based ulcerations in the gastric antrum and incisura, status post biopsies. Increased mucosal edema within the prepyloric region extending into the pylorus. Stool for Campylobacter, Shiga toxins 1 and 2 were all negative. C. diff was negative. H and H are 13 and 40, platelet count is 71, MCV is 96. Discharge BUN and creatinine are 28 and 1.40. AST 39 on the day of discharge, ALT 40, total bilirubin 2.1, alkaline phosphatase 250 on the day of discharge. Had a creatinine of 3.43 on the of this month. BUN was 62 on the day of admission. Potassium was 8.1 on the day of admission with discharge numbers of 4.2, serum iron 49, TIBC 313, ferritin is 174, alpha-1 antitrypsin 176, ceruloplasmin 40. BNP is 899. Lipase was 64. Acute hepatitis panel was negative. DISCHARGE MEDICATIONS: 1. Aspirin 81 mg p.o. daily. 2. Coreg 12.5 mg twice daily. 3. Fluoxetine 60 mg daily. 4. DuoNeb's q.6 hourly p.r.n. 5. Multivitamin one tablet once daily. 6. Neurontin 100 mg twice daily. 7. Glipizide 5 mg daily. 8. Protonix 40 mg twice daily. ALLERGIES: NO KNOWN DRUG ALLERGIES. INPATIENT CONSULT: Dr. Rich Neri for Gastroenterology, Dr. Milan for Nephrology. DISCHARGE PLAN: The patient to follow up with primary care physician in 1 week. He also needs to have a metabolic panel done in 1 week. The results of which needs to be faxed to Dr. Milan. The patient needs to follow up with Dr. Daron Villanueva in 2 to 3 weeks to follow up on the biopsy results. BRIEF COURSE DURING HOSPITALIZATION: The patient initially came to ER with complaints of generalized weakness. His initial workup revealed acute renal failure with hyperkalemia and metabolic acidosis. He also had elevated liver enzymes. He has had consultation with Dr. Milan for Nephrology. The patient was placed on hemodialysis briefly and this was discontinued as his renal function slowly recovered. Prior to discharge, the patient's last 24-hour urine output was 2300 mL. His electrolytes have remained stable after his initial presentation. Prior to discharge, he is ambulating and eating well. He is wanting to go home today. In view of this, he has been advised to follow up with Dr. Milan in a week with labs. He has been cleared by Dr. Milan for discharge today. I have discussed all the pertinent findings with the patient and his at bedside. Please see a [id number] documentation for the day of discharge on [employer]. Job ID: [id number]
--- NOTE | 2018-12-23 09:39 | PRG ---
DATE OF SERVICE: 12/21/2018 SUBJECTIVE: This morning appears to be lethargic, arousable. The nurses have told me that he was much more awake prior to getting his medicine. OBJECTIVE: VITAL SIGNS: Temperature 97, pulse 73, respiratory rate 18, saturations 97% on room air, blood pressure 114/72. CHEST: Decreased breath sounds without any wheezing. CARDIAC: Normal S1 and S2. ABDOMEN: No masses. LABORATORY DATA: CBC unremarkable. Creatinine is 1.82, glucose 160. IMPRESSION: 1. Chronic obstructive pulmonary disease. 2. Renal failure. 3. Severe deconditioning. 4. Encephalopathy. PLAN: He is getting Ativan p.r.n. I would discontinue neb treatment. Supportive care. We will follow. Job ID: [id number]
[2018-12-23 11:45] LABS: ANA Symphony (Qualitative) Negative (Negative); ANA Symphony (Quantitative) 0.1 Ratio (< 0.7 Negative); EliA Vaculitis New Method **** NEW METHOD ****; Mitochondrial Ab 0.5 U/mL (<4 Negative); dsDNA IgG Antibody 1.6 IU/mL (<10 Negative)
== END 2018-12-22 13:03 | disposition home or self-care (01) | DRG 683 ==
LOC: ERS 02:03 → IMCU/EMU 05:00 → 2NO 12-20 22:47
PROVIDERS: ADMIT Internal Medicine; ATTEND Internal Medicine
PROC: 5A1D70Z Performance of Urinary Filtration, Intermittent, Less than 6 Hours Per Day (ICD-10-PCS; 2018-12-19)
PROC: 0DD78ZX Extraction of Stomach, Pylorus, Via Natural or Artificial Opening Endoscopic, Diagnostic (ICD-10-PCS; principal; 2018-12-20)
DX: N17.9 Acute kidney failure, unspecified (principal); I50.22 Chronic systolic (congestive) heart failure; E87.2 Acidosis; I13.0 Hypertensive heart and chronic kidney disease with heart failure and stage 1 through stage 4 chronic kidney disease, or unspecified chronic kidney disease; K70.30 Alcoholic cirrhosis of liver without ascites; K29.00 Acute gastritis without bleeding; E86.0 Dehydration; K21.9 Gastro-esophageal reflux disease without esophagitis; E78.5 Hyperlipidemia, unspecified; I48.91 Unspecified atrial fibrillation; I25.10 Atherosclerotic heart disease of native coronary artery without angina pectoris; E87.5 Hyperkalemia; D69.6 Thrombocytopenia, unspecified; J44.9 Chronic obstructive pulmonary disease, unspecified; M10.9 Gout, unspecified; F10.10 Alcohol abuse, uncomplicated; I08.0 Rheumatic disorders of both mitral and aortic valves; N18.3 Chronic kidney disease, stage 3 (moderate); F32.9 Major depressive disorder, single episode, unspecified; E11.69 Type 2 diabetes mellitus with other specified complication; E66.01 Morbid (severe) obesity due to excess calories; Z68.30 Body mass index [BMI] 30.0-30.9, adult; Z95.5 Presence of coronary angioplasty implant and graft; Z87.891 Personal history of nicotine dependence; Z79.82 Long term (current) use of aspirin; Z79.84 Long term (current) use of oral hypoglycemic drugs; Z79.899 Other long term (current) drug therapy; Z91.19 Patient's noncompliance with other medical treatment and regimen; Z95.1 Presence of aortocoronary bypass graft
CPT/HCPCS: 36415; 36416; 51702; 74176; 76705; 80048; 80053; 80076; 80307; 81003; 81015; 82103; 82390; 82553; 82728; 83516; 83540; 83550; 83630; 83690; 83880; 84484; 85025; 85610; 86038; 86225; 86704; 86706; 86803; 87045; 87046; 87324; 87340; 87449; 87899; 88305; 88312; 93005; 94640; 96361; 96374; 96375; 96376; C1752; C9113; J1644; J1815; J2001; J2270; J2405; J2704; J7611; J7620; Q0169

== ENCOUNTER 2018-12-29 23:54 | Inpatient (IN) | payer MEDICARE ==
[2018-12-30 00:59] LABS: RBC Distribution Width 18.8 % (11.5-14.5); Red Blood Cell (RBC) Count 4.19 mill/uL (4.70-6.10)
[2018-12-30 01:08] LABS: Anisocytosis SLIGHT = 6-15 cells (100X) (0-5/hpf); Band 3 % (5-11); Lymphocytes 12 % (21-51); MDiff Complete? YES; Mean Platelet Volume 6.4 fL (7.4-10.4); Monocytes 11 % (0-10); Neutrophil 72 % (42-75); Platelet Count 117 thou/uL (130-400); Platelet Morphology Comment Appears Decreased; Reactive Lymphocytes 2 % (0-10); Tear Drops SLIGHT = 2-5 cells (100X) (0-1/hpf)
[2018-12-30 02:47] LABS: ALT (SGPT) 22 U/L (8-55); AST (SGOT) 22 U/L (5-34); Albumin 3.7 g/dL (3.4-4.8); Alkaline Phosphatase 222 U/L (40-150); BUN (Urea Nitrogen) 33 mg/dL (8.4-25.7); Bilirubin, Total 1.8 mg/dL (0.2-1.2); Calc. Creatinine Clearance 0 mL/min (70-130); Calcium 9.1 mg/dL (7.8-10.44); Chloride 104 mmol/L (98-107); Estimated GFR-MDRD 51; Globulin 2.9 g/dL (2.4-3.5); Glucose 117 mg/dL (80-115); Magnesium 1.7 mg/dL (1.6-2.6); Protein, Total 6.6 g/dL (5.8-8.1); Sodium 140 mmol/L (136-145)
[2018-12-30 02:50] LABS: Anion Gap 11 mmol/L (10-20); Carbon Dioxide 26 mmol/L (23-31)
[2018-12-30] MEDS ORDERED: Furosemide 40 MG/4 ML VIAL ONE (03:03)
[2018-12-30] MEDS ORDERED: Acetaminophen 325 MG TAB PO PRN (04:24)
[2018-12-30 04:47] VITALS: BMI 33.8
[2018-12-30 06:36] LABS: Troponin I 0.011 ng/mL (< 0.028)
[2018-12-30] MEDS ORDERED: Dextrose 5% in Water 1,000 ML IV PRN (06:58)
[2018-12-30] MEDS ORDERED: Loratadine 10 MG TAB PO PRN (06:58)
[2018-12-30] MEDS ORDERED: hydrALAZINE 20 MG/ML VIAL SLOW IVP PRN (06:58)
[2018-12-30] MEDS ORDERED: HYDROcodone/Acetaminophen 5/325 mg Tablet PO PRN (06:58)
[2018-12-30] MEDS ORDERED: Diabetic Tussin 200 MG/10 ML UDCUP PO PRN (06:58)
[2018-12-30] MEDS ORDERED: Zolpidem Tartrate 5 MG TAB PO PRN (06:58)
[2018-12-30] MEDS ORDERED: Ondansetron PF 4 MG/2 ML Vial IVP PRN (06:58)
[2018-12-30] MEDS ORDERED: Cepastat Lozenges 1 LOZ PO PRN (06:58)
[2018-12-30] MEDS ORDERED: Ondansetron ODT 4 MG TAB PO PRN (06:58)
[2018-12-30] MEDS ORDERED: Nitroglycerin 0.4 MG TAB (25 Tab Bottle) SL PRN (06:58)
[2018-12-30] MEDS ORDERED: Calcium Carbonate 500 MG ChewTAB PO PRN (06:58)
[2018-12-30] MEDS ORDERED: Loperamide HCl 2 MG CAP PO PRN (06:58)
[2018-12-30] MEDS ORDERED: Dextrose 50% Abboject 50 ML SYRINGE SLOW IVP PRN (06:58)
[2018-12-30] MEDS ORDERED: HumaLOG 300 UNITS/3 ML VIAL SC PRN (06:58)
[2018-12-30] MEDS ORDERED: Senokot S 8.6-50 MG TAB PO PRN (06:58)
[2018-12-30] MEDS ORDERED: Bisacodyl 10 MG SUPP PR PRN (06:58)
[2018-12-30] MEDS ORDERED: Artificial Tears 18 DROP/0.9 ML EA EYE PRN (06:58)
[2018-12-30] MEDS ORDERED: Sodium Chloride 0.65% Nasal 44 ML BOT EA NARE PRN (06:58)
--- NOTE | 2018-12-30 07:44 | RAD ---
XR Chest 1 View Portable History: Dyspnea Comparison: Radiograph 2018 Findings: Heart size is enlarged. Mild pulmonary venous congestion. No pneumothorax. AICD/pacer is in place. Impression: Cardiomegaly and mild pulmonary venous congestion.
[2018-12-30] MEDS: Multivitamin W/ Minerals 1 TAB PO SCH (08:58)
[2018-12-30] MEDS: FLUoxetine HCl 20 MG CAP PO SCH (08:58)
[2018-12-30] MEDS: glipiZIDE 5 MG TAB PO SCH (08:58)
[2018-12-30] MEDS: Aspirin Chewable 81 MG TAB PO SCH (08:59)
[2018-12-30] MEDS: Carvedilol 6.25 MG TAB PO SCH ×2 (08:59→19:52)
[2018-12-30] MEDS: Gabapentin 100 MG CAP PO SCH ×2 (08:59→19:53)
[2018-12-30] MEDS: Enoxaparin Sodium 40 MG/0.4 ML SYRINGE SC SCH (08:59)
[2018-12-30] MEDS ORDERED: Non-Formulary Item 1 EACH (Multivit-Min/Fa/Lycopen/Lutein [Centrum Silver Men Tablet] 1 E PO SCH (09:00)
[2018-12-30] MEDS ORDERED: Famotidine 20 MG TAB PO SCH (09:00)
[2018-12-30] MEDS ORDERED: Non-Formulary Item 1 EACH (Fluoxetine Hcl [Prozac] 60 MG) PO SCH (09:00)
[2018-12-30 09:26] LABS: Troponin I Less than 0.010 ng/mL (< 0.028)
--- NOTE | 2018-12-30 12:37 | HP ---
PRIMARY CARE PHYSICIAN: Dr. Zackary Tamayo. REASON FOR ADMISSION: [id number] systolic and diastolic congestive heart failure exacerbation. HISTORY OF PRESENT ILLNESS: A 63-year-old male who has underlying history of chronic systolic and diastolic heart failure. His EF is 20-25%, as well as he has underlying severe mitral, aortic and tricuspid regurgitation and pulmonary hypertension who was recently admitted in our hospital on December 19, 2018 with generalized weakness. During that admission, the patient was found with elevated creatinine. He was discharged home without any diuretic therapy. The patient was not taking any diuretic therapy on discharge and subsequently, he noticed that his lower extremity swelling is gradually getting worse. He was having increasing shortness of breath. He denied any chest pain, palpitation, dizziness, or syncope, but he gained almost 16 pounds within a week period and that is why he decided to come to emergency room for evaluation. The patient reports that he went to see his primary care physician on , but only routine blood test was done and he was not given any diuretic therapy. Last night he came to emergency room. His creatinine was 1.4 and his BNP was significantly elevated to 2553. He was volume overloaded and that is why he was admitted overnight to telemetry floor. The patient denies any melena, hematochezia, abdominal pain, constipation, diarrhea, fever, chills, upper or lower respiratory symptoms. He denies any UTI symptoms. He denies any headache, focal motor or sensory deficit. REVIEW OF SYSTEMS: CONSTITUTIONAL: Negative for weight loss or gain, ability to conduct usual activities. SKIN: Negative for rash, itching. EYES: Negative for double vision, pain. ENT/MOUTH: Negative for nose bleeding, neck stiffness, pain, tenderness. CARDIOVASCULAR: Negative for palpitations, dyspnea on exertion, orthopnea. RESPIRATORY: Negative for shortness of breath, wheezing, cough, hemoptysis, fever or night sweats. GASTROINTESTINAL: Negative for poor appetite, abdominal pain, heartburn, nausea, vomiting, constipation, or diarrhea. GENITOURINARY: Negative for urgency, frequency, dysuria, nocturia. MUSCULOSKELETAL: Negative for pain, swelling. NEUROLOGIC/PSYCHIATRIC: Negative for anxiety, depression. ALLERGY/IMMUNOLOGIC: Negative for skin rash, bleeding tendency. Please see my HPI for pertinent positives and negatives. All other review of systems reviewed and negative except as mentioned in HPI. PAST MEDICAL HISTORY: Ischemic cardiomyopathy, chronic systolic and diastolic heart failure, severe mitral regurgitation, tricuspid regurgitation, aortic regurgitation, pulmonary hypertension, gastroesophageal reflux disease, diabetes type 2, hypertension, dyslipidemia, paroxysmal atrial fibrillation, history of pancreatitis, gastroesophageal reflux disease. PAST SURGICAL HISTORY: CABG, cardiac catheterization with stent placement, right foot surgery, defibrillator placement, hernia repair. PAST PSYCHIATRIC HISTORY: Anxiety and depression. SOCIAL HISTORY: The patient lives at home. He is former smoker. He quit smoking few years ago. He denies any alcohol abuse. He denies any other illicit drug abuse. FAMILY HISTORY: No strong family history of premature coronary artery disease, stroke, or cancer. ALLERGIES: NO KNOWN DRUG ALLERGIES. CURRENT HOME MEDICATIONS: 1. Aspirin 81 mg daily. 2. Coreg 12.5 mg p.o. b.i.d. 3. Prozac 60 mg daily. 4. DuoNeb q.6 hourly p.r.n. 5. Multivitamin one tablet daily. 6. Gabapentin 100 mg p.o. b.i.d. 7. Glipizide 5 mg p.o. daily. 8. Protonix 40 mg p.o. b.i.d. EMERGENCY ROOM COURSE: The patient was given Lasix 40 mg in the emergency room. PHYSICAL EXAMINATION: VITAL SIGNS: On arrival, blood pressure 123/81, pulse 80, respiratory rate 18, temperature 98.7, saturation 98% on room air, weight 104.3 kg. GENERAL: The patient is currently alert, awake, no obvious acute distress. HEENT: Head; normocephalic, atraumatic. Eyes; pupils round, reactive to light. Extraocular muscle intact. ENT ,oropharynx within normal limits. Moist mucous membranes. No oral lesion. No pharyngeal erythema. No exudate. NECK: Supple. JVD elevated. No thyromegaly. No carotid bruit. LUNGS: A few basal rales noted. No wheezing. No rhonchi. No accessory muscles of respiration in use. CARDIAC: S1, S2 regular. Systolic murmur noted at the apex and left parasternal area. No gallop. ABDOMEN: Obesity present. Bowel sounds present. Pitting edema of abdominal wall. GENITOURINARY: No scrotal swelling. LOWER EXTREMITY: Bilateral +4 pitting edema noted up to thigh level. Good distal pulsation. SKIN: No skin rash. UPPER EXTREMITIES: Within normal limit. NEUROLOGIC: Nonfocal examination. PSYCHIATRIC: Normal affect. SIGNIFICANT LABORATORY DATA: EKG showing normal sinus rhythm, nonspecific ST-T changes. Chest x-ray showing cardiomegaly, AICD in place. CBC: WBC 8.0, hemoglobin 13.0 platelet 117. BMP: Sodium 140, potassium 4.0, chloride 104, carbon dioxide 26, BUN 33, and creatinine 1.40, glucose 117, calcium 9.1, magnesium 1.7. LFT: AST 22, ALT 22, alkaline phosphatase 222, albumin 3.7, BNP 2553. Cardiac enzymes negative. ASSESSMENT AND PLAN: 1. [id number] systolic and diastolic congestive heart failure ACC stage C. This patient was not given any Lasix therapy recently in view of recent acute kidney injury. After that, the patient has significant weight gain of 15 pounds. He has lower extremity edema, elevated BNP, elevated jugular venous distention, basal rales, cardiomegaly, all consistent with congestive heart failure exacerbation. This patient has significant volume overload status that will require diuretic therapy more than 2 days and that is why we will keep him as inpatient status. We will continue with Lasix 40 mg b.i.d., fluid restriction 1500 mL per day. We will continue with Coreg 12.5 mg twice daily. The patient is not on angiotensin converting enzyme inhibitor or angiotensin II receptor blockers because of renal insufficiency. We will monitor renal function on a daily basis and we will replace electrolytes on an as needed basis. We will consider adding hydralazine 25 mg p.o. t.i.d. Cardiology has been consulted. 2. Ischemic cardiomyopathy with [id number] systolic and diastolic congestive heart failure with automatic implantable cardioverter defibrillator in place. Plan as mentioned in problem #1. 3. Coronary artery disease with history of coronary artery bypass grafting. Cardiac enzymes are negative. The patient does not have any angina. We will continue aspirin 81 mg p.o. daily, Coreg 12.5 mg b.i.d. 4. Anxiety and depression. We will continue Prozac 60 mg p.o. daily. 5. Diabetes type 2. We will continue glipizide 5 mg p.o. daily, insulin as per sliding scale protocol. 6. Diabetic peripheral neuropathy. We will continue Neurontin 100 mg b.i.d. 7. Gastroesophageal reflux disease. We will continue Protonix 40 mg p.o. b.i.d. 8. Obesity with body mass index 33. Dietary education given. Weight loss education given. 9. Chronic kidney disease, stage 3 we will monitor renal function. 10. Dyslipidemia. We will continue Lipitor 40 mg p.o. at bedtime. 11. Deep venous thrombosis prophylaxis. Lovenox 40 mg subcu daily. Monitor platelet count. Gastrointestinal prophylaxis, patient is already on Protonix therapy. CODE STATUS: The patient is full code. The patient does not have any surrogate decision maker. DISPOSITION PLAN: Based on clinical course we are expecting the patient's stay in hospital more than 2 midnights. Plan of care discussed with the patient in detail. Job ID: [id number]
--- NOTE | 2018-12-30 13:40 | CON ---
DATE OF CONSULTATION: 12/30/2018 HISTORY OF PRESENT ILLNESS: The patient is unfortunate 63-year-old gentleman, who presented with lower extremity swelling. The patient has a history of an ischemic cardiomyopathy. He underwent a cardiac catheterization in 2017. He was found to have a 70% proximal LAD lesion, diffuse distal disease in the LAD, 80% circumflex lesion, and 90% lesion in the mid right coronary artery. The patient had an ejection fraction of 25%. He subsequently underwent coronary artery bypass graft surgery x4. The patient had subsequently been on medical therapy. He also was treated temporarily with Entresto. The patient was also temporarily on losartan. The patient was in his usual state of health when he presented with acute renal failure approximately 10 days ago with lower extremity swelling. He actually did temporary dialysis. The patient was felt to have cardiorenal syndrome. His medications were adjusted. He presents again with increasing lower extremity swelling. He denies having any chest discomfort. PAST MEDICAL HISTORY: Significant for, 1. Coronary artery disease. 2. Cardiomyopathy. 3. COPD. 4. Hypertension. 5. Diabetes mellitus. 6. Depression. PAST SURGICAL HISTORY: He has had coronary artery bypass graft surgery. He has had right foot surgery. SOCIAL HISTORY: Former smoker. ALLERGIES: NO KNOWN DRUG ALLERGIES. MEDICATIONS: On admission include, 1. Glipizide 5 daily. 2. Protonix 40 b.i.d. 3. Coreg 12.5 b.i.d. 4. Gabapentin 100 b.i.d. 5. Aspirin 81 daily. PHYSICAL EXAMINATION: GENERAL: This is an obese gentleman, in no acute distress. VITAL SIGNS: Blood pressure of 104/72. NECK: Showed no jugular venous distention. LUNGS: Diminished breath sounds bilateral. HEART: Regular rate and rhythm. Normal S1, S2. No murmurs. ABDOMEN: Distended. EXTREMITIES: Show severe bilateral edema. LABORATORY RESULTS: Sodium 140, potassium 4.2, chloride 104, bicarbonate 26, BUN 33, creatinine 1.14, and glucose 117. White blood cell count , hemoglobin 13.0, hematocrit 46.6, and platelets 117. IMAGING STUDIES: EKG revealed normal sinus rhythm, nonspecific T-wave. IMPRESSION: 1. Congestive heart failure. 2. Ischemic cardiomyopathy. 3. History of coronary artery bypass surgery. 4. Diabetes mellitus. 5. Renal insufficiency. This gentleman presents with progressive lower extremity swelling. We will recheck the patient's echocardiogram from a cardiac standpoint. He should be on lipid-lowering medication. We will start low-dose hydralazine since the patient has had developed renal failure apparently on AMRIT/ARB medication. We will follow this patient with you through his hospitalization. Job ID: [id number]
[2018-12-30] MEDS: hydrALAZINE 25 MG TAB PO SCH ×2 (14:09→19:52)
[2018-12-30] MEDS: Furosemide 40 MG/4 ML VIAL SLOW IVP SCH (14:10)
[2018-12-30 15:30] LABS: Bilirubin Negative (Negative); Blood, Urine Negative (Negative); Clarity CLEAR (Clear); Glucose, Urine (Dipstick) Negative (Negative); Leukocyte Negative (Negative); Nitrite Negative (Negative); Protein, Urine (Dipstick) Negative (Neg-Trace); Specific Gravity, Urine 1.009 (1.002-1.036); pH, Urine 6.5 (5.0-9.0)
[2018-12-30 15:32] LABS: Bacteria/HPF None Seen HPF (None Seen); Hyaline Casts/LPF 0-3 HYALINE CAST LPF (0-3 Hyaline); Pathc Cast-AUWi Flag 0.13 (0-2.49); RBC/HPF None Seen HPF (0-3); Squamous Epithelial None Seen HPF (0-3); WBC/HPF None Seen HPF (0-3)
[2018-12-30 15:50] LABS: Creatinine, Urine 20.85 mg/dL (63-166); Protein, Urine Random Quant Less than 10 mg/dL (1-14)
[2018-12-30] MEDS: Atorvastatin Calcium 40 MG TAB PO SCH (19:52)
[2018-12-30] MEDS: Acetaminophen 325 MG TAB PO PRN (22:36)
[2018-12-31] MEDS: Furosemide 40 MG/4 ML VIAL SLOW IVP SCH (05:19)
[2018-12-31 05:51] LABS: Anion Gap 15 mmol/L (10-20); BUN (Urea Nitrogen) 34 mg/dL (8.4-25.7); Calc. Creatinine Clearance 102 mL/min (70-130); Calcium 8.7 mg/dL (7.8-10.44); Carbon Dioxide 26 mmol/L (23-31); Chloride 103 mmol/L (98-107); Estimated GFR-MDRD 68; Glucose 94 mg/dL (80-115); Magnesium 1.4 mg/dL (1.6-2.6); Potassium 3.7 mmol/L (3.5-5.1); Sodium 140 mmol/L (136-145); Uric Acid 9.4 mg/dL (3.5-7.2)
[2018-12-31 05:58] LABS: #Basophils 0.1 thou/uL (0.0-0.2); #Eosinphils 0.1 thou/uL (0.0-0.7); #Lymphocytes 1.5 thou/uL (1.20-3.40); #Monocytes 0.4 thou/uL (0.11-0.59); #Neutrophils 4.5 thou/uL (1.40-6.50); %Eosinophils 1.5 % (0.0-10.0); %Lymphocytes 22.9 % (21.0-51.0); %Monocytes 6.5 % (0.0-10.0); %Neutrophils 68.2 % (42.0-75.0); Anisocytosis SLIGHT = 6-15 cells (100X) (0-5/hpf); Hemoglobin 12.4 g/dL (14.0-18.0); MDiff Complete? YES; Mean Corpuscular HGB CONC 31.7 g/dL (32.0-36.0); Mean Corpuscular Hemoglobin 30.6 pg (27.0-31.0); Mean Corpuscular Volume 96.7 fL (78.0-98.0); Mean Platelet Volume 8.2 fL (7.4-10.4); Ovalocytes SLIGHT = 2-5 cells (100X) (0-1/hpf); Platelet Count 108 thou/uL (130-400); Platelet Morphology Comment Appears Decreased; Polychromasia SLIGHT = 2-3 cells (100X) (0-2/hpf); RBC Distribution Width 18.8 % (11.5-14.5); Red Blood Cell (RBC) Count 4.05 mill/uL (4.70-6.10); White Blood Cell (WBC) Count 6.5 thou/uL (4.8-10.8)
[2018-12-31] MEDS ORDERED: Magnesium Sulfate 3 GM in Sodium Chloride 0.9% 100 ML IVPB SCH (07:15)
[2018-12-31] MEDS ORDERED: Furosemide 40 MG/4 ML VIAL SLOW IVP SCH (08:44)
[2018-12-31] MEDS ORDERED: Furosemide 100 MG/10 ML VIAL SLOW IVP SCH (09:00)
[2018-12-31] MEDS: FLUoxetine HCl 20 MG CAP PO SCH (09:39)
[2018-12-31] MEDS: hydrALAZINE 25 MG TAB PO SCH ×3 (09:39→20:41)
[2018-12-31] MEDS: Multivitamin W/ Minerals 1 TAB PO SCH (09:39)
[2018-12-31] MEDS: glipiZIDE 5 MG TAB PO SCH (09:39)
[2018-12-31] MEDS: Gabapentin 100 MG CAP PO SCH ×2 (09:40→20:41)
[2018-12-31] MEDS: Enoxaparin Sodium 40 MG/0.4 ML SYRINGE SC SCH (09:40)
[2018-12-31] MEDS: Carvedilol 6.25 MG TAB PO SCH ×2 (09:40→20:41)
[2018-12-31] MEDS: Aspirin Chewable 81 MG TAB PO SCH (09:40)
[2018-12-31] MEDS ORDERED: Metolazone 5 MG TAB PO SCH (09:45)
--- NOTE | 2018-12-31 11:00 | PDOC.PN ---
- Subjective Encounter Start Date: 12/31/18 Encounter Start Time: 07:00 -: old records requested/rev Patient seen and examined. No new complaints. No overnight events pt's edema is improving - Objective Resuscitation Status - Order Detail: 12/30/18 06:50 Resuscitation Status Routine Resuscitation Status: FULL: Full Resuscitation MAR Reviewed: Yes Vital Signs & Weight: Vital Signs (12 hours) Temp Pulse Resp BP BP Pulse Ox 12/31/18 09:39 69 108/68 12/31/18 08:00 96.3 F L 74 17 108/68 97 12/31/18 07:35 96 12/31/18 04:00 97.6 F 69 20 109/64 95 12/31/18 00:12 73 16 12/30/18 23:00 80 16 121/79 98 Weight Weight 229 lb 6.4 oz I&O: 12/30/18 12/31/18 01/01/19 06:59 06:59 06:59 Intake Total 720 Output Total 2600 Balance -1880 Result Diagrams: 12/31/18 04:10 12/31/18 04:10 Additional Labs: Accuchecks 12/31/18 12/31/18 12/30/18 10:21 05:41 20:14 POC Glucose 250 H 117 H 129 H 12/30/18 12/30/18 16:59 10:44 POC Glucose 133 H 199 H EKG Reviewed by me: Yes (nsr) Phys Exam - Physical Examination Constitutional: NAD HEENT: PERRLA, moist MMs, sclera anicteric Neck: supple, full ROM Respiratory: no wheezing, no rhonchi reduced air entry at base Cardiovascular: RRR, no significant murmur, no rub Gastrointestinal: soft, non-tender, no distention, positive bowel sounds Musculoskeletal: pulses present, edema present Neurological: non-focal, normal sensation, moves all 4 limbs Lymphatic: no nodes Psychiatric: normal affect, A&O x 3 Skin: no rash, normal turgor Dx/Plan (1) Acute on chronic combined systolic and diastolic ACC/AHA stage C congestive heart failure Code(s): I50.43 - ACUTE ON CHRONIC COMBINED SYSTOLIC AND DIASTOLIC HRT FAIL Status: Acute (2) Hypomagnesemia Code(s): E83.42 - HYPOMAGNESEMIA Status: Acute (3) Obesity (BMI 30.0-34.9) Code(s): E66.9 - OBESITY, UNSPECIFIED Status: Acute (4) Thrombocytopenia Code(s): D69.6 - THROMBOCYTOPENIA, UNSPECIFIED Status: Acute (5) Anxiety and depression Code(s): F41.9 - ANXIETY DISORDER, UNSPECIFIED; F32.9 - MAJOR DEPRESSIVE DISORDER, SINGLE EPISODE, UNSPECIFIED Status: Chronic (6) CAD (coronary artery disease) Code(s): I25.10 - ATHSCL HEART DISEASE OF [place] CORONARY ARTERY W/O ANG PCTRS Status: Chronic (7) CKD (chronic kidney disease) stage 3, GFR 30-59 ml/min Code(s): N18.3 - CHRONIC KIDNEY DISEASE, STAGE 3 (MODERATE) Status: Chronic (8) COPD (chronic obstructive pulmonary disease) Status: Chronic (9) Diabetic neuropathy Code(s): E11.40 - TYPE 2 DIABETES MELLITUS WITH DIABETIC NEUROPATHY, UNSP Status: Chronic (10) GERD (gastroesophageal reflux disease) Code(s): K21.9 - GASTRO-ESOPHAGEAL REFLUX DISEASE WITHOUT ESOPHAGITIS Status: Chronic (11) Hypertension Code(s): I10 - ESSENTIAL (PRIMARY) HYPERTENSION Status: Chronic Qualifiers: (12) Ischemic cardiomyopathy Code(s): I25.5 - ISCHEMIC CARDIOMYOPATHY Status: Chronic (13) Moderate aortic regurgitation Code(s): I35.1 - NONRHEUMATIC AORTIC (VALVE) INSUFFICIENCY Status: Chronic (14) Pulmonary hypertension Code(s): I27.20 - PULMONARY HYPERTENSION, UNSPECIFIED Status: Chronic (15) Severe mitral regurgitation by prior echocardiogram Code(s): I34.0 - NONRHEUMATIC MITRAL (VALVE) INSUFFICIENCY Status: Chronic (16) Severe tricuspid regurgitation by prior echocardiogram Code(s): I07.1 - RHEUMATIC TRICUSPID INSUFFICIENCY Status: Chronic - Plan cont current plan of care, plan discussed w/ family * replace magnesium sulfate * continue IV lasix * add Zaroxolyn * medication reviewed as below * symptomatic treatment. * discussed with * repeat labs tomorrow Review of Systems - Review of Systems ENT: negative: Ear Pain, Ear Discharge, Nose Pain, Nose Discharge, Nose Congestion, Mouth Pain, Mouth Swelling, Throat Pain, Throat Swelling, Other Respiratory: negative: Cough, Dry, Shortness of Breath, Hemoptysis, SOB with Excertion, Pleuritic Pain, Sputum, Wheezing Cardiovascular: edema. negative: chest pain, palpitations, orthopnea, paroxysmal nocturnal dyspnea, light headedness, other Gastrointestinal: negative: Nausea, Vomiting, Abdominal Pain, Diarrhea, Constipation, Melena, Hematochezia, Other Genitourinary: negative: Dysuria, Frequency, Incontinence, Hematuria, Retention , Other Musculoskeletal: negative: Neck Pain, Shoulder Pain, Arm Pain, Back Pain, Hand Pain, Leg Pain, Foot Pain, Other Skin: negative: Rash, Lesions, Jean, Bruising, Other - Medications/Allergies Allergies/Adverse Reactions: Allergies Allergy/AdvReac Type Severity Reaction Status Date / Time No Known Allergies Allergy Verified 12/30/18 04:39 Medications: Current Medications Acetaminophen (Tylenol) 650 mg PO Q4H PRN PRN Reason: Headache/Fever/Mild Pain (1-3) Last Admin: 12/30/18 22:36 Dose: 650 mg Hydrocodone Bitart/Acetaminophen ([place] 5/325) 1 tab PO Q4H PRN PRN Reason: Moderate Pain (4-6) Albuterol/Ipratropium (Duoneb) 3 ml NEB [id number] [facility] Last Admin: 12/31/18 07:37 Dose: 3 ml Artificial Tears (Tears Naturale) 2 drop EA EYE PRN PRN PRN Reason: Dry Eyes Aspirin (Aspirin Chewable) 81 mg PO DAILY [facility] Last Admin: 12/31/18 09:40 Dose: 81 mg Atorvastatin Calcium (Lipitor) 40 mg PO HS [facility] Last Admin: 12/30/18 19:52 Dose: 40 mg Bisacodyl (Dulcolax) 10 mg [place] DAILYPRN PRN PRN Reason: Constipation Calcium Carbonate (Tums) 1,000 mg PO Q4H PRN PRN Reason: Heartburn or Indigestion Carvedilol (Coreg) 12.5 mg PO BID [facility] Last Admin: 12/31/18 09:40 Dose: 12.5 mg Dextrose/Water (Dextrose 50%) 25 gm SLOW IVP PRN PRN PRN Reason: Hypoglycemia Enoxaparin Sodium (Lovenox) 40 mg SC 0900 [facility] Last Admin: 12/31/18 09:40 Dose: 40 mg Fluoxetine HCl (Prozac) 60 mg PO DAILY [facility] Last Admin: 12/31/18 09:39 Dose: 60 mg Furosemide (Lasix) 80 mg SLOW IVP 0600,1400 [facility] Gabapentin (Neurontin) 100 mg PO BID [facility] Last Admin: 12/31/18 09:40 Dose: 100 mg Glipizide (Glucotrol) 5 mg PO DAILY [facility] Last Admin: 12/31/18 09:39 Dose: 5 mg Glucagon (Glucagon) 1 mg IM PRN PRN PRN Reason: Hypoglycemia Guaifenesin (Robitussin Sf) 200 mg PO Q4H PRN PRN Reason: Cough Hydralazine HCl (Apresoline) 10 mg SLOW IVP Q4H PRN PRN Reason: SBP > 180 and HR < 70 Hydralazine HCl (Apresoline) 25 mg PO TID [facility] Last Admin: 12/31/18 09:39 Dose: Not Given Dextrose/Water (D5w) 1,000 mls @ 0 mls/hr IV .Q0M PRN PRN Reason: Hypoglycemia Insulin Human Lispro (Humalog) 0 units SC .MODERATE SLIDING SC PRN PRN Reason: Moderate Correctional Scale Insulin Human Lispro (Humalog) 0 units SC .BEDTIME SLIDING SC PRN PRN Reason: Bedtime Correctional Scale Iron/Minerals/Multivitamins (Theragran M) 1 tab PO DAILY [facility] Last Admin: 12/31/18 09:39 Dose: 1 tab Loperamide HCl (Imodium) 2 mg PO PRN PRN PRN Reason: Diarrhea/Loose Stools Loratadine (Claritin) 10 mg PO DAILYPRN PRN PRN Reason: Sinus Symptoms Metolazone (Zaroxolyn) 5 mg PO 0830 [facility] Nitroglycerin (Nitrostat) 0.4 mg SL Q5MIN PRN PRN Reason: Chest Pain Ondansetron HCl (Zofran Odt) 4 mg PO Q6H PRN PRN Reason: Nausea/Vomiting Ondansetron HCl (Zofran) 4 mg IVP Q6H PRN PRN Reason: Nausea/Vomiting Pantoprazole Sodium (Protonix) 40 mg PO DAILY [facility] Last Admin: 12/31/18 09:40 Dose: 40 mg Senna/Docusate Sodium (Senokot S) 2 tab PO BID PRN PRN Reason: Constipation Sodium Chloride (Hand Nasal [place] 0.65%) 0 ml EA NARE QIDPRN PRN PRN Reason: Nasal Congestion Sodium Chloride (Flush - Normal Saline) 10 ml IVF Q12HR [facility] Last Admin: 12/31/18 09:41 Dose: 10 ml Sodium Chloride (Flush - Normal Saline) 10 ml IVF PRN PRN PRN Reason: Saline Flush Last Admin: 12/31/18 05:23 Dose: 10 ml Throat Lozenges (Cepastat Lozenges) 1 vannesa PO Q2H PRN PRN Reason: Sore Throat Zolpidem Tartrate (Ambien) 5 mg PO HSPRN PRN PRN Reason: Insomnia
[2018-12-31] MEDS: HumaLOG 300 UNITS/3 ML VIAL SC PRN (11:49)
[2018-12-31] MEDS: Furosemide 100 MG/10 ML VIAL SLOW IVP SCH (15:06)
[2018-12-31] MEDS: Atorvastatin Calcium 40 MG TAB PO SCH (20:41)
[2018-12-31] MEDS: Acetaminophen 325 MG TAB PO PRN (20:46)
[2019-01-01 05:20] LABS: Anion Gap 15 mmol/L (10-20); BUN (Urea Nitrogen) 33 mg/dL (8.4-25.7); Calc. Creatinine Clearance 99 mL/min (70-130); Calcium 9.3 mg/dL (7.8-10.44); Carbon Dioxide 30 mmol/L (23-31); Chloride 97 mmol/L (98-107); Estimated GFR-MDRD 65; Glucose 116 mg/dL (80-115); Magnesium 1.8 mg/dL (1.6-2.6); Potassium 3.5 mmol/L (3.5-5.1); Sodium 138 mmol/L (136-145)
[2019-01-01] MEDS: Furosemide 100 MG/10 ML VIAL SLOW IVP SCH ×2 (05:58→15:33)
[2019-01-01] MEDS ORDERED: Metolazone 5 MG TAB PO SCH ×2 (08:30→08:45)
[2019-01-01] MEDS: FLUoxetine HCl 20 MG CAP PO SCH (09:09)
[2019-01-01] MEDS: Multivitamin W/ Minerals 1 TAB PO SCH (09:10)
[2019-01-01] MEDS: glipiZIDE 5 MG TAB PO SCH (09:10)
[2019-01-01] MEDS: Aspirin Chewable 81 MG TAB PO SCH (09:10)
[2019-01-01] MEDS: Carvedilol 6.25 MG TAB PO SCH ×2 (09:10→20:07)
[2019-01-01] MEDS: Gabapentin 100 MG CAP PO SCH ×2 (09:11→20:08)
[2019-01-01] MEDS: Enoxaparin Sodium 40 MG/0.4 ML SYRINGE SC SCH (09:12)
[2019-01-01] MEDS: hydrALAZINE 25 MG TAB PO SCH ×3 (09:23→20:08)
[2019-01-01] MEDS: Isosorbide Dinitrate 20 MG TAB PO SCH ×3 (11:42→20:08)
[2019-01-01] MEDS: HumaLOG 300 UNITS/3 ML VIAL SC PRN (17:42)
--- NOTE | 2019-01-01 20:02 | PDOC.PN ---
- Subjective Encounter Start Date: 01/01/19 Encounter Start Time: 20:02 Patient seen and examined for CHF. SOB improving. No CP/Palpitation. LE Edema improving. No new complaints. No overnight events - Objective Resuscitation Status - Order Detail: 12/30/18 06:50 Resuscitation Status Routine Resuscitation Status: FULL: Full Resuscitation MAR Reviewed: Yes Vital Signs & Weight: Vital Signs (12 hours) Temp Pulse Resp BP Pulse Ox 01/01/19 18:06 84 16 01/01/19 15:32 97.4 F L 82 14 118/70 97 01/01/19 13:58 80 16 01/01/19 11:45 97.5 F L 72 14 110/63 96 01/01/19 09:04 97.6 F 78 14 104/68 96 Weight Weight 213 lb 9.6 oz I&O: 12/31/18 01/01/19 01/02/19 06:59 06:59 06:59 Intake Total 720 940 800 Output Total 2600 6400 4350 Balance -3819 -6130 -7220 Result Diagrams: 12/31/18 04:10 01/01/19 04:13 Additional Labs: Accuchecks 01/01/19 01/01/19 01/01/19 17:02 11:16 05:26 POC Glucose 294 H 170 H 98 12/31/18 20:29 POC Glucose 213 H EKG Reviewed by me: Yes (Tele SR) Phys Exam - Physical Examination Constitutional: NAD Respiratory: no wheezing, no rhonchi dim AE at bases Cardiovascular: RRR, no rub Gastrointestinal: soft, non-tender, positive bowel sounds Musculoskeletal: edema present Neurological: non-focal (4+) Dx/Plan - Plan DVT proph w/lovenox, DVT proph w/SCDs IMPRESSION: Acute on chronic combined systolic and diastolic ACC/AHA stage C congestive heart failure CAD s/p CABG CKD 3 with recent LEESA requiring dialysis DM2 HTN Hypomagnesemia Other issues per previous note PLAN: Cont IV Lasix Received 1 dose of Metolazone Cont Fluid rest No ACEI/ARB/Aldactone due to renal insuf Cont sliding scale with Glipizide Cont Coreg/ASA and other meds as below AM labs Review of Systems - Medications/Allergies Allergies/Adverse Reactions: Allergies Allergy/AdvReac Type Severity Reaction Status Date / Time No Known Allergies Allergy Verified 12/30/18 04:39 Medications: Current Medications Acetaminophen (Tylenol) 650 mg PO Q4H PRN PRN Reason: Headache/Fever/Mild Pain (1-3) Last Admin: 12/31/18 20:46 Dose: 650 mg Hydrocodone Bitart/Acetaminophen ([place] 5/325) 1 tab PO Q4H PRN PRN Reason: Moderate Pain (4-6) Albuterol/Ipratropium (Duoneb) 3 ml NEB [id number] [facility] Last Admin: 01/01/19 18:06 Dose: 3 ml Artificial Tears (Tears Naturale) 2 drop EA EYE PRN PRN PRN Reason: Dry Eyes Aspirin (Aspirin Chewable) 81 mg PO DAILY [facility] Last Admin: 01/01/19 09:10 Dose: 81 mg Atorvastatin Calcium (Lipitor) 40 mg PO HS [facility] Last Admin: 12/31/18 20:41 Dose: 40 mg Bisacodyl (Dulcolax) 10 mg ID DAILYPRN PRN PRN Reason: Constipation Calcium Carbonate (Tums) 1,000 mg PO Q4H PRN PRN Reason: Heartburn or Indigestion Carvedilol (Coreg) 12.5 mg PO BID [facility] Last Admin: 01/01/19 09:10 Dose: 12.5 mg Dextrose/Water (Dextrose 50%) 25 gm SLOW IVP PRN PRN PRN Reason: Hypoglycemia Enoxaparin Sodium (Lovenox) 40 mg SC 0900 [facility] Last Admin: 01/01/19 09:12 Dose: 40 mg Fluoxetine HCl (Prozac) 60 mg PO DAILY [facility] Last Admin: 01/01/19 09:09 Dose: 60 mg Furosemide (Lasix) 80 mg SLOW IVP 0600,1400 [facility] Last Admin: 01/01/19 15:33 Dose: 80 mg Gabapentin (Neurontin) 100 mg PO BID [facility] Last Admin: 01/01/19 09:11 Dose: 100 mg Glipizide (Glucotrol) 5 mg PO DAILY [facility] Last Admin: 01/01/19 09:10 Dose: 5 mg Glucagon (Glucagon) 1 mg IM PRN PRN PRN Reason: Hypoglycemia Guaifenesin (Robitussin Sf) 200 mg PO Q4H PRN PRN Reason: Cough Hydralazine HCl (Apresoline) 10 mg SLOW IVP Q4H PRN PRN Reason: SBP > 180 and HR < 70 Hydralazine HCl (Apresoline) 25 mg PO TID [facility] Last Admin: 01/01/19 15:33 Dose: 25 mg Dextrose/Water (D5w) 1,000 mls @ 0 mls/hr IV .Q0M PRN PRN Reason: Hypoglycemia Insulin Human Lispro (Humalog) 0 units SC .MODERATE SLIDING SC PRN PRN Reason: Moderate Correctional Scale Last Admin: 01/01/19 17:42 Dose: 6 unit Insulin Human Lispro (Humalog) 0 units SC .BEDTIME SLIDING SC PRN PRN Reason: Bedtime Correctional Scale Iron/Minerals/Multivitamins (Theragran M) 1 tab PO DAILY [facility] Last Admin: 01/01/19 09:10 Dose: 1 tab Isosorbide Dinitrate (Isordil) 20 mg PO TID [facility] Last Admin: 01/01/19 16:44 Dose: 20 mg Loperamide HCl (Imodium) 2 mg PO PRN PRN PRN Reason: Diarrhea/Loose Stools Loratadine (Claritin) 10 mg PO DAILYPRN PRN PRN Reason: Sinus Symptoms Nitroglycerin (Nitrostat) 0.4 mg SL Q5MIN PRN PRN Reason: Chest Pain Ondansetron HCl (Zofran Odt) 4 mg PO Q6H PRN PRN Reason: Nausea/Vomiting Ondansetron HCl (Zofran) 4 mg IVP Q6H PRN PRN Reason: Nausea/Vomiting Pantoprazole Sodium (Protonix) 40 mg PO DAILY [facility] Last Admin: 01/01/19 09:11 Dose: 40 mg Senna/Docusate Sodium (Senokot S) 2 tab PO BID PRN PRN Reason: Constipation Sodium Chloride ([place] Nasal [place] 0.65%) 0 ml EA NARE QIDPRN PRN PRN Reason: Nasal Congestion Sodium Chloride (Flush - Normal Saline) 10 ml IVF Q12HR [facility] Last Admin: 01/01/19 09:13 Dose: 10 ml Sodium Chloride (Flush - Normal Saline) 10 ml IVF PRN PRN PRN Reason: Saline Flush Last Admin: 12/31/18 05:23 Dose: 10 ml Throat Lozenges (Cepastat Lozenges) 1 vannesa PO Q2H PRN PRN Reason: Sore Throat Zolpidem Tartrate (Ambien) 5 mg PO HSPRN PRN PRN Reason: Insomnia
[2019-01-01] MEDS: Atorvastatin Calcium 40 MG TAB PO SCH (20:07)
[2019-01-01] MEDS: Acetaminophen 325 MG TAB PO PRN (23:21)
[2019-01-02] MEDS: Acetaminophen 325 MG TAB PO PRN ×2 (03:10→20:28)
[2019-01-02] MEDS: Furosemide 100 MG/10 ML VIAL SLOW IVP SCH ×2 (05:41→15:27)
[2019-01-02 05:49] LABS: Anion Gap 12 mmol/L (10-20); BUN (Urea Nitrogen) 32 mg/dL (8.4-25.7); Calc. Creatinine Clearance 79 mL/min (70-130); Calcium 9.7 mg/dL (7.8-10.44); Carbon Dioxide 35 mmol/L (23-31); Chloride 93 mmol/L (98-107); Estimated GFR-MDRD 57; Glucose 153 mg/dL (80-115); Magnesium 1.6 mg/dL (1.6-2.6); Potassium 3.4 mmol/L (3.5-5.1); Sodium 137 mmol/L (136-145)
[2019-01-02] MEDS ORDERED: Potassium Chloride 20 MEQ TAB PO SCH ×2 (06:30→17:00)
[2019-01-02] MEDS ORDERED: Magnesium 2 GM/50 ML 2 GM in Premix Bag 1 BAG IVPB SCH (06:30)
[2019-01-02] MEDS: FLUoxetine HCl 20 MG CAP PO SCH (09:59)
[2019-01-02] MEDS: Multivitamin W/ Minerals 1 TAB PO SCH (10:00)
[2019-01-02] MEDS: glipiZIDE 5 MG TAB PO SCH (10:00)
[2019-01-02] MEDS: Aspirin Chewable 81 MG TAB PO SCH (10:01)
[2019-01-02] MEDS: Gabapentin 100 MG CAP PO SCH ×2 (10:01→20:25)
[2019-01-02] MEDS: Carvedilol 6.25 MG TAB PO SCH ×2 (10:01→20:24)
[2019-01-02] MEDS: Enoxaparin Sodium 40 MG/0.4 ML SYRINGE SC SCH (10:02)
[2019-01-02] MEDS: hydrALAZINE 25 MG TAB PO SCH ×3 (10:02→20:24)
[2019-01-02] MEDS: Isosorbide Dinitrate 20 MG TAB PO SCH ×3 (10:02→20:25)
[2019-01-02] MEDS: HumaLOG 300 UNITS/3 ML VIAL SC PRN (17:49)
[2019-01-02] MEDS: Atorvastatin Calcium 40 MG TAB PO SCH (20:24)
--- NOTE | 2019-01-02 21:45 | PDOC.PN ---
- Subjective Encounter Start Date: 01/02/19 Encounter Start Time: 09:30 Patient seen and examined for CHF flare. SOB/edema improving. No CP. No new complaints. No overnight events - Objective Resuscitation Status - Order Detail: 12/30/18 06:50 Resuscitation Status Routine Resuscitation Status: FULL: Full Resuscitation MAR Reviewed: Yes Vital Signs & Weight: Vital Signs (12 hours) Temp Pulse Resp BP BP BP Pulse Ox 01/02/19 20:24 88 133/73 01/02/19 19:57 97.9 F 88 20 133/73 96 01/02/19 18:09 80 16 01/02/19 15:28 97.8 F 82 14 106/67 94 L 01/02/19 13:26 82 16 93 L 01/02/19 11:47 97.5 F L 82 14 104/64 93 L Weight Weight 204 lb I&O: 01/01/19 01/02/19 01/03/19 06:59 06:59 06:59 Intake Total 940 800 Output Total 6400 4350 Balance -4620 -9950 Result Diagrams: 12/31/18 04:10 01/03/19 05:02 Additional Labs: Accuchecks 01/02/19 01/02/19 01/02/19 20:11 17:08 11:04 POC Glucose 184 H 199 H 193 H 01/02/19 05:20 POC Glucose 135 H EKG Reviewed by me: Yes (Tele SR) Phys Exam - Physical Examination Constitutional: NAD Respiratory: no wheezing, no rhonchi few rales at bases Cardiovascular: RRR, no rub Gastrointestinal: soft, non-tender, positive bowel sounds Musculoskeletal: edema present (2+) Dx/Plan - Plan DVT proph w/SCDs IMPRESSION: Acute on chronic combined systolic and diastolic ACC/AHA stage C congestive heart failure CAD s/p CABG CKD 3 with recent LEESA requiring dialysis DM2 HTN Hypomagnesemia/Hypokalemia Par Afib per H&P/ER report - I was unable to verify this. Patient cannot recall history of Afib. Other issues per previous note PLAN: Cont IV Lasix with fluid rest Isordil started Replace Potassium and Magnessium No ACEI/ARB/Aldactone due to renal insuf Cont sliding scale Cont Coreg AM labs Review of Systems - Review of Systems Respiratory: SOB with Excertion. negative: Cough, Dry, Shortness of Breath, Hemoptysis, Pleuritic Pain, Sputum, Wheezing Cardiovascular: edema. negative: chest pain, palpitations, orthopnea, paroxysmal nocturnal dyspnea, light headedness, other Gastrointestinal: negative: Nausea, Vomiting, Abdominal Pain, Diarrhea, Constipation, Melena, Hematochezia, Other - Medications/Allergies Allergies/Adverse Reactions: Allergies Allergy/AdvReac Type Severity Reaction Status Date / Time No Known Allergies Allergy Verified 12/30/18 04:39 Medications: Current Medications Acetaminophen (Tylenol) 650 mg PO Q4H PRN PRN Reason: Headache/Fever/Mild Pain (1-3) Last Admin: 01/02/19 20:28 Dose: 650 mg Hydrocodone Bitart/Acetaminophen (Ransom 5/325) 1 tab PO Q4H PRN PRN Reason: Moderate Pain (4-6) Albuterol/Ipratropium (Duoneb) 3 ml NEB [id number] [facility] Last Admin: 01/02/19 18:09 Dose: 3 ml Artificial Tears (Tears Naturale) 2 drop EA EYE PRN PRN PRN Reason: Dry Eyes Aspirin (Aspirin Chewable) 81 mg PO DAILY [facility] Last Admin: 01/02/19 10:01 Dose: 81 mg Atorvastatin Calcium (Lipitor) 40 mg PO HS [facility] Last Admin: 01/02/19 20:24 Dose: 40 mg Bisacodyl (Dulcolax) 10 mg [place] DAILYPRN PRN PRN Reason: Constipation Calcium Carbonate (Tums) 1,000 mg PO Q4H PRN PRN Reason: Heartburn or Indigestion Carvedilol (Coreg) 12.5 mg PO BID [facility] Last Admin: 01/02/19 20:24 Dose: 12.5 mg Dextrose/Water (Dextrose 50%) 25 gm SLOW IVP PRN PRN PRN Reason: Hypoglycemia Enoxaparin Sodium (Lovenox) 40 mg SC 0900 [facility] Last Admin: 01/02/19 10:02 Dose: 40 mg Fluoxetine HCl (Prozac) 60 mg PO DAILY [facility] Last Admin: 01/02/19 09:59 Dose: 60 mg Furosemide (Lasix) 80 mg SLOW IVP 0600,1400 [facility] Last Admin: 01/02/19 15:27 Dose: 80 mg Gabapentin (Neurontin) 100 mg PO BID [facility] Last Admin: 01/02/19 20:25 Dose: 100 mg Glipizide (Glucotrol) 5 mg PO DAILY [facility] Last Admin: 01/02/19 10:00 Dose: 5 mg Glucagon (Glucagon) 1 mg IM PRN PRN PRN Reason: Hypoglycemia Guaifenesin (Robitussin Sf) 200 mg PO Q4H PRN PRN Reason: Cough Hydralazine HCl (Apresoline) 10 mg SLOW IVP Q4H PRN PRN Reason: SBP > 180 and HR < 70 Hydralazine HCl (Apresoline) 25 mg PO TID [facility] Last Admin: 01/02/19 20:24 Dose: 25 mg Dextrose/Water (D5w) 1,000 mls @ 0 mls/hr IV .Q0M PRN PRN Reason: Hypoglycemia Insulin Human Lispro (Humalog) 0 units SC .MODERATE SLIDING SC PRN PRN Reason: Moderate Correctional Scale Last Admin: 01/02/19 17:49 Dose: 2 unit Insulin Human Lispro (Humalog) 0 units SC .BEDTIME SLIDING SC PRN PRN Reason: Bedtime Correctional Scale Iron/Minerals/Multivitamins (Theragran M) 1 tab PO DAILY [facility] Last Admin: 01/02/19 10:00 Dose: 1 tab Isosorbide Dinitrate (Isordil) 20 mg PO TID [facility] Last Admin: 01/02/19 20:25 Dose: 20 mg Loperamide HCl (Imodium) 2 mg PO PRN PRN PRN Reason: Diarrhea/Loose Stools Loratadine (Claritin) 10 mg PO DAILYPRN PRN PRN Reason: Sinus Symptoms Nitroglycerin (Nitrostat) 0.4 mg SL Q5MIN PRN PRN Reason: Chest Pain Ondansetron HCl (Zofran Odt) 4 mg PO Q6H PRN PRN Reason: Nausea/Vomiting Ondansetron HCl (Zofran) 4 mg IVP Q6H PRN PRN Reason: Nausea/Vomiting Pantoprazole Sodium (Protonix) 40 mg PO DAILY [facility] Last Admin: 01/02/19 10:01 Dose: 40 mg Senna/Docusate Sodium (Senokot S) 2 tab PO BID PRN PRN Reason: Constipation Last Admin: 01/02/19 20:32 Dose: 2 tab Sodium Chloride ([place]kins Nasal [place] 0.65%) 0 ml EA NARE QIDPRN PRN PRN Reason: Nasal Congestion Sodium Chloride (Flush - Normal Saline) 10 ml IVF Q12HR ALYCE Last Admin: 01/02/19 20:25 Dose: 10 ml Sodium Chloride (Flush - Normal Saline) 10 ml IVF PRN PRN PRN Reason: Saline Flush Last Admin: 12/31/18 05:23 Dose: 10 ml Throat Lozenges (Cepastat Lozenges) 1 vannesa PO Q2H PRN PRN Reason: Sore Throat Zolpidem Tartrate (Ambien) 5 mg PO HSPRN PRN PRN Reason: Insomnia
[2019-01-03] MEDS: Acetaminophen 325 MG TAB PO PRN (05:18)
[2019-01-03] MEDS: Furosemide 100 MG/10 ML VIAL SLOW IVP SCH (05:21)
[2019-01-03 05:39] LABS: Anion Gap 14 mmol/L (10-20); BUN (Urea Nitrogen) 38 mg/dL (8.4-25.7); Calc. Creatinine Clearance 81 mL/min (70-130); Calcium 10.2 mg/dL (7.8-10.44); Carbon Dioxide 33 mmol/L (23-31); Chloride 95 mmol/L (98-107); Estimated GFR-MDRD 60; Glucose 137 mg/dL (80-115); Magnesium 2.1 mg/dL (1.6-2.6); Potassium 4.1 mmol/L (3.5-5.1); Sodium 138 mmol/L (136-145)
[2019-01-03] MEDS ORDERED: Potassium Chloride 20 MEQ TAB PO SCH (08:00)
[2019-01-03] MEDS: glipiZIDE 5 MG TAB PO SCH (08:33)
[2019-01-03] MEDS: FLUoxetine HCl 20 MG CAP PO SCH (08:34)
[2019-01-03] MEDS: hydrALAZINE 25 MG TAB PO SCH ×2 (08:34→15:26)
[2019-01-03] MEDS: Multivitamin W/ Minerals 1 TAB PO SCH (08:34)
[2019-01-03] MEDS: Aspirin Chewable 81 MG TAB PO SCH (08:35)
[2019-01-03] MEDS: Enoxaparin Sodium 40 MG/0.4 ML SYRINGE SC SCH (08:35)
[2019-01-03] MEDS: Carvedilol 6.25 MG TAB PO SCH (08:35)
[2019-01-03] MEDS: Gabapentin 100 MG CAP PO SCH (08:35)
[2019-01-03] MEDS: Isosorbide Dinitrate 20 MG TAB PO SCH ×2 (08:35→15:26)
[2019-01-03] MEDS: HumaLOG 300 UNITS/3 ML VIAL SC PRN (11:32)
[2019-01-03 15:26] VITALS: BP 111/75; TEMP 97.4
[2019-01-03] MEDS ORDERED: Apixaban 5 MG TAB PO SCH (21:00)
--- NOTE | 2019-01-04 05:27 | DIS ---
DATE OF ADMISSION: 12/30/2018 DATE OF DISCHARGE: 01/03/2019 DISCHARGE DISPOSITION: Home. FOLLOWUP: 1. Follow up with primary care physician, Dr. Zackary Tamayo, in 1 week. 2. Follow up with Dr. Krishnan, next week. The patient was extensively counseled to be compliant with all of his medications including fluid restriction. A basic metabolic profile after 1 week is recommended. Primary care physician advised to follow. Daily weight was emphasized. ALLERGIES: NO KNOWN DRUG ALLERGIES. INPATIENT CONSULT AND CARDIOLOGY, DR. GREGORY SERRANO, WAS COVERING FOR DR. KRISHNAN. BRIEF HOSPITAL COURSE: The patient is a 63-year-old white male with chronic systolic heart failure with recent hospitalization for hyperkalemia requiring dialysis, presented to the hospital with shortness of breath. His workup was consistent with acute on chronic systolic heart failure exacerbation. He was started on diuretics with good response. His weight on admission was 236 pounds and at discharge was 202 pounds. He is currently on room air. IV Lasix has been switched to p.o. He was extensively counseled on congestive heart failure, as well as fluid restriction. He has been cleared by Cardiology for discharge. The patient had AICD interrogated that showed short runs of atrial fibrillation in May of 2018. I discussed with Conchita (Dr. Krishnan's nurse practitioner) who recommended to continue aspirin for now. They will continue monitoring for new episodes of atrial fibrillation. He appears stable for discharge. He understands the above plan of care. FINAL DIAGNOSES: 1. Acute on chronic systolic and diastolic heart failure exacerbation, ACC stage C. 2. Coronary artery disease, status post coronary artery bypass grafting. 3. Chronic kidney disease stage 3, with recent acute kidney injury with life-threatening hyperkalemia requiring hemodialysis. 4. Diabetes mellitus type 2. 5. Hypertension. 6. Hypokalemia, replaced. 7. Hypomagnesemia, replaced. 8. Severe mitral regurgitation. 9. Tricuspid regurgitation. 10. Pulmonary hypertension. 11. Gastroesophageal reflux disease. TIME SPENT: Total time coordinating the discharge of this patient was 35 minutes. Job ID: [id number]
[2019-01-04] MEDS ORDERED: Furosemide 40 MG TAB PO SCH (07:30)
[2019-01-04] MEDS ORDERED: Potassium Chloride 20 MEQ TAB PO SCH (08:00)
== END 2019-01-03 18:40 | disposition home or self-care (01) | DRG 291 ==
LOC: ERS 23:54 → 2NO 12-30 03:14
PROVIDERS: ADMIT Hospitalist; ATTEND Hospitalist
DX: I13.0 Hypertensive heart and chronic kidney disease with heart failure and stage 1 through stage 4 chronic kidney disease, or unspecified chronic kidney disease (principal); I50.43 Acute on chronic combined systolic (congestive) and diastolic (congestive) heart failure; K21.9 Gastro-esophageal reflux disease without esophagitis; E78.5 Hyperlipidemia, unspecified; I48.0 Paroxysmal atrial fibrillation; F41.9 Anxiety disorder, unspecified; F32.9 Major depressive disorder, single episode, unspecified; I25.10 Atherosclerotic heart disease of native coronary artery without angina pectoris; E11.42 Type 2 diabetes mellitus with diabetic polyneuropathy; N18.3 Chronic kidney disease, stage 3 (moderate); E83.42 Hypomagnesemia; E66.9 Obesity, unspecified; D69.6 Thrombocytopenia, unspecified; J44.9 Chronic obstructive pulmonary disease, unspecified; I25.5 Ischemic cardiomyopathy; I35.1 Nonrheumatic aortic (valve) insufficiency; I27.20 Pulmonary hypertension, unspecified; I34.0 Nonrheumatic mitral (valve) insufficiency; I07.1 Rheumatic tricuspid insufficiency; E11.22 Type 2 diabetes mellitus with diabetic chronic kidney disease; Z95.1 Presence of aortocoronary bypass graft; Z87.891 Personal history of nicotine dependence; Z79.82 Long term (current) use of aspirin
CPT/HCPCS: 36415; 36416; 71045; 80048; 80053; 81001; 82570; 83735; 83880; 84156; 84443; 84484; 84550; 85025; 93005; 93798; 94640; 96374; J1650; J1940; J3475; J3490; J7620